=== PATIENT | male | born 1935 | race Caucasian/White ===

== ENCOUNTER 2016-10-27 09:34 | Inpatient (IN) | payer MEDICARE, BC ==
--- NOTE | 2016-10-27 09:43 | EDM.PDOC ---
ED HISTORY OF PRESENT ILLNESS - General Chief Complaint: Fever Stated Complaint: [facility] Time Seen by Provider: 10/27/16 09:36 Source of Information: Reports: Patient, EMS History Limitations: Reports: No limitations - History of Present Illness INITIAL COMMENTS - FREE TEXT/NARRATIVE: 80-year-old male from [facility] arrives in the ED per ambulance. Patient reports this morning he had fever and chills throughout the night. Teeth are almost chattering at times. He denies a cough but he sounds very congested in his lung marin. States very weak when he tried to walk around this morning. No appetite. He believes he took his morning meds. Patient has a history of neurogenic bladder and was using intermittent catheterization but states she's not had to do so for many months. Feels that he empties his bladder fairly well on his own. He did have an influenza shot. He is to keep it and tachycardic at rest.febrile on exam.his reports that he was nauseated this morning and did bring up some phlegm that seemed to have a little specks of blood in it. Symptom Onset Date: 10/27/16 (abdomen is more or less came on abruptly overnight.) Timing/Duration: Reports: Hour(s):, Sudden onset Severity: moderate Location, General: Reports: generalized Quality: Reports: Ache (generalized myalgia.) Improves with: Reports: None Worsens with: Reports: Movement Context, General: Denies: Activity, Exercise, Lifting, Sick contact, Trauma, Other Associated Symptoms (General): Reports: cough w sputum, diaphoresis, fever/ chills, loss of appetite, malaise, shortness of breath, weakness (severe and generalized. Hardly able to walk on his own volition.). Denies: no other symptoms, confusion, chest pain, headaches, nausea/vomiting, rash, seizure Treatments QUALITY ASSISTANT: Reports: Other (see below) (none) - Related Data Allergies/ADRs: Allergies Allergy/AdvReac Type Severity Reaction Status Date / Time [id number] Reductase Allergy Body Aches Verified 10/27/16 09:54 Inhibitor Home Meds: Home Meds Aspirin 81 mg PO BRK 10/27/16 [History] Cholecalciferol (Vitamin D3) [Vitamin D3] 1,000 unit PO DAILY 10/27/16 [History] Digoxin 125 mcg PO DAILY 10/27/16 [History] Ferrous Sulfate 325 mg PO DAILY 10/27/16 [History] Finasteride 5 mg PO DAILY 10/27/16 [History] Folic Acid 1 mg PO DAILY 10/27/16 [History] Levothyroxine 25 mcg PO ACBREAKFAST 10/27/16 [History] Metoprolol Tartrate 25 mg PO BID 10/27/16 [History] Mirtazapine 7.5 mg PO BEDTIME 10/27/16 [History] Multivitamin [Multivitamins] 1 cap PO DAILY 10/27/16 [History] Omeprazole 20 mg PO DAILY 10/27/16 [History] Potassium Chloride 10 meq PO DAILY 10/27/16 [History] Sennosides/Docusate Sodium [Senna Plus Tablet] 2 cap PO DAILY 10/27/16 [History] Tamsulosin [Flomax] 0.4 mg PO DAILY 10/27/16 [History] Torsemide 40 mg PO DAILY 10/27/16 [History] Vitamin B Complex [B Complex] 1 cap PO DAILY 10/27/16 [History] Warfarin [Coumadin] 5 mg PO DAILY 10/27/16 [History] Past Medical History Cardiovascular History: Reports: Afib (chronically and is on Coumadin.), CAD, Heart Failure, Heart valve replacement Respiratory History: Reports: COPD (is not use oxygen at home.) Genitourinary History: Reports: BPH, Chronic renal insuffiency, Other (see below ) (possible neurogenic bladder with repeat being to self catheterize in the past but he states that he's been able to void pretty well on his own the last several months.) Social & Family History - Living Situation & Occupation Living situation: Reports: , with spouse Occupation: retired (reports low is in low income housing in [place].) ED ROS GENERAL - Review of Systems Review Of Systems: See Below Constitutional: Reports: fever, chills, malaise, weakness, fatigue (started overnight), diaphoresis, decreased appetite HEENT: Reports: No symptoms Respiratory: Reports: shortness of breath, wheezing, cough. Denies: pleuritic chest pain, hemoptysis (not bringing up any phlegm.) Cardiovascular: Reports: Dyspnea on exertion (little bit this morning was trying to stand up.), Lightheadedness. Denies: Chest pain, Blood pressure problem, Claudication, Orthopnea, Palpitations Endocrine: Reports: fatigue GI/Abdominal: Reports: Constipation (occasional pause of constipation), Decreased appetite. Denies: Abdominal pain, Diarrhea, Distension, Flatus, Hematemesis, Hematochezia, Melena, Nausea, Stool incontinence, Vomiting : Reports: frequency, other (history of neurogenic bladder and BPH. Was self catheterizing himself up until the last few months. States has been working pretty good on its own.) Musculoskeletal: Reports: neck pain, shoulder pain, back pain, joint pain Skin: Reports: no symptoms (knees and hips.) Neurological: Reports: dizziness, difficulty walking (due to weakness this morning). Denies: paresthesia, pre-existing deficit Psychiatric: Reports: No symptoms Hematologic/Lymphatic: Reports: no symptoms Immunologic: Reports: no symptoms ED EXAM, GENERAL - Physical Exam Exam: See Below Exam Limited By: Respiratory distress (mild tachypnea at rest) General Appearance: alert, WD/WN, moderate distress, other (feels warm to palpation.) Eye Exam: bilateral eye: normal inspection Ears: normal TMs Throat/Mouth: Normal lips, Normal oropharynx. No: Normal teeth Head: atraumatic, normocephalic Neck: normal inspection, full range of motion, tender lateral (bilaterally with crepitus on exam.). No: lymphadenopathy (L), lymphadenopathy (R) Respiratory/Chest: respiratory distress (mild tachypnea), decreased breath sounds (2 both posterior lung marin to 30%.), crackles (both bases.), rhonchi ( throughout both lungs but much worse on the right anterior and posterior lung marin.). No: wheezing Cardiovascular: regular rate, rhythm, no edema, no gallop, no murmur, no rub, irregularly irregular (monitor confirms H. fibrillation with a rate of around 1: 30 to per minute.), other (well-healed midline sternotomy incision. Vaughn has a bioprosthetic aortic valve.). No: normal peripheral pulses Peripheral Pulses: 1+: posterior tibial (L), posterior tibial (R), dorsalis pedis (L), dorsalis pedis (R) GI/Abdominal: normal bowel sounds, soft, non tender, no organomegaly, distended (slightly distended in the epigastrium with tympany to percussion compatible with mild aerophagia.), abnormal bowel sounds: (a little hyperactive.), other ( questionable fullness in the lower abdomen suprapubically with dullness to percussion. Question of urinary retention. Bladder scan to be done). No: rigid , rebound, tender (Male) Exam: No hernia Back Exam: normal inspection. No: CVA tenderness (L), CVA tenderness (R) Extremities: normal inspection, normal range of motion, non-tender, no pedal edema, normal capillary refill Neurological: alert, oriented, CN II-XII intact, normal cognition Psychiatric: normal affect, normal mood Skin Exam: Warm, Dry, Intact, Normal color, No rash EKG INTERPRETATION EKG Date: 10/27/16 Time: 10:10 Rhythm: a-fib (with variable rate from 72-152 per minute.) Rate (beats/min): 143 [place]: normal P-wave: absent QRS: normal ST-T: depressed (ST depression mildly noted in V3 to V6 leads one and 2 cannot rule out ischemia. This could be rate related.) QT: normal Course - Vital Signs Last Recorded V/S: Last Vital Signs Temp 37.1 C 10/27/16 10:28 Pulse 133 H 10/27/16 09:39 Resp 19 10/27/16 09:39 BP 119/65 10/27/16 09:39 Pulse Ox 94 L 10/27/16 10:23 - Orders/Labs/Meds Orders: Active Orders 24 hr Category Date Time Status EKG Documentation Completion [RC] STAT Care 10/27/16 09:41 Active Oxygen Therapy [RC] ASDIRECTED Care 10/27/16 09:42 Active RT Aerosol Therapy [RC] ASDIRECTED Care 10/27/16 09:47 Active Chest 1V Frontal [CR] Stat Exams 10/27/16 09:41 Taken CULTURE BLOOD [BC] Stat Lab 10/27/16 09:57 Received CULTURE BLOOD [BC] Stat Lab 10/27/16 10:05 Received Levofloxacin/Dextrose 5%-Water [Levaquin in D5W 750 MG/ Med 10/27/16 10:36 Active 150 ML] 750 mg Premix Bag 1 bag IV ONETIME Sodium Chloride 0.9% [Normal Saline] 1,000 ml Med 10/27/16 09:45 Active IV ASDIRECTED Blood Culture x2 Reflex Set [OM.PC] Stat Oth 10/27/16 09:42 Ordered Medication Orders Sodium Chloride (Normal Saline) 1,000 mls @ 100 mls/hr IV ASDIRECTED RONA Last Admin: 10/27/16 10:27 Dose: 100 mls/hr Levofloxacin/Dextrose 750 mg/ (Premix) 150 mls @ 100 mls/hr IV ONETIME ONE Stop: 10/27/16 12:05 Last Admin: 10/27/16 10:48 Dose: 100 mls/hr Labs: Laboratory Tests 10/27/16 10/27/16 10/27/16 Range/Units 09:46 09:57 09:57 WBC 16.93 H (4.23-9.07) K/mm3 RBC 4.08 L (4.63-6.08) M/mm3 Hgb 12.8 L (13.7-17.5) gm/L Hct 39.0 L (40.1-51.0) % MCV 95.6 H (79.0-92.2) fl MCH 31.4 (25.7-32.2) pg MCHC 32.8 (32.2-35.5) g/dl RDW Std Deviation 47.3 H (35.1-43.9) fL Plt Count 166 (163-337) K/mm3 MPV 10.9 (9.4-12.3) fl Neutrophils % (Manual) 90 H (40-60) % Band Neutrophils % 0 (0-10) % Lymphocytes % (Manual) 6 L (20-40) % Atypical Lymphs % 0 % Monocytes % (Manual) 3 (2-10) % Eosinophils % (Manual) 1 (0.8-7.0) % Basophils % (Manual) 0 L (0.2-1.2) Platelet Estimate Adequate RBC Morph Comment Normal ESR (0-15) mm/hr PT 24.9 H (8.0-13.0) SECONDS INR 2.17 Puncture Site Lt radial ABG pH 7.45 (7.35-7.45) ABG pCO2 38.9 (35.0-45.0) mmHg ABG pO2 70.0 L (80.0-100.0) mmHg ABG HCO3 26.4 H (22.0-26.0) meq/L ABG O2 Saturation 95.5 L (96.0-97.0) % ABG Base Excess 2.7 H (-2-2.0) Alfonso Test Positive O2 Delivery Device Nasal cannula Oxygen Flow Rate 4.0 FiO2 0.00 L (21.00-100.00) % Sodium (136-145) mEq/L Potassium (3.5-5.1) mEq/L Chloride (98-107) mEq/L Carbon Dioxide (21-32) mEq/L Anion Gap (5-15) BUN (7-18) mg/dL Creatinine (0.7-1.3) mg/dL Est Cr Clr Drug Dosing mL/min Estimated GFR (MDRD) (>60) mL/min BUN/Creatinine Ratio (14-18) Glucose (83-115) mg/dL Lactic Acid (0.4-2.0) mmol/L Calcium (8.5-10.1) mg/dL Magnesium (1.8-2.4) mg/dl Total Bilirubin (0.2-1.0) mg/dL AST (15-37) U/L ALT (16-63) U/L Alkaline Phosphatase (46-116) U/L CK-MB (CK-2) (0-3.6) ng/ml Troponin I (0.00-0.056) ng/mL C-Reactive Protein (<1.0) mg/dL B-Natriuretic Peptide (0-100) pg/mL Total Protein (6.4-8.2) g/dl Albumin (3.4-5.0) g/dl Globulin gm/dL Albumin/Globulin Ratio (1-2) Urine Color (Yellow) Urine Appearance (Clear) Urine pH (5.0-8.0) Ur Specific [place]gie (1.005-1.030) Urine Protein (Negative) Urine Glucose (UA) (Negative) Urine Ketones (Negative) Urine Occult Blood (Negative) Urine Nitrite (Negative) Urine Bilirubin (Negative) Urine Urobilinogen (0.2-1.0) Ur Leukocyte Esterase (Negative) Urine RBC (0-5) /hpf Urine WBC (0-5) /hpf Ur Squamous Epith Cells (0-5) /hpf Urine Bacteria (FEW) /hpf Urine Mucus (FEW) /hpf Digoxin (0.9-2.0) ng/mL 10/27/16 10/27/16 10/27/16 Range/Units 09:57 09:57 09:57 WBC (4.23-9.07) K/mm3 RBC (4.63-6.08) M/mm3 Hgb (13.7-17.5) gm/L Hct (40.1-51.0) % MCV (79.0-92.2) fl MCH (25.7-32.2) pg MCHC (32.2-35.5) g/dl RDW Std Deviation (35.1-43.9) fL Plt Count (163-337) K/mm3 MPV (9.4-12.3) fl Neutrophils % (Manual) (40-60) % Band Neutrophils % (0-10) % Lymphocytes % (Manual) (20-40) % Atypical Lymphs % % Monocytes % (Manual) (2-10) % Eosinophils % (Manual) (0.8-7.0) % Basophils % (Manual) (0.2-1.2) Platelet Estimate RBC Morph Comment ESR 25 H (0-15) mm/hr PT (8.0-13.0) SECONDS INR Puncture Site ABG pH (7.35-7.45) ABG pCO2 (35.0-45.0) mmHg ABG pO2 (80.0-100.0) mmHg ABG HCO3 (22.0-26.0) meq/L ABG O2 Saturation (96.0-97.0) % ABG Base Excess (-2-2.0) Alfonso Test O2 Delivery Device Oxygen Flow Rate FiO2 (21.00-100.00) % Sodium 141 (136-145) mEq/L Potassium 4.2 (3.5-5.1) mEq/L Chloride 104 (98-107) mEq/L Carbon Dioxide 27 (21-32) mEq/L Anion Gap 14.2 (5-15) BUN 22 H (7-18) mg/dL Creatinine 1.5 H (0.7-1.3) mg/dL Est Cr Clr Drug Dosing 43.83 mL/min Estimated GFR (MDRD) 45 (>60) mL/min BUN/Creatinine Ratio 14.7 (14-18) Glucose 118 H (83-115) mg/dL Lactic Acid (0.4-2.0) mmol/L Calcium 8.9 (8.5-10.1) mg/dL Magnesium 1.7 L (1.8-2.4) mg/dl Total Bilirubin 0.7 (0.2-1.0) mg/dL AST 35 (15-37) U/L ALT 31 (16-63) U/L Alkaline Phosphatase 73 (46-116) U/L CK-MB (CK-2) 1.0 (0-3.6) ng/ml Troponin I 0.102 H* (0.00-0.056) ng/mL C-Reactive Protein 1.9 H* (<1.0) mg/dL B-Natriuretic Peptide 208 H (0-100) pg/mL Total Protein 6.6 (6.4-8.2) g/dl Albumin 3.3 L (3.4-5.0) g/dl Globulin 3.3 gm/dL Albumin/Globulin Ratio 1.0 (1-2) Urine Color (Yellow) Urine Appearance (Clear) Urine pH (5.0-8.0) Ur Specific [place] (1.005-1.030) Urine Protein (Negative) Urine Glucose (UA) (Negative) Urine Ketones (Negative) Urine Occult Blood (Negative) Urine Nitrite (Negative) Urine Bilirubin (Negative) Urine Urobilinogen (0.2-1.0) Ur Leukocyte Esterase (Negative) Urine RBC (0-5) /hpf Urine WBC (0-5) /hpf Ur Squamous Epith Cells (0-5) /hpf Urine Bacteria (FEW) /hpf Urine Mucus (FEW) /hpf Digoxin (0.9-2.0) ng/mL 10/27/16 10/27/16 10/27/16 Range/Units 09:57 09:57 10:11 WBC (4.23-9.07) K/mm3 RBC (4.63-6.08) M/mm3 Hgb (13.7-17.5) gm/L Hct (40.1-51.0) % MCV (79.0-92.2) fl MCH (25.7-32.2) pg MCHC (32.2-35.5) g/dl RDW Std Deviation (35.1-43.9) fL Plt Count (163-337) K/mm3 MPV (9.4-12.3) fl Neutrophils % (Manual) (40-60) % Band Neutrophils % (0-10) % Lymphocytes % (Manual) (20-40) % Atypical Lymphs % % Monocytes % (Manual) (2-10) % Eosinophils % (Manual) (0.8-7.0) % Basophils % (Manual) (0.2-1.2) Platelet Estimate RBC Morph Comment ESR (0-15) mm/hr PT (8.0-13.0) SECONDS INR Puncture Site ABG pH (7.35-7.45) ABG pCO2 (35.0-45.0) mmHg ABG pO2 (80.0-100.0) mmHg ABG HCO3 (22.0-26.0) meq/L ABG O2 Saturation (96.0-97.0) % ABG Base Excess (-2-2.0) Alfonso Test O2 Delivery Device Oxygen Flow Rate FiO2 (21.00-100.00) % Sodium (136-145) mEq/L Potassium (3.5-5.1) mEq/L Chloride (98-107) mEq/L Carbon Dioxide (21-32) mEq/L Anion Gap (5-15) BUN (7-18) mg/dL Creatinine (0.7-1.3) mg/dL Est Cr Clr Drug Dosing mL/min Estimated GFR (MDRD) (>60) mL/min BUN/Creatinine Ratio (14-18) Glucose (83-115) mg/dL Lactic Acid 2.7 H (0.4-2.0) mmol/L Calcium (8.5-10.1) mg/dL Magnesium (1.8-2.4) mg/dl Total Bilirubin (0.2-1.0) mg/dL AST (15-37) U/L ALT (16-63) U/L Alkaline Phosphatase (46-116) U/L CK-MB (CK-2) (0-3.6) ng/ml Troponin I (0.00-0.056) ng/mL C-Reactive Protein (<1.0) mg/dL B-Natriuretic Peptide (0-100) pg/mL Total Protein (6.4-8.2) g/dl Albumin (3.4-5.0) g/dl Globulin gm/dL Albumin/Globulin Ratio (1-2) Urine Color Yellow (Yellow) Urine Appearance Clear (Clear) Urine pH 5.5 (5.0-8.0) Ur Specific [place]gie 1.020 (1.005-1.030) Urine Protein Negative (Negative) Urine Glucose (UA) Negative (Negative) Urine Ketones Negative (Negative) Urine Occult Blood Negative (Negative) Urine Nitrite Negative (Negative) Urine Bilirubin Negative (Negative) Urine Urobilinogen 0.2 (0.2-1.0) Ur Leukocyte Esterase Negative (Negative) Urine RBC 0-5 (0-5) /hpf Urine WBC 0-5 (0-5) /hpf Ur Squamous Epith Cells 0-5 (0-5) /hpf Urine Bacteria Few (FEW) /hpf Urine Mucus Few (FEW) /hpf Digoxin < 0.2 L (0.9-2.0) ng/mL Meds: Medications Generic Name Dose Route Start Last Admin Trade Name Freq PRN Reason Stop Dose Admin Sodium Chloride 1,000 mls @ 100 mls/hr 10/27/16 09:45 10/27/16 10:27 Normal Saline IV 100 mls/hr ASDIRECTED RONA Administration Levofloxacin/Dextrose 750 mg/ 150 mls @ 100 mls/hr 10/27/16 10:36 10/27/16 10 :48 Premix IV 10/27/16 12:05 100 mls/hr ONETIME ONE Administration Discontinued Medications Generic Name Dose Route Start Last Admin Trade Name Freq PRN Reason Stop Dose Admin Acetaminophen 650 mg 10/27/16 09:47 10/27/16 10:28 Tylenol PO 10/27/16 09:48 650 mg NOW ONE Administration Albuterol/Ipratropium 3 ml 10/27/16 09:47 10/27/16 10:23 Duoneb 3.0-0.5 Mg/3 Ml NEB 10/27/16 09:48 3 ml ONETIME ONE Administration Diltiazem HCl 5 mg 10/27/16 09:58 10/27/16 10:31 Diltiazem IVPUSH 10/27/16 09:59 5 mg ONETIME ONE Administration Diltiazem HCl 10 mg 10/27/16 10:18 10/27/16 10:36 Diltiazem IVPUSH 10/27/16 10:19 10 mg ONETIME ONE Administration Furosemide 40 mg 10/27/16 09:58 10/27/16 10:30 Lasix IVPUSH 10/27/16 09:59 40 mg NOW ONE Administration - Radiology Interpretation Free Text/Narrative:: 80-year-old male presents the ED with acute febrile illness. Productive sounding cough with rhonchi throughout the lung marin particularly on the right side. Query pneumonia. Her influenza. Tongue is dry and beefy red compatible with mild volume depletion. Benign abdomen although question whether he is a low-grade urinary retention with dullness to percussion in the lower abdomen above suprapubic area. History of neurogenic bladder requiring intermittent catheterization for which is not been doing for several months as he feels he is draining urine adequately. Has had previous urinary tract infections. Plan a septic workup to be carried out including lactic acid as he is hypertensive tachypnea and hypoxic. Paramedics identified O2 sats of 8485% when they picked him up. He is currently on 4 L per minute by nasal cannula and is 95%. Chest x-ray ECG and blood gases to be obtained as well. IV will be started at 100 mils per hour normal saline,heart rate troubles as high as 150 per minute at times. Therefore going to give him 5 mg of Cardizem IV push and see what kind of response I get.he is on Lopressor chronically. - Re-Assessments/Exams Free Text/Narrative Re-Assessment/Exam: 10/27/16 10:19Cardizem 5 mg IV did nothing. Part is as high as 137-142. We'll give Cardizem 10 mg IV bolus now. 10/27/16 10:38chest x-ray reveals extensive pneumonia throughout the entire right lung field. Mild cardiomegaly appreciated. Blunted left costophrenic angle suggestive of fluid component to the infiltrates as well. Will start him on Levaquin 750 mg IV. The white count was 16.93. Differentials pending lactic acid elevated at 2.7.remainder of his labs are pending. Note the urinalysis is normal. 10/27/16 10:47 Heart rate is now 93. Remains in atrial fibrillation. Advised patient and family about the finding of pneumonia throughout the right lung and the need for the antibiotics and the need to stay in hospital. 10/27/16 10:57 differential on the white count which is elevated 16.93 is 90% neutrophils and no bands. Sedimentation rate is 25. PT is 24.9 INR is 2.17. ABGs revealed a pH of 7.45 PCO2 is 38.9. PO2 70 O2 sats 95.9%. This is on 4 L. Chemistry shows a sodium of 141 potassium of 4.2 chloride 104 bicarbonate of 27. Anion gap is normal at 14.2 creatinine is 1.5 he GFR is 45. Magnesium is mildly low at 1.7.troponin is mildly elevated at 0.102. CRP is 1.9 BNP is 208. His to posterior going to be followed to make sure that he has not suffered an infarct. He has no chest pain. He may have infarcted due to combination of transient hypoxia and rapid atrial fibrillation which is now controlled. 10/27/16 10:59will speak with engine emission technician hospitalist with a view to admission to the hospital. Ideally he probably should be admitted to the intensive care he but I'm not sure if there is a bed available. 10/27/16 11:16spoke with Dr. Lynn -engine emission technician hospitalist and the patient will be admitted to the intensive care unit for management. Departure - Departure Time of Disposition: 11:17 Disposition: Admitted As Inpatient 67 Condition: serious Clinical Impression: Atrial fibrillation with RVR, Elevated troponin I measurement, CHF (congestive heart failure), NYHA class III, Lactic acid acidosis, Hypomagnesemia, Chronic renal insufficiency, stage III (moderate) Pneumonia Qualifiers: Pneumonia type: due to unspecified organism Laterality: right Lung location: lower lobe of lung Qualified Code(s): J18.1 - Lobar pneumonia, unspecified organism Additional Instructions: patient will be admitted to the intensive care unit for management of extensive right-sided pneumonia causing hypoxemia and need for oxygen. He has mild lactic acidosis. Initial fibrillation with rapid ventricular rate brought under control with recurrent small doses of intravenous diltiazem. Mild congestive heart failure. Chronic renal insufficiency stage III. - My Orders Last 24 Hours: My Active Orders 10/27/16 09:41 EKG Documentation Completion [RC] STAT Chest 1V Frontal [CR] Stat 10/27/16 09:42 Oxygen Therapy [RC] ASDIRECTED Blood Culture x2 Reflex Set [OM.PC] Stat 10/27/16 09:45 Sodium Chloride 0.9% [Normal Saline] 1,000 ml IV ASDIRECTED 10/27/16 09:47 RT Aerosol Therapy [RC] ASDIRECTED 10/27/16 09:57 CULTURE BLOOD [BC] Stat 10/27/16 10:05 CULTURE BLOOD [BC] Stat 10/27/16 10:36 Levofloxacin/Dextrose 5%-Water [Levaquin in D5W 750 MG/150 ML] 750 mg Premix Bag 1 bag IV ONETIME - Assessment/Plan Last 24 Hours: My Active Orders 10/27/16 09:41 EKG Documentation Completion [RC] STAT Chest 1V Frontal [CR] Stat 10/27/16 09:42 Oxygen Therapy [RC] ASDIRECTED Blood Culture x2 Reflex Set [OM.PC] Stat 10/27/16 09:45 Sodium Chloride 0.9% [Normal Saline] 1,000 ml IV ASDIRECTED 10/27/16 09:47 RT Aerosol Therapy [RC] ASDIRECTED 10/27/16 09:57 CULTURE BLOOD [BC] Stat 10/27/16 10:05 CULTURE BLOOD [BC] Stat 10/27/16 10:36 Levofloxacin/Dextrose 5%-Water [Levaquin in D5W 750 MG/150 ML] 750 mg Premix Bag 1 bag IV ONETIME
[2016-10-27] MEDS ORDERED: Sodium Chloride 0.9% 1,000 ML IV SCH (09:45)
[2016-10-27] MEDS ORDERED: Albuterol/Ipratropium 3.0-0.5 MG/3 ML Neb Soln NEB ONE (09:47)
[2016-10-27] MEDS ORDERED: Acetaminophen 325 MG Tab PO ONE (09:47)
[2016-10-27] MEDS ORDERED: Furosemide 40 MG/4 ML VIAL IVPUSH ONE (09:58)
[2016-10-27] MEDS ORDERED: Diltiazem 25 MG/5 ML SDV IVPUSH ONE ×2 (09:58→10:18)
[2016-10-27] MEDS ORDERED: Levofloxacin/Dextrose 5%-Water 750 MG in Premix Bag 1 BAG IV ONE (10:36)
--- NOTE | 2016-10-27 11:44 | PCM.HP ---
H&P History of Present Illness - General Date of Service: 10/27/16 Admit Problem/Dx: Admission Diagnosis/Problem Admission Diagnosis/Problem Pneumonia Source of Information: Patient, Family, Old records, Provider, RN notes reviewed History Limitations: Reports: No limitations - History of Present Illness Initial Comments - Free Text/Narative: This is a 80 yo elderly white male with past medical hx/o Chronic Atrial Fibrillation on Warfarin, HTN, BPH/Urinary Retention w/ hx/o Self Cath, ?HFwith Unknown EF, JOE on CPAP, COPD, GERD, CKD Stage 3, Insomnia, Hypothyroidism, GABRIELA and GERD who comes in wioth complaints of fever and chills that started overnight. He reports associated cough with chest congestion, generalized weakness, nausea and reduced appetite. On presentation to ED, he was found tachypneic, tachycardic and febrile on initial examination. His initial work up in ED shows a CBC remarkable for WBC 16.93, Hgb 12.8, HCt 39 , and ESR 25. PT/INR 24.9 and 2.17 respectively. His chemistry is significant for BUN 22, CR 1.5, LA 2.7, BS 118, Mg 1.7, troponin 0.012, CRP 1.9, BNP 208 and Albumin 3.3. His ABG shows hypoxia with a pH 7.45 and pO2 70. His UA was negative for UTI. CXR shows right sided pulmonary consolidation. Patient was referred to me for medical treatment of PNA. He is modified full code. - Related Data Allergies/Adverse Reactions: Allergies Allergy/AdvReac Type Severity Reaction Status Date / Time [id number] Reductase Allergy Body Aches Verified 10/27/16 09:54 Inhibitor Home Medications: Home Meds Aspirin 81 mg PO BRK 10/27/16 [History] Cholecalciferol (Vitamin D3) [Vitamin D3] 1,000 unit PO DAILY 10/27/16 [History] Digoxin 125 mcg PO DAILY 10/27/16 [History] Ferrous Sulfate 325 mg PO DAILY 10/27/16 [History] Finasteride 5 mg PO DAILY 10/27/16 [History] Folic Acid 1 mg PO DAILY 10/27/16 [History] Levothyroxine 25 mcg PO ACBREAKFAST 10/27/16 [History] Metoprolol Tartrate 25 mg PO BID 10/27/16 [History] Mirtazapine 7.5 mg PO BEDTIME 10/27/16 [History] Multivitamin [Multivitamins] 1 cap PO DAILY 10/27/16 [History] Omeprazole 20 mg PO DAILY 10/27/16 [History] Potassium Chloride 10 meq PO DAILY 10/27/16 [History] Sennosides/Docusate Sodium [Senna Plus Tablet] 2 cap PO DAILY 10/27/16 [History] Tamsulosin [Flomax] 0.4 mg PO DAILY 10/27/16 [History] Torsemide 40 mg PO DAILY 10/27/16 [History] Vitamin B Complex [B Complex] 1 cap PO DAILY 10/27/16 [History] Warfarin [Coumadin] 5 mg PO DAILY 10/27/16 [History] Past Medical History HEENT History: Reports: Cataract Cardiovascular History: Reports: Afib (chronically and is on Coumadin.), CAD, Heart Failure, Heart valve replacement Respiratory History: Reports: COPD (is not use oxygen at home.) Genitourinary History: Reports: BPH, Chronic renal insuffiency, Other (see below ) (possible neurogenic bladder with repeat being to self catheterize in the past but he states that he's been able to void pretty well on his own the last several months.) - Past Surgical History HEENT Surgical History: Reports: Tonsillectomy GI Surgical History: Reports: Appendectomy, Hernia, inguinal Social & Family History - Tobacco Use Smoking Status *Q: Former Smoker - Caffeine Use Caffeine Use: Reports: Coffee - Recreational Drug Use Recreational Drug Use: No - Living Situation & Occupation Living situation: Reports: , with spouse Occupation: retired (reports low is in low income housing in [place] H&P Review of Systems - Review of Systems: Review Of Systems: See Below General: Reports: fever, chills, malaise, weakness, fatigue, diaphoresis, decreased appetite HEENT: Reports: no symptoms Pulmonary: Reports: shortness of breath, wheezing, cough Cardiovascular: Denies: chest pain, palpitations, lightheadedness, blood pressure problem Gastrointestinal: Reports: Constipation, Decreased appetite Genitourinary: Reports: frequency, retention Musculoskeletal: Reports: neck pain, shoulder pain, back pain, joint pain Skin: Denies: cyanosis, rash, change in hair/nails Psychiatric: Denies: depression, anxiety Neurological: Reports: dizziness, difficulty walking, weakness Hematologic/Lymphatic: Reports: no symptoms Immunologic: Reports: no symptoms Exam - Exam Exam: See Below - Vital Signs Vital Signs: Last Vital Signs Temp 37.1 C 10/27/16 10:28 Pulse 133 H 10/27/16 09:39 Resp 19 10/27/16 09:39 BP 119/65 10/27/16 09:39 Pulse Ox 94 L 10/27/16 10:23 Weight: 88.451 kg - Exam Quality Assessment: supplemental oxygen General: alert, cooperative. No: mild distress HEENT: Conjunctiva clear, EACs clear, Hearing intact, Mucosa moist & pink, Nares patent, Normal nasal septum, Posterior pharynx clear, PERRLA Neck: supple, trachea midline, 2+ carotid pulse wo bruit, full range of motion Lungs: Normal respiratory effort, Decreased breath sounds, Crackles, Rhonchi Cardiovascular: regular rate, regular rhythm Abdomen: normal bowel sounds. No: organomegaly (Male) Exam: Deferred Rectal (Males) Exam: Deferred Back Exam: normal inspection, decreased range of motion Extremities: normal inspection, normal pulses, edema. No: clubbing, cyanosis, calf tenderness Peripheral Pulses: 2+: dorsalis pedis (L), dorsalis pedis (R) Skin: warm, dry, intact Neuro Extensive - Mental Status: oriented x3, normal cognition, memory intact Neuro Extensive - Motor, Sensory, Reflexes: CN II-XII intact Psychiatric: alert, normal affect, normal mood - Patient Data Lab Results last 24 hrs: Laboratory Results - last 24 hr 10/27/16 10/27/16 10/27/16 Range/Units 09:46 09:57 09:57 WBC 16.93 H (4.23-9.07) K/mm3 RBC 4.08 L (4.63-6.08) M/mm3 Hgb 12.8 L (13.7-17.5) gm/L Hct 39.0 L (40.1-51.0) % MCV 95.6 H (79.0-92.2) fl MCH 31.4 (25.7-32.2) pg MCHC 32.8 (32.2-35.5) g/dl RDW Std Deviation 47.3 H (35.1-43.9) fL Plt Count 166 (163-337) K/mm3 MPV 10.9 (9.4-12.3) fl Neutrophils % (Manual) 90 H (40-60) % Band Neutrophils % 0 (0-10) % Lymphocytes % (Manual) 6 L (20-40) % Atypical Lymphs % 0 % Monocytes % (Manual) 3 (2-10) % Eosinophils % (Manual) 1 (0.8-7.0) % Basophils % (Manual) 0 L (0.2-1.2) Platelet Estimate Adequate RBC Morph Comment Normal ESR (0-15) mm/hr PT 24.9 H (8.0-13.0) SECONDS INR 2.17 Puncture Site Lt radial ABG pH 7.45 (7.35-7.45) ABG pCO2 38.9 (35.0-45.0) mmHg ABG pO2 70.0 L (80.0-100.0) mmHg ABG HCO3 26.4 H (22.0-26.0) meq/L ABG O2 Saturation 95.5 L (96.0-97.0) % ABG Base Excess 2.7 H (-2-2.0) Alfonso Test Positive O2 Delivery Device Nasal cannula Oxygen Flow Rate 4.0 FiO2 0.00 L (21.00-100.00) % Sodium (136-145) mEq/L Potassium (3.5-5.1) mEq/L Chloride (98-107) mEq/L Carbon Dioxide (21-32) mEq/L Anion Gap (5-15) BUN (7-18) mg/dL Creatinine (0.7-1.3) mg/dL Est Cr Clr Drug Dosing mL/min Estimated GFR (MDRD) (>60) mL/min BUN/Creatinine Ratio (14-18) Glucose (83-115) mg/dL Lactic Acid (0.4-2.0) mmol/L Calcium (8.5-10.1) mg/dL Magnesium (1.8-2.4) mg/dl Total Bilirubin (0.2-1.0) mg/dL AST (15-37) U/L ALT (16-63) U/L Alkaline Phosphatase (46-116) U/L CK-MB (CK-2) (0-3.6) ng/ml Troponin I (0.00-0.056) ng/mL C-Reactive Protein (<1.0) mg/dL B-Natriuretic Peptide (0-100) pg/mL Total Protein (6.4-8.2) g/dl Albumin (3.4-5.0) g/dl Globulin gm/dL Albumin/Globulin Ratio (1-2) Urine Color (Yellow) Urine Appearance (Clear) Urine pH (5.0-8.0) Ur Specific [place] (1.005-1.030) Urine Protein (Negative) Urine Glucose (UA) (Negative) Urine Ketones (Negative) Urine Occult Blood (Negative) Urine Nitrite (Negative) Urine Bilirubin (Negative) Urine Urobilinogen (0.2-1.0) Ur Leukocyte Esterase (Negative) Urine RBC (0-5) /hpf Urine WBC (0-5) /hpf Ur Squamous Epith Cells (0-5) /hpf Urine Bacteria (FEW) /hpf Urine Mucus (FEW) /hpf Digoxin (0.9-2.0) ng/mL 10/27/16 10/27/16 10/27/16 Range/Units 09:57 09:57 09:57 WBC (4.23-9.07) K/mm3 RBC (4.63-6.08) M/mm3 Hgb (13.7-17.5) gm/L Hct (40.1-51.0) % MCV (79.0-92.2) fl MCH (25.7-32.2) pg MCHC (32.2-35.5) g/dl RDW Std Deviation (35.1-43.9) fL Plt Count (163-337) K/mm3 MPV (9.4-12.3) fl Neutrophils % (Manual) (40-60) % Band Neutrophils % (0-10) % Lymphocytes % (Manual) (20-40) % Atypical Lymphs % % Monocytes % (Manual) (2-10) % Eosinophils % (Manual) (0.8-7.0) % Basophils % (Manual) (0.2-1.2) Platelet Estimate RBC Morph Comment ESR 25 H (0-15) mm/hr PT (8.0-13.0) SECONDS INR Puncture Site ABG pH (7.35-7.45) ABG pCO2 (35.0-45.0) mmHg ABG pO2 (80.0-100.0) mmHg ABG HCO3 (22.0-26.0) meq/L ABG O2 Saturation (96.0-97.0) % ABG Base Excess (-2-2.0) Alfonso Test O2 Delivery Device Oxygen Flow Rate FiO2 (21.00-100.00) % Sodium 141 (136-145) mEq/L Potassium 4.2 (3.5-5.1) mEq/L Chloride 104 (98-107) mEq/L Carbon Dioxide 27 (21-32) mEq/L Anion Gap 14.2 (5-15) BUN 22 H (7-18) mg/dL Creatinine 1.5 H (0.7-1.3) mg/dL Est Cr Clr Drug Dosing 43.83 mL/min Estimated GFR (MDRD) 45 (>60) mL/min BUN/Creatinine Ratio 14.7 (14-18) Glucose 118 H (83-115) mg/dL Lactic Acid (0.4-2.0) mmol/L Calcium 8.9 (8.5-10.1) mg/dL Magnesium 1.7 L (1.8-2.4) mg/dl Total Bilirubin 0.7 (0.2-1.0) mg/dL AST 35 (15-37) U/L ALT 31 (16-63) U/L Alkaline Phosphatase 73 (46-116) U/L CK-MB (CK-2) 1.0 (0-3.6) ng/ml Troponin I 0.102 H* (0.00-0.056) ng/mL C-Reactive Protein 1.9 H* (<1.0) mg/dL B-Natriuretic Peptide 208 H (0-100) pg/mL Total Protein 6.6 (6.4-8.2) g/dl Albumin 3.3 L (3.4-5.0) g/dl Globulin 3.3 gm/dL Albumin/Globulin Ratio 1.0 (1-2) Urine Color (Yellow) Urine Appearance (Clear) Urine pH (5.0-8.0) Ur Specific [place] (1.005-1.030) Urine Protein (Negative) Urine Glucose (UA) (Negative) Urine Ketones (Negative) Urine Occult Blood (Negative) Urine Nitrite (Negative) Urine Bilirubin (Negative) Urine Urobilinogen (0.2-1.0) Ur Leukocyte Esterase (Negative) Urine RBC (0-5) /hpf Urine WBC (0-5) /hpf Ur Squamous Epith Cells (0-5) /hpf Urine Bacteria (FEW) /hpf Urine Mucus (FEW) /hpf Digoxin (0.9-2.0) ng/mL 10/27/16 10/27/16 10/27/16 Range/Units 09:57 09:57 10:11 WBC (4.23-9.07) K/mm3 RBC (4.63-6.08) M/mm3 Hgb (13.7-17.5) gm/L Hct (40.1-51.0) % MCV (79.0-92.2) fl MCH (25.7-32.2) pg MCHC (32.2-35.5) g/dl RDW Std Deviation (35.1-43.9) fL Plt Count (163-337) K/mm3 MPV (9.4-12.3) fl Neutrophils % (Manual) (40-60) % Band Neutrophils % (0-10) % Lymphocytes % (Manual) (20-40) % Atypical Lymphs % % Monocytes % (Manual) (2-10) % Eosinophils % (Manual) (0.8-7.0) % Basophils % (Manual) (0.2-1.2) Platelet Estimate RBC Morph Comment ESR (0-15) mm/hr PT (8.0-13.0) SECONDS INR Puncture Site ABG pH (7.35-7.45) ABG pCO2 (35.0-45.0) mmHg ABG pO2 (80.0-100.0) mmHg ABG HCO3 (22.0-26.0) meq/L ABG O2 Saturation (96.0-97.0) % ABG Base Excess (-2-2.0) Alfonso Test O2 Delivery Device Oxygen Flow Rate FiO2 (21.00-100.00) % Sodium (136-145) mEq/L Potassium (3.5-5.1) mEq/L Chloride (98-107) mEq/L Carbon Dioxide (21-32) mEq/L Anion Gap (5-15) BUN (7-18) mg/dL Creatinine (0.7-1.3) mg/dL Est Cr Clr Drug Dosing mL/min Estimated GFR (MDRD) (>60) mL/min BUN/Creatinine Ratio (14-18) Glucose (83-115) mg/dL Lactic Acid 2.7 H (0.4-2.0) mmol/L Calcium (8.5-10.1) mg/dL Magnesium (1.8-2.4) mg/dl Total Bilirubin (0.2-1.0) mg/dL AST (15-37) U/L ALT (16-63) U/L Alkaline Phosphatase (46-116) U/L CK-MB (CK-2) (0-3.6) ng/ml Troponin I (0.00-0.056) ng/mL C-Reactive Protein (<1.0) mg/dL B-Natriuretic Peptide (0-100) pg/mL Total Protein (6.4-8.2) g/dl Albumin (3.4-5.0) g/dl Globulin gm/dL Albumin/Globulin Ratio (1-2) Urine Color Yellow (Yellow) Urine Appearance Clear (Clear) Urine pH 5.5 (5.0-8.0) Ur Specific [place] 1.020 (1.005-1.030) Urine Protein Negative (Negative) Urine Glucose (UA) Negative (Negative) Urine Ketones Negative (Negative) Urine Occult Blood Negative (Negative) Urine Nitrite Negative (Negative) Urine Bilirubin Negative (Negative) Urine Urobilinogen 0.2 (0.2-1.0) Ur Leukocyte Esterase Negative (Negative) Urine RBC 0-5 (0-5) /hpf Urine WBC 0-5 (0-5) /hpf Ur Squamous Epith Cells 0-5 (0-5) /hpf Urine Bacteria Few (FEW) /hpf Urine Mucus Few (FEW) /hpf Digoxin < 0.2 L (0.9-2.0) ng/mL Result Diagrams: 10/27/16 09:57 10/27/16 09:57 Obey Results last 24 hrs: Microbiology 10/27/16 10:05 Influenza Type A Antigen Screen - Final Nasopharyngeal Swab - Nare, Unspecified NEGATIVE INFLUENZA A VIRUS AG Influenza Type B Antigen Screen - Final NEGATIVE INFLUENZA B VIRUS AG EKG INTERPRETATION EKG Date: 10/27/16 Time: 09:10 Rhythm: a-fib (with RVR) Rate (beats/min): 143 ST-T: depressed (mild) *Q Meaningful Use (ADM) - VTE *Q VTE Criteria *Q: - Stroke *Q Stroke Criteria *Q: - AMI *Q AMI Criteria *Q: Problem List Initiated/Reviewed/Updated: Yes Orders Last 24hrs: Active Orders 24 hr Category Date Time Status Admission Status [Patient Status] [ADT] Routine ADT 10/27/16 11:15 Active EKG Documentation Completion [RC] STAT Care 10/27/16 09:41 Active Oxygen Therapy [RC] ASDIRECTED Care 10/27/16 09:42 Active RT Aerosol Therapy [RC] ASDIRECTED Care 10/27/16 09:47 Active Chest 1V Frontal [CR] Stat Exams 10/27/16 09:41 Taken CULTURE BLOOD [BC] Stat Lab 10/27/16 09:57 Received CULTURE BLOOD [BC] Stat Lab 10/27/16 10:05 Received Levofloxacin/Dextrose 5%-Water [Levaquin in D5W 750 MG/ Med 10/27/16 10:36 Active 150 ML] 750 mg Premix Bag 1 bag IV ONETIME Sodium Chloride 0.9% [Normal Saline] 1,000 ml Med 10/27/16 09:45 Active IV ASDIRECTED Blood Culture x2 Reflex Set [OM.PC] Stat Oth 10/27/16 09:42 Ordered Medication Orders Sodium Chloride (Normal Saline) 1,000 mls @ 100 mls/hr IV ASDIRECTED RONA Last Admin: 10/27/16 10:27 Dose: 100 mls/hr Levofloxacin/Dextrose 750 mg/ (Premix) 150 mls @ 100 mls/hr IV ONETIME ONE Stop: 10/27/16 12:05 Last Admin: 10/27/16 10:48 Dose: 100 mls/hr Assessment/Plan Comment:: Assessment/Plan: Acute: Sepsis 2/2 CAP - Elevated LA - Pending Blood Cx - Supportive Care and IVF CAP-Right Lung - Risk factor: GERD - IV ATB: Levaquin and Zosyn - Supplemental O2, Bronchodilators, Decongestant/Expectorant, Routine RT Care - Aspiration Precautions - Sputum Cx, Mycoplasma and Strep test - Serial CXR Leukocytosis - 2/2 Above - Treat underlying cause Lactic Acidosis - Currently 2.7 - 2/2 Sepsis - Will repeat later today Elevated Troponin Level w/ Normal CKMB - Likely from Demand Ischemia - He was A-Fib RVR on presentation to ED +/- Sepsis - He is already on ASA, CCB and Warfarin - He is intolerant to statin - CE x 1 in AM S/p Atrial Fibrillation w/ RVR - After getting 15 mg of Cardizem IVP in ED, HR is now controlled - Continue rate control home med and Warfarin for stroke ppx Chronic: HTN BPH/Urinary Retention w/ hx/o Self Cath HF with Unknown EF JOE on CPAP COPD GERD CKD Stage 3 Chronic Renal Insufficiency Insomnia Hypothyroidism GABRIELA GERD Plan: Admit to ICU High Sepsis Risk w/ considerably elevated LA Routine AM Labs Resume Home Meds CPAP QHS PT/OT consult SW/CM for d/c planning Code status: ACLS only Additional orders as above
[2016-10-27] MEDS ORDERED: Acetaminophen 325 MG Tab PO PRN (12:12)
[2016-10-27] MEDS ORDERED: HYDROmorphone 1 MG/ML Syringe IVPUSH PRN (12:12)
[2016-10-27] MEDS ORDERED: Polyethylene Glycol 3350 Powder 17 GM Packet PO PRN (12:12)
[2016-10-27] MEDS ORDERED: Ondansetron 4 MG/2 ML SDV IV PRN (12:12)
[2016-10-27] MEDS ORDERED: LORazepam 2 MG/ML MDV IV PRN (12:12)
[2016-10-27] MEDS ORDERED: Acetaminophen/HYDROcodone 325-5 MG Tab PO PRN (12:12)
[2016-10-27] MEDS ORDERED: Promethazine 12.5 MG in Sodium Chloride 0.9% 50 ML IV PRN (12:12)
[2016-10-27] MEDS ORDERED: Bisacodyl 5 MG Tab PO PRN (12:12)
[2016-10-27] MEDS ORDERED: Albuterol/Ipratropium 3.0-0.5 MG/3 ML Neb Soln NEB PRN (12:12)
[2016-10-27] MEDS ORDERED: Piperacillin/Tazobactam 4.5 GM in Sodium Chloride 0.9% 100 ML IV ONE (13:00)
[2016-10-27] MEDS ORDERED: Bismuth Subsalicylate 262 MG/15 ML Susp 236 ML Bottle PO PRN (13:47)
[2016-10-27] MEDS ORDERED: Calcium Carbonate 500 MG Tab.Chew PO PRN (15:10)
[2016-10-27] MEDS: guaiFENesin/Dextromethorphan 100-10 MG/5 ML Soln 5 ML Cup PO SCH ×4 (15:15→21:02)
[2016-10-27] MEDS: Saccharomyces Boulardii (Probiotic) 250 MG Cap PO SCH ×2 (15:15→20:58)
[2016-10-27] MEDS: Aspirin 81 MG Tab.Chew PO SCH (15:17)
[2016-10-27] MEDS ORDERED: Magnesium Sulfate/Water 2 GM in Premix Bag 1 BAG IV ONE (17:15)
[2016-10-27] MEDS: Warfarin 5 MG Tab PO SCH (18:17)
[2016-10-27] MEDS ORDERED: Sodium Chloride 0.9% 250 ML IV SCH (20:45)
[2016-10-27] MEDS: Metoprolol Tartrate 50 MG Tab PO SCH (20:59)
[2016-10-27] MEDS: Mirtazapine 15 MG Tab PO SCH (20:59)
[2016-10-27] MEDS: Piperacillin/Tazobactam 4.5 GM in Sodium Chloride 0.9% 100 ML IV SCH (20:59)
[2016-10-27] MEDS: Sodium Chloride 0.9% 1,000 ML IV SCH (23:56)
[2016-10-28] MEDS: guaiFENesin/Dextromethorphan 100-10 MG/5 ML Soln 5 ML Cup PO SCH ×5 (06:23→21:44)
[2016-10-28] MEDS: Aspirin 81 MG Tab.Chew PO SCH (06:23)
[2016-10-28] MEDS: Piperacillin/Tazobactam 4.5 GM in Sodium Chloride 0.9% 100 ML IV SCH ×2 (06:23→13:35)
[2016-10-28] MEDS: Levothyroxine 25 MCG Tab PO SCH (06:23)
--- NOTE | 2016-10-28 07:15 | CR ---
Chest: Portable view of the chest was obtained. Comparison: No previous chest x-ray. Area of consolidation seen within the right lung. Left lung felt to be clear with some increased density felt compatible with pleural thickening due to old healed rib fractures. Heart size appears within normal limits for portable technique. 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 Mild tortuosity of the thoracic aorta is seen. Impression: 1. Consolidation within a large portion of the right lung. Findings presumably due to pneumonia. Please correlate. 2. Other incidental findings as described above. Diagnostic code #3
--- NOTE | 2016-10-28 08:41 | PCM.PN ---
- General Info Date of Service: 10/28/16 Admission Dx/Problem (Free Text): Admission Diagnosis/Problem Admission Diagnosis/Problem Pneumonia Functional Status: Reports: pain controlled, tolerating diet, urinating. Denies : new symptoms - Review of Systems General: Denies: fever, weakness, fatigue, malaise HEENT: Reports: no symptoms Pulmonary: Denies: shortness of breath Cardiovascular: Denies: chest pain Gastrointestinal: Denies: Abdominal pain, Nausea, Vomiting Genitourinary: Reports: no symptoms Musculoskeletal: Reports: no symptoms Skin: Denies: cyanosis, pallor, pruritis Neurological: Denies: dizziness, difficulty walking, weakness, gait disturbance Psychiatric: Denies: depression, anxiety - Patient Data Vitals - most recent: Last Vital Signs Temp 36.6 C 10/28/16 04:00 Pulse 106 H 10/27/16 20:59 Resp 20 10/28/16 04:00 BP 112/72 10/28/16 04:00 Pulse Ox 100 10/28/16 04:00 Weight - most recent: 91.308 kg I&O - last 24 hours: Intake & Output 10/27/16 10/28/16 10/28/16 22:59 06:59 14:59 Intake Total 775 1485 Output Total 450 450 Balance 325 1035 Lab Results last 24 hrs: Laboratory Results - last 24 hr 10/27/16 10/27/16 10/27/16 Range/Units 14:00 14:00 20:05 WBC (4.23-9.07) K/mm3 RBC (4.63-6.08) M/mm3 Hgb (13.7-17.5) gm/L Hct (40.1-51.0) % MCV (79.0-92.2) fl MCH (25.7-32.2) pg MCHC (32.2-35.5) g/dl RDW Std Deviation (35.1-43.9) fL Plt Count (163-337) K/mm3 MPV (9.4-12.3) fl Neut % (Auto) (34.0-67.9) % Lymph % (Auto) (21.8-53.1) % [place] % (Auto) (5.3-12.2) % Eos % (Auto) (0.8-7.0) Baso % (Auto) (0.1-1.2) % Neut # (1.78-5.38) K/mm3 Lymph # (1.32-3.57) K/mm3 [place] # (0.30-0.82) K/mm3 Eos # (0.04-0.54) K/mm3 Baso # (0.01-0.08) K/mm3 PT (8.0-13.0) SECONDS INR Sodium (136-145) mEq/L Potassium (3.5-5.1) mEq/L Chloride (98-107) mEq/L Carbon Dioxide (21-32) mEq/L Anion Gap (5-15) BUN (7-18) mg/dL Creatinine (0.7-1.3) mg/dL Est Cr Clr Drug Dosing mL/min Estimated GFR (MDRD) (>60) mL/min BUN/Creatinine Ratio (14-18) Glucose (83-115) mg/dL Lactic Acid 3.2 H 1.3 (0.4-2.0) mmol/L Calcium (8.5-10.1) mg/dL Magnesium (1.8-2.4) mg/dl CK-MB (CK-2) (0-3.6) ng/ml Troponin I (0.00-0.056) ng/mL C-Reactive Protein (<1.0) mg/dL Mycoplasma pneumon IgM Negative (NEGATIVE) 10/27/16 10/28/16 10/28/16 Range/Units 23:17 04:25 04:25 WBC 7.89 (4.23-9.07) K/mm3 RBC 3.68 L (4.63-6.08) M/mm3 Hgb 11.6 L (13.7-17.5) gm/L Hct 35.8 L (40.1-51.0) % MCV 97.3 H (79.0-92.2) fl MCH 31.5 (25.7-32.2) pg MCHC 32.4 (32.2-35.5) g/dl RDW Std Deviation 49.0 H (35.1-43.9) fL Plt Count 125 L (163-337) K/mm3 MPV 10.8 (9.4-12.3) fl Neut % (Auto) 77.3 H (34.0-67.9) % Lymph % (Auto) 11.3 L (21.8-53.1) % [place] % (Auto) 10.1 (5.3-12.2) % Eos % (Auto) 0.8 (0.8-7.0) Baso % (Auto) 0.4 (0.1-1.2) % Neut # 6.10 H (1.78-5.38) K/mm3 Lymph # 0.89 L (1.32-3.57) K/mm3 [place] # 0.80 (0.30-0.82) K/mm3 Eos # 0.06 (0.04-0.54) K/mm3 Baso # 0.03 (0.01-0.08) K/mm3 PT 24.7 H (8.0-13.0) SECONDS INR 2.16 Sodium (136-145) mEq/L Potassium (3.5-5.1) mEq/L Chloride (98-107) mEq/L Carbon Dioxide (21-32) mEq/L Anion Gap (5-15) BUN (7-18) mg/dL Creatinine (0.7-1.3) mg/dL Est Cr Clr Drug Dosing mL/min Estimated GFR (MDRD) (>60) mL/min BUN/Creatinine Ratio (14-18) Glucose (83-115) mg/dL Lactic Acid 0.8 (0.4-2.0) mmol/L Calcium (8.5-10.1) mg/dL Magnesium (1.8-2.4) mg/dl CK-MB (CK-2) (0-3.6) ng/ml Troponin I (0.00-0.056) ng/mL C-Reactive Protein (<1.0) mg/dL Mycoplasma pneumon IgM (NEGATIVE) 10/28/16 Range/Units 04:25 WBC (4.23-9.07) K/mm3 RBC (4.63-6.08) M/mm3 Hgb (13.7-17.5) gm/L Hct (40.1-51.0) % MCV (79.0-92.2) fl MCH (25.7-32.2) pg MCHC (32.2-35.5) g/dl RDW Std Deviation (35.1-43.9) fL Plt Count (163-337) K/mm3 MPV (9.4-12.3) fl Neut % (Auto) (34.0-67.9) % Lymph % (Auto) (21.8-53.1) % [place] % (Auto) (5.3-12.2) % Eos % (Auto) (0.8-7.0) Baso % (Auto) (0.1-1.2) % Neut # (1.78-5.38) K/mm3 Lymph # (1.32-3.57) K/mm3 [place] # (0.30-0.82) K/mm3 Eos # (0.04-0.54) K/mm3 Baso # (0.01-0.08) K/mm3 PT (8.0-13.0) SECONDS INR Sodium 142 (136-145) mEq/L Potassium 4.1 (3.5-5.1) mEq/L Chloride 108 H (98-107) mEq/L Carbon Dioxide 27 (21-32) mEq/L Anion Gap 11.1 (5-15) BUN 21 H (7-18) mg/dL Creatinine 1.3 (0.7-1.3) mg/dL Est Cr Clr Drug Dosing 50.57 mL/min Estimated GFR (MDRD) 53 (>60) mL/min BUN/Creatinine Ratio 16.2 (14-18) Glucose 114 (83-115) mg/dL Lactic Acid (0.4-2.0) mmol/L Calcium 8.5 (8.5-10.1) mg/dL Magnesium 2.4 (1.8-2.4) mg/dl CK-MB (CK-2) 2.5 (0-3.6) ng/ml Troponin I 0.826 H* (0.00-0.056) ng/mL C-Reactive Protein 13.6 H* (<1.0) mg/dL Mycoplasma pneumon IgM (NEGATIVE) Med Orders - Current: Current Medications Acetaminophen (Tylenol) 650 mg PO Q4H PRN PRN Reason: Pain (Mild 1-3)/fever Acetaminophen/Hydrocodone Bitart ([place] 325-5 Mg) 1 tab PO Q4H PRN PRN Reason: Pain (moderate 4-6) Albuterol/Ipratropium (Duoneb 3.0-0.5 Mg/3 Ml) 3 ml NEB Q4H PRN PRN Reason: Shortness Of Breath/wheezing Aspirin (Aspirin) 81 mg PO BRK [facility] Last Admin: 10/28/16 06:23 Dose: 81 mg Bisacodyl (Dulcolax) 5 mg PO DAILY PRN PRN Reason: Constipation Bismuth Subsalicylate (Pepto Bismol) 30 ml PO Q6HR PRN PRN Reason: Indigestion Calcium Carbonate/Glycine (Tums) 500 mg PO Q2HR PRN PRN Reason: Indigestion Cholecalciferol (Vitamin D3) 1,000 units PO DAILY [facility] Digoxin (Lanoxin) 125 mcg PO DAILY@1300 [facility] Ferrous Sulfate (Ferrous Sulfate) 325 mg PO DAILY [facility] Finasteride (Proscar) 5 mg PO DAILY [facility] Folic Acid (Folic Acid) 1 mg PO DAILY [facility] Guaifenesin/Phenylephrine HCl (Robitussin Dm) 10 ml PO Q4HWA [facility] Last Admin: 10/28/16 06:23 Dose: 10 ml Hydromorphone HCl (Dilaudid) 0.25 mg IVPUSH Q2H PRN PRN Reason: Pain (severe 7-10) Sodium Chloride (Normal Saline) 1,000 mls @ 999 mls/hr IV ASDIRECTED [facility] Last Infusion: 10/27/16 20:27 Dose: Infused Levofloxacin/Dextrose 750 mg/ (Premix) 150 mls @ 100 mls/hr IV Q48H [facility] Promethazine HCl 12.5 mg/ (Sodium Chloride) 50.5 mls @ 100 mls/hr IV Q6H PRN PRN Reason: Nausea/Vomiting Piperacillin Sod/Tazobactam (Sod 4.5 gm/ Sodium Chloride) 100 mls @ 25 mls/hr IV Q8H [facility] Last Admin: 10/28/16 06:23 Dose: 25 mls/hr Sodium Chloride (Normal Saline) 1,000 mls @ 125 mls/hr IV ASDIRECTED [facility] Last Admin: 10/27/16 23:56 Dose: 125 mls/hr Sodium Chloride (Normal Saline) 250 mls @ 999 mls/hr IV ASDIRECTED [facility] Last Admin: 10/27/16 21:06 Dose: 999 mls/hr Levothyroxine Sodium (Levothyroxine) 25 mcg PO ACBREAKFAST [facility] Last Admin: 10/28/16 06:23 Dose: 25 mcg Lorazepam (Ativan) 0.5 mg IV Q6H PRN PRN Reason: Anxiety Magnesium Sulfate (Pharmacy To Dose - Magnesium Replacement) 1 dose .XX ASDIRECTED [facility] Metoprolol Tartrate (Lopressor) 25 mg PO BID [facility] Last Admin: 10/27/16 20:59 Dose: 25 mg Mirtazapine (Remeron) 7.5 mg PO BEDTIME [facility] Last Admin: 10/27/16 20:59 Dose: 7.5 mg Multivitamins (Thera) 1 each PO DAILY [facility] Ondansetron HCl (Zofran) 4 mg IV Q6H PRN PRN Reason: Nausea/Vomiting Pantoprazole Sodium (Protonix) 40 mg PO DAILY [facility] Polyethylene Glycol (Miralax) 17 gm PO DAILY PRN PRN Reason: Constipation Potassium Chloride (Klor-Con 10) 10 meq PO DAILY [facility] Saccharomyces Boulardii (Florastor) 250 mg PO TID [facility] Last Admin: 10/27/16 20:58 Dose: 250 mg Senna/Docusate Sodium (Senna Plus) 1 tab PO BID PRN PRN Reason: Constipation Senna/Docusate Sodium (Senna Plus) 2 tab PO DAILY [facility] Tamsulosin HCl (Flomax) 0.4 mg PO DAILY [facility] Torsemide (Demadex) 40 mg PO DAILY [facility] Vitamin B Complex/Vitamin C (Super B With Vitamin C) 1 cap PO DAILY [facility] Warfarin Sodium (Coumadin) 5 mg PO DAILY@1700 [facility] Last Admin: 10/27/16 18:17 Dose: 5 mg Discontinued Medications Acetaminophen (Tylenol) 650 mg PO NOW ONE Stop: 10/27/16 09:48 Last Admin: 10/27/16 10:28 Dose: 650 mg Albuterol/Ipratropium (Duoneb 3.0-0.5 Mg/3 Ml) 3 ml NEB ONETIME ONE Stop: 10/27/16 09:48 Last Admin: 10/27/16 10:23 Dose: 3 ml Diltiazem HCl (Diltiazem) 5 mg IVPUSH ONETIME ONE Stop: 10/27/16 09:59 Last Admin: 10/27/16 10:31 Dose: 5 mg Diltiazem HCl (Diltiazem) 10 mg IVPUSH ONETIME ONE Stop: 10/27/16 10:19 Last Admin: 10/27/16 10:36 Dose: 10 mg Furosemide (Lasix) 40 mg IVPUSH NOW ONE Stop: 10/27/16 09:59 Last Admin: 10/27/16 10:30 Dose: 40 mg Levofloxacin/Dextrose 750 mg/ (Premix) 150 mls @ 100 mls/hr IV ONETIME ONE Stop: 10/27/16 12:05 Last Admin: 10/27/16 10:48 Dose: 100 mls/hr Piperacillin Sod/Tazobactam (Sod 4.5 gm/ Sodium Chloride) 100 mls @ 200 mls/hr IV ONETIME ONE Stop: 10/27/16 13:29 Last Admin: 10/27/16 15:15 Dose: 200 mls/hr Magnesium Sulfate 2 gm/ Premix 50 mls @ 25 mls/hr IV ONETIME ONE Stop: 10/27/16 19:14 Last Admin: 10/27/16 18:18 Dose: 25 mls/hr - Exam Quality Assessment: No: supplemental oxygen General: alert, cooperative, no acute distress HEENT: Pupils equal, Pupils reactive, EOMI, Mucous membr. moist/pink Neck: supple, trachea midline, no JVD Lungs: Normal respiratory effort, Decreased breath sounds, Rales, Rhonchi Cardiovascular: irregular rhythm, other (irregular rate ) Abdomen: bowel sounds present, soft, no tenderness, no distension (Male) Exam: Deferred Back Exam: normal inspection, decreased range of motion Extremities: no edema, normal pulses, no tenderness/swelling, no clubbing, no cyanosis, no calf tenderness Peripheral Pulses: 2+: dorsalis pedis (L), dorsalis pedis (R) Skin: warm, dry, intact Neurological: no new focal deficit Psy/Mental Status: alert, normal affect, normal mood - Problem List Review Problem List Initiated/Reviewed/Updated: Yes - My Orders Last 24 Hours: My Active Orders 10/27/16 10:10 STREP PNEUMONIAE ANTIGEN [MREF] Stat 10/27/16 12:12 Up With Assistance [RC] ASDIRECTED Acetaminophen [Tylenol] 650 mg PO Q4H PRN Acetaminophen/HYDROcodone [[place] 325-5 MG] 1 tab PO Q4H PRN Albuterol/Ipratropium [DuoNeb 3.0-0.5 MG/3 ML] 3 ml NEB Q4H PRN Bisacodyl [Dulcolax] 5 mg PO DAILY PRN Docusate Sodium/Sennosides [Senna Plus] 1 tab PO BID PRN HYDROmorphone [Dilaudid] 0.25 mg IVPUSH Q2H PRN LORazepam [Ativan] 0.5 mg IV Q6H PRN Ondansetron [Zofran] 4 mg IV Q6H PRN Polyethylene Glycol 3350 [MiraLAX] 17 gm PO DAILY PRN Promethazine [Phenergan] 12.5 mg Sodium Chloride 0.9% [Normal Saline] 50 ml IV Q6H Resuscitation Status Routine 10/27/16 12:13 Oxygen Therapy [RC] PRN VTE/DVT Education [RC] , Vital Signs [RC] 00,04,08,12,16,20 10/27/16 12:16 Cardiac Monitoring [RC] CONTINUOUS Intake and Output [RC] 04,16 10/27/16 12:17 RT Aerosol Therapy [RC] ASDIRECTED 10/27/16 12:19 Consult to Case Management [CONS] Routine Consult to Bar Machine Operator Multiple Spindle [CONS] Routine Consult to Spiritual Care [CONS] Routine OT Evaluation and Treatment [CONS] Routine PT Evaluation and Treatment [CONS] Routine Respiratory Care Assess and Treatment [CONS] Routine 10/27/16 12:21 Incentive Spirometry [RT Incentive Spirometry] [RC] ASDIRECTED 10/27/16 12:30 Aspirin 81 mg PO BRK Dextromethorphan/guaiFENesin [Robitussin DM] 10 ml PO Q4HWA 10/27/16 13:47 Bismuth Subsalicylate [Pepto Bismol] 30 ml PO Q6HR PRN 10/27/16 15:00 Saccharomyces Boulardii [Florastor] 250 mg PO TID 10/27/16 15:10 Calcium Carbonate [Tums] 500 mg PO Q2HR PRN 10/27/16 17:00 Warfarin [Coumadin] 5 mg PO DAILY@1700 10/27/16 17:15 Magnesium Rep Pharmacy to Dose [Pharmacy to Dose - Magnesium Replacement] 1 dose .XX ASDIRECTED 10/27/16 20:30 Sodium Chloride 0.9% [Normal Saline] 1,000 ml IV ASDIRECTED 10/27/16 20:45 Sodium Chloride 0.9% [Normal Saline] 250 ml IV ASDIRECTED 10/27/16 21:00 Metoprolol Tartrate [Lopressor] 25 mg PO BID Mirtazapine [Remeron] 7.5 mg PO BEDTIME Piperacillin/Tazobactam [Zosyn] 4.5 gm Sodium Chloride 0.9% [Normal Saline] 100 ml IV Q8H 10/27/16 Dinner Heart Healthy Diet [DIET] 10/27/16 Lunch 2 Gram Sodium Diet [DIET] 10/28/16 06:00 Levothyroxine 25 mcg PO ACBREAKFAST 10/28/16 07:00 Echo Comp wo Cont [US] 0700 10/28/16 09:00 Cholecalciferol (Vitamin D3) [Vitamin D3] 1,000 units PO DAILY Docusate Sodium/Sennosides [Senna Plus] 2 tab PO DAILY Ferrous Sulfate 325 mg PO DAILY Finasteride [Proscar] 5 mg PO DAILY Folic Acid 1 mg PO DAILY Multivitamins,Therapeutic [Thera] 1 each PO DAILY Pantoprazole [Protonix] 40 mg PO DAILY Potassium Chloride [Klor-Con 10] 10 meq PO DAILY Tamsulosin [Flomax] 0.4 mg PO DAILY Torsemide [Demadex] 40 mg PO DAILY Vitamin B Complex with C [Super B With Vitamin C] 1 cap PO DAILY 10/28/16 13:00 Digoxin [Lanoxin] 125 mcg PO DAILY@1300 10/29/16 05:11 Chest 2V [CR] AM BASIC METABOLIC PANEL,BMP [CHEM] AM C-REACTIVE PROTEIN [CHEM] AM CBC WITH AUTO DIFF [HEME] AM INR,PT,PROTHROMBIN TIME [COAG] AM MAGNESIUM [CHEM] AM 10/29/16 11:00 Levofloxacin/Dextrose 5%-Water [Levaquin in D5W 750 MG/150 ML] 750 mg Premix Bag 1 bag IV Q48H 10/30/16 05:11 BASIC METABOLIC PANEL,BMP [CHEM] AM C-REACTIVE PROTEIN [CHEM] AM CBC WITH AUTO DIFF [HEME] AM INR,PT,PROTHROMBIN TIME [COAG] AM MAGNESIUM [CHEM] AM 10/31/16 05:11 BASIC METABOLIC PANEL,BMP [CHEM] AM C-REACTIVE PROTEIN [CHEM] AM CBC WITH AUTO DIFF [HEME] AM INR,PT,PROTHROMBIN TIME [COAG] AM MAGNESIUM [CHEM] AM 11/01/16 05:11 BASIC METABOLIC PANEL,BMP [CHEM] AM C-REACTIVE PROTEIN [CHEM] AM CBC WITH AUTO DIFF [HEME] AM INR,PT,PROTHROMBIN TIME [COAG] AM - Plan Plan:: Assessment/Plan: Acute: CAP-Right Lung - Risk factor: GERD - Continue IV ATB: Levaquin and Zosyn - Supplemental O2, Bronchodilators, Decongestant/Expectorant, Routine RT Care - Aspiration Precautions - Sputum Cx and Strep test - Mycoplasma test is negative - CRP 1.9 ---> 13.6 - Follow up CXR in am Elevated Troponin Level w/ Normal CKMB - Likely from Demand Ischemia - He was A-Fib RVR on presentation to ED +/- Sepsis - He is already on ASA, CCB and Warfarin - He is intolerant to statin - CE x1: Toponin 0.826 and 2.5 CKMB Therapeutic INR - INR 2.14 - Continue warfarin dose Resolved: S/p Atrial Fibrillation w/ RVR - After getting 15 mg of Cardizem IVP in ED, HR is now controlled - Continue rate control home med and Warfarin for stroke ppx S/p Sepsis 2/2 CAP, Significant improve - Elevated LA, resolved - Blood Cx: negative for 24 hrs - Continue Supportive Care and IVF S/p Leukocytosis - WBC 16K ---> 7K - 2/2 Above - Treat underlying cause S/p Lactic Acidosis - Currently 2.7--> 0.8 - 2/2 Sepsis Chronic: Chronic Atrial Fibrillation, HR controlled HTN BPH/Urinary Retention w/ hx/o Self Cath HF with Unknown EF JOE on CPAP COPD GERD, on PPI CKD Stage 3 Chronic Renal Insufficiency Insomnia Hypothyroidism GABRIELA GERD Plan: He has significantly improved Transfer to Med-Surg Routine AM Labs Continue CPAP QHS and PT/OT SW/CM for d/c planning Code status: ACLS only Additional orders as above
[2016-10-28] MEDS: Sodium Chloride 0.9% 1,000 ML IV SCH (09:32)
[2016-10-28] MEDS: Multivitamins,Therapeutic Tab PO SCH (09:34)
[2016-10-28] MEDS: Torsemide 20 MG Tab PO SCH (09:34)
[2016-10-28] MEDS: Potassium Chloride 10 MEQ Tab.ER PO SCH (09:34)
[2016-10-28] MEDS: Vitamin B Complex With Vitamin C Cap PO SCH (09:34)
[2016-10-28] MEDS: Tamsulosin 0.4 MG Cap.ER PO SCH (09:34)
[2016-10-28] MEDS: Pantoprazole 40 MG Tab.CR PO SCH (09:34)
[2016-10-28] MEDS: Finasteride 5 MG Tab PO SCH (09:35)
[2016-10-28] MEDS: Metoprolol Tartrate 50 MG Tab PO SCH ×2 (09:35→21:39)
[2016-10-28] MEDS: Folic Acid 1 MG Tab PO SCH (09:35)
[2016-10-28] MEDS: Ferrous Sulfate 325 MG Tab PO SCH (09:35)
[2016-10-28] MEDS: Cholecalciferol (Vitamin D3) 1,000 Unit Tab PO SCH (09:36)
[2016-10-28] MEDS: Saccharomyces Boulardii (Probiotic) 250 MG Cap PO SCH ×2 (10:09→21:42)
[2016-10-28] MEDS ORDERED: Digoxin 125 MCG Tab PO SCH (13:00)
[2016-10-28] MEDS: Warfarin 5 MG Tab PO SCH (17:31)
[2016-10-28] MEDS: Mirtazapine 15 MG Tab PO SCH (21:41)
[2016-10-28] MEDS ORDERED: Metoprolol Tartrate 5 MG/5 ML SDV IVPUSH PRN ×2 (21:49→22:22)
[2016-10-28] MEDS ORDERED: hydrALAZINE 20 MG/ML SDV IVPUSH PRN (22:22)
[2016-10-29] MEDS: Levothyroxine 25 MCG Tab PO SCH (06:55)
[2016-10-29] MEDS: guaiFENesin/Dextromethorphan 100-10 MG/5 ML Soln 5 ML Cup PO SCH ×6 (06:55→22:12)
[2016-10-29] MEDS: Aspirin 81 MG Tab.Chew PO SCH (06:55)
--- NOTE | 2016-10-29 09:00 | CR ---
Chest: Frontal view of the chest was obtained. Comparison: Previous chest x-ray of 10/27/16. Continuing density within a large portion of the right lung is seen. Findings may be slightly less dense than on prior study but overall size is stable. Minimal atelectasis seen within the left base. Sternotomy noted. 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 Bony structures are unremarkable for the patient's age. Several old healed left-sided rib fractures are noted. Blunting of the costophrenic angle seen posteriorly on the lateral view, uncertain if this is due to pleural effusions or is chronic. Impression: 1. Questionable decreased density of right lung process. Overall size is stable. 2. Pleural effusion versus chronic pleural thickening within the posterior costophrenic angles. 3. Other incidental findings. Diagnostic code #3
[2016-10-29] MEDS: Torsemide 20 MG Tab PO SCH (10:21)
[2016-10-29] MEDS: Tamsulosin 0.4 MG Cap.ER PO SCH (10:22)
[2016-10-29] MEDS: Ferrous Sulfate 325 MG Tab PO SCH (10:22)
[2016-10-29] MEDS: Potassium Chloride 10 MEQ Tab.ER PO SCH (10:23)
[2016-10-29] MEDS: Folic Acid 1 MG Tab PO SCH (10:23)
[2016-10-29] MEDS: Metoprolol Tartrate 50 MG Tab PO SCH ×2 (10:24→20:39)
[2016-10-29] MEDS: Pantoprazole 40 MG Tab.CR PO SCH (10:27)
[2016-10-29] MEDS: Cholecalciferol (Vitamin D3) 1,000 Unit Tab PO SCH (10:28)
[2016-10-29] MEDS: Multivitamins,Therapeutic Tab PO SCH (10:28)
[2016-10-29] MEDS: Vitamin B Complex With Vitamin C Cap PO SCH (10:30)
[2016-10-29] MEDS: Finasteride 5 MG Tab PO SCH (10:39)
[2016-10-29] MEDS: Saccharomyces Boulardii (Probiotic) 250 MG Cap PO SCH ×2 (10:50→20:41)
[2016-10-29] MEDS ORDERED: Levofloxacin/Dextrose 5%-Water 750 MG in Premix Bag 1 BAG IV SCH (11:00)
--- NOTE | 2016-10-29 11:37 | CT ---
CT chest Technique: Multiple axial sections were obtained from above the lung apices inferiorly through the lung bases. Intravenous contrast not utilized. Comparison: Previous chest x-ray performed earlier on the same day. Findings: Patchy areas of consolidation noted within the right upper lung, right middle lobe and right lower lobe. Slight atelectasis seen within both lung bases. Small right sided pleural effusion is seen. Mild amount of increased subpleural fat noted on the left side within the left base which is incidental. 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 Previous sternotomy noted. Small scattered mediastinal lymph nodes are seen with largest measuring 1.6 cm. These are likely incidental. Visualized upper abdominal structures appear within normal limits with the exception of a moderately large hiatal hernia. Bone window settings were reviewed show minimal degenerative change scattered within the spine. Impression: 1. Patchy areas of consolidation throughout the right lung as noted above. Findings presumably representing pneumonia. 2. Small right sided pleural effusion. 3. Moderately large hiatal hernia and other incidental findings. Diagnostic code #3
--- NOTE | 2016-10-29 15:20 | PCM.PN ---
- General Info Date of Service: 10/29/16 Admission Dx/Problem (Free Text): Admission Diagnosis/Problem Admission Diagnosis/Problem Pneumonia Functional Status: Reports: pain controlled, tolerating diet, ambulating, urinating. Denies: new symptoms - Review of Systems General: Reports: Weakness, Fatigue HEENT: Reports: no symptoms Pulmonary: Reports: shortness of breath (improved), cough (improved) Cardiovascular: Reports: No Symptoms, Dyspnea on Exertion (improved) Gastrointestinal: Reports: No symptoms Genitourinary: Reports: no symptoms Musculoskeletal: Reports: no symptoms Skin: Reports: no symptoms Neurological: Reports: No Symptoms Psychiatric: Reports: no symptoms - Patient Data Vitals - most recent: Last Vital Signs Temp 98.6 F 10/29/16 11:54 Pulse 94 10/29/16 11:54 Resp 17 10/29/16 11:54 BP 117/72 10/29/16 11:54 Pulse Ox 92 L 10/29/16 11:54 Weight - most recent: 200 lb 3.2 oz I&O - last 24 hours: Intake & Output 10/29/16 10/29/16 10/29/16 06:59 14:59 22:59 Intake Total 600 Output Total 700 Balance -100 Lab Results last 24 hrs: Laboratory Results - last 24 hr 10/29/16 10/29/16 10/29/16 Range/Units 05:52 05:52 05:52 WBC 5.81 (4.23-9.07) K/mm3 RBC 3.54 L (4.63-6.08) M/mm3 Hgb 11.2 L (13.7-17.5) gm/L Hct 34.5 L (40.1-51.0) % MCV 97.5 H (79.0-92.2) fl MCH 31.6 (25.7-32.2) pg MCHC 32.5 (32.2-35.5) g/dl RDW Std Deviation 49.3 H (35.1-43.9) fL Plt Count 127 L (163-337) K/mm3 MPV 10.9 (9.4-12.3) fl Neut % (Auto) 72.3 H (34.0-67.9) % Lymph % (Auto) 13.3 L (21.8-53.1) % [place] % (Auto) 10.3 (5.3-12.2) % Eos % (Auto) 3.4 (0.8-7.0) Baso % (Auto) 0.7 (0.1-1.2) % Neut # 4.20 (1.78-5.38) K/mm3 Lymph # 0.77 L (1.32-3.57) K/mm3 [place] # 0.60 (0.30-0.82) K/mm3 Eos # 0.20 (0.04-0.54) K/mm3 Baso # 0.04 (0.01-0.08) K/mm3 PT 23.4 H (8.0-13.0) SECONDS INR 2.05 Sodium 141 (136-145) mEq/L Potassium 3.7 (3.5-5.1) mEq/L Chloride 107 (98-107) mEq/L Carbon Dioxide 26 (21-32) mEq/L Anion Gap 11.7 (5-15) BUN 19 H (7-18) mg/dL Creatinine 1.3 (0.7-1.3) mg/dL Est Cr Clr Drug Dosing 50.57 mL/min Estimated GFR (MDRD) 53 (>60) mL/min BUN/Creatinine Ratio 14.6 (14-18) Glucose 98 (83-115) mg/dL Calcium 8.4 L (8.5-10.1) mg/dL Magnesium 2.2 (1.8-2.4) mg/dl C-Reactive Protein 11.7 H* (<1.0) mg/dL Med Orders - Current: Current Medications Acetaminophen (Tylenol) 650 mg PO Q4H PRN PRN Reason: Pain (Mild 1-3)/fever Acetaminophen/Hydrocodone Bitart ([place] 325-5 Mg) 1 tab PO Q4H PRN PRN Reason: Pain (moderate 4-6) Albuterol/Ipratropium (Duoneb 3.0-0.5 Mg/3 Ml) 3 ml NEB Q4H PRN PRN Reason: Shortness Of Breath/wheezing Aspirin (Aspirin) 81 mg PO BRK [facility] Last Admin: 10/29/16 06:55 Dose: 81 mg Bisacodyl (Dulcolax) 5 mg PO DAILY PRN PRN Reason: Constipation Bismuth Subsalicylate (Pepto Bismol) 30 ml PO Q6HR PRN PRN Reason: Indigestion Calcium Carbonate/Glycine (Tums) 500 mg PO Q2HR PRN PRN Reason: Indigestion Last Admin: 10/29/16 12:05 Dose: 500 mg Cholecalciferol (Vitamin D3) 1,000 units PO DAILY [facility] Last Admin: 10/29/16 10:28 Dose: 1,000 units Ferrous Sulfate (Ferrous Sulfate) 325 mg PO DAILY [facility] Last Admin: 10/29/16 10:22 Dose: 325 mg Finasteride (Proscar) 5 mg PO DAILY [facility] Last Admin: 10/29/16 10:39 Dose: 5 mg Folic Acid (Folic Acid) 1 mg PO DAILY [facility] Last Admin: 10/29/16 10:23 Dose: 1 mg Guaifenesin/Phenylephrine HCl (Robitussin Dm) 10 ml PO Q4HWA [facility] Last Admin: 10/29/16 14:30 Dose: 10 ml Hydralazine HCl (Apresoline) 20 mg IVPUSH Q4H PRN PRN Reason: Hypertension Hydromorphone HCl (Dilaudid) 0.25 mg IVPUSH Q2H PRN PRN Reason: Pain (severe 7-10) Levofloxacin/Dextrose 750 mg/ (Premix) 150 mls @ 100 mls/hr IV Q48H [facility] Last Admin: 10/29/16 10:50 Dose: 100 mls/hr Promethazine HCl 12.5 mg/ (Sodium Chloride) 50.5 mls @ 100 mls/hr IV Q6H PRN PRN Reason: Nausea/Vomiting Levothyroxine Sodium (Levothyroxine) 25 mcg PO ACBREAKFAST [facility] Last Admin: 10/29/16 06:55 Dose: 25 mcg Lorazepam (Ativan) 0.5 mg IV Q6H PRN PRN Reason: Anxiety Magnesium Sulfate (Pharmacy To Dose - Magnesium Replacement) 1 dose .XX ASDIRECTED [facility] Metoprolol Tartrate (Lopressor) 25 mg PO BID [facility] Last Admin: 10/29/16 10:24 Dose: 25 mg Metoprolol Tartrate (Lopressor) 5 mg IVPUSH Q4H PRN PRN Reason: Tachycardia Mirtazapine (Remeron) 7.5 mg PO BEDTIME [facility] Last Admin: 10/28/16 21:41 Dose: 7.5 mg Multivitamins (Thera) 1 each PO DAILY [facility] Last Admin: 10/29/16 10:28 Dose: 1 each Ondansetron HCl (Zofran) 4 mg IV Q6H PRN PRN Reason: Nausea/Vomiting Pantoprazole Sodium (Protonix) 40 mg PO DAILY [facility] Last Admin: 10/29/16 10:27 Dose: 40 mg Polyethylene Glycol (Miralax) 17 gm PO DAILY PRN PRN Reason: Constipation Potassium Chloride (Klor-Con 10) 10 meq PO DAILY [facility] Last Admin: 10/29/16 10:23 Dose: 10 meq Saccharomyces Boulardii (Florastor) 250 mg PO BID [facility] Last Admin: 10/29/16 10:50 Dose: 250 mg Senna/Docusate Sodium (Senna Plus) 1 tab PO BID PRN PRN Reason: Constipation Senna/Docusate Sodium (Senna Plus) 2 tab PO DAILY [facility] Last Admin: 10/29/16 10:27 Dose: 2 tab Tamsulosin HCl (Flomax) 0.4 mg PO DAILY [facility] Last Admin: 10/29/16 10:22 Dose: 0.4 mg Torsemide (Demadex) 40 mg PO DAILY [facility] Last Admin: 10/29/16 10:21 Dose: 40 mg Vitamin B Complex/Vitamin C (Super B With Vitamin C) 1 cap PO DAILY [facility] Last Admin: 10/29/16 10:30 Dose: 1 cap Warfarin Sodium (Coumadin) 5 mg PO DAILY@1700 [facility] Last Admin: 10/28/16 17:31 Dose: 5 mg Discontinued Medications Acetaminophen (Tylenol) 650 mg PO NOW ONE Stop: 10/27/16 09:48 Last Admin: 10/27/16 10:28 Dose: 650 mg Albuterol/Ipratropium (Duoneb 3.0-0.5 Mg/3 Ml) 3 ml NEB ONETIME ONE Stop: 10/27/16 09:48 Last Admin: 10/27/16 10:23 Dose: 3 ml Digoxin (Lanoxin) 125 mcg PO DAILY@1300 [facility] Last Admin: 10/28/16 13:35 Dose: 125 mcg Diltiazem HCl (Diltiazem) 5 mg IVPUSH ONETIME ONE Stop: 10/27/16 09:59 Last Admin: 10/27/16 10:31 Dose: 5 mg Diltiazem HCl (Diltiazem) 10 mg IVPUSH ONETIME ONE Stop: 10/27/16 10:19 Last Admin: 10/27/16 10:36 Dose: 10 mg Furosemide (Lasix) 40 mg IVPUSH NOW ONE Stop: 10/27/16 09:59 Last Admin: 10/27/16 10:30 Dose: 40 mg Sodium Chloride (Normal Saline) 1,000 mls @ 999 mls/hr IV ASDIRECTED [facility] Last Infusion: 10/27/16 20:27 Dose: Infused Levofloxacin/Dextrose 750 mg/ (Premix) 150 mls @ 100 mls/hr IV ONETIME ONE Stop: 10/27/16 12:05 Last Admin: 10/27/16 10:48 Dose: 100 mls/hr Piperacillin Sod/Tazobactam (Sod 4.5 gm/ Sodium Chloride) 100 mls @ 200 mls/hr IV ONETIME ONE Stop: 10/27/16 13:29 Last Admin: 10/27/16 15:15 Dose: 200 mls/hr Piperacillin Sod/Tazobactam (Sod 4.5 gm/ Sodium Chloride) 100 mls @ 25 mls/hr IV Q8H [facility] Stop: 10/28/16 20:00 Last Admin: 10/28/16 13:35 Dose: 25 mls/hr Magnesium Sulfate 2 gm/ Premix 50 mls @ 25 mls/hr IV ONETIME ONE Stop: 10/27/16 19:14 Last Admin: 10/27/16 18:18 Dose: 25 mls/hr Sodium Chloride (Normal Saline) 1,000 mls @ 125 mls/hr IV ASDIRECTED [facility] Last Admin: 10/28/16 09:32 Dose: 125 mls/hr Sodium Chloride (Normal Saline) 250 mls @ 999 mls/hr IV ASDIRECTED [facility] Last Admin: 10/27/16 21:06 Dose: 999 mls/hr Saccharomyces Boulardii (Florastor) 250 mg PO TID [facility] Last Admin: 10/27/16 20:58 Dose: 250 mg - Exam Quality Assessment: supplemental oxygen, DVT prophylaxis General: alert, oriented, cooperative, no acute distress HEENT: Pupils equal, Pupils reactive, EOMI, Mucous membr. moist/pink Neck: supple Lungs: Clear to auscultation, Normal respiratory effort, Decreased breath sounds (to bases) Cardiovascular: Regular Rate, Regular Rhythm, Murmurs Abdomen: bowel sounds present, soft, no tenderness, no distension (Male) Exam: Deferred Extremities: no edema, no calf tenderness Peripheral Pulses: 1+: dorsalis pedis (L), dorsalis pedis (R) Skin: warm, dry, intact Neurological: no new focal deficit Psy/Mental Status: alert, normal affect, normal mood - Problem List & Annotations (1) Pneumonia SNOMED Code(s): 116261673 Code(s): J18.9 - PNEUMONIA, UNSPECIFIED ORGANISM Status: Acute Current Visit: Yes Qualifiers: Pneumonia type: due to unspecified organism Laterality: right Lung location: lower lobe of lung Qualified Code(s): J18.1 - Lobar pneumonia, unspecified organism (2) Atrial fibrillation with RVR SNOMED Code(s): 445608039414587 Code(s): I48.91 - UNSPECIFIED ATRIAL FIBRILLATION Status: Acute Priority : High Current Visit: Yes (3) CHF (congestive heart failure), NYHA class III SNOMED Code(s): 273113391, 489152579 Code(s): I50.9 - HEART FAILURE, UNSPECIFIED Status: Acute Priority: High Current Visit: Yes Qualifiers: Congestive heart failure type: diastolic Congestive heart failure chronicity: acute on chronic Qualified Code(s): I50.33 - Acute on chronic diastolic (congestive) heart failure (4) Chronic renal insufficiency, stage III (moderate) SNOMED Code(s): 331675163 Code(s): N18.3 - CHRONIC KIDNEY DISEASE, STAGE 3 (MODERATE) Status: Chronic Priority: High Current Visit: Yes (5) Elevated troponin I measurement SNOMED Code(s): 036166560 Code(s): R74.8 - ABNORMAL LEVELS OF OTHER SERUM ENZYMES Status: Acute Current Visit: Yes (6) Hypomagnesemia SNOMED Code(s): 404382461 Code(s): E83.42 - HYPOMAGNESEMIA Status: Acute Current Visit: Yes - Problem List Review Problem List Initiated/Reviewed/Updated: Yes - Plan Plan:: Assessment/Plan: Acute: CAP-Right Lung - Risk factor: GERD - Continue IV ATB: Levaquin and Zosyn - Supplemental O2, Bronchodilators, Decongestant/Expectorant, Routine RT Care - Aspiration Precautions - Sputum Cx and Strep test - Mycoplasma test is negative - CRP 1.9 ---> 13.6 - Follow up CXR in am- improving rt sided infiltrates with residual lt sided effusion; CT of chest consistent with xray fidings. Elevated Troponin Level w/ Normal CKMB - Likely from Demand Ischemia - He was A-Fib RVR on presentation to ED +/- Sepsis - He is already on ASA, CCB and Warfarin - He is intolerant to statin - CE x1: Toponin 0.826 and 2.5 CKMB Therapeutic INR - INR 2.05 today - Continue warfarin dose Resolved: S/p Atrial Fibrillation w/ RVR - After getting 15 mg of Cardizem IVP in ED, HR is now controlled - Continue rate control home med and Warfarin for stroke ppx S/p Sepsis 2/2 CAP, Significant improve - Elevated LA, resolved - Blood Cx: negative for 24 hrs - Continue Supportive Care and IVF S/p Leukocytosis - WBC 16K ---> 7K - 2/2 Above - Treat underlying cause S/p Lactic Acidosis - Currently 2.7--> 0.8 - 2/2 Sepsis Chronic: Chronic Atrial Fibrillation, HR controlled HTN BPH/Urinary Retention w/ hx/o Self Cath HF with Unknown EF JOE on CPAP COPD GERD, on PPI CKD Stage 3 Chronic Renal Insufficiency Insomnia Hypothyroidism GABRIELA GERD Plan: He has significantly improved Transfer to Med-Surg Routine AM Labs Continue CPAP QHS and PT/OT SW/CM for d/c planning Code status: ACLS only Likely DC in 24-48 hours back to [facility] [place] Additional orders as above
[2016-10-29] MEDS: Warfarin 5 MG Tab PO SCH (17:41)
[2016-10-29] MEDS: Mirtazapine 15 MG Tab PO SCH (20:40)
[2016-10-30] MEDS ORDERED: Benzocaine/Cetylpyridinium/Menthol Lozenge MUCMEM PRN (01:16)
[2016-10-30] MEDS: guaiFENesin/Dextromethorphan 100-10 MG/5 ML Soln 5 ML Cup PO SCH ×3 (06:04→13:33)
[2016-10-30] MEDS: Aspirin 81 MG Tab.Chew PO SCH (06:04)
[2016-10-30] MEDS: Levothyroxine 25 MCG Tab PO SCH (06:04)
[2016-10-30] MEDS: Metoprolol Tartrate 50 MG Tab PO SCH (08:42)
[2016-10-30] MEDS: Multivitamins,Therapeutic Tab PO SCH (08:42)
[2016-10-30] MEDS: Ferrous Sulfate 325 MG Tab PO SCH (08:42)
[2016-10-30] MEDS: Finasteride 5 MG Tab PO SCH (08:43)
[2016-10-30] MEDS: Folic Acid 1 MG Tab PO SCH (08:43)
[2016-10-30] MEDS: Vitamin B Complex With Vitamin C Cap PO SCH (08:44)
[2016-10-30] MEDS: Torsemide 20 MG Tab PO SCH (08:44)
[2016-10-30] MEDS: Pantoprazole 40 MG Tab.CR PO SCH (08:44)
[2016-10-30] MEDS: Tamsulosin 0.4 MG Cap.ER PO SCH (08:44)
[2016-10-30] MEDS: Potassium Chloride 10 MEQ Tab.ER PO SCH (08:44)
[2016-10-30] MEDS: Cholecalciferol (Vitamin D3) 1,000 Unit Tab PO SCH (08:44)
[2016-10-30] MEDS ORDERED: Oxymetazoline 0.05% Nasal Spray 15 ML Bottle NAS SCH (09:00)
[2016-10-30] MEDS ORDERED: Diltiazem 240 MG Cap.ER PO SCH (09:00)
[2016-10-30] MEDS ORDERED: Saccharomyces Boulardii (Probiotic) 250 MG Cap PO SCH (09:00)
--- NOTE | 2016-10-30 10:32 | PCM.DCSUM1 ---
Discharge Summary - Hospital Course Free Text/Narrative:: This is a 80 yo elderly white male with past medical hx/o Chronic Atrial Fibrillation on Warfarin, HTN, BPH/Urinary Retention w/ hx/o Self Cath, HFwith Unknown EF, JOE on CPAP, COPD, GERD, CKD Stage 3, Insomnia, Hypothyroidism, GABRIELA and GERD who comes in with complaints of fever and chills that started overnight. He reports associated cough with chest congestion, generalized weakness, nausea and reduced appetite. On presentation to ED, he was found tachypneic, tachycardic and febrile on initial examination. His initial work up in ED shows a CBC remarkable for WBC 16.93, Hgb 12.8, HCt 39 , and ESR 25. PT/INR 24.9 and 2.17 respectively. His chemistry is significant for BUN 22, CR 1.5, LA 2.7, BS 118, Mg 1.7, troponin 0.012, CRP 1.9, BNP 208 and Albumin 3.3. His ABG shows hypoxia with a pH 7.45 and pO2 70. His UA was negative for UTI. CXR shows right sided pulmonary consolidation. Patient was referred to me for medical treatment of PNA. He is modified full code. Patient was admitted, treated with IV zosyn (x 2 doses initially) and levaquin, neb treatments, aggressive pulmonary toilet/RT. Lactic acid level was initially elevated, recheck after hydration and initial antibiotic treatment was resolved. Hypoxia resolved, he was on supplemental oxygen x 2 days and was able to wean off, he continued with CPAP at night for JOE. He continued on coumadin for anticoagulant with chronic afib, INR maintained 2.0-2.2 during his stay; was started on cardiazem drip then transitioned to 240mg PO for RVR with afib, rate controlled now and doing well. Repeat CXR was with improving Rt sided infiltrates with pleural effusion remained, CT scan of chest was obtained to further evaluate this- quantified as small right sided pleural effusion. Echocardiogram was obtained with EF of 55-60%, moderate calcification of the aortic valve with mild stenosis, mitral valve with biprosthetic valve, annuloplasty ring in tricuspid position with trace regurg and no stenosis. VSS at time of discharge. He is ambulating on his own, doing well. He will be discharged home today with follow up with PCP, Tennille Rosa in [place] early next week. - Discharge Data Discharge Date: 10/30/16 (admit date 10/27/16) Discharge Disposition: Home, Self-Care 01 Condition: Good - Discharge Diagnosis/Problem(s) (1) Pneumonia SNOMED Code(s): 421911822 ICD Code: J18.9 - PNEUMONIA, UNSPECIFIED ORGANISM Status: Acute Current Visit: Yes Qualifiers: Pneumonia type: due to unspecified organism Laterality: right Lung location: lower lobe of lung Qualified Code(s): J18.1 - Lobar pneumonia, unspecified organism (2) Atrial fibrillation with RVR SNOMED Code(s): 816922201568686 ICD Code: I48.91 - UNSPECIFIED ATRIAL FIBRILLATION Status: Acute Priority : High Current Visit: Yes (3) CHF (congestive heart failure), NYHA class III SNOMED Code(s): 555043943, 596058073 ICD Code: I50.9 - HEART FAILURE, UNSPECIFIED Status: Chronic Priority: Medium Current Visit: Yes Qualifiers: Congestive heart failure type: diastolic Congestive heart failure chronicity: acute on chronic Qualified Code(s): I50.33 - Acute on chronic diastolic (congestive) heart failure (4) Chronic renal insufficiency, stage III (moderate) SNOMED Code(s): 242251389 ICD Code: N18.3 - CHRONIC KIDNEY DISEASE, STAGE 3 (MODERATE) Status: Chronic Priority: High Current Visit: Yes (5) Elevated troponin I measurement SNOMED Code(s): 636993473 ICD Code: R74.8 - ABNORMAL LEVELS OF OTHER SERUM ENZYMES Status: Resolved Current Visit: Yes (6) Hypomagnesemia SNOMED Code(s): 205052876 ICD Code: E83.42 - HYPOMAGNESEMIA Status: Resolved Priority: High Current Visit: Yes - Patient Summary/Data Operative Procedure(s) Performed: None Complications: None Consults: Consultations 10/27/16 12:19 Consult to Case Management [CONS] Routine Consult to Machine Stapler [CONS] Routine Consult to Spiritual Care [CONS] Routine OT Evaluation and Treatment [CONS] Routine PT Evaluation and Treatment [CONS] Routine Respiratory Care Assess and Treatment [CONS] Routine Labs Pending at D/C: None Recommended Follow-up Testing/Procedures: Fup with PCP, Tennille Rosa PA-C in [place] early next week. Planned Operative Procedure(s) after DC: None Hospital Course: As above - Patient Instructions Diet: Heart Healthy Diet, Low Sodium Activity: As Tolerated Showering/Bathing: May Shower Notify Provider of: Fever, Increased Pain, Nausea and/or Vomiting (worsening of cough, shortness of breath, chest pain) - Discharge Plan Prescriptions/Med Rec: Diltiazem [Dilacor XR] 240 mg PO DAILY #30 cap.er Levofloxacin [Levaquin] 750 mg PO DAILY #7 tablet Home Medications: Home Meds Aspirin 81 mg PO BRK 10/27/16 [History] Cholecalciferol (Vitamin D3) [Vitamin D3] 1,000 unit PO DAILY 10/27/16 [History] Digoxin 125 mcg PO DAILY 10/27/16 [History] Ferrous Sulfate 325 mg PO DAILY 10/27/16 [History] Finasteride 5 mg PO DAILY 10/27/16 [History] Folic Acid 1 mg PO DAILY 10/27/16 [History] Levothyroxine 25 mcg PO ACBREAKFAST 10/27/16 [History] Metoprolol Tartrate 25 mg PO BID 10/27/16 [History] Mirtazapine 7.5 mg PO BEDTIME 10/27/16 [History] Multivitamin [Multivitamins] 1 cap PO DAILY 10/27/16 [History] Omeprazole 20 mg PO DAILY 10/27/16 [History] Potassium Chloride 10 meq PO DAILY 10/27/16 [History] Sennosides/Docusate Sodium [Senna Plus Tablet] 2 cap PO DAILY 10/27/16 [History] Tamsulosin [Flomax] 0.4 mg PO DAILY 10/27/16 [History] Torsemide 20 mg PO DAILY 10/27/16 [History] Vitamin B Complex [B Complex] 1 cap PO DAILY 10/27/16 [History] Warfarin [Coumadin] 5 mg PO DAILY 10/27/16 [History] Diltiazem [Dilacor XR] 240 mg PO DAILY #30 cap.er 10/30/16 [Rx] Levofloxacin [Levaquin] 750 mg PO DAILY #7 tablet 10/30/16 [Rx] Patient Handouts: Chronic Obstructive Pulmonary Disease Exacerbation, Easy-to- Read, Heart Failure, [id number], Atrial Fibrillation, [id number], Community- Acquired Pneumonia, Adult, [id number] Forms: ED Department Discharge Referrals: Natacha Rosa PA-C [Primary Care Provider] - - Discharge Summary/Plan Comment DC Time >30 min.: Yes (40 min) - General Info Date of Service: 10/30/16 Admission Dx/Problem (Free Text: Admission Diagnosis/Problem Admission Diagnosis/Problem Pneumonia Dale is seen early this morning. Slept well, doing well, strength is improved. Coughing minimally. SOB is improved to resolved. VSS, he is afebrile. Labs are improved today. Functional Status: Reports: pain controlled, tolerating diet, ambulating, urinating. Denies: new symptoms - Review of Systems General: Reports: No Symptoms, Weakness (much improved) HEENT: Reports: no symptoms Pulmonary: Reports: no symptoms, cough (improving) Cardiovascular: Reports: No Symptoms Gastrointestinal: Reports: No symptoms Genitourinary: Reports: no symptoms Musculoskeletal: Reports: no symptoms Skin: Reports: no symptoms Neurological: Reports: No Symptoms Psychiatric: Reports: no symptoms - Patient Data Vitals - Most Recent: Last Vital Signs Temp 97.5 F 10/30/16 07:30 Pulse 103 H 10/30/16 08:42 Resp 18 10/30/16 07:30 BP 108/87 10/30/16 08:42 Pulse Ox 91 L 10/30/16 07:30 Weight - Most Recent: 199 lb 14.4 oz I&O - Last 24 hours: Intake & Output 10/29/16 10/30/16 10/30/16 22:59 06:59 14:59 Intake Total 1010 450 120 Output Total 1875 Balance -865 450 120 Lab Results - Last 24 hrs: Laboratory Results - last 24 hr 10/30/16 10/30/16 10/30/16 Range/Units 06:40 06:40 06:40 WBC 4.79 (4.23-9.07) K/mm3 RBC 3.67 L (4.63-6.08) M/mm3 Hgb 11.6 L (13.7-17.5) gm/L Hct 35.4 L (40.1-51.0) % MCV 96.5 H (79.0-92.2) fl MCH 31.6 (25.7-32.2) pg MCHC 32.8 (32.2-35.5) g/dl RDW Std Deviation 47.7 H (35.1-43.9) fL Plt Count 142 L (163-337) K/mm3 MPV 11.2 (9.4-12.3) fl Neut % (Auto) 63.1 (34.0-67.9) % Lymph % (Auto) 20.9 L (21.8-53.1) % [place] % (Auto) 10.4 (5.3-12.2) % Eos % (Auto) 4.6 (0.8-7.0) Baso % (Auto) 0.8 (0.1-1.2) % Neut # 3.02 (1.78-5.38) K/mm3 Lymph # 1.00 L (1.32-3.57) K/mm3 [place] # 0.50 (0.30-0.82) K/mm3 Eos # 0.22 (0.04-0.54) K/mm3 Baso # 0.04 (0.01-0.08) K/mm3 PT 25.3 H (8.0-13.0) SECONDS INR 2.21 Sodium 142 (136-145) mEq/L Potassium 3.5 (3.5-5.1) mEq/L Chloride 105 (98-107) mEq/L Carbon Dioxide 27 (21-32) mEq/L Anion Gap 13.5 (5-15) BUN 19 H (7-18) mg/dL Creatinine 1.3 (0.7-1.3) mg/dL Est Cr Clr Drug Dosing 50.57 mL/min Estimated GFR (MDRD) 53 (>60) mL/min BUN/Creatinine Ratio 14.6 (14-18) Glucose 102 (83-115) mg/dL Calcium 8.7 (8.5-10.1) mg/dL Magnesium 2.0 (1.8-2.4) mg/dl C-Reactive Protein 8.0 H* (<1.0) mg/dL Free T4 1.38 (0.76-1.46) ng/dL TSH 3rd Generation 3.493 (0.358-3.74) uIU/mL Med Orders - Current: Current Medications Acetaminophen (Tylenol) 650 mg PO Q4H PRN PRN Reason: Pain (Mild 1-3)/fever Acetaminophen/Hydrocodone Bitart ([place] 325-5 Mg) 1 tab PO Q4H PRN PRN Reason: Pain (moderate 4-6) Albuterol/Ipratropium (Duoneb 3.0-0.5 Mg/3 Ml) 3 ml NEB Q4H PRN PRN Reason: Shortness Of Breath/wheezing Aspirin (Aspirin) 81 mg PO BRK [facility] Last Admin: 10/30/16 06:04 Dose: 81 mg Benzocaine/Menthol (Cepacol Sore Throat) 1 lozenge MUCMEM Q4HR PRN PRN Reason: Sore Throat Bisacodyl (Dulcolax) 5 mg PO DAILY PRN PRN Reason: Constipation Bismuth Subsalicylate (Pepto Bismol) 30 ml PO Q6HR PRN PRN Reason: Indigestion Calcium Carbonate/Glycine (Tums) 500 mg PO Q2HR PRN PRN Reason: Indigestion Last Admin: 10/29/16 12:05 Dose: 500 mg Cholecalciferol (Vitamin D3) 1,000 units PO DAILY [facility] Last Admin: 10/30/16 08:44 Dose: 1,000 units Diltiazem HCl (Dilacor Xr) 240 mg PO DAILY [facility] Last Admin: 10/30/16 08:43 Dose: 240 mg Ferrous Sulfate (Ferrous Sulfate) 325 mg PO DAILY [facility] Last Admin: 10/30/16 08:42 Dose: 325 mg Finasteride (Proscar) 5 mg PO DAILY [facility] Last Admin: 10/30/16 08:43 Dose: 5 mg Folic Acid (Folic Acid) 1 mg PO DAILY [facility] Last Admin: 10/30/16 08:43 Dose: 1 mg Guaifenesin/Phenylephrine HCl (Robitussin Dm) 10 ml PO Q4HWA [facility] Last Admin: 10/30/16 09:54 Dose: 10 ml Hydralazine HCl (Apresoline) 20 mg IVPUSH Q4H PRN PRN Reason: Hypertension Hydromorphone HCl (Dilaudid) 0.25 mg IVPUSH Q2H PRN PRN Reason: Pain (severe 7-10) Promethazine HCl 12.5 mg/ (Sodium Chloride) 50.5 mls @ 100 mls/hr IV Q6H PRN PRN Reason: Nausea/Vomiting Levofloxacin/Dextrose 750 mg/ (Premix) 150 mls @ 100 mls/hr IV Q24H [facility] Last Admin: 10/30/16 10:08 Dose: 100 mls/hr Levothyroxine Sodium (Levothyroxine) 25 mcg PO ACBREAKFAST [facility] Last Admin: 10/30/16 06:04 Dose: 25 mcg Lorazepam (Ativan) 0.5 mg IV Q6H PRN PRN Reason: Anxiety Magnesium Sulfate (Pharmacy To Dose - Magnesium Replacement) 1 dose .XX ASDIRECTED [facility] Metoprolol Tartrate (Lopressor) 25 mg PO BID [facility] Last Admin: 10/30/16 08:42 Dose: 25 mg Metoprolol Tartrate (Lopressor) 5 mg IVPUSH Q4H PRN PRN Reason: Tachycardia Mirtazapine (Remeron) 7.5 mg PO BEDTIME [facility] Last Admin: 10/29/16 20:40 Dose: 7.5 mg Multivitamins (Thera) 1 each PO DAILY [facility] Last Admin: 10/30/16 08:42 Dose: 1 each Ondansetron HCl (Zofran) 4 mg IV Q6H PRN PRN Reason: Nausea/Vomiting Oxymetazoline HCl (Afrin Original 0.05% Nasal [place]) 15 ml MARLEN Q12HR [facility] Last Admin: 10/30/16 08:42 Dose: 1 spray Pantoprazole Sodium (Protonix) 40 mg PO DAILY [facility] Last Admin: 10/30/16 08:44 Dose: 40 mg Polyethylene Glycol (Miralax) 17 gm PO DAILY PRN PRN Reason: Constipation Potassium Chloride (Klor-Con 10) 10 meq PO DAILY [facility] Last Admin: 10/30/16 08:44 Dose: 10 meq Saccharomyces Boulardii (Florastor) 250 mg PO TID [facility] Last Admin: 10/30/16 08:42 Dose: 250 mg Senna/Docusate Sodium (Senna Plus) 1 tab PO BID PRN PRN Reason: Constipation Senna/Docusate Sodium (Senna Plus) 2 tab PO DAILY [facility] Last Admin: 10/30/16 08:42 Dose: 2 tab Tamsulosin HCl (Flomax) 0.4 mg PO DAILY [facility] Last Admin: 10/30/16 08:44 Dose: 0.4 mg Torsemide (Demadex) 40 mg PO DAILY [facility] Last Admin: 10/30/16 08:44 Dose: 40 mg Vitamin B Complex/Vitamin C (Super B With Vitamin C) 1 cap PO DAILY [facility] Last Admin: 10/30/16 08:44 Dose: 1 cap Warfarin Sodium (Coumadin) 5 mg PO DAILY@1700 [facility] Last Admin: 10/29/16 17:41 Dose: 5 mg Discontinued Medications Acetaminophen (Tylenol) 650 mg PO NOW ONE Stop: 10/27/16 09:48 Last Admin: 10/27/16 10:28 Dose: 650 mg Albuterol/Ipratropium (Duoneb 3.0-0.5 Mg/3 Ml) 3 ml NEB ONETIME ONE Stop: 10/27/16 09:48 Last Admin: 10/27/16 10:23 Dose: 3 ml Digoxin (Lanoxin) 125 mcg PO DAILY@1300 [facility] Last Admin: 10/28/16 13:35 Dose: 125 mcg Diltiazem HCl (Diltiazem) 5 mg IVPUSH ONETIME ONE Stop: 10/27/16 09:59 Last Admin: 10/27/16 10:31 Dose: 5 mg Diltiazem HCl (Diltiazem) 10 mg IVPUSH ONETIME ONE Stop: 10/27/16 10:19 Last Admin: 10/27/16 10:36 Dose: 10 mg Furosemide (Lasix) 40 mg IVPUSH NOW ONE Stop: 10/27/16 09:59 Last Admin: 10/27/16 10:30 Dose: 40 mg Sodium Chloride (Normal Saline) 1,000 mls @ 999 mls/hr IV ASDIRECTED [facility] Last Infusion: 10/27/16 20:27 Dose: Infused Levofloxacin/Dextrose 750 mg/ (Premix) 150 mls @ 100 mls/hr IV ONETIME ONE Stop: 10/27/16 12:05 Last Admin: 10/27/16 10:48 Dose: 100 mls/hr Levofloxacin/Dextrose 750 mg/ (Premix) 150 mls @ 100 mls/hr IV Q48H [facility] Last Admin: 10/29/16 10:50 Dose: 100 mls/hr Piperacillin Sod/Tazobactam (Sod 4.5 gm/ Sodium Chloride) 100 mls @ 200 mls/hr IV ONETIME ONE Stop: 10/27/16 13:29 Last Admin: 10/27/16 15:15 Dose: 200 mls/hr Piperacillin Sod/Tazobactam (Sod 4.5 gm/ Sodium Chloride) 100 mls @ 25 mls/hr IV Q8H [facility] Stop: 10/28/16 20:00 Last Admin: 10/28/16 13:35 Dose: 25 mls/hr Magnesium Sulfate 2 gm/ Premix 50 mls @ 25 mls/hr IV ONETIME ONE Stop: 10/27/16 19:14 Last Admin: 10/27/16 18:18 Dose: 25 mls/hr Sodium Chloride (Normal Saline) 1,000 mls @ 125 mls/hr IV ASDIRECTED [facility] Last Admin: 10/28/16 09:32 Dose: 125 mls/hr Sodium Chloride (Normal Saline) 250 mls @ 999 mls/hr IV ASDIRECTED [facility] Last Admin: 10/27/16 21:06 Dose: 999 mls/hr Saccharomyces Boulardii (Florastor) 250 mg PO TID [facility] Last Admin: 10/27/16 20:58 Dose: 250 mg Saccharomyces Boulardii (Florastor) 250 mg PO BID [facility] Last Admin: 10/29/16 20:41 Dose: 250 mg - Exam Quality Assessment: Reports: DVT prophylaxis General: Reports: alert, oriented, cooperative, no acute distress HEENT: Reports: Pupils equal, Pupils reactive, EOMI, Mucous membr. moist/pink Neck: Reports: supple Lungs: Reports: Clear to auscultation, Normal respiratory effort Cardiovascular: Reports: Irregular Rhythm, Murmurs (grade 2 holosystolic) Abdomen: Reports: bowel sounds present, soft, no tenderness (Male) Exam: Deferred Rectal (Males) Exam: Deferred Back Exam: Reports: normal inspection Extremities: Reports: no edema, no calf tenderness Neurological: Reports: no new focal deficit Psy/Mental Status: Reports: alert, normal affect, normal mood *Q Meaningful Use (DIS) - VTE *Q VTE Criteria *Q: - Stroke *Q Stroke Criteria *Q: - AMI *Q AMI Criteria *Q:
[2016-10-30] MEDS ORDERED: Levofloxacin/Dextrose 5%-Water 750 MG in Premix Bag 1 BAG IV SCH (11:00)
[2016-10-30 11:18] VITALS: BP 108/57
[2016-10-30] MEDS ORDERED: HYDROmorphone 0.5 MG/0.5 ML Syringe IVPUSH PRN (11:24)
== END 2016-10-30 13:40 | disposition home or self-care (01) | DRG 871 ==
LOC: JD.ED 09:34 → JD.ICU 11:15 → JD.MS 10-28 14:54
PROVIDERS: ADMIT Internal Medicine; ATTEND Internal Medicine
DX: A41.9 Sepsis, unspecified organism (principal); I48.91 Unspecified atrial fibrillation; R79.89 Other specified abnormal findings of blood chemistry; J18.9 Pneumonia, unspecified organism; I50.33 Acute on chronic diastolic (congestive) heart failure; E87.2 Acidosis; I50.9 Heart failure, unspecified; I13.0 Hypertensive heart and chronic kidney disease with heart failure and stage 1 through stage 4 chronic kidney disease, or unspecified chronic kidney disease; K21.9 Gastro-esophageal reflux disease without esophagitis; E83.42 Hypomagnesemia; R74.8 Abnormal levels of other serum enzymes; I48.2 Chronic atrial fibrillation; Z79.01 Long term (current) use of anticoagulants; N40.0 Benign prostatic hyperplasia without lower urinary tract symptoms; N31.9 Neuromuscular dysfunction of bladder, unspecified; I25.10 Atherosclerotic heart disease of native coronary artery without angina pectoris; N18.3 Chronic kidney disease, stage 3 (moderate); J44.9 Chronic obstructive pulmonary disease, unspecified; G47.33 Obstructive sleep apnea (adult) (pediatric); G47.00 Insomnia, unspecified; E03.9 Hypothyroidism, unspecified; D50.9 Iron deficiency anemia, unspecified; Z95.2 Presence of prosthetic heart valve; Z79.82 Long term (current) use of aspirin; Z79.899 Other long term (current) drug therapy; Z88.8 Allergy status to other drugs, medicaments and biological substances
CPT/HCPCS: 36415; 36600; 71010; 80053; 80162; 81001; 82553; 82803; 83605; 83735; 83880; 84484; 85025; 85610; 85652; 86140; 87040 ×2; 87804 ×2; 87899; 93005; 94664; 96365; 96375; 99285; A9270; J1940; J1956; J7040; 71020; 71020-26; 71250; 71250-26; 80048; 84439; 84443; 86738; 93306; 94760; 97161-GP; 97165-GO; 99222; 99232; 99239; J2543; J3475; J3490; J7030; J7050

== ENCOUNTER 2016-11-22 11:05 | Inpatient (IN) | payer MEDICARE, BC ==
[2016-11-22] MEDS ORDERED: Sodium Chloride 0.9% 10 ML Syringe FLUSH PRN (11:27)
[2016-11-22] MEDS ORDERED: Furosemide 40 MG/4 ML VIAL IVPUSH ONE (11:29)
--- NOTE | 2016-11-22 13:42 | PCM.HP ---
H&P History of Present Illness - General Date of Service: 11/22/16 Admit Problem/Dx: Admission Diagnosis/Problem Admission Diagnosis/Problem CHF, Congestive heart failure - History of Present Illness Initial Comments - Free Text/Narative: This is a pleasant 80-year-old male with multiple medical comorbidities including COPD (not on any home O2), CAD, rheumatic heart disease with mitral and tricuspid valve repair and replacement, CHF (unclear systolic or diastolic; attempted to obtain echo report), hypothyroidism, GERD, BPH, chronic kidney disease, and multiple other comorbidities whom went to his PCPs office for routine post hospital discharge followup. He was noted to be 83% while ambulating in room air in the clinic, per ER report. He was placed on 2 L with improvement of his saturations. On review of systems, he reports some mild shortness of breath and mild pitting edema in the feet, but otherwise started putting in her chest complaints. He has a recent URI with nasal congestion and drainage. He denies any cough. Denies any fevers, chills, or night sweats. We are being asked to evaluate the patient for his acute hypoxic respiratory failure. He was given one dose of Lasix in the ER, his weight was elevated from discharge. Patient reports that he has not been drinking more fluids, and in fact has been taking less for the last couple days with decreased appetite. They state that he does not consume much in sodium, but they do eat at a senior facility 5 lunches per week. They feel that it is not high in sodium content. They do not otherwise use much sodium in the cooking. - Related Data Allergies/Adverse Reactions: Allergies Allergy/AdvReac Type Severity Reaction Status Date / Time loratadine [From Claritin] Allergy Rash Verified 11/22/16 11:34 rosuvastatin [From Crestor] AdvReac Body Aches Verified 11/22/16 14:20 Krbgpbt-Bek-Afx Reductase AdvReac Body Aches Verified 11/22/16 13:30 Inhibitor Home Medications: Home Meds Aspirin 81 mg PO BRK 10/27/16 [History] Cholecalciferol (Vitamin D3) [Vitamin D3] 1,000 unit PO DAILY 10/27/16 [History] Ferrous Sulfate 325 mg PO DAILY 10/27/16 [History] Finasteride 5 mg PO DAILY 10/27/16 [History] Folic Acid 1 mg PO DAILY 10/27/16 [History] Levothyroxine 25 mcg PO ACBREAKFAST 10/27/16 [History] Metoprolol Tartrate 50 mg PO DAILY 10/27/16 [History] Mirtazapine 15 mg PO BEDTIME 10/27/16 [History] Omeprazole 20 mg PO DAILY 10/27/16 [History] Potassium Chloride 10 meq PO BID 10/27/16 [History] Sennosides/Docusate Sodium [Senna Plus Tablet] 1 cap PO DAILY 10/27/16 [History] Tamsulosin [Flomax] 0.4 mg PO DAILY 10/27/16 [History] Torsemide 20 mg PO DAILY 10/27/16 [History] Vitamin B Complex [B Complex] 1 cap PO DAILY 10/27/16 [History] Warfarin [Coumadin] 5 mg PO DAILY 10/27/16 [History] Diltiazem [Dilacor XR] 240 mg PO DAILY #30 cap.er 10/30/16 [Rx] Levofloxacin [Levaquin] 750 mg PO DAILY #7 tablet 10/30/16 [Rx] B2/Vit A,C & E/Lut/Zeaxanth/Mn [Icaps] 1 tab PO DAILY 11/22/16 [History] Docusate Sodium [Colace] 100 mg PO DAILY 11/22/16 [History] Past Medical History HEENT History: Reports: Cataract, Macular degeneration Cardiovascular History: Reports: Afib, CAD, Heart Failure, Heart valve replacement (porcine aortic valve), Other (see below) Other Cardiovascular History: hypokalemia Respiratory History: Reports: COPD Gastrointestinal History: Reports: Other (see below) Other Gastrointestinal History: lap fifi Genitourinary History: Reports: BPH, Chronic renal insuffiency, Retention, urinary Dermatologic History: Reports: Benign melanoma - Infectious Disease History Infectious Disease History: Reports: Rheumatic Fever - Past Surgical History HEENT Surgical History: Reports: Tonsillectomy GI Surgical History: Reports: Appendectomy, Hernia, inguinal Other Surgical History Comment: mitral and tricuspid valve repair and replacement with porcine valve, cataract surgery, appendectomy, hydrocele testical removal, prostate radiation beads implanted. Social & Family History - Family History Cardiac: Reports: ME (father) Oncologic: Reports: Other (see below) (father of cancer (unknown type), multiple maternal family members with various cancers) - Tobacco Use Smoking Status *Q: Former Smoker Month Tobacco Last Used: 40 yrs Second Hand Smoke Exposure: No - Caffeine Use Caffeine Use: Reports: Coffee, Soda - Alcohol Use Alcohol Use Comment: minimal use, 1-2 cans of beer per month - Recreational Drug Use Recreational Drug Use: No - Living Situation & Occupation Living situation: Reports: , with spouse Occupation: retired (reports low is in low income housing in [place]. 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 Denies: Cough, Sputum Cardiovascular: Reports: PND, edema. Denies: chest pain, palpitations, orthopnea, lightheadedness Gastrointestinal: Reports: Diarrhea. Denies: Abdominal pain, Nausea, Vomiting Genitourinary: Denies: dysuria, frequency, burning, pain Musculoskeletal: Denies: neck pain, back pain Skin: Denies: rash, lesions, lumps Psychiatric: Denies: confusion, depression, anxiety Neurological: Denies: Confusion, Dizziness, Headache, Numbness Hematologic/Lymphatic: Denies: easy bleeding, easy bruising Exam - Exam Exam: See Below - Vital Signs Vital Signs: Last Vital Signs Temp 36.6 C 11/22/16 11:29 Pulse 84 11/22/16 11:29 Resp 18 11/22/16 11:29 BP 116/56 L 11/22/16 11:29 Pulse Ox 94 L 11/22/16 11:29 Weight: 93.44 kg - Exam Physical Exam Comments:: Vitals: as above General: alert and oriented. NAD Psych: calm and cooperative HEENT: normocephalic, atraumatic. EOMI Cardiac: Normal S1, S2. regular rate. No murmurs rubs, or gallops. No JVD noted.trace pedal edema bilaterally in the ankles. Lungs: no significant wheezing or rales auscultated. There is some decreased breath sounds in the right base compared to the left side. There is egophony in the mid left lung field posteriorly. Abd: Soft, NT/ND. No HSM noted. Skin: no new visible rashes or purpura noted Neuro: CN grossly intact. Strength intact and adequate bilaterally. - Patient Data Lab Results last 24 hrs: Laboratory Results - last 24 hr 11/22/16 11/22/16 11/22/16 Range/Units 12:05 12:05 12:05 WBC 4.28 (4.23-9.07) K/mm3 RBC 3.53 L (4.63-6.08) M/mm3 Hgb 11.1 L (13.7-17.5) gm/L Hct 34.3 L (40.1-51.0) % MCV 97.2 H (79.0-92.2) fl MCH 31.4 (25.7-32.2) pg MCHC 32.4 (32.2-35.5) g/dl RDW Std Deviation 50.6 H (35.1-43.9) fL Plt Count 137 L (163-337) K/mm3 MPV 10.4 (9.4-12.3) fl Neut % (Auto) 61.9 (34.0-67.9) % Lymph % (Auto) 16.4 L (21.8-53.1) % [place] % (Auto) 16.8 H (5.3-12.2) % Eos % (Auto) 4.2 (0.8-7.0) Baso % (Auto) 0.5 (0.1-1.2) % Neut # (Auto) 2.65 (1.78-5.38) K/mm3 Lymph # (Auto) 0.70 L (1.32-3.57) K/mm3 [place] # (Auto) 0.72 (0.30-0.82) K/mm3 Eos # (Auto) 0.18 (0.04-0.54) K/mm3 Baso # (Auto) 0.02 (0.01-0.08) K/mm3 Manual Slide Review Normal smear Sodium 141 (136-145) mEq/L Potassium 4.0 (3.5-5.1) mEq/L Chloride 106 (98-107) mEq/L Carbon Dioxide 26 (21-32) mEq/L Anion Gap 13.0 (5-15) BUN 13 (7-18) mg/dL Creatinine 1.2 (0.7-1.3) mg/dL Est Cr Clr Drug Dosing 51.54 mL/min Estimated GFR (MDRD) 58 (>60) mL/min BUN/Creatinine Ratio 10.8 L (14-18) Glucose 100 (83-115) mg/dL Calcium 8.8 (8.5-10.1) mg/dL Total Bilirubin 0.7 (0.2-1.0) mg/dL AST 22 (15-37) U/L ALT 17 (16-63) U/L Alkaline Phosphatase 75 (46-116) U/L Troponin I < 0.017 (0.00-0.056) ng/mL B-Natriuretic Peptide 199 H (0-100) pg/mL Total Protein 6.5 (6.4-8.2) g/dl Albumin 3.2 L (3.4-5.0) g/dl Globulin 3.3 gm/dL Albumin/Globulin Ratio 1.0 (1-2) Result Diagrams: 11/22/16 12:05 11/22/16 12:05 Imaging Impressions last 24 hrs: chest x-ray official radiology interpretation is pending, however it appears that he has hazy opacity in the right base suspicious for more likely edema versus less likely infiltrate EKG INTERPRETATION Rhythm: a-fib *Q Meaningful Use (ADM) - VTE *Q VTE Criteria *Q: - Stroke *Q Stroke Criteria *Q: - AMI *Q AMI Criteria *Q: - Problem List (1) Acute respiratory failure with hypoxia SNOMED Code(s): 87460218, 923488787 ICD Code: J96.01 - ACUTE RESPIRATORY FAILURE WITH HYPOXIA Status: Acute Current Visit: Yes (2) CHF exacerbation SNOMED Code(s): 63634495 ICD Code: I50.9 - HEART FAILURE, UNSPECIFIED Status: Acute Current Visit : Yes Qualifiers: Congestive heart failure type: systolic Qualified Code(s): I50.23 - Acute on chronic systolic (congestive) heart failure Problem List Initiated/Reviewed/Updated: Yes Orders Last 24hrs: Active Orders 24 hr Category Date Time Status Patient Status [ADT] Routine ADT 11/22/16 13:34 Active Cardiac Monitoring [RC] . DIRECTED Care 11/22/16 11:27 Active EKG Documentation Completion [RC] STAT Care 11/22/16 11:28 Active Oxygen Therapy [RC] PRN Care 11/22/16 11:27 Active Peripheral IV Care [RC] . DIRECTED Care 11/22/16 11:28 Active INR,PT,PROTHROMBIN TIME [COAG] Stat Lab 11/22/16 13:30 Ordered Sodium Chloride 0.9% [Saline Flush] Med 11/22/16 11:27 Active 10 ml FLUSH ASDIRECTED PRN Peripheral IV Insertion Adult [OM.PC] Stat Oth 11/22/16 11:27 Ordered Medication Orders Sodium Chloride (Saline Flush) 10 ml FLUSH ASDIRECTED PRN PRN Reason: Keep Vein Open Last Admin: 11/22/16 11:39 Dose: 10 ml Assessment/Plan Comment:: acute hypoxic respiratory failure. Likely secondary to mild CHF exacerbation versus brewing pneumonia. Patient does not report cough at this time, but does have upper respiratory tract infection. supplemental oxygen as needed. PE is very unlikely as patient is therapeutic with INR of 2.6 today. Acute congestive heart failure. Unclear subtype. Awaiting report from recent echocardiogram. Patient was given 40 mg of IV Lasix in ER. Strict input-output recording, and daily weights. We'll consult nutrition for education.sodium and fluid restriction ordered. URI. Check viral panel. consider obtaining sputum cultures if patient develops a cough, but denies at this time. supportive measures. Chronic medical conditions: CAD-continue aspirin Hypertension and atrial fibrillation-continue diltiazem, beta eduardo, Coumadin (pharmacy to dose) Iron deficiency-continue supplement BPH-continue finasteride and Flomax Hypothyroidism-continue levothyroxine Continue mirtazapine GERD-continue Prilosec DVT prophylaxis with continued Coumadin use Patient is DO NOT RESUSCITATE
--- NOTE | 2016-11-22 13:58 | EDM.PDOC ---
ED HISTORY OF PRESENT ILLNESS - General Chief Complaint: Cardiovascular Problem Stated Complaint: [facility] Time Seen by Provider: 11/22/16 11:21 Source of Information: Reports: Patient, EMS, Family, Provider History Limitations: Reports: No limitations - History of Present Illness INITIAL COMMENTS - FREE TEXT/NARRATIVE: The patient presents with shortness of breath. He was admitted here over 2 weeks ago for pneumonia. He went to see Cassie Anatayla at the clinic in [place] and his oxygen saturations were low in the high 80s and low 90s. When she walked him around the office, his oxygen saturations went down to 83%. His CXR showed some congestive changes. He has a history of mitral valve replacement with complications that were taken care of at [place]. He has edema in his legs and he had a 9 pound weight gain since last month. He denies chest pain, fever , chills, cough, abdominal pain, nausea or vomiting. Timing/Duration: Reports: Day(s): Severity: moderate Improves with: Reports: None Worsens with: Reports: None Associated Symptoms (General): Reports: shortness of breath. Denies: chest pain , cough, diaphoresis, fever/chills, loss of appetite - Related Data Allergies/ADRs: Allergies Allergy/AdvReac Type Severity Reaction Status Date / Time loratadine [From Claritin] Allergy Rash Verified 11/22/16 11:34 rosuvastatin [From Crestor] Allergy Body Aches Verified 11/22/16 11:34 Duqhhmr-Uuc-Tps Reductase AdvReac Body Aches Verified 11/22/16 13:30 Inhibitor Home Meds: Home Meds Aspirin 81 mg PO BRK 10/27/16 [History] Cholecalciferol (Vitamin D3) [Vitamin D3] 1,000 unit PO DAILY 10/27/16 [History] Ferrous Sulfate 325 mg PO DAILY 10/27/16 [History] Finasteride 5 mg PO DAILY 10/27/16 [History] Folic Acid 1 mg PO DAILY 10/27/16 [History] Levothyroxine 25 mcg PO ACBREAKFAST 10/27/16 [History] Metoprolol Tartrate 25 mg PO BID 10/27/16 [History] Mirtazapine 15 mg PO BEDTIME 10/27/16 [History] Omeprazole 20 mg PO DAILY 10/27/16 [History] Potassium Chloride 10 meq PO BID 10/27/16 [History] Sennosides/Docusate Sodium [Senna Plus Tablet] 1 cap PO DAILY 10/27/16 [History] Tamsulosin [Flomax] 0.4 mg PO DAILY 10/27/16 [History] Torsemide 20 mg PO DAILY 10/27/16 [History] Vitamin B Complex [B Complex] 1 cap PO DAILY 10/27/16 [History] Warfarin [Coumadin] 5 mg PO DAILY 10/27/16 [History] Diltiazem [Dilacor XR] 240 mg PO DAILY #30 cap.er 10/30/16 [Rx] Levofloxacin [Levaquin] 750 mg PO DAILY #7 tablet 10/30/16 [Rx] B2/Vit A,C & E/Lut/Zeaxanth/Mn [Icaps] 1 tab PO DAILY 11/22/16 [History] Docusate Sodium [Colace] 100 mg PO DAILY 11/22/16 [History] Past Medical History HEENT History: Reports: Cataract, Macular degeneration Cardiovascular History: Reports: Afib, CAD, Heart Failure, Heart valve replacement (porcine aortic valve), Other (see below) Other Cardiovascular History: hypokalemia Respiratory History: Reports: COPD Gastrointestinal History: Reports: Other (see below) Other Gastrointestinal History: lap fifi Genitourinary History: Reports: BPH, Chronic renal insuffiency, Retention, urinary Dermatologic History: Reports: Benign melanoma - Infectious Disease History Infectious Disease History: Reports: Rheumatic Fever - Past Surgical History HEENT Surgical History: Reports: Tonsillectomy GI Surgical History: Reports: Appendectomy, Hernia, inguinal Other Surgical History Comment: mitral and tricuspid valve repair and replacement with porcine valve, cataract surgery, appendectomy, hydrocele testical removal, prostate radiation beads implanted. Social & Family History - Family History Cardiac: Reports: ME (father) Oncologic: Reports: Other (see below) (father of cancer (unknown type), multiple maternal family members with various cancers) - Tobacco Use Smoking Status *Q: Former Smoker Month Tobacco Last Used: 40 yrs Second Hand Smoke Exposure: No - Caffeine Use Caffeine Use: Reports: Coffee, Soda - Recreational Drug Use Recreational Drug Use: No - Living Situation & Occupation Living situation: Reports: , with spouse Occupation: retired (reports low is in low income housing in [place]. 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 Denies: Cough Cardiovascular: Reports: Edema (Legs). Denies: Chest pain Endocrine: Reports: no symptoms GI/Abdominal: Reports: No symptoms : Reports: no symptoms Musculoskeletal: Reports: no symptoms ED EXAM, GENERAL - Physical Exam Exam: See Below Exam Limited By: No limitations General Appearance: alert, no apparent distress Ears: normal external exam Nose: normal inspection Head: atraumatic, normocephalic Neck: normal inspection Respiratory/Chest: no respiratory distress, rales (bases) Cardiovascular: regular rate, rhythm, no edema, no murmur GI/Abdominal: soft, non tender, no organomegaly, no mass Back Exam: normal inspection Extremities: pedal edema EKG INTERPRETATION EKG Date: 11/22/16 Time: 11:43 Rhythm: a-fib Rate (beats/min): 82 [place]: normal QRS: normal ST-T: normal QT: normal Course - Vital Signs Last Recorded V/S: Last Vital Signs Temp 98 F 11/22/16 11:29 Pulse 84 11/22/16 11:29 Resp 18 11/22/16 11:29 BP 116/56 L 11/22/16 11:29 Pulse Ox 94 L 11/22/16 11:29 - Orders/Labs/Meds Orders: Active Orders 24 hr Category Date Time Status Patient Status [ADT] Routine ADT 11/22/16 13:34 Active Cardiac Monitoring [RC] . DIRECTED Care 11/22/16 11:27 Active EKG Documentation Completion [RC] STAT Care 11/22/16 11:28 Active Oxygen Therapy [RC] PRN Care 11/22/16 11:27 Active Peripheral IV Care [RC] . DIRECTED Care 11/22/16 11:28 Active Sodium Chloride 0.9% [Saline Flush] Med 11/22/16 11:27 Active 10 ml FLUSH ASDIRECTED PRN Peripheral IV Insertion Adult [OM.PC] Stat Oth 11/22/16 11:27 Ordered Medication Orders Sodium Chloride (Saline Flush) 10 ml FLUSH ASDIRECTED PRN PRN Reason: Keep Vein Open Last Admin: 11/22/16 11:39 Dose: 10 ml Labs: Laboratory Tests 11/22/16 11/22/16 11/22/16 Range/Units 12:05 12:05 12:05 WBC 4.28 (4.23-9.07) K/mm3 RBC 3.53 L (4.63-6.08) M/mm3 Hgb 11.1 L (13.7-17.5) gm/L Hct 34.3 L (40.1-51.0) % MCV 97.2 H (79.0-92.2) fl MCH 31.4 (25.7-32.2) pg MCHC 32.4 (32.2-35.5) g/dl RDW Std Deviation 50.6 H (35.1-43.9) fL Plt Count 137 L (163-337) K/mm3 MPV 10.4 (9.4-12.3) fl Neut % (Auto) 61.9 (34.0-67.9) % Lymph % (Auto) 16.4 L (21.8-53.1) % [place] % (Auto) 16.8 H (5.3-12.2) % Eos % (Auto) 4.2 (0.8-7.0) Baso % (Auto) 0.5 (0.1-1.2) % Neut # (Auto) 2.65 (1.78-5.38) K/mm3 Lymph # (Auto) 0.70 L (1.32-3.57) K/mm3 [place] # (Auto) 0.72 (0.30-0.82) K/mm3 Eos # (Auto) 0.18 (0.04-0.54) K/mm3 Baso # (Auto) 0.02 (0.01-0.08) K/mm3 Manual Slide Review Normal smear Sodium 141 (136-145) mEq/L Potassium 4.0 (3.5-5.1) mEq/L Chloride 106 (98-107) mEq/L Carbon Dioxide 26 (21-32) mEq/L Anion Gap 13.0 (5-15) BUN 13 (7-18) mg/dL Creatinine 1.2 (0.7-1.3) mg/dL Est Cr Clr Drug Dosing 51.54 mL/min Estimated GFR (MDRD) 58 (>60) mL/min BUN/Creatinine Ratio 10.8 L (14-18) Glucose 100 (83-115) mg/dL Calcium 8.8 (8.5-10.1) mg/dL Total Bilirubin 0.7 (0.2-1.0) mg/dL AST 22 (15-37) U/L ALT 17 (16-63) U/L Alkaline Phosphatase 75 (46-116) U/L Troponin I < 0.017 (0.00-0.056) ng/mL B-Natriuretic Peptide 199 H (0-100) pg/mL Total Protein 6.5 (6.4-8.2) g/dl Albumin 3.2 L (3.4-5.0) g/dl Globulin 3.3 gm/dL Albumin/Globulin Ratio 1.0 (1-2) Meds: Medications Generic Name Dose Route Start Last Admin Trade Name Freq PRN Reason Stop Dose Admin Sodium Chloride 10 ml 11/22/16 11:27 11/22/16 11:39 Saline Flush FLUSH 10 ml ASDIRECTED PRN Administration Keep Vein Open Discontinued Medications Generic Name Dose Route Start Last Admin Trade Name Freq PRN Reason Stop Dose Admin Furosemide 40 mg 11/22/16 11:29 11/22/16 11:39 Lasix IVPUSH 11/22/16 11:30 40 mg NOW ONE Administration - Re-Assessments/Exams Free Text/Narrative Re-Assessment/Exam: 11/22/16 14:00 I ordered oxygen, IV saline lock, EKG, labs. A CXR was done. His EKG shows A- fib with no acute changes. He has a normal WBC and his Hgb was a little low at 11.1. His CMP was negative. His troponin was negative. His BNP was slightly elevated at 199. I did give him some lasix IV. I feel he needs to be admitted for CHF exacerbation. I called Dr Beckwith and he agreed to the admission. Departure - Departure Time of Disposition: 14:05 Disposition: Admitted As Inpatient 67 Condition: fair Clinical Impression: Hypoxia CHF exacerbation Qualifiers: Congestive heart failure type: systolic Qualified Code(s): I50.23 - Acute on chronic systolic (congestive) heart failure Forms: ED Department Discharge - My Orders Last 24 Hours: My Active Orders 11/22/16 11:27 Cardiac Monitoring [RC] . DIRECTED Oxygen Therapy [RC] PRN Sodium Chloride 0.9% [Saline Flush] 10 ml FLUSH ASDIRECTED PRN Peripheral IV Insertion Adult [OM.PC] Stat 11/22/16 11:28 EKG Documentation Completion [RC] STAT Peripheral IV Care [RC] . DIRECTED 11/22/16 13:34 Patient Status [ADT] Routine - Assessment/Plan Last 24 Hours: My Active Orders 11/22/16 11:27 Cardiac Monitoring [RC] . DIRECTED Oxygen Therapy [RC] PRN Sodium Chloride 0.9% [Saline Flush] 10 ml FLUSH ASDIRECTED PRN Peripheral IV Insertion Adult [OM.PC] Stat 11/22/16 11:28 EKG Documentation Completion [RC] STAT Peripheral IV Care [RC] . DIRECTED 11/22/16 13:34 Patient Status [ADT] Routine
[2016-11-22] MEDS ORDERED: hydrALAZINE 10 MG Tab PO PRN (14:16)
[2016-11-22] MEDS ORDERED: Docusate Sodium 100 MG Cap PO PRN (14:16)
[2016-11-22] MEDS ORDERED: Acetaminophen 325 MG Tab PO PRN (14:16)
[2016-11-22] MEDS ORDERED: Bisacodyl 10 MG Supp RECTAL PRN (14:16)
[2016-11-22] MEDS ORDERED: Bisacodyl 5 MG Tab PO PRN (14:16)
[2016-11-22] MEDS ORDERED: Warfarin 5 MG Tab PO SCH (18:00)
[2016-11-22] MEDS: Aspirin 81 MG Tab.Chew PO SCH (18:22)
[2016-11-22] MEDS: Ferrous Sulfate 325 MG Tab PO SCH (18:23)
[2016-11-22] MEDS: Mirtazapine 15 MG Tab PO SCH (18:23)
[2016-11-22] MEDS: Hypromellose 0.5% Ophth Soln 15 ML Bottle EYEBOTH PRN (20:25)
[2016-11-22] MEDS: Metoprolol Tartrate 25 MG Tab PO SCH (20:26)
[2016-11-23] MEDS: Levothyroxine 25 MCG Tab PO SCH (06:45)
[2016-11-23] MEDS: Diltiazem 240 MG Cap.ER PO SCH (06:45)
[2016-11-23] MEDS: Pantoprazole 40 MG Tab.CR PO SCH (06:45)
[2016-11-23] MEDS: Hypromellose 0.5% Ophth Soln 15 ML Bottle EYEBOTH PRN ×2 (09:45→20:20)
[2016-11-23] MEDS: Cholecalciferol (Vitamin D3) 1,000 Unit Tab PO SCH (09:47)
[2016-11-23] MEDS: Finasteride 5 MG Tab PO SCH (09:47)
[2016-11-23] MEDS: Tamsulosin 0.4 MG Cap.ER PO SCH (09:48)
[2016-11-23] MEDS: Metoprolol Tartrate 25 MG Tab PO SCH ×2 (09:48→20:20)
[2016-11-23] MEDS: Folic Acid 1 MG Tab PO SCH (09:48)
--- NOTE | 2016-11-23 12:02 | PCM.PN ---
- General Info Date of Service: 11/23/16 Subjective Update: Denies SOB today. Functional Status: Reports: tolerating diet - Review of Systems General: Reports: No Symptoms HEENT: Reports: no symptoms Pulmonary: Reports: no symptoms. Denies: hemoptysis Cardiovascular: Reports: No Symptoms Gastrointestinal: Reports: No symptoms Genitourinary: Reports: no symptoms Musculoskeletal: Reports: no symptoms Skin: Reports: no symptoms Neurological: Reports: No Symptoms Psychiatric: Reports: no symptoms - Patient Data Vitals - most recent: Last Vital Signs Temp 36.7 C 11/23/16 11:29 Pulse 66 11/23/16 11:29 Resp 18 11/23/16 11:29 BP 92/60 11/23/16 11:49 Pulse Ox 95 11/23/16 11:49 Weight - most recent: 87.634 kg I&O - last 24 hours: Intake & Output 11/22/16 11/23/16 11/23/16 22:59 06:59 14:59 Intake Total 450 100 Output Total 200 300 400 Balance 250 -200 -400 Lab Results last 24 hrs: Laboratory Results - last 24 hr 11/23/16 11/23/16 Range/Units 05:59 05:59 PT 27.6 H (8.0-13.0) SECONDS INR 2.39 Sodium 141 (136-145) mEq/L Potassium 4.1 (3.5-5.1) mEq/L Chloride 105 (98-107) mEq/L Carbon Dioxide 30 (21-32) mEq/L Anion Gap 10.1 (5-15) BUN 14 (7-18) mg/dL Creatinine 1.2 (0.7-1.3) mg/dL Est Cr Clr Drug Dosing 54.79 mL/min Estimated GFR (MDRD) 58 (>60) mL/min BUN/Creatinine Ratio 11.7 L (14-18) Glucose 93 (83-115) mg/dL Calcium 8.5 (8.5-10.1) mg/dL Med Orders - Current: Current Medications Acetaminophen (Tylenol) 650 mg PO Q4H PRN PRN Reason: Pain (Mild 1-3)/fever Artificial Tears (Isopto Tears 0.5% Ophth Soln) 0 ml EYEBOTH BID PRN PRN Reason: Dry Eyes Last Admin: 11/23/16 09:45 Dose: 1 drop Aspirin (Aspirin) 81 mg PO QPM [facility] Last Admin: 11/22/16 18:22 Dose: 81 mg Bisacodyl (Dulcolax) 10 mg RECTAL DAILY PRN PRN Reason: Constipation Bisacodyl (Dulcolax) 5 mg PO DAILY PRN PRN Reason: Constipation Cholecalciferol (Vitamin D3) 1,000 units PO DAILY [facility] Last Admin: 11/23/16 09:47 Dose: 1,000 units Diltiazem HCl (Dilacor Xr) 240 mg PO ACBREAKFAST [facility] Last Admin: 11/23/16 06:45 Dose: 240 mg Docusate Sodium (Colace) 100 mg PO BID PRN PRN Reason: Constipation Ferrous Sulfate (Ferrous Sulfate) 325 mg PO QPM [facility] Last Admin: 11/22/16 18:23 Dose: 325 mg Finasteride (Proscar) 5 mg PO DAILY [facility] Last Admin: 11/23/16 09:47 Dose: 5 mg Folic Acid (Folic Acid) 1 mg PO DAILY [facility] Last Admin: 11/23/16 09:48 Dose: 1 mg Hydralazine HCl (Apresoline) 10 mg PO Q6H PRN PRN Reason: systolic BP>180 or diast>105 Levothyroxine Sodium (Levothyroxine) 25 mcg PO ACBREAKFAST [facility] Last Admin: 11/23/16 06:45 Dose: 25 mcg Metoprolol Tartrate (Lopressor) 25 mg PO BID [facility] Last Admin: 11/23/16 09:48 Dose: 25 mg Mirtazapine (Remeron) 15 mg PO QPM [facility] Last Admin: 11/22/16 18:23 Dose: 15 mg Pantoprazole Sodium (Protonix) 40 mg PO DAILY@0700 [facility] Last Admin: 11/23/16 06:45 Dose: 40 mg Sodium Chloride (Saline Flush) 10 ml FLUSH ASDIRECTED PRN PRN Reason: Keep Vein Open Last Admin: 11/22/16 11:39 Dose: 10 ml Tamsulosin HCl (Flomax) 0.4 mg PO DAILY [facility] Last Admin: 11/23/16 09:48 Dose: 0.4 mg Warfarin Sodium (Pharmacy To Dose - Warfarin) 0 dose PO ASDIRECTED PRN PRN Reason: RX TO DOSE COUMADIN Warfarin Sodium (Coumadin) 5 mg PO SuTuWeFr@1800 [facility] Warfarin Sodium (Coumadin) 2.5 mg PO MoThSa@1800 [facility] Discontinued Medications Furosemide (Lasix) 40 mg IVPUSH NOW ONE Stop: 11/22/16 11:30 Last Admin: 11/22/16 11:39 Dose: 40 mg Warfarin Sodium (Coumadin) 5 mg PO DAILY@1800 [facility] Last Admin: 11/22/16 18:05 Dose: 5 mg - Exam Quality Assessment: supplemental oxygen, DVT prophylaxis General: alert, oriented, cooperative, no acute distress HEENT: Pupils equal, Pupils reactive Neck: supple, trachea midline Lungs: Normal respiratory effort, Decreased breath sounds Cardiovascular: Regular Rate, Irregular Rhythm Abdomen: bowel sounds present, soft, no tenderness, no distension (Male) Exam: Deferred Back Exam: normal inspection Extremities: normal pulses Skin: warm Neurological: no new focal deficit Psy/Mental Status: alert, normal affect, normal mood - Problem List Review Problem List Initiated/Reviewed/Updated: Yes - Plan Plan:: Acute hypoxic respiratory failure. Likely secondary to mild CHF exacerbation versus brewing pneumonia. Patient does not report cough at this time, but does have upper respiratory tract infection. supplemental oxygen as needed. PE is very unlikely as patient is therapeutic with INR of 2.6 today. --Expand lab assessment for Mycoplasma and Strep pneumo --Repeat CXR, 11/24/16. --Continue empiric RX Acute congestive heart failure. Unclear subtype. Awaiting report from recent echocardiogram. Patient was given 40 mg of IV Lasix in ER. Strict input-output recording, and daily weights. We'll consult nutrition for education.sodium and fluid restriction ordered. URI. Check viral panel. consider obtaining sputum cultures if patient develops a cough, but denies at this time. supportive measures. --See above Chronic medical conditions: CAD-continue aspirin Hypertension and atrial fibrillation-continue diltiazem, beta eduardo, Coumadin (pharmacy to dose) Iron deficiency-continue supplement BPH-continue finasteride and Flomax Hypothyroidism-continue levothyroxine Continue mirtazapine GERD-continue Prilosec DVT prophylaxis with continued Coumadin use Patient is DO NOT RESUSCITATE
[2016-11-23] MEDS ORDERED: Piperacillin/Tazobactam 4.5 GM in Sodium Chloride 0.9% 100 ML IV ONE (16:30)
[2016-11-23] MEDS: Ferrous Sulfate 325 MG Tab PO SCH (17:28)
[2016-11-23] MEDS: Mirtazapine 15 MG Tab PO SCH (17:28)
[2016-11-23] MEDS: Aspirin 81 MG Tab.Chew PO SCH (17:28)
[2016-11-23] MEDS: Levofloxacin/Dextrose 5%-Water 750 MG in Premix Bag 1 BAG IV SCH (17:35)
[2016-11-23] MEDS ORDERED: Warfarin 2.5 MG Tab PO SCH (18:00)
[2016-11-23] MEDS: Piperacillin/Tazobactam 4.5 GM in Sodium Chloride 0.9% 100 ML IV SCH (23:37)
[2016-11-24] MEDS: Pantoprazole 40 MG Tab.CR PO SCH (06:45)
[2016-11-24] MEDS: Levothyroxine 25 MCG Tab PO SCH (06:45)
[2016-11-24] MEDS: Finasteride 5 MG Tab PO SCH (08:11)
[2016-11-24] MEDS: Piperacillin/Tazobactam 4.5 GM in Sodium Chloride 0.9% 100 ML IV SCH ×2 (08:11→17:18)
[2016-11-24] MEDS: Diltiazem IR 30 MG Tab PO SCH ×3 (08:11→18:38)
[2016-11-24] MEDS: Folic Acid 1 MG Tab PO SCH (08:11)
[2016-11-24] MEDS: Cholecalciferol (Vitamin D3) 1,000 Unit Tab PO SCH (08:11)
[2016-11-24] MEDS: Tamsulosin 0.4 MG Cap.ER PO SCH (08:12)
[2016-11-24] MEDS: Metoprolol Tartrate 25 MG Tab PO SCH ×2 (08:12→20:23)
--- NOTE | 2016-11-24 09:20 | PCM.PN ---
- General Info Date of Service: 11/24/16 Functional Status: Reports: tolerating diet, ambulating, urinating - Review of Systems General: Reports: No Symptoms HEENT: Reports: no symptoms Pulmonary: Reports: shortness of breath Cardiovascular: Reports: No Symptoms Gastrointestinal: Reports: No symptoms Genitourinary: Reports: no symptoms Musculoskeletal: Reports: no symptoms Skin: Reports: no symptoms Neurological: Reports: No Symptoms Psychiatric: Reports: no symptoms - Patient Data Vitals - most recent: Last Vital Signs Temp 37.3 C 11/24/16 08:10 Pulse 87 11/24/16 08:12 Resp 19 11/24/16 08:10 BP 105/60 11/24/16 08:12 Pulse Ox 94 L 11/24/16 08:10 Weight - most recent: 88.133 kg I&O - last 24 hours: Intake & Output 11/23/16 11/24/16 11/24/16 22:59 06:59 14:59 Intake Total 950 200 Output Total 0 500 400 Balance 950 -300 -400 Lab Results last 24 hrs: Laboratory Results - last 24 hr 11/23/16 11/23/16 11/24/16 Range/Units 05:59 18:04 06:20 WBC (4.23-9.07) K/mm3 RBC (4.63-6.08) M/mm3 Hgb (13.7-17.5) gm/L Hct (40.1-51.0) % MCV (79.0-92.2) fl MCH (25.7-32.2) pg MCHC (32.2-35.5) g/dl RDW Std Deviation (35.1-43.9) fL Plt Count (163-337) K/mm3 MPV (9.4-12.3) fl Neut % (Auto) (34.0-67.9) % Lymph % (Auto) (21.8-53.1) % [place] % (Auto) (5.3-12.2) % Eos % (Auto) (0.8-7.0) Baso % (Auto) (0.1-1.2) % Neut # (Auto) (1.78-5.38) K/mm3 Lymph # (Auto) (1.32-3.57) K/mm3 [place] # (Auto) (0.30-0.82) K/mm3 Eos # (Auto) (0.04-0.54) K/mm3 Baso # (Auto) (0.01-0.08) K/mm3 PT (8.0-13.0) SECONDS INR Sodium 140 (136-145) mEq/L Potassium 4.8 (3.5-5.1) mEq/L Chloride 105 (98-107) mEq/L Carbon Dioxide 27 (21-32) mEq/L Anion Gap 12.8 (5-15) BUN 14 (7-18) mg/dL Creatinine 1.4 H (0.7-1.3) mg/dL Est Cr Clr Drug Dosing 46.96 mL/min Estimated GFR (MDRD) 49 (>60) mL/min BUN/Creatinine Ratio 10.0 L (14-18) Glucose 99 (83-115) mg/dL Calcium 8.4 L (8.5-10.1) mg/dL Magnesium (1.8-2.4) mg/dl CK-MB (CK-2) 0.5 (0-3.6) ng/ml Troponin I 0.020 (0.00-0.056) ng/mL Mycoplasma pneumon IgM Negative (NEGATIVE) 11/24/16 11/24/16 11/24/16 Range/Units 06:20 06:20 06:20 WBC 4.79 (4.23-9.07) K/mm3 RBC 3.63 L (4.63-6.08) M/mm3 Hgb 11.3 L (13.7-17.5) gm/L Hct 35.2 L (40.1-51.0) % MCV 97.0 H (79.0-92.2) fl MCH 31.1 (25.7-32.2) pg MCHC 32.1 L (32.2-35.5) g/dl RDW Std Deviation 51.4 H (35.1-43.9) fL Plt Count 132 L (163-337) K/mm3 MPV 10.2 (9.4-12.3) fl Neut % (Auto) 69.3 H (34.0-67.9) % Lymph % (Auto) 12.1 L (21.8-53.1) % [place] % (Auto) 14.0 H (5.3-12.2) % Eos % (Auto) 4.2 (0.8-7.0) Baso % (Auto) 0.4 (0.1-1.2) % Neut # (Auto) 3.32 (1.78-5.38) K/mm3 Lymph # (Auto) 0.58 L (1.32-3.57) K/mm3 [place] # (Auto) 0.67 (0.30-0.82) K/mm3 Eos # (Auto) 0.20 (0.04-0.54) K/mm3 Baso # (Auto) 0.02 (0.01-0.08) K/mm3 PT 26.8 H (8.0-13.0) SECONDS INR 2.33 Sodium (136-145) mEq/L Potassium (3.5-5.1) mEq/L Chloride (98-107) mEq/L Carbon Dioxide (21-32) mEq/L Anion Gap (5-15) BUN (7-18) mg/dL Creatinine (0.7-1.3) mg/dL Est Cr Clr Drug Dosing mL/min Estimated GFR (MDRD) (>60) mL/min BUN/Creatinine Ratio (14-18) Glucose (83-115) mg/dL Calcium (8.5-10.1) mg/dL Magnesium 2.1 (1.8-2.4) mg/dl CK-MB (CK-2) (0-3.6) ng/ml Troponin I (0.00-0.056) ng/mL Mycoplasma pneumon IgM (NEGATIVE) [place] Results last 24 hrs: Microbiology 11/23/16 17:40 Influenza Type A Antigen Screen - Final Nasopharyngeal Swab - Nare, Right NEGATIVE INFLUENZA A VIRUS AG Influenza Type B Antigen Screen - Final NEGATIVE INFLUENZA B VIRUS AG Med Orders - Current: Current Medications Acetaminophen (Tylenol) 650 mg PO Q4H PRN PRN Reason: Pain (Mild 1-3)/fever Artificial Tears (Isopto Tears 0.5% Ophth Soln) 0 ml EYEBOTH BID PRN PRN Reason: Dry Eyes Last Admin: 11/23/16 20:20 Dose: 1 drop Aspirin (Aspirin) 81 mg PO QPM [facility] Last Admin: 11/23/16 17:28 Dose: 81 mg Bisacodyl (Dulcolax) 10 mg RECTAL DAILY PRN PRN Reason: Constipation Bisacodyl (Dulcolax) 5 mg PO DAILY PRN PRN Reason: Constipation Cholecalciferol (Vitamin D3) 1,000 units PO DAILY [facility] Last Admin: 11/24/16 08:11 Dose: 1,000 units Diltiazem HCl (Dilacor Xr) 240 mg PO ACBREAKFAST [facility] Last Admin: 11/23/16 06:45 Dose: 240 mg Diltiazem HCl (Cardizem) 60 mg PO Q6HR [facility] Last Admin: 11/24/16 08:11 Dose: 60 mg Docusate Sodium (Colace) 100 mg PO BID PRN PRN Reason: Constipation Ferrous Sulfate (Ferrous Sulfate) 325 mg PO QPM [facility] Last Admin: 11/23/16 17:28 Dose: 325 mg Finasteride (Proscar) 5 mg PO DAILY [facility] Last Admin: 11/24/16 08:11 Dose: 5 mg Folic Acid (Folic Acid) 1 mg PO DAILY [facility] Last Admin: 11/24/16 08:11 Dose: 1 mg Hydralazine HCl (Apresoline) 10 mg PO Q6H PRN PRN Reason: systolic BP>180 or diast>105 Levofloxacin/Dextrose 750 mg/ (Premix) 150 mls @ 100 mls/hr IV Q24H [facility] Last Admin: 11/23/16 17:35 Dose: 100 mls/hr Piperacillin Sod/Tazobactam (Sod 4.5 gm/ Sodium Chloride) 100 mls @ 25 mls/hr IV Q8H [facility] Last Admin: 11/24/16 08:11 Dose: 25 mls/hr Levothyroxine Sodium (Levothyroxine) 25 mcg PO ACBREAKFAST [facility] Last Admin: 11/24/16 06:45 Dose: 25 mcg Metoprolol Tartrate (Lopressor) 25 mg PO BID [facility] Last Admin: 11/24/16 08:12 Dose: 25 mg Mirtazapine (Remeron) 15 mg PO QPM [facility] Last Admin: 11/23/16 17:28 Dose: 15 mg Pantoprazole Sodium (Protonix) 40 mg PO DAILY@0700 [facility] Last Admin: 11/24/16 06:45 Dose: 40 mg Sodium Chloride (Saline Flush) 10 ml FLUSH ASDIRECTED PRN PRN Reason: Keep Vein Open Last Admin: 11/22/16 11:39 Dose: 10 ml Tamsulosin HCl (Flomax) 0.4 mg PO DAILY [facility] Last Admin: 11/24/16 08:12 Dose: 0.4 mg Discontinued Medications Furosemide (Lasix) 40 mg IVPUSH NOW ONE Stop: 11/22/16 11:30 Last Admin: 11/22/16 11:39 Dose: 40 mg Piperacillin Sod/Tazobactam (Sod 4.5 gm/ Sodium Chloride) 100 mls @ 200 mls/hr IV ONETIME ONE Stop: 11/23/16 16:59 Last Admin: 11/23/16 17:27 Dose: 200 mls/hr Warfarin Sodium (Coumadin) 5 mg PO DAILY@1800 [facility] Last Admin: 11/22/16 18:05 Dose: 5 mg Warfarin Sodium (Pharmacy To Dose - Warfarin) 0 dose PO ASDIRECTED PRN PRN Reason: RX TO DOSE COUMADIN Warfarin Sodium (Coumadin) 5 mg PO SuTuWeFr@1800 [facility] Warfarin Sodium (Coumadin) 2.5 mg PO MoThSa@1800 [facility] - Exam Quality Assessment: supplemental oxygen, DVT prophylaxis General: alert, oriented, cooperative, no acute distress HEENT: Pupils equal, Pupils reactive, EOMI Neck: supple, trachea midline Lungs: Normal respiratory effort, Decreased breath sounds Cardiovascular: Regular Rate, Regular Rhythm Abdomen: bowel sounds present, soft, no tenderness, no distension (Male) Exam: Deferred Back Exam: normal inspection Extremities: normal pulses Skin: warm Neurological: no new focal deficit, normal gait, normal speech Psy/Mental Status: alert, normal affect, normal mood - Problem List Review Problem List Initiated/Reviewed/Updated: Yes - My Orders Last 24 Hours: My Active Orders 11/23/16 13:59 STREP PNEUMONIAE ANTIGEN [MREF] Routine 11/23/16 16:15 Levofloxacin/Dextrose 5%-Water [Levaquin in D5W 750 MG/150 ML] 750 mg Premix Bag 1 bag IV Q24H 11/24/16 00:30 Piperacillin/Tazobactam [Zosyn] 4.5 gm Sodium Chloride 0.9% [Normal Saline] 100 ml IV Q8H 11/24/16 09:00 CXR [Chest 2V] [CR] Routine Diltiazem [Cardizem] 60 mg PO Q6HR 11/25/16 05:00 CBC WITH AUTO DIFF [HEME] DAILY MAGNESIUM [CHEM] DAILY 11/26/16 05:00 CBC WITH AUTO DIFF [HEME] DAILY MAGNESIUM [CHEM] DAILY - Plan Plan:: Acute hypoxic respiratory failure. Empiric RX for HCAP added Vancomycin today. --Expand lab assessment for Mycoplasma and Strep pneumo --Repeat CXR, 11/24/16. --Continue empiric RX; CXR suggest probable bilateral infiltrate vs effusion --Resp panel negative Acute congestive heart failure. Unclear subtype. Awaiting report from recent echocardiogram. Patient was given 40 mg of IV Lasix in ER. BNP ordered, suspect DHF. Cardiac enzymes are WNL. Chronic medical conditions: CAD-continue aspirin Hypertension and atrial fibrillation-continue diltiazem, beta eduardo, Coumadin (pharmacy to dose) Iron deficiency-continue supplement BPH-continue finasteride and Flomax Hypothyroidism-continue levothyroxine Continue mirtazapine GERD-continue Prilosec DVT prophylaxis with continued Coumadin use Patient is DO NOT RESUSCITATE DC 24-48 hours, will need O2 if O2 sat<90%
[2016-11-24] MEDS: Vancomycin 1 GM, Vancomycin 250 MG in Sodium Chloride 0.9% 250 ML IV SCH (13:33)
[2016-11-24] MEDS: Levofloxacin/Dextrose 5%-Water 750 MG in Premix Bag 1 BAG IV SCH (15:18)
[2016-11-24] MEDS: Hypromellose 0.5% Ophth Soln 15 ML Bottle EYEBOTH PRN (15:20)
[2016-11-24] MEDS ORDERED: Warfarin 5 MG Tab PO SCH (18:00)
[2016-11-24] MEDS: Aspirin 81 MG Tab.Chew PO SCH (18:38)
[2016-11-24] MEDS: Ferrous Sulfate 325 MG Tab PO SCH (18:38)
[2016-11-24] MEDS: Mirtazapine 15 MG Tab PO SCH (18:38)
--- NOTE | 2016-11-24 19:20 | CR ---
Chest: Two views of the chest are obtained. Comparison: Previous chest x-ray of 11/22/16. Slight increased density within the right lung base is noted. Blunting of the posterior costophrenic angles are seen compatible with small pleural effusions. Emphysematous change is seen. Pulmonary vessels are slightly congested. 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 Sternotomy wires noted. Old healed left-sided rib fractures are present. Impression: 1. Findings as described above. When allowing for differences in technique, no appreciable change seen from previous study. Diagnostic code #3 I agree with preliminary report issued by [facility] (preliminary report dictated on 11/24/16, 10:03 AM Central Time)
[2016-11-25] MEDS: Piperacillin/Tazobactam 4.5 GM in Sodium Chloride 0.9% 100 ML IV SCH ×3 (00:17→16:24)
[2016-11-25] MEDS: Diltiazem IR 30 MG Tab PO SCH ×4 (00:25→17:49)
[2016-11-25] MEDS: Pantoprazole 40 MG Tab.CR PO SCH (06:15)
[2016-11-25] MEDS: Levothyroxine 25 MCG Tab PO SCH (06:15)
[2016-11-25] MEDS: Vancomycin 1 GM, Vancomycin 250 MG in Sodium Chloride 0.9% 250 ML IV SCH (06:18)
[2016-11-25] MEDS: Cholecalciferol (Vitamin D3) 1,000 Unit Tab PO SCH (08:32)
[2016-11-25] MEDS: Metoprolol Tartrate 25 MG Tab PO SCH ×2 (08:32→20:00)
[2016-11-25] MEDS: Finasteride 5 MG Tab PO SCH (08:32)
[2016-11-25] MEDS: Folic Acid 1 MG Tab PO SCH (08:32)
[2016-11-25] MEDS: Tamsulosin 0.4 MG Cap.ER PO SCH (08:32)
[2016-11-25] MEDS: Hypromellose 0.5% Ophth Soln 15 ML Bottle EYEBOTH PRN ×2 (09:29→20:20)
--- NOTE | 2016-11-25 14:39 | PCM.PN ---
- General Info Date of Service: 11/25/16 Subjective Update: Ambulating without difficulty, will need O2 at DC. Spouse is not feeling well and may have the Flu. Functional Status: Reports: tolerating diet, ambulating, urinating - Review of Systems General: Reports: No Symptoms HEENT: Reports: no symptoms Pulmonary: Reports: no symptoms Cardiovascular: Reports: No Symptoms Gastrointestinal: Reports: No symptoms Genitourinary: Reports: no symptoms Musculoskeletal: Reports: no symptoms Skin: Reports: no symptoms Neurological: Reports: No Symptoms Psychiatric: Reports: no symptoms - Patient Data Vitals - most recent: Last Vital Signs Temp 37.5 C 11/25/16 11:54 Pulse 87 11/25/16 11:54 Resp 18 11/25/16 11:54 BP 106/69 11/25/16 11:54 Pulse Ox 90 L 11/25/16 11:54 Weight - most recent: 87.453 kg I&O - last 24 hours: Intake & Output 11/24/16 11/25/16 11/25/16 22:59 06:59 14:59 Intake Total 1100 250 220 Output Total 0 250 500 Balance 1100 0 -280 Lab Results last 24 hrs: Laboratory Results - last 24 hr 11/24/16 11/25/16 11/25/16 Range/Units 18:45 06:10 06:10 WBC (4.23-9.07) K/mm3 RBC (4.63-6.08) M/mm3 Hgb (13.7-17.5) gm/L Hct (40.1-51.0) % MCV (79.0-92.2) fl MCH (25.7-32.2) pg MCHC (32.2-35.5) g/dl RDW Std Deviation (35.1-43.9) fL Plt Count (163-337) K/mm3 MPV (9.4-12.3) fl Neut % (Auto) (34.0-67.9) % Lymph % (Auto) (21.8-53.1) % [place] % (Auto) (5.3-12.2) % Eos % (Auto) (0.8-7.0) Baso % (Auto) (0.1-1.2) % Neut # (Auto) (1.78-5.38) K/mm3 Lymph # (Auto) (1.32-3.57) K/mm3 [place] # (Auto) (0.30-0.82) K/mm3 Eos # (Auto) (0.04-0.54) K/mm3 Baso # (Auto) (0.01-0.08) K/mm3 Manual Slide Review PT 22.7 H (8.0-13.0) SECONDS INR 1.99 Sodium 139 140 (136-145) mEq/L Potassium 4.2 4.2 (3.5-5.1) mEq/L Chloride 105 107 (98-107) mEq/L Carbon Dioxide 27 25 (21-32) mEq/L Anion Gap 11.2 12.2 (5-15) BUN 13 13 (7-18) mg/dL Creatinine 1.5 H 1.3 (0.7-1.3) mg/dL Est Cr Clr Drug Dosing 43.83 50.57 mL/min Estimated GFR (MDRD) 45 53 (>60) mL/min BUN/Creatinine Ratio 8.7 L 10.0 L (14-18) Glucose 123 H 103 (83-115) mg/dL Calcium 8.2 L 8.4 L (8.5-10.1) mg/dL Magnesium (1.8-2.4) mg/dl B-Natriuretic Peptide (0-100) pg/mL Triglycerides (<150) mg/dL Cholesterol (<200) mg/dL LDL Cholesterol Direct (<100) mg/dL HDL Cholesterol (40-59) mg/dL TSH 3rd Generation (0.358-3.74) uIU/mL MRSA (PCR) 11/25/16 11/25/16 11/25/16 Range/Units 06:10 06:10 06:10 WBC 3.12 L (4.23-9.07) K/mm3 RBC 4.11 L (4.63-6.08) M/mm3 Hgb 12.7 L (13.7-17.5) gm/L Hct 39.6 L (40.1-51.0) % MCV 96.4 H (79.0-92.2) fl MCH 30.9 (25.7-32.2) pg MCHC 32.1 L (32.2-35.5) g/dl RDW Std Deviation 51.5 H (35.1-43.9) fL Plt Count 97 L (163-337) K/mm3 MPV 10.7 (9.4-12.3) fl Neut % (Auto) 59.0 (34.0-67.9) % Lymph % (Auto) 16.3 L (21.8-53.1) % [place] % (Auto) 15.1 H (5.3-12.2) % Eos % (Auto) 9.3 H (0.8-7.0) Baso % (Auto) 0.3 (0.1-1.2) % Neut # (Auto) 1.84 (1.78-5.38) K/mm3 Lymph # (Auto) 0.51 L (1.32-3.57) K/mm3 [place] # (Auto) 0.47 (0.30-0.82) K/mm3 Eos # (Auto) 0.29 (0.04-0.54) K/mm3 Baso # (Auto) 0.01 (0.01-0.08) K/mm3 Manual Slide Review Abnormal smear PT (8.0-13.0) SECONDS INR Sodium (136-145) mEq/L Potassium (3.5-5.1) mEq/L Chloride (98-107) mEq/L Carbon Dioxide (21-32) mEq/L Anion Gap (5-15) BUN (7-18) mg/dL Creatinine (0.7-1.3) mg/dL Est Cr Clr Drug Dosing mL/min Estimated GFR (MDRD) (>60) mL/min BUN/Creatinine Ratio (14-18) Glucose (83-115) mg/dL Calcium (8.5-10.1) mg/dL Magnesium 2.1 (1.8-2.4) mg/dl B-Natriuretic Peptide 157 H (0-100) pg/mL Triglycerides 65 (<150) mg/dL Cholesterol 177 (<200) mg/dL LDL Cholesterol Direct 119 H* (<100) mg/dL HDL Cholesterol 45.0 (40-59) mg/dL TSH 3rd Generation 2.745 (0.358-3.74) uIU/mL MRSA (PCR) 11/25/16 Range/Units 12:30 WBC (4.23-9.07) K/mm3 RBC (4.63-6.08) M/mm3 Hgb (13.7-17.5) gm/L Hct (40.1-51.0) % MCV (79.0-92.2) fl MCH (25.7-32.2) pg MCHC (32.2-35.5) g/dl RDW Std Deviation (35.1-43.9) fL Plt Count (163-337) K/mm3 MPV (9.4-12.3) fl Neut % (Auto) (34.0-67.9) % Lymph % (Auto) (21.8-53.1) % [place] % (Auto) (5.3-12.2) % Eos % (Auto) (0.8-7.0) Baso % (Auto) (0.1-1.2) % Neut # (Auto) (1.78-5.38) K/mm3 Lymph # (Auto) (1.32-3.57) K/mm3 [place] # (Auto) (0.30-0.82) K/mm3 Eos # (Auto) (0.04-0.54) K/mm3 Baso # (Auto) (0.01-0.08) K/mm3 Manual Slide Review PT (8.0-13.0) SECONDS INR Sodium (136-145) mEq/L Potassium (3.5-5.1) mEq/L Chloride (98-107) mEq/L Carbon Dioxide (21-32) mEq/L Anion Gap (5-15) BUN (7-18) mg/dL Creatinine (0.7-1.3) mg/dL Est Cr Clr Drug Dosing mL/min Estimated GFR (MDRD) (>60) mL/min BUN/Creatinine Ratio (14-18) Glucose (83-115) mg/dL Calcium (8.5-10.1) mg/dL Magnesium (1.8-2.4) mg/dl B-Natriuretic Peptide (0-100) pg/mL Triglycerides (<150) mg/dL Cholesterol (<200) mg/dL LDL Cholesterol Direct (<100) mg/dL HDL Cholesterol (40-59) mg/dL TSH 3rd Generation (0.358-3.74) uIU/mL MRSA (PCR) Negative Med Orders - Current: Current Medications Acetaminophen (Tylenol) 650 mg PO Q4H PRN PRN Reason: Pain (Mild 1-3)/fever Artificial Tears (Isopto Tears 0.5% Ophth Soln) 0 ml EYEBOTH BID PRN PRN Reason: Dry Eyes Last Admin: 11/25/16 09:29 Dose: 1 drop Aspirin (Aspirin) 81 mg PO QPM [facility] Last Admin: 11/24/16 18:38 Dose: 81 mg Bisacodyl (Dulcolax) 10 mg RECTAL DAILY PRN PRN Reason: Constipation Bisacodyl (Dulcolax) 5 mg PO DAILY PRN PRN Reason: Constipation Cholecalciferol (Vitamin D3) 1,000 units PO DAILY [facility] Last Admin: 11/25/16 08:32 Dose: 1,000 units Diltiazem HCl (Dilacor Xr) 240 mg PO ACBREAKFAST [facility] Last Admin: 11/23/16 06:45 Dose: 240 mg Diltiazem HCl (Cardizem) 60 mg PO Q6HR [facility] Last Admin: 11/25/16 12:13 Dose: Not Given Docusate Sodium (Colace) 100 mg PO BID PRN PRN Reason: Constipation Ferrous Sulfate (Ferrous Sulfate) 325 mg PO QPM [facility] Last Admin: 11/24/16 18:38 Dose: 325 mg Finasteride (Proscar) 5 mg PO DAILY [facility] Last Admin: 11/25/16 08:32 Dose: 5 mg Folic Acid (Folic Acid) 1 mg PO DAILY [facility] Last Admin: 11/25/16 08:32 Dose: 1 mg Hydralazine HCl (Apresoline) 10 mg PO Q6H PRN PRN Reason: systolic BP>180 or diast>105 Levofloxacin/Dextrose 750 mg/ (Premix) 150 mls @ 100 mls/hr IV Q24H [facility] Last Admin: 11/24/16 15:18 Dose: 100 mls/hr Piperacillin Sod/Tazobactam (Sod 4.5 gm/ Sodium Chloride) 100 mls @ 25 mls/hr IV Q8H [facility] Last Admin: 11/25/16 08:33 Dose: 25 mls/hr Vancomycin HCl 1 gm/Vancomycin HCl 250 mg/ Sodium Chloride 250 mls @ 167 mls/ hr IV Q18H [facility] Last Admin: 11/25/16 06:18 Dose: 167 mls/hr Levothyroxine Sodium (Levothyroxine) 25 mcg PO ACBREAKFAST [facility] Last Admin: 11/25/16 06:15 Dose: 25 mcg Metoprolol Tartrate (Lopressor) 25 mg PO BID [facility] Last Admin: 11/25/16 08:32 Dose: 25 mg Mirtazapine (Remeron) 15 mg PO QPM [facility] Last Admin: 11/24/16 18:38 Dose: 15 mg Pantoprazole Sodium (Protonix) 40 mg PO DAILY@0700 [facility] Last Admin: 11/25/16 06:15 Dose: 40 mg Sodium Chloride (Saline Flush) 10 ml FLUSH ASDIRECTED PRN PRN Reason: Keep Vein Open Last Admin: 11/22/16 11:39 Dose: 10 ml Tamsulosin HCl (Flomax) 0.4 mg PO DAILY [facility] Last Admin: 11/25/16 08:32 Dose: 0.4 mg Vancomycin HCl (Pharmacy To Dose - Vancomycin) 0 dose .XX ASDIRECTED PRN PRN Reason: RX DOSE Discontinued Medications Furosemide (Lasix) 40 mg IVPUSH NOW ONE Stop: 11/22/16 11:30 Last Admin: 11/22/16 11:39 Dose: 40 mg Piperacillin Sod/Tazobactam (Sod 4.5 gm/ Sodium Chloride) 100 mls @ 200 mls/hr IV ONETIME ONE Stop: 11/23/16 16:59 Last Admin: 11/23/16 17:27 Dose: 200 mls/hr Warfarin Sodium (Coumadin) 5 mg PO DAILY@1800 [facility] Last Admin: 11/22/16 18:05 Dose: 5 mg Warfarin Sodium (Pharmacy To Dose - Warfarin) 0 dose PO ASDIRECTED PRN PRN Reason: RX TO DOSE COUMADIN Warfarin Sodium (Coumadin) 5 mg PO SuTuWeFr@1800 [facility] Warfarin Sodium (Coumadin) 2.5 mg PO MoThSa@1800 [facility] - Exam Quality Assessment: supplemental oxygen (nocturnal), DVT prophylaxis General: alert, oriented, cooperative, no acute distress HEENT: Pupils equal, Pupils reactive, EOMI Neck: supple, trachea midline, no JVD Lungs: Normal respiratory effort Cardiovascular: Regular Rate Abdomen: bowel sounds present, soft, no tenderness, no distension (Male) Exam: Deferred Back Exam: normal inspection Extremities: normal pulses Skin: warm Neurological: no new focal deficit, normal gait, normal speech Psy/Mental Status: alert, normal affect, normal mood - Problem List Review Problem List Initiated/Reviewed/Updated: Yes - My Orders Last 24 Hours: My Active Orders 11/26/16 05:00 CBC WITH AUTO DIFF [HEME] DAILY MAGNESIUM [CHEM] DAILY 11/26/16 18:30 VANCOMYCIN TROUGH [CHEM] Timed 11/26/16 21:00 Overnight Pulse Oximetry [Overnight Pulse Oximetry] [RC] Click To Edit - Plan Plan:: Acute hypoxic respiratory failure. Empiric RX for HCAP added Vancomycin 11/24/16. --Expand lab assessment for Mycoplasma and Strep pneumo --Repeat CXR, 11/24/16. --Continue empiric RX; CXR suggest probable bilateral infiltrate vs effusion --Resp panel negative Acute congestive heart failure. Unclear subtype. Awaiting report from recent echocardiogram. Patient was given 40 mg of IV Lasix in ER. BNP ordered, suspect DHF. Cardiac enzymes are WNL. Chronic medical conditions: CAD-continue aspirin Hypertension and atrial fibrillation-continue diltiazem, beta eduardo, Coumadin (pharmacy to dose) Iron deficiency-continue supplement BPH-continue finasteride and Flomax Hypothyroidism-continue levothyroxine Continue mirtazapine GERD-continue Prilosec DVT prophylaxis with continued Coumadin use Patient is DO NOT RESUSCITATE Will need O2 if O2 sat<90% LOS>96 hours with slow improvement
[2016-11-25] MEDS: Levofloxacin/Dextrose 5%-Water 750 MG in Premix Bag 1 BAG IV SCH (16:24)
[2016-11-25] MEDS: Aspirin 81 MG Tab.Chew PO SCH (17:48)
[2016-11-25] MEDS: Mirtazapine 15 MG Tab PO SCH (17:49)
[2016-11-25] MEDS: Ferrous Sulfate 325 MG Tab PO SCH (17:49)
[2016-11-25] MEDS: Diltiazem IR 60 MG Tab PO SCH ×2 (18:01→23:41)
[2016-11-25] MEDS ORDERED: Metoprolol Tartrate 25 MG Tab PO ONE (21:00)
[2016-11-26] MEDS: Vancomycin 1 GM, Vancomycin 250 MG in Sodium Chloride 0.9% 250 ML IV SCH (00:04)
[2016-11-26] MEDS: Piperacillin/Tazobactam 4.5 GM in Sodium Chloride 0.9% 100 ML IV SCH ×3 (01:41→16:32)
[2016-11-26] MEDS: Diltiazem IR 60 MG Tab PO SCH ×3 (06:01→18:02)
[2016-11-26] MEDS: Pantoprazole 40 MG Tab.CR PO SCH (06:01)
[2016-11-26] MEDS: Levothyroxine 25 MCG Tab PO SCH (06:01)
[2016-11-26] MEDS: Metoprolol Tartrate 25 MG Tab PO SCH ×2 (08:14→20:32)
[2016-11-26] MEDS: Tamsulosin 0.4 MG Cap.ER PO SCH (08:14)
[2016-11-26] MEDS: Folic Acid 1 MG Tab PO SCH (08:14)
[2016-11-26] MEDS: Finasteride 5 MG Tab PO SCH (08:14)
[2016-11-26] MEDS: Cholecalciferol (Vitamin D3) 1,000 Unit Tab PO SCH (08:14)
[2016-11-26] MEDS: Hypromellose 0.5% Ophth Soln 15 ML Bottle EYEBOTH PRN (08:27)
--- NOTE | 2016-11-26 12:33 | PCM.PN ---
- General Info Date of Service: 11/26/16 Functional Status: Reports: tolerating diet, ambulating, urinating - Review of Systems General: Reports: No Symptoms HEENT: Reports: no symptoms Pulmonary: Reports: no symptoms Cardiovascular: Reports: No Symptoms Gastrointestinal: Reports: No symptoms Genitourinary: Reports: no symptoms Musculoskeletal: Reports: no symptoms Skin: Reports: no symptoms Neurological: Reports: No Symptoms Psychiatric: Reports: no symptoms - Patient Data Vitals - most recent: Last Vital Signs Temp 36.7 C 11/26/16 11:55 Pulse 78 11/26/16 11:55 Resp 16 11/26/16 11:55 BP 113/54 L 11/26/16 12:10 Pulse Ox 92 L 11/26/16 11:55 Weight - most recent: 88.178 kg I&O - last 24 hours: Intake & Output 11/25/16 11/26/16 11/26/16 22:59 06:59 14:59 Intake Total 930 500 400 Output Total 300 300 Balance 630 200 400 Lab Results last 24 hrs: Laboratory Results - last 24 hr 11/25/16 11/26/16 11/26/16 Range/Units 12:30 05:55 05:55 WBC 3.32 L (4.23-9.07) K/mm3 RBC 3.61 L (4.63-6.08) M/mm3 Hgb 11.3 L (13.7-17.5) gm/L Hct 35.2 L (40.1-51.0) % MCV 97.5 H (79.0-92.2) fl MCH 31.3 (25.7-32.2) pg MCHC 32.1 L (32.2-35.5) g/dl RDW Std Deviation 51.8 H (35.1-43.9) fL Plt Count 108 L (163-337) K/mm3 MPV 11.1 (9.4-12.3) fl Neut % (Auto) 50.2 (34.0-67.9) % Lymph % (Auto) 19.0 L (21.8-53.1) % [place] % (Auto) 16.9 H (5.3-12.2) % Eos % (Auto) 13.0 H (0.8-7.0) Baso % (Auto) 0.6 (0.1-1.2) % Neut # (Auto) 1.67 L (1.78-5.38) K/mm3 Lymph # (Auto) 0.63 L (1.32-3.57) K/mm3 [place] # (Auto) 0.56 (0.30-0.82) K/mm3 Eos # (Auto) 0.43 (0.04-0.54) K/mm3 Baso # (Auto) 0.02 (0.01-0.08) K/mm3 Manual Slide Review Abnormal smear PT 17.9 H (8.0-13.0) SECONDS INR 1.59 Magnesium (1.8-2.4) mg/dl MRSA (PCR) Negative 11/26/16 Range/Units 05:55 WBC (4.23-9.07) K/mm3 RBC (4.63-6.08) M/mm3 Hgb (13.7-17.5) gm/L Hct (40.1-51.0) % MCV (79.0-92.2) fl MCH (25.7-32.2) pg MCHC (32.2-35.5) g/dl RDW Std Deviation (35.1-43.9) fL Plt Count (163-337) K/mm3 MPV (9.4-12.3) fl Neut % (Auto) (34.0-67.9) % Lymph % (Auto) (21.8-53.1) % [place] % (Auto) (5.3-12.2) % Eos % (Auto) (0.8-7.0) Baso % (Auto) (0.1-1.2) % Neut # (Auto) (1.78-5.38) K/mm3 Lymph # (Auto) (1.32-3.57) K/mm3 [place] # (Auto) (0.30-0.82) K/mm3 Eos # (Auto) (0.04-0.54) K/mm3 Baso # (Auto) (0.01-0.08) K/mm3 Manual Slide Review PT (8.0-13.0) SECONDS INR Magnesium 2.0 (1.8-2.4) mg/dl MRSA (PCR) Obey Results last 24 hrs: Microbiology 11/23/16 13:59 Streptococcus pneumoniae Antigen (M - Final Urine 11/22/16 15:05 Respiratory Virus Panel (PCR) (OBEY) - Final Nasopharyngeal Swab - Nare, Left Med Orders - Current: Current Medications Acetaminophen (Tylenol) 650 mg PO Q4H PRN PRN Reason: Pain (Mild 1-3)/fever Artificial Tears (Isopto Tears 0.5% Ophth Soln) 0 ml EYEBOTH BID PRN PRN Reason: Dry Eyes Last Admin: 11/26/16 08:27 Dose: 1 drop Aspirin (Aspirin) 81 mg PO QPM [facility] Last Admin: 11/25/16 17:48 Dose: 81 mg Bisacodyl (Dulcolax) 10 mg RECTAL DAILY PRN PRN Reason: Constipation Bisacodyl (Dulcolax) 5 mg PO DAILY PRN PRN Reason: Constipation Cholecalciferol (Vitamin D3) 1,000 units PO DAILY [facility] Last Admin: 11/26/16 08:14 Dose: 1,000 units Diltiazem HCl (Dilacor Xr) 240 mg PO ACBREAKFAST [facility] Last Admin: 11/23/16 06:45 Dose: 240 mg Diltiazem HCl (Cardizem) 60 mg PO Q6HR [facility] Last Admin: 11/26/16 12:14 Dose: 60 mg Docusate Sodium (Colace) 100 mg PO BID PRN PRN Reason: Constipation Ferrous Sulfate (Ferrous Sulfate) 325 mg PO QPM [facility] Last Admin: 11/25/16 17:49 Dose: 325 mg Finasteride (Proscar) 5 mg PO DAILY [facility] Last Admin: 11/26/16 08:14 Dose: 5 mg Folic Acid (Folic Acid) 1 mg PO DAILY [facility] Last Admin: 11/26/16 08:14 Dose: 1 mg Hydralazine HCl (Apresoline) 10 mg PO Q6H PRN PRN Reason: systolic BP>180 or diast>105 Levofloxacin/Dextrose 750 mg/ (Premix) 150 mls @ 100 mls/hr IV Q24H [facility] Last Admin: 11/25/16 16:24 Dose: 100 mls/hr Piperacillin Sod/Tazobactam (Sod 4.5 gm/ Sodium Chloride) 100 mls @ 25 mls/hr IV Q8H [facility] Last Admin: 11/26/16 08:13 Dose: 25 mls/hr Levothyroxine Sodium (Levothyroxine) 25 mcg PO ACBREAKFAST [facility] Last Admin: 11/26/16 06:01 Dose: 25 mcg Metoprolol Tartrate (Lopressor) 25 mg PO BID [facility] Last Admin: 11/26/16 08:14 Dose: 25 mg Mirtazapine (Remeron) 15 mg PO QPM [facility] Last Admin: 11/25/16 17:49 Dose: 15 mg Pantoprazole Sodium (Protonix) 40 mg PO DAILY@0700 [facility] Last Admin: 11/26/16 06:01 Dose: 40 mg Sodium Chloride (Saline Flush) 10 ml FLUSH ASDIRECTED PRN PRN Reason: Keep Vein Open Last Admin: 11/22/16 11:39 Dose: 10 ml Tamsulosin HCl (Flomax) 0.4 mg PO DAILY [facility] Last Admin: 11/26/16 08:14 Dose: 0.4 mg Discontinued Medications Diltiazem HCl (Cardizem) 60 mg PO Q6HR [facility] Last Admin: 11/25/16 17:49 Dose: 60 mg Furosemide (Lasix) 40 mg IVPUSH NOW ONE Stop: 11/22/16 11:30 Last Admin: 11/22/16 11:39 Dose: 40 mg Piperacillin Sod/Tazobactam (Sod 4.5 gm/ Sodium Chloride) 100 mls @ 200 mls/hr IV ONETIME ONE Stop: 11/23/16 16:59 Last Admin: 11/23/16 17:27 Dose: 200 mls/hr Vancomycin HCl 1 gm/Vancomycin HCl 250 mg/ Sodium Chloride 250 mls @ 167 mls/ hr IV Q18H [facility] Last Admin: 11/26/16 00:04 Dose: 167 mls/hr Metoprolol Tartrate (Lopressor) 12.5 mg PO ONETIME ONE Stop: 11/25/16 21:01 Last Admin: 11/25/16 20:20 Dose: 12.5 mg Vancomycin HCl (Pharmacy To Dose - Vancomycin) 0 dose .XX ASDIRECTED PRN PRN Reason: RX DOSE Warfarin Sodium (Coumadin) 5 mg PO DAILY@1800 [facility] Last Admin: 11/22/16 18:05 Dose: 5 mg Warfarin Sodium (Pharmacy To Dose - Warfarin) 0 dose PO ASDIRECTED PRN PRN Reason: RX TO DOSE COUMADIN Warfarin Sodium (Coumadin) 5 mg PO SuTuWeFr@1800 [facility] Warfarin Sodium (Coumadin) 2.5 mg PO MoThSa@1800 [facility] - Exam Quality Assessment: DVT prophylaxis General: alert, oriented, cooperative, no acute distress HEENT: Pupils equal, Pupils reactive, EOMI Neck: supple, trachea midline Lungs: Normal respiratory effort Cardiovascular: Regular Rate, Irregular Rhythm Abdomen: bowel sounds present, soft, no tenderness, no distension (Male) Exam: Deferred Back Exam: normal inspection Extremities: normal pulses Skin: warm Neurological: no new focal deficit, normal gait, normal speech Psy/Mental Status: alert, normal affect, normal mood - Problem List Review Problem List Initiated/Reviewed/Updated: Yes - My Orders Last 24 Hours: My Active Orders 11/25/16 18:00 Diltiazem [Cardizem] 60 mg PO Q6HR 11/26/16 21:00 Overnight Pulse Oximetry [Overnight Pulse Oximetry] [RC] Click To Edit - Plan Plan:: Acute hypoxic respiratory failure. Empiric RX for HCAP added Vancomycin 11/24/16. --Expand lab assessment for Mycoplasma and Strep pneumo --Repeat CXR, 11/24/16. --Continue empiric RX; CXR suggest probable bilateral infiltrate vs effusion --Resp panel negative Acute congestive heart failure. Unclear subtype. Awaiting report from recent echocardiogram. Patient was given 40 mg of IV Lasix in ER. BNP ordered, suspect DHF. Cardiac enzymes are WNL. Chronic medical conditions: CAD-continue aspirin Hypertension and atrial fibrillation-continue diltiazem, beta eduardo, Coumadin (pharmacy to dose) Iron deficiency-continue supplement BPH-continue finasteride and Flomax Hypothyroidism-continue levothyroxine Continue mirtazapine GERD-continue Prilosec DVT prophylaxis with continued Coumadin use Patient is DO NOT RESUSCITATE Will need O2 if O2 sat<90% LOS>96 hours with slow improvement
[2016-11-26] MEDS: Levofloxacin/Dextrose 5%-Water 750 MG in Premix Bag 1 BAG IV SCH (16:31)
[2016-11-26] MEDS: Ferrous Sulfate 325 MG Tab PO SCH (18:02)
[2016-11-26] MEDS: Aspirin 81 MG Tab.Chew PO SCH (18:02)
[2016-11-26] MEDS: Mirtazapine 15 MG Tab PO SCH (18:02)
[2016-11-27] MEDS: Piperacillin/Tazobactam 4.5 GM in Sodium Chloride 0.9% 100 ML IV SCH ×2 (01:05→08:28)
[2016-11-27] MEDS: Diltiazem IR 60 MG Tab PO SCH ×2 (01:06→06:17)
[2016-11-27] MEDS: Levothyroxine 25 MCG Tab PO SCH (06:16)
[2016-11-27] MEDS: Diltiazem 240 MG Cap.ER PO SCH (06:16)
[2016-11-27] MEDS: Pantoprazole 40 MG Tab.CR PO SCH (06:17)
[2016-11-27] MEDS: Tamsulosin 0.4 MG Cap.ER PO SCH (08:28)
[2016-11-27] MEDS: Folic Acid 1 MG Tab PO SCH (08:28)
[2016-11-27] MEDS: Metoprolol Tartrate 25 MG Tab PO SCH (08:28)
[2016-11-27] MEDS: Finasteride 5 MG Tab PO SCH (08:29)
[2016-11-27] MEDS: Cholecalciferol (Vitamin D3) 1,000 Unit Tab PO SCH (08:29)
--- NOTE | 2016-11-27 11:47 | PCM.PN ---
- General Info Date of Service: 11/27/16 Subjective Update: Patient denies feeling lightheaded, received 2 doses of Cardizem: home dose, CD 240 mg as well as short acting, 60 mg. He subsequently developed bradycardia. He will be transferred to the ICU for close monitoring. He additionally confirmed that his has the flu, he will be started on Tamiflu prophylactic dose. Functional Status: Reports: tolerating diet, ambulating, urinating - Review of Systems General: Reports: No Symptoms HEENT: Reports: no symptoms Pulmonary: Reports: no symptoms Cardiovascular: Reports: No Symptoms Gastrointestinal: Reports: No symptoms Genitourinary: Reports: no symptoms Musculoskeletal: Reports: no symptoms Skin: Reports: no symptoms Neurological: Reports: No Symptoms Psychiatric: Reports: no symptoms - Patient Data Vitals - most recent: Last Vital Signs Temp 36.9 C 11/27/16 08:00 Pulse 93 11/27/16 08:28 Resp 16 11/27/16 08:00 BP 107/43 L 11/27/16 08:28 Pulse Ox 93 L 11/27/16 10:58 Weight - most recent: 87.407 kg I&O - last 24 hours: Intake & Output 11/26/16 11/27/16 11/27/16 22:59 06:59 14:59 Intake Total 570 100 240 Output Total 500 400 600 Balance 70 -300 -360 Lab Results last 24 hrs: Laboratory Results - last 24 hr 11/27/16 Range/Units 04:40 PT 16.4 H (8.0-13.0) SECONDS INR 1.47 Obey Results last 24 hrs: Microbiology 11/23/16 13:59 Streptococcus pneumoniae Antigen (M - Final Urine Med Orders - Current: Current Medications Acetaminophen (Tylenol) 650 mg PO Q4H PRN PRN Reason: Pain (Mild 1-3)/fever Artificial Tears (Isopto Tears 0.5% Ophth Soln) 0 ml EYEBOTH BID PRN PRN Reason: Dry Eyes Last Admin: 11/26/16 08:27 Dose: 1 drop Aspirin (Aspirin) 81 mg PO QPM [facility] Last Admin: 11/26/16 18:02 Dose: 81 mg Bisacodyl (Dulcolax) 10 mg RECTAL DAILY PRN PRN Reason: Constipation Bisacodyl (Dulcolax) 5 mg PO DAILY PRN PRN Reason: Constipation Cholecalciferol (Vitamin D3) 1,000 units PO DAILY [facility] Last Admin: 11/27/16 08:29 Dose: 1,000 units Docusate Sodium (Colace) 100 mg PO BID PRN PRN Reason: Constipation Ferrous Sulfate (Ferrous Sulfate) 325 mg PO QPM [facility] Last Admin: 11/26/16 18:02 Dose: 325 mg Finasteride (Proscar) 5 mg PO DAILY [facility] Last Admin: 11/27/16 08:29 Dose: 5 mg Folic Acid (Folic Acid) 1 mg PO DAILY [facility] Last Admin: 11/27/16 08:28 Dose: 1 mg Hydralazine HCl (Apresoline) 10 mg PO Q6H PRN PRN Reason: systolic BP>180 or diast>105 Levofloxacin/Dextrose 750 mg/ (Premix) 150 mls @ 100 mls/hr IV Q24H [facility] Last Admin: 11/26/16 16:31 Dose: 100 mls/hr Piperacillin Sod/Tazobactam (Sod 4.5 gm/ Sodium Chloride) 100 mls @ 25 mls/hr IV Q8H [facility] Last Admin: 11/27/16 08:28 Dose: 25 mls/hr Levothyroxine Sodium (Levothyroxine) 25 mcg PO ACBREAKFAST [facility] Last Admin: 11/27/16 06:16 Dose: 25 mcg Mirtazapine (Remeron) 15 mg PO QPM [facility] Last Admin: 11/26/16 18:02 Dose: 15 mg Pantoprazole Sodium (Protonix) 40 mg PO DAILY@0700 [facility] Last Admin: 11/27/16 06:17 Dose: 40 mg Sodium Chloride (Saline Flush) 10 ml FLUSH ASDIRECTED PRN PRN Reason: Keep Vein Open Last Admin: 11/22/16 11:39 Dose: 10 ml Tamsulosin HCl (Flomax) 0.4 mg PO DAILY [facility] Last Admin: 11/27/16 08:28 Dose: 0.4 mg Discontinued Medications Diltiazem HCl (Dilacor Xr) 240 mg PO ACBREAKFAST [facility] Last Admin: 11/27/16 06:16 Dose: 240 mg Diltiazem HCl (Cardizem) 60 mg PO Q6HR [facility] Last Admin: 11/25/16 17:49 Dose: 60 mg Diltiazem HCl (Cardizem) 60 mg PO Q6HR [facility] Last Admin: 11/27/16 06:17 Dose: 60 mg Furosemide (Lasix) 40 mg IVPUSH NOW ONE Stop: 11/22/16 11:30 Last Admin: 11/22/16 11:39 Dose: 40 mg Piperacillin Sod/Tazobactam (Sod 4.5 gm/ Sodium Chloride) 100 mls @ 200 mls/hr IV ONETIME ONE Stop: 11/23/16 16:59 Last Admin: 11/23/16 17:27 Dose: 200 mls/hr Vancomycin HCl 1 gm/Vancomycin HCl 250 mg/ Sodium Chloride 250 mls @ 167 mls/ hr IV Q18H [facility] Last Admin: 11/26/16 00:04 Dose: 167 mls/hr Metoprolol Tartrate (Lopressor) 25 mg PO BID [facility] Last Admin: 11/27/16 08:28 Dose: 25 mg Metoprolol Tartrate (Lopressor) 12.5 mg PO ONETIME ONE Stop: 11/25/16 21:01 Last Admin: 11/25/16 20:20 Dose: 12.5 mg Vancomycin HCl (Pharmacy To Dose - Vancomycin) 0 dose .XX ASDIRECTED PRN PRN Reason: RX DOSE Warfarin Sodium (Coumadin) 5 mg PO DAILY@1800 [facility] Last Admin: 11/22/16 18:05 Dose: 5 mg Warfarin Sodium (Pharmacy To Dose - Warfarin) 0 dose PO ASDIRECTED PRN PRN Reason: RX TO DOSE COUMADIN Warfarin Sodium (Coumadin) 5 mg PO SuTuWeFr@1800 ROAN Warfarin Sodium (Coumadin) 2.5 mg PO MoThSa@1800 [facility] - Exam Quality Assessment: supplemental oxygen (required at night, will confirm day time need.), DVT prophylaxis General: alert, oriented, cooperative, no acute distress HEENT: Pupils equal, Pupils reactive, EOMI Neck: supple, trachea midline, no JVD Lungs: Normal respiratory effort Cardiovascular: Regular Rate, Irregular Rhythm, Bradycardia Abdomen: bowel sounds present, soft, no tenderness, no distension (Male) Exam: Deferred Back Exam: normal inspection Extremities: normal pulses Skin: warm Neurological: no new focal deficit, normal gait, normal speech Psy/Mental Status: alert, normal affect, normal mood - Problem List Review Problem List Initiated/Reviewed/Updated: Yes - My Orders Last 24 Hours: My Active Orders 11/26/16 21:00 Overnight Pulse Oximetry [Overnight Pulse Oximetry] [RC] Click To Edit 11/27/16 09:40 Admission Status [Patient Status] [ADT] Routine 11/27/16 10:00 Transfer Patient (Change bed) [ADT] Routine - Plan Plan:: Iatrogenic bradycardia, received two fornms of Cardizem, will transfer to the ICU and hold remaining AV nell blockers. Souse with Influenza, will start on prophylactic Tamiflu 75 mg daily. Acute hypoxic respiratory failure. Empiric RX for HCAP, start oral Levoquin --Repeat CXR, 11/24/16. --Continue empiric RX; CXR suggest probable bilateral infiltrate vs effusion Acute congestive heart failure. Unclear subtype. Awaiting report from recent echocardiogram. Patient was given 40 mg of IV Lasix in ER. BNP ordered, suspect DHF. Change to heart healthy diet, stop fluid restriction Chronic medical conditions: CAD-continue aspirin Hypertension and atrial fibrillation-continue diltiazem, beta eduardo, Coumadin (pharmacy to dose) Iron deficiency-continue supplement BPH-continue finasteride and Flomax Hypothyroidism-continue levothyroxine Continue mirtazapine GERD-continue Prilosec DVT prophylaxis with continued Coumadin use Patient is DO NOT RESUSCITATE Will need O2 if O2 sat<90% LOS>96 hours with slow improvement
[2016-11-27] MEDS ORDERED: Sodium Chloride 0.9% 10 ML Syringe FLUSH PRN (12:30)
[2016-11-27] MEDS ORDERED: Levofloxacin 750 MG Tab PO SCH (14:00)
[2016-11-27] MEDS: Oseltamivir 30 MG Cap PO SCH (14:16)
[2016-11-27] MEDS ORDERED: methylPREDNISolone Sodium Succinate 40 MG/1 ML SDV IVPUSH ONE (14:25)
[2016-11-27] MEDS: Aspirin 81 MG Tab.Chew PO SCH ×2 (16:09→17:17)
[2016-11-27] MEDS: Warfarin 2.5 MG Tab PO SCH ×2 (16:10→17:17)
[2016-11-27] MEDS: Ferrous Sulfate 325 MG Tab PO SCH ×2 (16:10→17:17)
[2016-11-27] MEDS: Mirtazapine 15 MG Tab PO SCH ×2 (16:10→17:17)
[2016-11-28] MEDS: Pantoprazole 40 MG Tab.CR PO SCH (06:17)
[2016-11-28] MEDS: Levothyroxine 25 MCG Tab PO SCH (06:17)
[2016-11-28] MEDS: Oseltamivir 30 MG Cap PO SCH (08:07)
[2016-11-28] MEDS: Tamsulosin 0.4 MG Cap.ER PO SCH (08:07)
[2016-11-28] MEDS: Cholecalciferol (Vitamin D3) 1,000 Unit Tab PO SCH (08:07)
[2016-11-28] MEDS: Folic Acid 1 MG Tab PO SCH (08:08)
[2016-11-28] MEDS: Finasteride 5 MG Tab PO SCH (08:08)
[2016-11-28 08:18] VITALS: BP 118/64
[2016-11-28] MEDS ORDERED: Albuterol 0.083% 2.5 MG/3 ML Neb Soln NEB ONE (08:55)
[2016-11-28] MEDS ORDERED: Diltiazem 240 MG Cap.ER PO SCH (09:00)
[2016-11-28] MEDS ORDERED: Cholestyramine/Aspartame Powder 4 GM Packet PO SCH (09:00)
--- NOTE | 2016-11-28 12:02 | PCM.DCSUM1 ---
<Denise Jones - Last Filed: 11/29/16 12:06> Discharge Summary - Hospital Course Free Text/Narrative:: This is a pleasant 80-year-old male with multiple medical comorbidities including COPD (not on any home O2), CAD, rheumatic heart disease with mitral and tricuspid valve repair and replacement, CHF (unclear systolic or diastolic; attempted to obtain echo report), hypothyroidism, GERD, BPH, chronic kidney disease, and multiple other comorbidities whom went to his PCPs office for routine post hospital discharge followup. He was noted to be 83% while ambulating in room air in the clinic, per ER report. He was placed on 2 L with improvement of his saturations. On review of systems, he reports some mild shortness of breath and mild pitting edema in the feet, but otherwise started putting in her chest complaints. He has a recent URI with nasal congestion and drainage. He denies any cough. Denies any fevers, chills, or night sweats. We are being asked to evaluate the patient for his acute hypoxic respiratory failure. He was given one dose of Lasix in the ER, his weight was elevated from discharge. Patient reports that he has not been drinking more fluids, and in fact has been taking less for the last couple days with decreased appetite. They state that he does not consume much in sodium, but they do eat at a senior facility 5 lunches per week. They feel that it is not high in sodium content. They do not otherwise use much sodium in the cooking. He was diuresed with IV diuretic. Aggressive pulmonary toilet. He will be treated/covered prophylactically as his has been dx with influenza at home. He will be discharged on home oxygen at 1-2L/NC. Recommend he have further follow up/consult with Pulmonology for severe restrictive lung disease. He will be discharged on prednisone taper. He should follow up with his PCP within 5-7 days of discharge for recheck with labs prior. - Discharge Data Discharge Date: 11/28/16 (admit date 11/22/16) Discharge Disposition: Home, Self-Care 01 Condition: Good - Patient Summary/Data Operative Procedure(s) Performed: None Complications: None Consults: Consultations 11/22/16 14:16 OT Evaluation and Treatment [CONS] Routine PT Evaluation and Treatment [CONS] Routine 11/27/16 11:56 Consult to Respiratory Therapy [Respiratory Care Assess and Treatment] [CONS] Routine Labs Pending at D/C: None Recommended Follow-up Testing/Procedures: Follow up with PCP, Cassie Rosa within 5-7 days of discharge; recheck of labs in 5 days, CBC, BMP and INR Recommend Follow up/Consult with Pulmonology 24 hour holter monitor upon discharge with results to Cassie Rosa, PAC Planned Operative Procedure(s) after DC: None Hospital Course: As above - Patient Instructions Diet: Heart Healthy Diet Activity: As Tolerated Driving: Do Not Drive Showering/Bathing: May Shower Notify Provider of: Fever, Increased Pain, Swelling and Redness, Nausea and/or Vomiting (worsening shortness of breath, cough, wheezing, chest pains/heaviness) - Discharge Plan Prescriptions/Med Rec: Cholestyramine/Aspartame [Prevalite] 4 gm PO DAILY #30 packet Metoprolol Tartrate 25 mg PO BID #60 tablet Oseltamivir [Tamiflu] 30 mg PO DAILY #9 cap Potassium Chloride 10 meq PO DAILY #30 capsule.er Torsemide [Demadex] 10 mg PO DAILY #30 tablet Home Medications: Home Meds Aspirin 81 mg PO BRK 10/27/16 [History] Cholecalciferol (Vitamin D3) [Vitamin D3] 1,000 unit PO DAILY 10/27/16 [History] Ferrous Sulfate 325 mg PO DAILY 10/27/16 [History] Finasteride 5 mg PO DAILY 10/27/16 [History] Folic Acid 1 mg PO DAILY 10/27/16 [History] Levothyroxine 25 mcg PO ACBREAKFAST 10/27/16 [History] Mirtazapine 15 mg PO BEDTIME 10/27/16 [History] Omeprazole 20 mg PO DAILY 10/27/16 [History] Potassium Chloride 10 meq PO BID 10/27/16 [History] Tamsulosin [Flomax] 0.4 mg PO DAILY 10/27/16 [History] Vitamin B Complex [B Complex] 1 cap PO DAILY 10/27/16 [History] Warfarin [Coumadin] 2.5 mg PO MOTHSA 10/27/16 [History] Diltiazem [Dilacor XR] 240 mg PO DAILY #30 cap.er 10/30/16 [Rx] B2/Vit A,C & E/Lut/Zeaxanth/Mn [Icaps] 1 tab PO DAILY 11/22/16 [History] Docusate Sodium [Colace] 100 mg PO DAILY 11/22/16 [History] Warfarin [Coumadin] 5 mg PO SUTUWEFR 11/22/16 [History] Sennosides [Senna] 8.6 mg PO DAILY 11/25/16 [History] Cholestyramine/Aspartame [Prevalite] 4 gm PO DAILY #30 packet 11/28/16 [Rx] Metoprolol Tartrate 25 mg PO BID #60 tablet 11/28/16 [Rx] Oseltamivir [Tamiflu] 30 mg PO DAILY #9 cap 11/28/16 [Rx] Potassium Chloride 10 meq PO DAILY #30 capsule.er 11/28/16 [Rx] Torsemide [Demadex] 10 mg PO DAILY #30 tablet 11/28/16 [Rx] Patient Handouts: Hypoxemia, Heart Failure, [id number] Forms: ED Department Discharge Referrals: Natacha Rosa PA-C [Primary Care Provider] - 12/04/16 9:30 am (out patient sleep study, and recommendation for diversity manager.) - Discharge Summary/Plan Comment DC Time >30 min.: Yes (40 min) - General Info Date of Service: 11/28/16 Admission Dx/Problem (Free Text: Admission Diagnosis/Problem Admission Diagnosis/Problem CHF, Congestive heart failure Patient seen this morning. Doing well, slept well. Denies c/o dizziness, CP, SOB , palpitations, abd pain, n/v/d. Has been up and ambulatory with nursing and PT , feels strength is returning. Is anxious and ready for dc home today. Functional Status: Reports: pain controlled, tolerating diet, ambulating, urinating. Denies: new symptoms - Review of Systems General: Reports: No Symptoms HEENT: Reports: no symptoms Pulmonary: Reports: shortness of breath (improved) Cardiovascular: Reports: Dyspnea on Exertion (improved) Gastrointestinal: Reports: No symptoms Genitourinary: Reports: no symptoms Musculoskeletal: Reports: no symptoms Skin: Reports: no symptoms Neurological: Reports: No Symptoms Psychiatric: Reports: no symptoms - Patient Data Vitals - Most Recent: Last Vital Signs Temp 98.0 F 11/28/16 08:00 Pulse 106 H 11/28/16 08:00 Resp 28 H 11/28/16 08:00 BP 118/64 11/28/16 08:00 Pulse Ox 95 11/28/16 08:00 Weight - Most Recent: 88.949 kg I&O - Last 24 hours: Intake & Output 11/27/16 11/28/16 11/28/16 22:59 06:59 14:59 Intake Total 100 0 240 Output Total 650 Balance -550 0 240 Lab Results - Last 24 hrs: Laboratory Results - last 24 hr 11/28/16 11/28/16 11/28/16 Range/Units 10:38 10:38 10:38 WBC 2.64 L (4.23-9.07) K/mm3 RBC 3.62 L (4.63-6.08) M/mm3 Hgb 11.1 L (13.7-17.5) gm/L Hct 34.4 L (40.1-51.0) % MCV 95.0 H (79.0-92.2) fl MCH 30.7 (25.7-32.2) pg MCHC 32.3 (32.2-35.5) g/dl RDW Std Deviation 49.0 H (35.1-43.9) fL Plt Count 108 L (163-337) K/mm3 MPV 10.5 (9.4-12.3) fl Neut % (Auto) 78.8 H (34.0-67.9) % Lymph % (Auto) 12.5 L (21.8-53.1) % [place] % (Auto) 8.3 (5.3-12.2) % Eos % (Auto) 0 L (0.8-7.0) Baso % (Auto) 0.4 (0.1-1.2) % Neut # (Auto) 2.08 (1.78-5.38) K/mm3 Lymph # (Auto) 0.33 L (1.32-3.57) K/mm3 [place] # (Auto) 0.22 L (0.30-0.82) K/mm3 Eos # (Auto) 0.00 L (0.04-0.54) K/mm3 Baso # (Auto) 0.01 (0.01-0.08) K/mm3 Manual Slide Review Abnormal smear PT 17.0 H (8.0-13.0) SECONDS INR 1.52 Sodium 141 (136-145) mEq/L Potassium 3.5 (3.5-5.1) mEq/L Chloride 106 (98-107) mEq/L Carbon Dioxide 23 (21-32) mEq/L Anion Gap 15.5 H (5-15) BUN 14 (7-18) mg/dL Creatinine 1.2 (0.7-1.3) mg/dL Est Cr Clr Drug Dosing 54.79 mL/min Estimated GFR (MDRD) 58 (>60) mL/min BUN/Creatinine Ratio 11.7 L (14-18) Glucose 222 H (83-115) mg/dL Calcium 8.8 (8.5-10.1) mg/dL Med Orders - Current: Current Medications Acetaminophen (Tylenol) 650 mg PO Q4H PRN PRN Reason: Pain (Mild 1-3)/fever Artificial Tears (Isopto Tears 0.5% Ophth Soln) 0 ml EYEBOTH BID PRN PRN Reason: Dry Eyes Last Admin: 11/26/16 08:27 Dose: 1 drop Aspirin (Aspirin) 81 mg PO QPM [facility] Last Admin: 11/27/16 17:17 Dose: Not Given Bisacodyl (Dulcolax) 10 mg RECTAL DAILY PRN PRN Reason: Constipation Bisacodyl (Dulcolax) 5 mg PO DAILY PRN PRN Reason: Constipation Cholecalciferol (Vitamin D3) 1,000 units PO DAILY [facility] Last Admin: 11/28/16 08:07 Dose: 1,000 units Cholestyramine Resin (Prevalite Packet) 4 gm PO DAILY [facility] Last Admin: 11/28/16 08:08 Dose: 4 gm Diltiazem HCl (Dilacor Xr) 240 mg PO DAILY [facility] Last Admin: 11/28/16 10:23 Dose: 240 mg Docusate Sodium (Colace) 100 mg PO BID PRN PRN Reason: Constipation Ferrous Sulfate (Ferrous Sulfate) 325 mg PO QPM [facility] Last Admin: 11/27/16 17:17 Dose: Not Given Finasteride (Proscar) 5 mg PO DAILY [facility] Last Admin: 11/28/16 08:08 Dose: 5 mg Folic Acid (Folic Acid) 1 mg PO DAILY [facility] Last Admin: 11/28/16 08:08 Dose: 1 mg Hydralazine HCl (Apresoline) 10 mg PO Q6H PRN PRN Reason: systolic BP>180 or diast>105 Levofloxacin (Levaquin) 750 mg PO Q24H [facility] Last Admin: 11/27/16 14:16 Dose: 750 mg Levothyroxine Sodium (Levothyroxine) 25 mcg PO ACBREAKFAST [facility] Last Admin: 11/28/16 06:17 Dose: 25 mcg Mirtazapine (Remeron) 15 mg PO QPM [facility] Last Admin: 11/27/16 17:17 Dose: Not Given Oseltamivir Phosphate (Tamiflu) 30 mg PO DAILY [facility] Last Admin: 11/28/16 08:07 Dose: 30 mg Pantoprazole Sodium (Protonix) 40 mg PO DAILY@0700 [facility] Last Admin: 11/28/16 06:17 Dose: 40 mg Sodium Chloride (Saline Flush) 10 ml FLUSH ASDIRECTED PRN PRN Reason: Keep Vein Open Tamsulosin HCl (Flomax) 0.4 mg PO DAILY [facility] Last Admin: 11/28/16 08:07 Dose: 0.4 mg Warfarin Sodium (Coumadin) 2.5 mg PO SuTuWeFr@1800 [facility] Last Admin: 11/27/16 17:17 Dose: Not Given Warfarin Sodium (Coumadin) 1.25 mg PO MoThSa@1800 [facility] Discontinued Medications Albuterol (Proventil Neb Soln) 2.5 mg NEB ONETIME ONE Stop: 11/28/16 08:56 Last Admin: 11/28/16 08:56 Dose: 2.5 mg Diltiazem HCl (Dilacor Xr) 240 mg PO ACBREAKFAST [facility] Last Admin: 11/27/16 06:16 Dose: 240 mg Diltiazem HCl (Cardizem) 60 mg PO Q6HR [facility] Last Admin: 11/25/16 17:49 Dose: 60 mg Diltiazem HCl (Cardizem) 60 mg PO Q6HR [facility] Last Admin: 11/27/16 06:17 Dose: 60 mg Furosemide (Lasix) 40 mg IVPUSH NOW ONE Stop: 11/22/16 11:30 Last Admin: 11/22/16 11:39 Dose: 40 mg Levofloxacin/Dextrose 750 mg/ (Premix) 150 mls @ 100 mls/hr IV Q24H [facility] Last Admin: 11/26/16 16:31 Dose: 100 mls/hr Piperacillin Sod/Tazobactam (Sod 4.5 gm/ Sodium Chloride) 100 mls @ 25 mls/hr IV Q8H [facility] Last Admin: 11/27/16 08:28 Dose: 25 mls/hr Piperacillin Sod/Tazobactam (Sod 4.5 gm/ Sodium Chloride) 100 mls @ 200 mls/hr IV ONETIME ONE Stop: 11/23/16 16:59 Last Admin: 11/23/16 17:27 Dose: 200 mls/hr Vancomycin HCl 1 gm/Vancomycin HCl 250 mg/ Sodium Chloride 250 mls @ 167 mls/ hr IV Q18H [facility] Last Admin: 11/26/16 00:04 Dose: 167 mls/hr Methylprednisolone Sodium Succinate (Solu-Medrol) 40 mg IVPUSH ONETIME ONE Stop: 11/27/16 14:26 Last Admin: 11/27/16 16:09 Dose: 40 mg Metoprolol Tartrate (Lopressor) 25 mg PO BID [facility] Last Admin: 11/27/16 08:28 Dose: 25 mg Metoprolol Tartrate (Lopressor) 12.5 mg PO ONETIME ONE Stop: 11/25/16 21:01 Last Admin: 11/25/16 20:20 Dose: 12.5 mg Sodium Chloride (Saline Flush) 10 ml FLUSH ASDIRECTED PRN PRN Reason: Keep Vein Open Last Admin: 11/22/16 11:39 Dose: 10 ml Vancomycin HCl (Pharmacy To Dose - Vancomycin) 0 dose .XX ASDIRECTED PRN PRN Reason: RX DOSE Warfarin Sodium (Coumadin) 5 mg PO DAILY@1800 [facility] Last Admin: 11/22/16 18:05 Dose: 5 mg Warfarin Sodium (Pharmacy To Dose - Warfarin) 0 dose PO ASDIRECTED PRN PRN Reason: RX TO DOSE COUMADIN Warfarin Sodium (Coumadin) 5 mg PO SuTuWeFr@1800 [facility] Warfarin Sodium (Coumadin) 2.5 mg PO MoThSa@1800 [facility] - Exam Quality Assessment: Reports: supplemental oxygen, DVT prophylaxis General: Reports: alert, oriented, cooperative, no acute distress HEENT: Reports: Pupils equal, Pupils reactive, EOMI, Mucous membr. moist/pink Neck: Reports: supple Lungs: Reports: Clear to auscultation, Normal respiratory effort, Decreased breath sounds (mid to lower lobes) Cardiovascular: Reports: Irregular Rhythm Abdomen: Reports: bowel sounds present, soft, no tenderness, no distension (Male) Exam: Deferred Rectal (Males) Exam: Deferred Back Exam: Reports: normal inspection Extremities: Reports: no edema, no calf tenderness, other (teds bilat) Skin: Reports: warm, dry, intact Neurological: Reports: no new focal deficit Psy/Mental Status: Reports: alert, normal affect, normal mood *Q Meaningful Use (DIS) - VTE *Q VTE Criteria *Q: - Stroke *Q Stroke Criteria *Q: - AMI *Q AMI Criteria *Q: <Kat Delacruz M - Last Filed: 12/01/16 17:54> Discharge Summary - Hospital Course Free Text/Narrative:: See above for summary and DC treatment plan. - Patient Summary/Data Consults: Consultations 11/22/16 14:16 OT Evaluation and Treatment [CONS] Routine PT Evaluation and Treatment [CONS] Routine 11/27/16 11:56 Consult to Respiratory Therapy [Respiratory Care Assess and Treatment] [CONS] Routine - Patient Data Vitals - Most Recent: Last Vital Signs Temp 36.7 C 11/28/16 08:00 Pulse 106 H 11/28/16 08:00 Resp 28 H 11/28/16 08:00 BP 118/64 11/28/16 08:00 Pulse Ox 95 11/28/16 08:00 I&O - Last 24 hours: Intake & Output 11/28/16 11/28/16 11/28/16 06:59 14:59 22:59 Intake Total 0 240 Balance 0 240 Lab Results - Last 24 hrs: Laboratory Results - last 24 hr 11/28/16 11/28/16 11/28/16 Range/Units 10:38 10:38 10:38 WBC 2.64 L (4.23-9.07) K/mm3 RBC 3.62 L (4.63-6.08) M/mm3 Hgb 11.1 L (13.7-17.5) gm/L Hct 34.4 L (40.1-51.0) % MCV 95.0 H (79.0-92.2) fl MCH 30.7 (25.7-32.2) pg MCHC 32.3 (32.2-35.5) g/dl RDW Std Deviation 49.0 H (35.1-43.9) fL Plt Count 108 L (163-337) K/mm3 MPV 10.5 (9.4-12.3) fl Neut % (Auto) 78.8 H (34.0-67.9) % Lymph % (Auto) 12.5 L (21.8-53.1) % [place] % (Auto) 8.3 (5.3-12.2) % Eos % (Auto) 0 L (0.8-7.0) Baso % (Auto) 0.4 (0.1-1.2) % Neut # (Auto) 2.08 (1.78-5.38) K/mm3 Lymph # (Auto) 0.33 L (1.32-3.57) K/mm3 [place] # (Auto) 0.22 L (0.30-0.82) K/mm3 Eos # (Auto) 0.00 L (0.04-0.54) K/mm3 Baso # (Auto) 0.01 (0.01-0.08) K/mm3 Manual Slide Review Abnormal smear PT 17.0 H (8.0-13.0) SECONDS INR 1.52 Sodium 141 (136-145) mEq/L Potassium 3.5 (3.5-5.1) mEq/L Chloride 106 (98-107) mEq/L Carbon Dioxide 23 (21-32) mEq/L Anion Gap 15.5 H (5-15) BUN 14 (7-18) mg/dL Creatinine 1.2 (0.7-1.3) mg/dL Est Cr Clr Drug Dosing 54.79 mL/min Estimated GFR (MDRD) 58 (>60) mL/min BUN/Creatinine Ratio 11.7 L (14-18) Glucose 222 H (83-115) mg/dL Calcium 8.8 (8.5-10.1) mg/dL Med Orders - Current: Current Medications Discontinued Medications Acetaminophen (Tylenol) 650 mg PO Q4H PRN PRN Reason: Pain (Mild 1-3)/fever Albuterol (Proventil Neb Soln) 2.5 mg NEB ONETIME ONE Stop: 11/28/16 08:56 Last Admin: 11/28/16 08:56 Dose: 2.5 mg Artificial Tears (Isopto Tears 0.5% Ophth Soln) 0 ml EYEBOTH BID PRN PRN Reason: Dry Eyes Last Admin: 11/26/16 08:27 Dose: 1 drop Aspirin (Aspirin) 81 mg PO QPM [facility] Last Admin: 11/27/16 17:17 Dose: Not Given Bisacodyl (Dulcolax) 10 mg RECTAL DAILY PRN PRN Reason: Constipation Bisacodyl (Dulcolax) 5 mg PO DAILY PRN PRN Reason: Constipation Cholecalciferol (Vitamin D3) 1,000 units PO DAILY [facility] Last Admin: 11/28/16 08:07 Dose: 1,000 units Cholestyramine Resin (Prevalite Packet) 4 gm PO DAILY [facility] Last Admin: 11/28/16 08:08 Dose: 4 gm Diltiazem HCl (Dilacor Xr) 240 mg PO ACBREAKFAST [facility] Last Admin: 11/27/16 06:16 Dose: 240 mg Diltiazem HCl (Cardizem) 60 mg PO Q6HR [facility] Last Admin: 11/25/16 17:49 Dose: 60 mg Diltiazem HCl (Cardizem) 60 mg PO Q6HR [facility] Last Admin: 11/27/16 06:17 Dose: 60 mg Diltiazem HCl (Dilacor Xr) 240 mg PO DAILY [facility] Last Admin: 11/28/16 10:23 Dose: 240 mg Docusate Sodium (Colace) 100 mg PO BID PRN PRN Reason: Constipation Ferrous Sulfate (Ferrous Sulfate) 325 mg PO QPM [facility] Last Admin: 11/27/16 17:17 Dose: Not Given Finasteride (Proscar) 5 mg PO DAILY [facility] Last Admin: 11/28/16 08:08 Dose: 5 mg Folic Acid (Folic Acid) 1 mg PO DAILY [facility] Last Admin: 11/28/16 08:08 Dose: 1 mg Furosemide (Lasix) 40 mg IVPUSH NOW ONE Stop: 11/22/16 11:30 Last Admin: 11/22/16 11:39 Dose: 40 mg Hydralazine HCl (Apresoline) 10 mg PO Q6H PRN PRN Reason: systolic BP>180 or diast>105 Levofloxacin/Dextrose 750 mg/ (Premix) 150 mls @ 100 mls/hr IV Q24H [facility] Last Admin: 11/26/16 16:31 Dose: 100 mls/hr Piperacillin Sod/Tazobactam (Sod 4.5 gm/ Sodium Chloride) 100 mls @ 25 mls/hr IV Q8H [facility] Last Admin: 11/27/16 08:28 Dose: 25 mls/hr Piperacillin Sod/Tazobactam (Sod 4.5 gm/ Sodium Chloride) 100 mls @ 200 mls/hr IV ONETIME ONE Stop: 11/23/16 16:59 Last Admin: 11/23/16 17:27 Dose: 200 mls/hr Vancomycin HCl 1 gm/Vancomycin HCl 250 mg/ Sodium Chloride 250 mls @ 167 mls/ hr IV Q18H [facility] Last Admin: 11/26/16 00:04 Dose: 167 mls/hr Levofloxacin (Levaquin) 750 mg PO Q24H [facility] Last Admin: 11/27/16 14:16 Dose: 750 mg Levothyroxine Sodium (Levothyroxine) 25 mcg PO ACBREAKFAST [facility] Last Admin: 11/28/16 06:17 Dose: 25 mcg Methylprednisolone Sodium Succinate (Solu-Medrol) 40 mg IVPUSH ONETIME ONE Stop: 11/27/16 14:26 Last Admin: 11/27/16 16:09 Dose: 40 mg Metoprolol Tartrate (Lopressor) 25 mg PO BID [facility] Last Admin: 11/27/16 08:28 Dose: 25 mg Metoprolol Tartrate (Lopressor) 12.5 mg PO ONETIME ONE Stop: 11/25/16 21:01 Last Admin: 11/25/16 20:20 Dose: 12.5 mg Mirtazapine (Remeron) 15 mg PO QPM [facility] Last Admin: 11/27/16 17:17 Dose: Not Given Oseltamivir Phosphate (Tamiflu) 30 mg PO DAILY [facility] Last Admin: 11/28/16 08:07 Dose: 30 mg Pantoprazole Sodium (Protonix) 40 mg PO DAILY@0700 [facility] Last Admin: 11/28/16 06:17 Dose: 40 mg Sodium Chloride (Saline Flush) 10 ml FLUSH ASDIRECTED PRN PRN Reason: Keep Vein Open Last Admin: 11/22/16 11:39 Dose: 10 ml Sodium Chloride (Saline Flush) 10 ml FLUSH ASDIRECTED PRN PRN Reason: Keep Vein Open Tamsulosin HCl (Flomax) 0.4 mg PO DAILY [facility] Last Admin: 11/28/16 08:07 Dose: 0.4 mg Vancomycin HCl (Pharmacy To Dose - Vancomycin) 0 dose .XX ASDIRECTED PRN PRN Reason: RX DOSE Warfarin Sodium (Coumadin) 5 mg PO DAILY@1800 [facility] Last Admin: 11/22/16 18:05 Dose: 5 mg Warfarin Sodium (Pharmacy To Dose - Warfarin) 0 dose PO ASDIRECTED PRN PRN Reason: RX TO DOSE COUMADIN Warfarin Sodium (Coumadin) 5 mg PO SuTuWeFr@1800 [facility] Warfarin Sodium (Coumadin) 2.5 mg PO MoThSa@1800 [facility] Warfarin Sodium (Coumadin) 2.5 mg PO SuTuWeFr@1800 [facility] Last Admin: 11/27/16 17:17 Dose: Not Given Warfarin Sodium (Coumadin) 1.25 mg PO MoThSa@1800 [facility] *Q Meaningful Use (DIS) - VTE *Q VTE Criteria *Q: - Stroke *Q Stroke Criteria *Q: - AMI *Q AMI Criteria *Q:
[2016-11-28] MEDS ORDERED: Warfarin 2.5 MG Tab PO SCH (18:00)
== END 2016-11-28 14:05 | disposition home or self-care (01) | DRG 189 ==
LOC: JD.ED 11:05 → JD.MS 13:34 → JD.ICU 11-27 09:40
PROVIDERS: ADMIT Internal Medicine; ATTEND Internal Medicine Cardiovascular Disease
DX: J96.01 Acute respiratory failure with hypoxia (principal); I13.0 Hypertensive heart and chronic kidney disease with heart failure and stage 1 through stage 4 chronic kidney disease, or unspecified chronic kidney disease; R09.02 Hypoxemia; I25.10 Atherosclerotic heart disease of native coronary artery without angina pectoris; N18.9 Chronic kidney disease, unspecified; I50.9 Heart failure, unspecified; D50.9 Iron deficiency anemia, unspecified; I48.91 Unspecified atrial fibrillation; J44.9 Chronic obstructive pulmonary disease, unspecified; N40.0 Benign prostatic hyperplasia without lower urinary tract symptoms; R33.9 Retention of urine, unspecified; E03.9 Hypothyroidism, unspecified; K21.9 Gastro-esophageal reflux disease without esophagitis; H35.30 Unspecified macular degeneration; Z95.3 Presence of xenogenic heart valve; Z87.891 Personal history of nicotine dependence; Z79.82 Long term (current) use of aspirin; Z79.01 Long term (current) use of anticoagulants; Z79.899 Other long term (current) drug therapy; Z88.8 Allergy status to other drugs, medicaments and biological substances; Z66 Do not resuscitate; R00.1 Bradycardia, unspecified; E87.6 Hypokalemia
CPT/HCPCS: 71020; 99285; 93005; 96374; 85025; 85027; 85610; 36415; 80053; 80048; 80061; 84484; 83880; 86140; J1940; J7050; 82553; 83735; 84443; 86738; 87486; 87581; 87633; 87641; 87798; 87804; 87899; 94060; 94664; 94729; 94760; 94761; 94762; 97161-GP; 97165-GO; 97530-GO; 99284; A9270-GY; J1956; J2543; J2920; J3370; J7030

== ENCOUNTER 2017-06-06 11:15 | Inpatient (IN) | payer MEDICARE, BC ==
[2017-06-06] MEDS ORDERED: Sodium Chloride 0.9% 10 ML Syringe FLUSH PRN (11:27)
[2017-06-06] MEDS: Sodium Chloride 0.9% 1,000 ML IV SCH (11:51)
--- NOTE | 2017-06-06 12:01 | EDM.PDOC ---
ED HPI GENERAL MEDICAL PROBLEM - General Chief Complaint: Gastrointestinal Problem Stated Complaint: [facility] Time Seen by Provider: 06/06/17 11:26 Source of Information: Reports: Patient, EMS, EMS Notes Reviewed, Provider, RN Notes Reviewed - History of Present Illness INITIAL COMMENTS - FREE TEXT/NARRATIVE: 81-year-old male has been transferred here from [facility] for evaluation of rectal bleeding. He had one episode of rectal bleeding last evening around 9 PM , about 15 hours ago. He states it was a large amount of blood at that time. He then went to bed did not have any further rectal bleeding until around 7:00 this morning, around 4 hours ago. Once again he felt there is a fairly large amount of blood and clots in the toilet. He's had no abdominal pain nausea vomiting with this. He is on Coumadin for chronic atrial fib flutter. He has history of hypertension and coronary artery disease. He has never had anything of this nature before. He is not feeling more weak lightheaded or dizzy than usual. No chest pain or difficulty breathing. - Related Data Allergies Allergy/AdvReac Type Severity Reaction Status Date / Time loratadine [From Claritin] Allergy Rash Verified 06/06/17 11:21 rosuvastatin [From Crestor] AdvReac Body Aches Verified 06/06/17 11:21 [id number]-[id number] Reductase AdvReac Body Aches Verified 06/06/17 11:21 Inhibitor Home Meds: Home Meds Aspirin [Ecotrin] 81 mg PO DAILY 06/06/17 [History] B2/Vit A,C & E/Lut/Zeaxanth/Mn [Icaps] 1 each PO DAILY 06/06/17 [History] Cholecalciferol (Vitamin D3) [D-2000] 2,000 unit PO DAILY 06/06/17 [History] Diltiazem HCl [Cardizem Cd] 240 mg PO DAILY 06/06/17 [History] Docusate Sodium [Stool Softener] 100 mg PO DAILY 06/06/17 [History] Ferrous Sulfate 325 mg PO DAILY 06/06/17 [History] Finasteride 5 mg PO DAILY 06/06/17 [History] Folic Acid 1 mg PO DAILY 06/06/17 [History] Levothyroxine Sodium [Tirosint] 25 mcg PO DAILY 06/06/17 [History] Metoprolol Tartrate 25 mg PO BID 06/06/17 [History] Mirtazapine 15 mg PO BEDTIME 06/06/17 [History] Omeprazole 20 mg PO DAILY 06/06/17 [History] Potassium Chloride 10 meq PO BID 06/06/17 [History] Sennosides [Senna] 8.6 mg PO DAILY 06/06/17 [History] Tamsulosin HCl 0.4 mg PO DAILY 06/06/17 [History] Torsemide 20 mg PO DAILY 06/06/17 [History] Vitamin B Complex 1 each PO DAILY 06/06/17 [History] Warfarin Sodium 2.5 mg PO TUFR 06/06/17 [History] Warfarin Sodium 5 mg PO ASDIRECTED 06/06/17 [History] Past Medical History HEENT History: Reports: Cataract, Hard of Hearing, Macular Degeneration Cardiovascular History: Reports: Afib, CAD, Heart Failure, Heart Valve Replacement, Other (See Below) Other Cardiovascular History: hypokalemia Respiratory History: Reports: COPD, Pneumonia, Recurrent Gastrointestinal History: Reports: GERD, Other (See Below) Other Gastrointestinal History: lap fifi Genitourinary History: Reports: BPH, Chronic Renal Insuffiency, Retention, Urinary Other Genitourinary History: Beads in place approximately 15 years ago. Hydrocele removal . Musculoskeletal History: Reports: Arthritis Other Musculoskeletal History: Arthritis in hands. Endocrine/Metabolic History: Reports: Hypothyroidism Hematologic History: Reports: Anticoagulation Therapy Other Hematologic History: Patient takes Vitamin B and D. Unsure if diagnosed. Oncologic (Cancer) History: Reports: Prostate Dermatologic History: Reports: Benign Melanoma - Infectious Disease History Infectious Disease History: Reports: C-Difficile, Chicken Pox, Measles, MRSA, Mumps, Rheumatic Fever, Rubella - Past Surgical History HEENT Surgical History: Reports: Cataract Surgery, Tonsillectomy Cardiovascular Surgical History: Reports: Valve Replacement, Other (See Below) GI Surgical History: Reports: Appendectomy, Cholecystectomy, Colonoscopy, Hernia , Inguinal, Hernia Repair/Other Musculoskeletal Surgical History: Reports: None Oncologic Surgical History: Reports: None Social & Family History - Family History HEENT: Reports: Cataract Cardiac: Reports: [place] OBGYN: Reports: Musculoskeletal: Reports: Arthritis Neurological: Reports: Dementia Endocrine/Metabolic: Reports: Diabetes, type II Other Endocrine/Metabolic Family History: Brother Oncologic: Reports: Breast, Colon, Skin, Other (See Below) Other Oncologic Family History: Malignant melanoma - Brother. Dad- cancer of thyroid and colon. Sister - Breast - Tobacco Use Smoking Status *Q: Former Smoker Years of Tobacco use: 2 Used Tobacco, but Quit: Yes Month Tobacco Last Used: 40 years ago Second Hand Smoke Exposure: No - Caffeine Use Caffeine Use: Reports: Coffee Other Caffeine Use: 2 cups a day at most. - Alcohol Use Days Per Week of Alcohol Use: 1 Number of Drinks Per Day: 0 Total Drinks Per Week: 0 - Recreational Drug Use Recreational Drug Use: No - Living Situation & Occupation Living situation: Reports: , with Spouse Occupation: Retired ED ROS GENERAL - Review of Systems Review Of Systems: See Below Constitutional: Denies: Fever, Chills, Diaphoresis HEENT: Reports: No Symptoms Respiratory: Reports: Shortness of Breath (Chronically with exertion). Denies: Cough Cardiovascular: Reports: Lightheadedness (Mild when standing but no worse than usual). Denies: Chest Pain GI/Abdominal: Reports: Hematochezia (Last evening and again this morning). Denies: Abdominal Pain, Nausea, Vomiting Musculoskeletal: Reports: No Symptoms Skin: Reports: No Symptoms Neurological: Reports: Dizziness (Mild when standing), Weakness (Mild generalized). Denies: Trouble Speaking, Difficulty Walking ED EXAM, GI/ABD - Physical Exam Exam: See Below General Appearance: Alert, No Apparent Distress Eyes: Bilateral: Normal Appearance Throat/Mouth: Other Neck: Supple (Oral mucosa is somewhat dry), Full Range of Motion Respiratory/Chest: No Respiratory Distress, Lungs Clear, Normal Breath Sounds Cardiovascular: Systolic Murmur, Irregularly Irregular GI/Abdominal Exam: Soft, Non-Tender. No: Guarding Rectal (Males) Exam: Heme + Stool (Rectum fairly empty but there was dark maroonish red blood strongly on the glove, no unusual mass or tenderness palpable) Extremities: Normal Inspection. No: Pedal Edema, Leg Pain Neurological: Alert, Oriented Skin Exam: Warm, Dry, Normal Color EKG INTERPRETATION EKG Date: 06/06/17 Rhythm: NSR [place]: Normal QRS: Other (He does have Q waves leads 3. He does have T-wave inversions inferiorly. No major ST elevation or depression.) Course - Vital Signs Last Recorded V/S: Last Vital Signs Temp 97.6 F 06/06/17 11:19 Pulse 68 06/06/17 11:19 Resp 16 06/06/17 11:19 BP 123/74 06/06/17 11:19 Pulse Ox 100 06/06/17 11:19 Orthostatic Blood Pressure [ 104/34 Standing] Orthostatic Blood Pressure [ 112/57 Sitting] Orthostatic Blood Pressure [ 109/42 Supine] - Orders/Labs/Meds Orders: Active Orders 24 hr Category Date Time Status EKG 12 Lead [EKG Documentation Completion] [RC] STAT Care 06/06/17 11:26 Active Peripheral IV Care [RC] . DIRECTED Care 06/06/17 11:27 Active PATIENT RETYPE [BBK] Stat Lab 06/06/17 11:40 Results TYPE AND SCREEN [BBK] Stat Lab 06/06/17 11:40 Results Sodium Chloride 0.9% [Normal Saline] 1,000 ml Med 06/06/17 11:30 Active IV ASDIRECTED Sodium Chloride 0.9% [Saline Flush] Med 06/06/17 11:27 Active 10 ml FLUSH ASDIRECTED PRN Peripheral IV Insertion Adult [OM.PC] Stat Oth 06/06/17 11:27 Ordered Medication Orders Sodium Chloride (Normal Saline) 1,000 mls @ 75 mls/hr IV ASDIRECTED RONA Last Admin: 06/06/17 11:51 Dose: 75 mls/hr Sodium Chloride (Saline Flush) 10 ml FLUSH ASDIRECTED PRN PRN Reason: Keep Vein Open Last Admin: 06/06/17 11:51 Dose: 10 ml Labs: Laboratory Tests 06/06/17 06/06/17 06/06/17 Range/Units 11:40 11:40 11:40 WBC 5.48 (4.23-9.07) K/mm3 RBC 3.45 L (4.63-6.08) M/mm3 Hgb 10.4 L (13.7-17.5) gm/L Hct 32.2 L (40.1-51.0) % MCV 93.3 H (79.0-92.2) fl MCH 30.1 (25.7-32.2) pg MCHC 32.3 (32.2-35.5) g/dl RDW Std Deviation 50.0 H (35.1-43.9) fL Plt Count 162 L (163-337) K/mm3 MPV 10.0 (9.4-12.3) fl Neut % (Auto) 64.6 (34.0-67.9) % Lymph % (Auto) 19.2 L (21.8-53.1) % [place] % (Auto) 11.7 (5.3-12.2) % Eos % (Auto) 3.8 (0.8-7.0) Baso % (Auto) 0.7 (0.1-1.2) % Neut # (Auto) 3.54 (1.78-5.38) K/mm3 Lymph # (Auto) 1.05 L (1.32-3.57) K/mm3 [place] # (Auto) 0.64 (0.30-0.82) K/mm3 Eos # (Auto) 0.21 (0.04-0.54) K/mm3 Baso # (Auto) 0.04 (0.01-0.08) K/mm3 PT 28.1 H (8.0-13.0) SECONDS INR 2.44 Sodium 144 (136-145) mEq/L Potassium 4.2 (3.5-5.1) mEq/L Chloride 107 (98-107) mEq/L Carbon Dioxide 28 (21-32) mEq/L Anion Gap 13.2 (5-15) BUN 23 H (7-18) mg/dL Creatinine 1.3 (0.7-1.3) mg/dL Est Cr Clr Drug Dosing 49.74 mL/min Estimated GFR (MDRD) 53 (>60) mL/min BUN/Creatinine Ratio 17.7 (14-18) Glucose 100 (83-115) mg/dL Calcium 8.6 (8.5-10.1) mg/dL Total Bilirubin 0.4 (0.2-1.0) mg/dL AST 22 (15-37) U/L ALT 19 (16-63) U/L Alkaline Phosphatase 72 (46-116) U/L Total Protein 6.7 (6.4-8.2) g/dl Albumin 3.2 L (3.4-5.0) g/dl Globulin 3.5 gm/dL Albumin/Globulin Ratio 0.9 L (1-2) Blood Type Gel Antibody Screen 06/06/17 Range/Units 11:40 WBC (4.23-9.07) K/mm3 RBC (4.63-6.08) M/mm3 Hgb (13.7-17.5) gm/L Hct (40.1-51.0) % MCV (79.0-92.2) fl MCH (25.7-32.2) pg MCHC (32.2-35.5) g/dl RDW Std Deviation (35.1-43.9) fL Plt Count (163-337) K/mm3 MPV (9.4-12.3) fl Neut % (Auto) (34.0-67.9) % Lymph % (Auto) (21.8-53.1) % [place] % (Auto) (5.3-12.2) % Eos % (Auto) (0.8-7.0) Baso % (Auto) (0.1-1.2) % Neut # (Auto) (1.78-5.38) K/mm3 Lymph # (Auto) (1.32-3.57) K/mm3 [place] # (Auto) (0.30-0.82) K/mm3 Eos # (Auto) (0.04-0.54) K/mm3 Baso # (Auto) (0.01-0.08) K/mm3 PT (8.0-13.0) SECONDS INR Sodium (136-145) mEq/L Potassium (3.5-5.1) mEq/L Chloride (98-107) mEq/L Carbon Dioxide (21-32) mEq/L Anion Gap (5-15) BUN (7-18) mg/dL Creatinine (0.7-1.3) mg/dL Est Cr Clr Drug Dosing mL/min Estimated GFR (MDRD) (>60) mL/min BUN/Creatinine Ratio (14-18) Glucose (83-115) mg/dL Calcium (8.5-10.1) mg/dL Total Bilirubin (0.2-1.0) mg/dL AST (15-37) U/L ALT (16-63) U/L Alkaline Phosphatase (46-116) U/L Total Protein (6.4-8.2) g/dl Albumin (3.4-5.0) g/dl Globulin gm/dL Albumin/Globulin Ratio (1-2) Blood Type A POSITIVE Gel Antibody Screen Negative Meds: Medications Generic Name Dose Route Start Last Admin Trade Name Corie PRN Reason Stop Dose Admin Sodium Chloride 1,000 mls @ 75 mls/hr 06/06/17 11:30 06/06/17 11:51 Normal Saline IV 75 mls/hr ASDIRECTED RONA Administration Sodium Chloride 10 ml 06/06/17 11:27 06/06/17 11:51 Saline Flush FLUSH 10 ml ASDIRECTED PRN Administration Keep Vein Open - Re-Assessments/Exams Free Text/Narrative Re-Assessment/Exam: 06/06/17 13:59. No further bleeding since arrival to the ED somewhat over 2 hours ago. Blood pressure initially was in the 120s with more recent readings running 105 to 1:15 systolic. Her he did not have much change from lying to standing. He continues to have no pain. His pro time INR is 2.44. He will be admitted for further treatment. Departure - Departure Time of Disposition: 13:18 Disposition: Admitted As Inpatient 67 Condition: Serious Clinical Impression: GI bleed Qualifiers: GI bleed type/associated pathology: unspecified gastrointestinal hemorrhage type Qualified Code(s): K92.2 - Gastrointestinal hemorrhage, unspecified Atrial fibrillation Qualifiers: Atrial fibrillation type: chronic Qualified Code(s): I48.2 - Chronic atrial fibrillation Anemia Qualifiers: Anemia type: unspecified type Qualified Code(s): D64.9 - Anemia, unspecified - Discharge Information Referrals: Natacha Rosa PA-C [Primary Care Provider] - Forms: ED Department Discharge ED Communication - Discussed Case With (1) Discussed Case With (1): Admitting Provider (Dr Delacruz, decision to admit at about 13:55.) - My Orders Last 24 Hours: My Active Orders 06/06/17 11:26 EKG 12 Lead [EKG Documentation Completion] [RC] STAT 06/06/17 11:27 Peripheral IV Care [RC] . DIRECTED Sodium Chloride 0.9% [Saline Flush] 10 ml FLUSH ASDIRECTED PRN Peripheral IV Insertion Adult [OM.PC] Stat 06/06/17 11:30 Sodium Chloride 0.9% [Normal Saline] 1,000 ml IV ASDIRECTED 06/06/17 11:40 PATIENT RETYPE [BBK] Stat TYPE AND SCREEN [BBK] Stat - Assessment/Plan Last 24 Hours: My Active Orders 06/06/17 11:26 EKG 12 Lead [EKG Documentation Completion] [RC] STAT 06/06/17 11:27 Peripheral IV Care [RC] . DIRECTED Sodium Chloride 0.9% [Saline Flush] 10 ml FLUSH ASDIRECTED PRN Peripheral IV Insertion Adult [OM.PC] Stat 06/06/17 11:30 Sodium Chloride 0.9% [Normal Saline] 1,000 ml IV ASDIRECTED 06/06/17 11:40 PATIENT RETYPE [BBK] Stat TYPE AND SCREEN [BBK] Stat
--- NOTE | 2017-06-06 15:13 | PCM.HP ---
H&P History of Present Illness - General Date of Service: 06/06/17 Admit Problem/Dx: Admission Diagnosis/Problem Admission Diagnosis/Problem Gastrointestinal hemorrhage Source of Information: Patient, Family, Provider History Limitations: Reports: No Limitations - History of Present Illness Initial Comments - Free Text/Narative: 81 year old male seen in the clinic at [place] presents to ED department with blood loss per rectum. 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 This appears to be painless blood loss. He denied presyncopal/syncopal episode, CP, SOB, orthopnea, PND, LE swelling. A general surgery consult was requested, the patient has been evaluated in the ED. Symptom Onset Date: 06/05/17 Duration of Symptoms: Reports: Day(s):, Getting Worse Location: Reports: Abdomen Severity: Moderate Improves with: Reports: Medication Worsens with: Reports: None Context: Reports: Rest - Related Data Allergies/Adverse Reactions: Allergies Allergy/AdvReac Type Severity Reaction Status Date / Time loratadine [From Claritin] Allergy Rash Verified 06/06/17 11:21 rosuvastatin [From Crestor] AdvReac Body Aches Verified 06/06/17 11:21 Suusqup-Ewy-Rfb Reductase AdvReac Body Aches Verified 06/06/17 11:21 Inhibitor Home Medications: Home Meds Aspirin [Ecotrin] 81 mg PO DAILY 06/06/17 [History] B2/Vit A,C & E/Lut/Zeaxanth/Mn [Icaps] 1 each PO DAILY 06/06/17 [History] Cholecalciferol (Vitamin D3) [D-2000] 2,000 unit PO DAILY 06/06/17 [History] Diltiazem HCl [Cardizem Cd] 240 mg PO DAILY 06/06/17 [History] Docusate Sodium [Stool Softener] 100 mg PO DAILY 06/06/17 [History] Ferrous Sulfate 325 mg PO DAILY 06/06/17 [History] Finasteride 5 mg PO DAILY 06/06/17 [History] Folic Acid 1 mg PO DAILY 06/06/17 [History] Levothyroxine Sodium [Tirosint] 25 mcg PO DAILY 06/06/17 [History] Metoprolol Tartrate 25 mg PO BID 06/06/17 [History] Mirtazapine 15 mg PO BEDTIME 06/06/17 [History] Omeprazole 20 mg PO DAILY 06/06/17 [History] Potassium Chloride 10 meq PO BID 06/06/17 [History] Sennosides [Senna] 8.6 mg PO DAILY 06/06/17 [History] Tamsulosin HCl 0.4 mg PO DAILY 06/06/17 [History] Torsemide 20 mg PO DAILY 06/06/17 [History] Vitamin B Complex 1 each PO DAILY 06/06/17 [History] Warfarin Sodium 2.5 mg PO TUFR 06/06/17 [History] Warfarin Sodium 5 mg PO ASDIRECTED 06/06/17 [History] Past Medical History HEENT History: Reports: Cataract, Hard of Hearing, Macular Degeneration Cardiovascular History: Reports: Afib, CAD, Heart Failure, Heart Valve Replacement, Other (See Below) Other Cardiovascular History: hypokalemia Respiratory History: Reports: COPD, Pneumonia, Recurrent Gastrointestinal History: Reports: GERD, Other (See Below) Other Gastrointestinal History: lap fifi Genitourinary History: Reports: BPH, Chronic Renal Insuffiency, Retention, Urinary Other Genitourinary History: Beads in place approximately 15 years ago. Hydrocele removal . Musculoskeletal History: Reports: Arthritis Other Musculoskeletal History: Arthritis in hands. Endocrine/Metabolic History: Reports: Hypothyroidism Hematologic History: Reports: Anticoagulation Therapy Other Hematologic History: Patient takes Vitamin B and D. Unsure if diagnosed. Oncologic (Cancer) History: Reports: Prostate Dermatologic History: Reports: Benign Melanoma - Infectious Disease History Infectious Disease History: Reports: C-Difficile, Chicken Pox, Measles, MRSA, Mumps, Rheumatic Fever, Rubella - Past Surgical History HEENT Surgical History: Reports: Cataract Surgery, Tonsillectomy Cardiovascular Surgical History: Reports: Valve Replacement, Other (See Below) GI Surgical History: Reports: Appendectomy, Cholecystectomy, Colonoscopy, Hernia , Inguinal, Hernia Repair/Other Musculoskeletal Surgical History: Reports: None Oncologic Surgical History: Reports: None Social & Family History - Family History HEENT: Reports: Cataract Cardiac: Reports: [place] OBGYN: Reports: Musculoskeletal: Reports: Arthritis Neurological: Reports: Dementia Endocrine/Metabolic: Reports: Diabetes, type II Other Endocrine/Metabolic Family History: Brother Oncologic: Reports: Breast, Colon, Skin, Other (See Below) Other Oncologic Family History: Malignant melanoma - Brother. Dad- cancer of thyroid and colon. Sister - Breast - Tobacco Use Smoking Status *Q: Former Smoker Years of Tobacco use: 2 Used Tobacco, but Quit: Yes Month Tobacco Last Used: 40 years ago Second Hand Smoke Exposure: No - Caffeine Use Caffeine Use: Reports: Coffee Other Caffeine Use: 2 cups a day at most. - Alcohol Use Days Per Week of Alcohol Use: 1 Number of Drinks Per Day: 0 Total Drinks Per Week: 0 - Recreational Drug Use Recreational Drug Use: No - Living Situation & Occupation Living situation: Reports: , with Spouse Occupation: Retired H&P Review of Systems - Review of Systems: Review Of Systems: See Below General: Reports: Weakness HEENT: Reports: No Symptoms Pulmonary: Reports: Shortness of Breath Cardiovascular: Reports: Lightheadedness Gastrointestinal: Reports: Abdominal Pain, Hematochezia Genitourinary: Reports: No Symptoms Musculoskeletal: Reports: No Symptoms Skin: Reports: No Symptoms Psychiatric: Reports: No Symptoms Neurological: Reports: No Symptoms Hematologic/Lymphatic: Reports: Anemia Immunologic: Reports: No Symptoms Exam - Exam Exam: See Below - Vital Signs Vital Signs: Last Vital Signs Temp 36.4 C 06/06/17 11:19 Pulse 68 06/06/17 11:19 Resp 16 06/06/17 11:19 BP 123/74 06/06/17 11:19 Pulse Ox 100 06/06/17 11:19 Weight: 90.22 kg - Exam Quality Assessment: Supplemental Oxygen, DVT Prophylaxis General: Alert, Oriented, Cooperative HEENT: Conjunctiva Clear, Nares Patent, Normal Nasal Septum, Pupils Equal, Pupils Reactive Neck: Supple, Trachea Midline Lungs: Normal Respiratory Effort Cardiovascular: Regular Rate GI/Abdominal Exam: Normal Bowel Sounds, Soft, Non-Tender, No Organomegaly, Distended (Male) Exam: Deferred Rectal (Males) Exam: Deferred Back Exam: Normal Inspection Extremities: Normal Inspection Skin: Warm Neurological: Cranial Nerves Intact Neuro Extensive - Mental Status: Alert, Oriented x3, Normal Mood/Affect, Normal Cognition, Memory Intact Neuro Extensive - Motor, Sensory, Reflexes: CN II-XII Intact Psychiatric: Alert, Normal Affect, Normal Mood - Patient Data Result Diagrams: 06/06/17 11:40 06/06/17 11:40 *Q Meaningful Use (ADM) - VTE *Q VTE Criteria *Q: - Stroke *Q Stroke Criteria *Q: - AMI *Q AMI Criteria *Q: - Problem List (1) Anemia SNOMED Code(s): 065828290 ICD Code: D64.9 - ANEMIA, UNSPECIFIED Status: Acute Current Visit: Yes Qualifiers: Anemia type: unspecified type Qualified Code(s): D64.9 - Anemia, unspecified (2) Atrial fibrillation SNOMED Code(s): 83759804 ICD Code: I48.91 - UNSPECIFIED ATRIAL FIBRILLATION Status: Acute Current Visit: Yes Qualifiers: Atrial fibrillation type: chronic Qualified Code(s): I48.2 - Chronic atrial fibrillation (3) GI bleed SNOMED Code(s): 79491117 ICD Code: K92.2 - GASTROINTESTINAL HEMORRHAGE, UNSPECIFIED Status: Acute Current Visit: Yes Qualifiers: GI bleed type/associated pathology: unspecified gastrointestinal hemorrhage type Qualified Code(s): K92.2 - Gastrointestinal hemorrhage, unspecified Problem List Initiated/Reviewed/Updated: Yes Orders Last 24hrs: Active Orders 24 hr Category Date Time Status Diltiazem HCl Med 06/07/17 09:00 Ordered 240 mg PO DAILY Docusate Sodium [Colace] Med 06/07/17 09:00 Ordered 200 mg PO DAILY Ferrous Sulfate Med 06/06/17 17:00 Ordered 325 mg PO BIDMEALS Finasteride [Proscar] Med 06/07/17 09:00 Ordered 5 mg PO DAILY Folic Acid Med 06/07/17 09:00 Ordered 1 mg PO DAILY Levothyroxine Sodium [Tirosint] Med 06/07/17 09:00 Ordered 25 mcg PO DAILY Metoprolol Tartrate [Lopressor] Med 06/06/17 21:00 Ordered 25 mg PO BID Mirtazapine [Remeron] Med 06/06/17 21:00 Ordered 15 mg PO BEDTIME Omeprazole Med 06/07/17 09:00 Ordered 20 mg PO DAILY Sennosides [Senna] Med 06/07/17 09:00 Ordered 8.6 mg PO DAILY Tamsulosin [Flomax] Med 06/07/17 09:00 Ordered 0.4 mg PO DAILY Medication Orders Docusate Sodium (Colace) 200 mg PO DAILY RONA Ferrous Sulfate (Ferrous Sulfate) 325 mg PO BIDMEALS RONA Finasteride (Proscar) 5 mg PO DAILY RONA Folic Acid (Folic Acid) 1 mg PO DAILY RONA Sodium Chloride (Normal Saline) 1,000 mls @ 75 mls/hr IV ASDIRECTED RONA Last Admin: 06/06/17 11:51 Dose: 75 mls/hr Metoprolol Tartrate (Lopressor) 25 mg PO BID RONA Mirtazapine (Remeron) 15 mg PO BEDTIME RONA Non-Formulary Medication (Diltiazem Hcl) 240 mg PO DAILY RONA Non-Formulary Medication (Levothyroxine Sodium [Tirosint]) 25 mcg PO DAILY RONA Non-Formulary Medication (Omeprazole) 20 mg PO DAILY RONA Senna (Senna) 8.6 mg PO DAILY [facility] Sodium Chloride (Saline Flush) 10 ml FLUSH ASDIRECTED PRN PRN Reason: Keep Vein Open Last Admin: 06/06/17 11:51 Dose: 10 ml Tamsulosin HCl (Flomax) 0.4 mg PO DAILY [facility] Assessment/Plan Comment:: Impression: GI bleed, hemodynamically stable A Fib rate controlled on coumadin, therapeutic INR Chronic CAD Valvular Heart Disease CHF CKD Hypothyroid COPD BPH Plan: Type and Cross for 2 units PRBCs. Ice chips, advance diet slowly as tolerated. Follow H/H IV protonix Gen Surg consult MS telemetry Daily labs, check for ischemia Home meds DVT/GI prophylaxis
[2017-06-06] MEDS: Ferrous Sulfate 325 MG Tab PO SCH (17:51)
[2017-06-06] MEDS: Pantoprazole 40 MG Vial IVPUSH SCH (17:52)
[2017-06-06] MEDS: Mirtazapine 15 MG Tab PO SCH (21:39)
[2017-06-06] MEDS: Metoprolol Tartrate 25 MG Tab PO SCH (21:42)
[2017-06-07] MEDS: Sodium Chloride 0.9% 1,000 ML IV SCH ×2 (02:37→18:28)
[2017-06-07] MEDS: Pantoprazole 40 MG Vial IVPUSH SCH ×2 (07:38→18:13)
[2017-06-07] MEDS: Levothyroxine 25 MCG Tab PO SCH (07:41)
[2017-06-07] MEDS: Ferrous Sulfate 325 MG Tab PO SCH ×2 (07:41→18:17)
[2017-06-07] MEDS: Diltiazem 240 MG Cap.ER PO SCH (08:53)
[2017-06-07] MEDS: Finasteride 5 MG Tab PO SCH (08:53)
[2017-06-07] MEDS: Sennosides 8.6 MG Tab PO SCH (08:54)
[2017-06-07] MEDS: Tamsulosin 0.4 MG Cap.ER PO SCH (08:55)
[2017-06-07] MEDS: Docusate Sodium 100 MG Cap PO SCH (08:55)
[2017-06-07] MEDS: Metoprolol Tartrate 25 MG Tab PO SCH ×2 (08:56→20:51)
[2017-06-07] MEDS: Folic Acid 1 MG Tab PO SCH (08:57)
[2017-06-07] MEDS ORDERED: Non-Formulary Medication 1 Each (Omeprazole 20 MG) PO SCH (09:00)
--- NOTE | 2017-06-07 09:30 | PCM.PN ---
- General Info Date of Service: 06/07/17 Admission Dx/Problem (Free Text): Admission Diagnosis/Problem Admission Diagnosis/Problem Gastrointestinal hemorrhage Subjective Update: Follow Up Functional Status: Reports: Pain Controlled, Tolerating Diet, Ambulating, Urinating - Review of Systems General: Denies: Fever, Weakness, Fatigue, Malaise, Chills HEENT: Reports: No Symptoms Pulmonary: Denies: Shortness of Breath Cardiovascular: Denies: Chest Pain Gastrointestinal: Denies: Abdominal Pain, Nausea, Vomiting Genitourinary: Reports: No Symptoms Musculoskeletal: Reports: No Symptoms Skin: Denies: Cyanosis Neurological: Denies: Confusion, Difficulty Walking, Weakness, Gait Disturbance Psychiatric: Denies: Depression, Anxiety, Agitation, Hallucinations Systems Review Comment:: No significant overnight or acute issues. He is doing relatively well. No episode of rectal bleed. His Hgb is at 9.8 this am. His repeat INR is at 2.3. He has no new complaints. - Patient Data Vitals - Most Recent: Last Vital Signs Temp 36.2 C 06/07/17 08:27 Pulse 65 06/07/17 08:56 Resp 18 06/07/17 08:27 BP 105/62 06/07/17 08:56 Pulse Ox 97 06/07/17 08:27 Weight - Most Recent: 85.548 kg I&O - Last 24 Hours: Intake & Output 06/06/17 06/07/17 06/07/17 22:59 06:59 14:59 Intake Total 178 762 Output Total 1100 Balance 178 -338 Lab Results Last 24 Hours: Laboratory Results - last 24 hr 06/06/17 06/07/17 06/07/17 Range/Units 18:00 05:58 05:58 WBC 4.48 3.57 L (4.23-9.07) K/mm3 RBC 3.35 L 3.28 L (4.63-6.08) M/mm3 Hgb 10.0 L 9.8 L (13.7-17.5) gm/L Hct 31.0 L 31.0 L (40.1-51.0) % MCV 92.5 H 94.5 H (79.0-92.2) fl MCH 29.9 29.9 (25.7-32.2) pg MCHC 32.3 31.6 L (32.2-35.5) g/dl RDW Std Deviation 49.9 H 50.1 H (35.1-43.9) fL Plt Count 132 L 148 L (163-337) K/mm3 MPV 10.8 10.3 (9.4-12.3) fl Neut % (Auto) 60.0 59.8 (34.0-67.9) % Lymph % (Auto) 21.9 20.4 L (21.8-53.1) % [place] % (Auto) 12.5 H 12.3 H (5.3-12.2) % Eos % (Auto) 4.5 6.7 (0.8-7.0) Baso % (Auto) 1.1 0.8 (0.1-1.2) % Neut # (Auto) 2.69 2.13 (1.78-5.38) K/mm3 Lymph # (Auto) 0.98 L 0.73 L (1.32-3.57) K/mm3 [place] # (Auto) 0.56 0.44 (0.30-0.82) K/mm3 Eos # (Auto) 0.20 0.24 (0.04-0.54) K/mm3 Baso # (Auto) 0.05 0.03 (0.01-0.08) K/mm3 Manual Slide Review Not Reportable Sodium 146 H (136-145) mEq/L Potassium 4.4 (3.5-5.1) mEq/L Chloride 111 H (98-107) mEq/L Carbon Dioxide 27 (21-32) mEq/L Anion Gap 12.4 (5-15) BUN 19 H (7-18) mg/dL Creatinine 1.1 (0.7-1.3) mg/dL Est Cr Clr Drug Dosing 58.79 mL/min Estimated GFR (MDRD) > 60 (>60) mL/min BUN/Creatinine Ratio 17.3 (14-18) Glucose 89 (83-115) mg/dL Calcium 8.4 L (8.5-10.1) mg/dL Magnesium 2.2 (1.8-2.4) mg/dl Med Orders - Current: Current Medications Diltiazem HCl (Dilacor Xr) 240 mg PO DAILY [facility] Last Admin: 06/07/17 08:53 Dose: 240 mg Docusate Sodium (Colace) 200 mg PO DAILY [facility] Last Admin: 06/07/17 08:55 Dose: 200 mg Ferrous Sulfate (Ferrous Sulfate) 325 mg PO BIDMEALS [facility] Last Admin: 06/07/17 07:41 Dose: 325 mg Finasteride (Proscar) 5 mg PO DAILY [facility] Last Admin: 06/07/17 08:53 Dose: 5 mg Folic Acid (Folic Acid) 1 mg PO DAILY [facility] Last Admin: 06/07/17 08:57 Dose: 1 mg Sodium Chloride (Normal Saline) 1,000 mls @ 75 mls/hr IV ASDIRECTED [facility] Last Admin: 06/07/17 02:37 Dose: 75 mls/hr Levothyroxine Sodium (Levothyroxine) 25 mcg PO ACBREAKFAST [facility] Last Admin: 06/07/17 07:41 Dose: 25 mcg Metoprolol Tartrate (Lopressor) 25 mg PO BID [facility] Last Admin: 06/07/17 08:56 Dose: 25 mg Mirtazapine (Remeron) 15 mg PO BEDTIME [facility] Last Admin: 06/06/17 21:39 Dose: 15 mg Pantoprazole Sodium (Protonix Iv) 40 mg IVPUSH Q12H [facility] Last Admin: 06/07/17 07:38 Dose: 40 mg Senna (Senna) 8.6 mg PO DAILY [facility] Last Admin: 06/07/17 08:54 Dose: 8.6 mg Sodium Chloride (Saline Flush) 10 ml FLUSH ASDIRECTED PRN PRN Reason: Keep Vein Open Last Admin: 06/06/17 11:51 Dose: 10 ml Tamsulosin HCl (Flomax) 0.4 mg PO DAILY [facility] Last Admin: 06/07/17 08:55 Dose: 0.4 mg Discontinued Medications Non-Formulary Medication (Omeprazole) 20 mg PO DAILY [facility] - Exam Quality Assessment: Supplemental Oxygen General: Alert, Oriented, Cooperative, No Acute Distress HEENT: Pupils Equal, Pupils Reactive, EOMI, Mucous Membr. Moist/[place] Neck: Supple, Trachea Midline, No JVD Lungs: Clear to Auscultation, Normal Respiratory Effort Cardiovascular: Irregular Rhythm, Murmurs GI/Abdominal Exam: Normal Bowel Sounds, Soft, Non-Tender, No Organomegaly, No Distention, No Abnormal Bruit, No Mass, Pelvis Stable (Male) Exam: Deferred Back Exam: Normal Inspection, Decreased Range of Motion Extremities: Normal Inspection, Normal Range of Motion, Non-Tender, No Pedal Edema Peripheral Pulses: 2+: Dorsalis Pedis (L), Dorsalis Pedis (R) Skin: Warm, Dry, Intact Neurological: No New Focal Deficit Psy/Mental Status: Alert, Normal Affect, Normal Mood - Problem List Review Problem List Initiated/Reviewed/Updated: Yes - Plan Plan:: Assessment/Plan: Acute: GI Bleed - Hemodynamically stable - Hgb slowly trending down: 10.4 --> 10 --> now 9.8 - Risk Factor: Warfarin use and hx/o GABRIELA - Admits to hx/o hemorrhoids - He denies any hx/o diverticulosis or PUD - Last EGD/Colonoscopy in 2005 with both benign findings per patient - Continue to hold warfarin - GS following Chronic Atrial Fib rate controlled on coumadin, therapeutic INR at 2.38 this am HTN CAD Valvular Heart Disease CHF with Unknown EF CKD Stage 3 GERD Hypothyroidism JOE on CPAP COPD Hx/o GABRIELA Hypoxia on 2L NC BPH/Urinary Retention Insomnia Plan: He looks clinically stable Routine AM Labs Consider low dose Vit K if INR continues to drop Type and Cross for 2 units PRBCs if needed Start po meals if okay with GS Follow H/H Gen Surg following DVT/GI prophylaxis: MANUELITO Hose and PPIs Additional orders as a rik Code status: CPR only
[2017-06-07] MEDS: Mirtazapine 15 MG Tab PO SCH (20:50)
[2017-06-08] MEDS: Pantoprazole 40 MG Vial IVPUSH SCH ×2 (07:08→17:19)
[2017-06-08] MEDS: Ferrous Sulfate 325 MG Tab PO SCH ×2 (07:08→17:19)
[2017-06-08] MEDS: Sodium Chloride 0.9% 1,000 ML IV SCH ×2 (07:08→21:01)
[2017-06-08] MEDS: Levothyroxine 25 MCG Tab PO SCH (07:08)
--- NOTE | 2017-06-08 07:52 | PCM.PN ---
- General Info Date of Service: 06/08/17 Admission Dx/Problem (Free Text): Admission Diagnosis/Problem Admission Diagnosis/Problem Gastrointestinal hemorrhage Subjective Update: Follow Up Functional Status: Reports: Pain Controlled, Ambulating, Urinating. Denies: New Symptoms - Review of Systems General: Denies: Fever, Weakness, Fatigue, Malaise, Chills HEENT: Reports: No Symptoms Pulmonary: Denies: Shortness of Breath Cardiovascular: Denies: Chest Pain Gastrointestinal: Denies: Abdominal Pain, Nausea, Vomiting Genitourinary: Reports: No Symptoms Musculoskeletal: Reports: No Symptoms Skin: Denies: Cyanosis, Pallor Neurological: Denies: Confusion, Difficulty Walking, Weakness, Gait Disturbance Psychiatric: Denies: Depression, Anxiety, Hallucinations Systems Review Comment:: He had a one time rectal bleed yesterday afternoon. He had no overnight or acute issues. No rectal bleed reported overnight or this morning. His Hgb is at 9.3 this am. He has no new complaints. His vitals remains fairly stable. - Patient Data Vitals - Most Recent: Last Vital Signs Temp 36.4 C 06/08/17 04:22 Pulse 77 06/08/17 04:22 Resp 14 06/08/17 04:22 BP 125/79 06/08/17 04:22 Pulse Ox 98 06/08/17 04:22 Weight - Most Recent: 85.548 kg I&O - Last 24 Hours: Intake & Output 06/07/17 06/08/17 06/08/17 22:59 06:59 14:59 Intake Total 1556 759 Output Total 1550 300 Balance 6 459 Lab Results Last 24 Hours: Laboratory Results - last 24 hr 06/07/17 06/07/17 06/07/17 Range/Units 05:56 15:08 16:10 WBC 3.93 L (4.23-9.07) K/mm3 RBC 3.25 L (4.63-6.08) M/mm3 Hgb 9.8 L (13.7-17.5) gm/L Hct 30.8 L (40.1-51.0) % MCV 94.8 H (79.0-92.2) fl MCH 30.2 (25.7-32.2) pg MCHC 31.8 L (32.2-35.5) g/dl RDW Std Deviation 49.7 H (35.1-43.9) fL Plt Count 150 L (163-337) K/mm3 MPV 10.3 (9.4-12.3) fl Neut % (Auto) 63.8 (34.0-67.9) % Lymph % (Auto) 18.1 L (21.8-53.1) % [place] % (Auto) 11.7 (5.3-12.2) % Eos % (Auto) 5.6 (0.8-7.0) Baso % (Auto) 0.8 (0.1-1.2) % Neut # (Auto) 2.51 (1.78-5.38) K/mm3 Lymph # (Auto) 0.71 L (1.32-3.57) K/mm3 [place] # (Auto) 0.46 (0.30-0.82) K/mm3 Eos # (Auto) 0.22 (0.04-0.54) K/mm3 Baso # (Auto) 0.03 (0.01-0.08) K/mm3 PT 27.4 H 26.8 H (8.0-13.0) SECONDS INR 2.38 2.33 06/08/17 Range/Units 05:30 WBC 3.34 L (4.23-9.07) K/mm3 RBC 3.11 L (4.63-6.08) M/mm3 Hgb 9.3 L (13.7-17.5) gm/L Hct 29.5 L (40.1-51.0) % MCV 94.9 H (79.0-92.2) fl MCH 29.9 (25.7-32.2) pg MCHC 31.5 L (32.2-35.5) g/dl RDW Std Deviation 50.0 H (35.1-43.9) fL Plt Count 144 L (163-337) K/mm3 MPV 11.0 (9.4-12.3) fl Neut % (Auto) 58.3 (34.0-67.9) % Lymph % (Auto) 19.5 L (21.8-53.1) % [place] % (Auto) 12.6 H (5.3-12.2) % Eos % (Auto) 8.4 H (0.8-7.0) Baso % (Auto) 0.9 (0.1-1.2) % Neut # (Auto) 1.95 (1.78-5.38) K/mm3 Lymph # (Auto) 0.65 L (1.32-3.57) K/mm3 [place] # (Auto) 0.42 (0.30-0.82) K/mm3 Eos # (Auto) 0.28 (0.04-0.54) K/mm3 Baso # (Auto) 0.03 (0.01-0.08) K/mm3 PT (8.0-13.0) SECONDS INR Med Orders - Current: Current Medications Diltiazem HCl (Dilacor Xr) 240 mg PO DAILY [facility] Last Admin: 06/07/17 08:53 Dose: 240 mg Docusate Sodium (Colace) 200 mg PO DAILY [facility] Last Admin: 06/07/17 08:55 Dose: 200 mg Ferrous Sulfate (Ferrous Sulfate) 325 mg PO BIDMEALS [facility] Last Admin: 06/08/17 07:08 Dose: 325 mg Finasteride (Proscar) 5 mg PO DAILY [facility] Last Admin: 06/07/17 08:53 Dose: 5 mg Folic Acid (Folic Acid) 1 mg PO DAILY [facility] Last Admin: 06/07/17 08:57 Dose: 1 mg Sodium Chloride (Normal Saline) 1,000 mls @ 75 mls/hr IV ASDIRECTED [facility] Last Admin: 06/08/17 07:08 Dose: 75 mls/hr Levothyroxine Sodium (Levothyroxine) 25 mcg PO ACBREAKFAST [facility] Last Admin: 06/08/17 07:08 Dose: 25 mcg Metoprolol Tartrate (Lopressor) 25 mg PO BID [facility] Last Admin: 06/07/17 20:51 Dose: 25 mg Mirtazapine (Remeron) 15 mg PO BEDTIME [facility] Last Admin: 06/07/17 20:50 Dose: 15 mg Pantoprazole Sodium (Protonix Iv) 40 mg IVPUSH Q12H [facility] Last Admin: 06/08/17 07:08 Dose: 40 mg Senna (Senna) 8.6 mg PO DAILY [facility] Last Admin: 06/07/17 08:54 Dose: 8.6 mg Sodium Chloride (Saline Flush) 10 ml FLUSH ASDIRECTED PRN PRN Reason: Keep Vein Open Last Admin: 06/06/17 11:51 Dose: 10 ml Tamsulosin HCl (Flomax) 0.4 mg PO DAILY [facility] Last Admin: 06/07/17 08:55 Dose: 0.4 mg Discontinued Medications Non-Formulary Medication (Omeprazole) 20 mg PO DAILY [facility] - Exam General: Alert, Oriented, Cooperative, No Acute Distress HEENT: Pupils Equal, Pupils Reactive, EOMI, Mucous Membr. Moist/[place] Neck: Supple, Trachea Midline, No JVD, No Thyromegaly Lungs: Clear to Auscultation, Normal Respiratory Effort Cardiovascular: Irregular Rhythm, Murmurs GI/Abdominal Exam: Normal Bowel Sounds, Soft, Non-Tender, No Organomegaly, No Distention, No Abnormal Bruit (Male) Exam: Deferred Back Exam: Normal Inspection, Decreased Range of Motion Extremities: Normal Inspection, Normal Range of Motion, Non-Tender, No Pedal Edema, Normal Capillary Refill, Other (Varicose veins on both lower extremity) Peripheral Pulses: 2+: Dorsalis Pedis (L), Dorsalis Pedis (R) Skin: Warm, Dry, Intact, Ecchymosis (hands ) Neurological: No New Focal Deficit Psy/Mental Status: Alert, Normal Affect, Normal Mood - Problem List Review Problem List Initiated/Reviewed/Updated: Yes - Plan Plan:: Assessment/Plan: Acute: Slow GI Bleed - Hemodynamically stable - Hgb slowly trending down: 10.4 --> 10 --> 9.8 ---> 9.3 - Risk Factor: Warfarin use and hx/o GABRIELA - Admits to hx/o hemorrhoids - He denies any hx/o diverticulosis or PUD - Last EGD/Colonoscopy in 2005 with both benign findings per patient - Continue to hold warfarin - GS following Chronic Atrial Fib rate controlled on coumadin, INR still therapeutic at 2.17 this am HTN, Fairly Stable CAD, Stable Valvular Heart Disease CHF with Unknown EF, Stable CKD Stage 3, Improved GERD, Stable Hypothyroidism, Stable JOE on CPAP COPD, Stable Hx/o GABRIELA Hypoxia on 2L NC, Unchanged BPH/Urinary Retention, Stable Insomnia, Stable Plan: He remains clinically stable Routine AM Labs Low dose Vit K 2.5 mg po x 1 at 0900 this am Repeat INR at 1800 today Clear liquid today per Dr. Anders Gen Surgery following DVT/GI prophylaxis: MANUELITO Down[place] and PPIs Additional orders as above Code status: CPR only
[2017-06-08] MEDS ORDERED: Phytonadione ORAL 2.5mg/2.5ml Soln Simple Syrup U/D PO ONE ×2 (09:00→21:00)
[2017-06-08] MEDS: Finasteride 5 MG Tab PO SCH (10:42)
[2017-06-08] MEDS: Diltiazem 240 MG Cap.ER PO SCH (10:42)
[2017-06-08] MEDS: Docusate Sodium 100 MG Cap PO SCH (10:44)
[2017-06-08] MEDS: Folic Acid 1 MG Tab PO SCH (10:44)
[2017-06-08] MEDS: Sennosides 8.6 MG Tab PO SCH (10:44)
[2017-06-08] MEDS: Tamsulosin 0.4 MG Cap.ER PO SCH (10:44)
[2017-06-08] MEDS: Metoprolol Tartrate 25 MG Tab PO SCH ×2 (10:47→21:54)
[2017-06-08] MEDS: Mirtazapine 15 MG Tab PO SCH (21:55)
[2017-06-09] MEDS: Levothyroxine 25 MCG Tab PO SCH (06:27)
[2017-06-09] MEDS: Pantoprazole 40 MG Vial IVPUSH SCH (06:27)
[2017-06-09] MEDS: Ferrous Sulfate 325 MG Tab PO SCH ×2 (06:27→17:33)
[2017-06-09] MEDS: Tamsulosin 0.4 MG Cap.ER PO SCH (08:13)
[2017-06-09] MEDS: Finasteride 5 MG Tab PO SCH (08:14)
[2017-06-09] MEDS: Sennosides 8.6 MG Tab PO SCH (08:14)
[2017-06-09] MEDS: Folic Acid 1 MG Tab PO SCH (08:15)
[2017-06-09] MEDS: Diltiazem 240 MG Cap.ER PO SCH (08:15)
[2017-06-09] MEDS: Metoprolol Tartrate 25 MG Tab PO SCH ×2 (08:15→20:18)
[2017-06-09] MEDS: Docusate Sodium 100 MG Cap PO SCH (08:15)
--- NOTE | 2017-06-09 08:43 | CONS ---
CONSULTING PHYSICIAN: Sang Anders DATE OF CONSULTATION: 06/06/2017 PHYSICIAN REQUESTING CONSULTATION: Todd Ochoa MD. Thank you for asking me to see this nice gentleman in consultation. 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 He presents today with a history of last evening of having 2 episodes of bloody stools, and he has not had any today at this time. His INR is 2.44. He also has had some urinary bladder problems and required to do self-catheterizations for approximately 2 years after that, but then has been able to void on his own at this time. On physical examination, his abdomen is soft. There is a fullness in the lower abdomen on both sides. There is some mild tenderness in the right lower quadrant area. Bowel sounds are present. The area of fullness would be consistent with possibly a suprapubic bladder from incomplete emptying. I have discussed this with Dr. Ochoa, and he will be scheduled for an ultrasound this afternoon. Otherwise, I feel it is safe to watch him. He is now 18 hours from the onset of his bleeding, and he does have a history of normal colonoscopy in 2005 in which nothing was found. I feel that he probably might have a polyp at this point, but this is not the time for him to have a scoping, but observation. If he continues to bleed, he might well need to go to a place for publicity agent for a colonoscopy along with possible fulguration, etc., and polyp removal if that is what it is. However, most likely it is diverticular bleeding statistically and probably on the basis of his Coumadin, so time will tell us and we will admit him for observation at this time. DESI /[id number]
--- NOTE | 2017-06-09 08:43 | PN ---
DATE OF SERVICE: 06/07/2017 Mr. Shaikh is doing well. He was admitted yesterday for lower GI bleed, which occurred evening before. He has remained stable. His hemoglobin today is 9.8 as supposed to 10.0 yesterday. His platelet count is good and his most recent ProTime was 27.4 seconds with an INR of 2.38. He had a bowel movement today, which was guaiac negative. No sign of any gross blood. He feels well. We will start him on some food, actually regular diet and try to make arrangements for an endoscopy form early next week. MMODAL /[id number]
--- NOTE | 2017-06-09 10:45 | PN ---
DATE OF SERVICE: 06/08/2017 Dale's clotting parameters are approaching normal. He has had no further rectal bleeding today and the last episode was yesterday in the afternoon where it was a watery dark foul smelling bowel movement. He is on clear liquids, tolerating that well, and his parameters are such that his INR was originally 2.33 and now is down into the 1.90 range. This is being controlled by Dr. Lynn. Generally, he is comfortable. He has no real pain, and hopefully, will be able to be scoped in the next day or two, once we get his clotting parameters in good shape. MMODAL /[id number]
--- NOTE | 2017-06-09 11:54 | PCM.PN ---
<Moriah Fernandez - Last Filed: 06/09/17 12:06> - General Info Date of Service: 06/09/17 Admission Dx/Problem (Free Text): Admission Diagnosis/Problem Admission Diagnosis/Problem Gastrointestinal hemorrhage Subjective Update: Follow Up Functional Status: Reports: Pain Controlled, Tolerating Diet (Clear liquids), Urinating. Denies: New Symptoms - Review of Systems General: Denies: Fever, Fatigue, Chills HEENT: Reports: No Symptoms Pulmonary: Denies: Shortness of Breath, Cough, Wheezing Cardiovascular: Denies: Chest Pain, Palpitations Gastrointestinal: Denies: Abdominal Pain, Constipation, Diarrhea, Nausea, Vomiting Genitourinary: Denies: Dysuria, Frequency, Hematuria Musculoskeletal: Reports: No Symptoms Skin: Reports: No Symptoms Neurological: Reports: No Symptoms Psychiatric: Reports: No Symptoms Systems Review Comment:: Pleasant 81YoM, with no major complaints/ concerns at this time. He is in no pain, tolerating his diet, and is comfortable. - Patient Data Vitals - Most Recent: Last Vital Signs Temp 97.9 F 06/09/17 03:23 Pulse 68 06/09/17 08:15 Resp 15 06/09/17 03:23 BP 120/69 06/09/17 08:15 Pulse Ox 98 06/09/17 03:23 Weight - Most Recent: 86.545 kg I&O - Last 24 Hours: Intake & Output 06/08/17 06/09/17 06/09/17 22:59 06:59 14:59 Intake Total 2930 2054 480 Output Total 650 800 Balance 2280 1254 480 Lab Results Last 24 Hours: Laboratory Results - last 24 hr 06/08/17 06/09/17 06/09/17 Range/Units 18:00 05:40 05:40 WBC 3.16 L (4.23-9.07) K/mm3 RBC 3.06 L (4.63-6.08) M/mm3 Hgb 8.9 L (13.7-17.5) gm/L Hct 29.1 L (40.1-51.0) % MCV 95.1 H (79.0-92.2) fl MCH 29.1 (25.7-32.2) pg MCHC 30.6 L (32.2-35.5) g/dl RDW Std Deviation 49.3 H (35.1-43.9) fL Plt Count 136 L (163-337) K/mm3 MPV 10.8 (9.4-12.3) fl Neut % (Auto) 55.3 (34.0-67.9) % Lymph % (Auto) 20.6 L (21.8-53.1) % [place] % (Auto) 13.6 H (5.3-12.2) % Eos % (Auto) 8.9 H (0.8-7.0) Baso % (Auto) 1.3 H (0.1-1.2) % Neut # (Auto) 1.75 L (1.78-5.38) K/mm3 Lymph # (Auto) 0.65 L (1.32-3.57) K/mm3 [place] # (Auto) 0.43 (0.30-0.82) K/mm3 Eos # (Auto) 0.28 (0.04-0.54) K/mm3 Baso # (Auto) 0.04 (0.01-0.08) K/mm3 PT 21.6 H (8.0-13.0) SECONDS INR 1.90 Sodium 146 H (136-145) mEq/L Potassium 3.9 (3.5-5.1) mEq/L Chloride 112 H (98-107) mEq/L Carbon Dioxide 26 (21-32) mEq/L Anion Gap 11.9 (5-15) BUN 11 (7-18) mg/dL Creatinine 1.0 (0.7-1.3) mg/dL Est Cr Clr Drug Dosing 64.67 mL/min Estimated GFR (MDRD) > 60 (>60) mL/min BUN/Creatinine Ratio 11.0 L (14-18) Glucose 88 (83-115) mg/dL Calcium 8.4 L (8.5-10.1) mg/dL Magnesium 2.0 (1.8-2.4) mg/dl 06/09/17 Range/Units 05:40 WBC (4.23-9.07) K/mm3 RBC (4.63-6.08) M/mm3 Hgb (13.7-17.5) gm/L Hct (40.1-51.0) % MCV (79.0-92.2) fl MCH (25.7-32.2) pg MCHC (32.2-35.5) g/dl RDW Std Deviation (35.1-43.9) fL Plt Count (163-337) K/mm3 MPV (9.4-12.3) fl Neut % (Auto) (34.0-67.9) % Lymph % (Auto) (21.8-53.1) % [place] % (Auto) (5.3-12.2) % Eos % (Auto) (0.8-7.0) Baso % (Auto) (0.1-1.2) % Neut # (Auto) (1.78-5.38) K/mm3 Lymph # (Auto) (1.32-3.57) K/mm3 [place] # (Auto) (0.30-0.82) K/mm3 Eos # (Auto) (0.04-0.54) K/mm3 Baso # (Auto) (0.01-0.08) K/mm3 PT 17.0 H (8.0-13.0) SECONDS INR 1.52 Sodium (136-145) mEq/L Potassium (3.5-5.1) mEq/L Chloride (98-107) mEq/L Carbon Dioxide (21-32) mEq/L Anion Gap (5-15) BUN (7-18) mg/dL Creatinine (0.7-1.3) mg/dL Est Cr Clr Drug Dosing mL/min Estimated GFR (MDRD) (>60) mL/min BUN/Creatinine Ratio (14-18) Glucose (83-115) mg/dL Calcium (8.5-10.1) mg/dL Magnesium (1.8-2.4) mg/dl Med Orders - Current: Current Medications Diltiazem HCl (Dilacor Xr) 240 mg PO DAILY [facility] Last Admin: 06/09/17 08:15 Dose: 240 mg Docusate Sodium (Colace) 200 mg PO DAILY [facility] Last Admin: 06/09/17 08:15 Dose: 200 mg Famotidine (Pepcid) 20 mg PO BID [facility] Ferrous Sulfate (Ferrous Sulfate) 325 mg PO BIDMEALS [facility] Last Admin: 06/09/17 06:27 Dose: 325 mg Finasteride (Proscar) 5 mg PO DAILY [facility] Last Admin: 06/09/17 08:14 Dose: 5 mg Folic Acid (Folic Acid) 1 mg PO DAILY [facility] Last Admin: 06/09/17 08:15 Dose: 1 mg Sodium Chloride (Normal Saline) 1,000 mls @ 75 mls/hr IV ASDIRECTED [facility] Last Admin: 06/08/17 21:01 Dose: 75 mls/hr Levothyroxine Sodium (Levothyroxine) 25 mcg PO ACBREAKFAST [facility] Last Admin: 06/09/17 06:27 Dose: 25 mcg Metoprolol Tartrate (Lopressor) 25 mg PO BID [facility] Last Admin: 06/09/17 08:15 Dose: 25 mg Mirtazapine (Remeron) 15 mg PO BEDTIME [facility] Last Admin: 06/08/17 21:55 Dose: 15 mg Senna (Senna) 8.6 mg PO DAILY [facility] Last Admin: 06/09/17 08:14 Dose: 8.6 mg Sodium Chloride (Saline Flush) 10 ml FLUSH ASDIRECTED PRN PRN Reason: Keep Vein Open Last Admin: 06/06/17 11:51 Dose: 10 ml Tamsulosin HCl (Flomax) 0.4 mg PO DAILY [facility] Last Admin: 06/09/17 08:13 Dose: 0.4 mg Discontinued Medications Non-Formulary Medication (Omeprazole) 20 mg PO DAILY [facility] Pantoprazole Sodium (Protonix Iv) 40 mg IVPUSH Q12H [facility] Last Admin: 06/09/17 06:27 Dose: 40 mg Phytonadione (Aquamephyton) 2.5 mg PO ONETIME ONE Stop: 06/08/17 09:01 Last Admin: 06/08/17 10:41 Dose: 2.5 mg Phytonadione (Aquamephyton) 2.5 mg PO ONETIME ONE Stop: 06/08/17 21:01 Last Admin: 06/08/17 21:54 Dose: 2.5 mg - Exam Quality Assessment: Supplemental Oxygen (wears home O2) General: Alert, Oriented, Cooperative, No Acute Distress HEENT: Pupils Equal, Pupils Reactive, EOMI, Mucous Membr. Moist/[place] Neck Neck: Supple, Trachea Midline Lungs: Clear to Auscultation, Normal Respiratory Effort. No: Rhonchi, Wheezing Cardiovascular: Regular Rate, Regular Rhythm, Murmurs (hx of Rheumatic fever as child, has mitral regurg) GI/Abdominal Exam: Normal Bowel Sounds, Soft, Non-Tender, No Organomegaly, No Distention, No Mass (Male) Exam: Deferred Back Exam: Normal Inspection Extremities: Normal Inspection, Non-Tender, No Pedal Edema, Normal Capillary Refill Peripheral Pulses: 2+: Radial (L), Radial (R), Dorsalis Pedis (L), Dorsalis Pedis (R) Skin: Warm, Dry, Intact Neurological: No New Focal Deficit Psy/Mental Status: Alert, Normal Affect, Normal Mood - Problem List Review Problem List Initiated/Reviewed/Updated: Yes - Plan Plan:: Assessment/Plan: Acute: Slow GI Bleed - stable - Hemodynamically stable - Hgb slowly trending down: 10.4 --> 10 --> 9.8 ---> 9.3 --> 8.9 today - If Hgb continues to fall, consider type and screen for blood transfusion if needed- will try volume resuscitation first. - Continue IV NS @75mL/hr - Risk Factor: Warfarin use and hx/o GABRIELA - Admits to hx/o hemorrhoids - Denies hx/o diverticulosis or PUD - Last EGD/Colonoscopy in 2005 with both benign findings per patient - Continue to hold warfarin - GS following Chronic Atrial Fib rate controlled on coumadin, INR still therapeutic at 1.52 this am HTN, Fairly Stable CAD, Stable Valvular Heart Disease CHF with Unknown EF, Stable CKD Stage 3, Improved GERD, Stable Hypothyroidism, Stable JOE on CPAP COPD, Stable Hx/o GABRIELA Hypoxia on 2L NC, Unchanged BPH/Urinary Retention, Stable Insomnia, Stable Plan: He remains clinically stable Routine AM Labs Low dose Vit K 2.5 mg po x 1 at 0900 this am Clear liquid diet per Dr. Anders Gen Surgery following- consult with Dr. Landis-he has agreed to do colonscopy either later this afternoon or early AM 06/10 DVT/GI prophylaxis: MANUELITO Hose and PPIs, encourage ambulation ad mary Additional orders as above Code status: CPR only Possible D/C in 1-2 days pending colonoscopy findings <Yulia Lynn T - Last Filed: 06/09/17 20:13> - General Info Functional Status: Reports: Pain Controlled, Tolerating Diet, Ambulating, Urinating. Denies: New Symptoms - Review of Systems General: Denies: Fever, Weakness, Fatigue, Malaise, Chills HEENT: Reports: No Symptoms Pulmonary: Denies: Shortness of Breath, Wheezing Cardiovascular: Denies: Palpitations, Edema, Lightheadedness Gastrointestinal: Denies: Abdominal Pain, Constipation, Diarrhea, Nausea, Vomiting Genitourinary: Reports: No Symptoms Musculoskeletal: Reports: No Symptoms Skin: Reports: No Symptoms Neurological: Reports: No Symptoms Psychiatric: Reports: No Symptoms Systems Review Comment:: No significant overnight or acute issues. He is essentially the same. His INR is at 1.52. He has no new complaints. - Patient Data Vitals - Most Recent: Last Vital Signs Temp 36.4 C 06/09/17 16:31 Pulse 63 06/09/17 16:31 Resp 19 06/09/17 16:31 BP 105/69 06/09/17 16:31 Pulse Ox 100 06/09/17 16:31 I&O - Last 24 Hours: Intake & Output 06/09/17 06/09/17 06/09/17 06:59 14:59 22:59 Intake Total 2054 480 2088 Output Total 800 1050 Balance 2841 803 7360 Lab Results Last 24 Hours: Laboratory Results - last 24 hr 06/09/17 06/09/17 06/09/17 Range/Units 05:40 05:40 05:40 WBC 3.16 L (4.23-9.07) K/mm3 RBC 3.06 L (4.63-6.08) M/mm3 Hgb 8.9 L (13.7-17.5) gm/L Hct 29.1 L (40.1-51.0) % MCV 95.1 H (79.0-92.2) fl MCH 29.1 (25.7-32.2) pg MCHC 30.6 L (32.2-35.5) g/dl RDW Std Deviation 49.3 H (35.1-43.9) fL Plt Count 136 L (163-337) K/mm3 MPV 10.8 (9.4-12.3) fl Neut % (Auto) 55.3 (34.0-67.9) % Lymph % (Auto) 20.6 L (21.8-53.1) % [place] % (Auto) 13.6 H (5.3-12.2) % Eos % (Auto) 8.9 H (0.8-7.0) Baso % (Auto) 1.3 H (0.1-1.2) % Neut # (Auto) 1.75 L (1.78-5.38) K/mm3 Lymph # (Auto) 0.65 L (1.32-3.57) K/mm3 [place] # (Auto) 0.43 (0.30-0.82) K/mm3 Eos # (Auto) 0.28 (0.04-0.54) K/mm3 Baso # (Auto) 0.04 (0.01-0.08) K/mm3 PT 17.0 H (8.0-13.0) SECONDS INR 1.52 Sodium 146 H (136-145) mEq/L Potassium 3.9 (3.5-5.1) mEq/L Chloride 112 H (98-107) mEq/L Carbon Dioxide 26 (21-32) mEq/L Anion Gap 11.9 (5-15) BUN 11 (7-18) mg/dL Creatinine 1.0 (0.7-1.3) mg/dL Est Cr Clr Drug Dosing 64.67 mL/min Estimated GFR (MDRD) > 60 (>60) mL/min BUN/Creatinine Ratio 11.0 L (14-18) Glucose 88 (83-115) mg/dL Calcium 8.4 L (8.5-10.1) mg/dL Magnesium 2.0 (1.8-2.4) mg/dl Med Orders - Current: Current Medications Diltiazem HCl (Dilacor Xr) 240 mg PO DAILY [facility] Last Admin: 06/09/17 08:15 Dose: 240 mg Docusate Sodium (Colace) 200 mg PO DAILY [facility] Last Admin: 06/09/17 08:15 Dose: 200 mg Famotidine (Pepcid) 20 mg PO BID [facility] Ferrous Sulfate (Ferrous Sulfate) 325 mg PO BIDMEALS [facility] Last Admin: 06/09/17 17:33 Dose: 325 mg Finasteride (Proscar) 5 mg PO DAILY [facility] Last Admin: 06/09/17 08:14 Dose: 5 mg Folic Acid (Folic Acid) 1 mg PO DAILY [facility] Last Admin: 06/09/17 08:15 Dose: 1 mg Levothyroxine Sodium (Levothyroxine) 25 mcg PO ACBREAKFAST [facility] Last Admin: 06/09/17 06:27 Dose: 25 mcg Metoprolol Tartrate (Lopressor) 25 mg PO BID [facility] Last Admin: 06/09/17 08:15 Dose: 25 mg Mirtazapine (Remeron) 15 mg PO BEDTIME [facility] Last Admin: 06/08/17 21:55 Dose: 15 mg Senna (Senna) 8.6 mg PO DAILY [facility] Last Admin: 06/09/17 08:14 Dose: 8.6 mg Sodium Chloride (Saline Flush) 10 ml FLUSH ASDIRECTED PRN PRN Reason: Keep Vein Open Last Admin: 06/06/17 11:51 Dose: 10 ml Tamsulosin HCl (Flomax) 0.4 mg PO DAILY [facility] Last Admin: 06/09/17 08:13 Dose: 0.4 mg Discontinued Medications Sodium Chloride (Normal Saline) 1,000 mls @ 75 mls/hr IV ASDIRECTED [facility] Last Admin: 06/08/17 21:01 Dose: 75 mls/hr Non-Formulary Medication (Omeprazole) 20 mg PO DAILY [facility] Pantoprazole Sodium (Protonix Iv) 40 mg IVPUSH Q12H [facility] Last Admin: 06/09/17 06:27 Dose: 40 mg Phytonadione (Aquamephyton) 2.5 mg PO ONETIME ONE Stop: 06/08/17 09:01 Last Admin: 06/08/17 10:41 Dose: 2.5 mg Phytonadione (Aquamephyton) 2.5 mg PO ONETIME ONE Stop: 06/08/17 21:01 Last Admin: 06/08/17 21:54 Dose: 2.5 mg Polyethylene Glycol/Electrolytes (Golytely) 4,000 ml PO ONETIME ONE Stop: 06/09/17 19:01 Last Admin: 06/09/17 19:29 Dose: 4,000 ml - Exam General: Alert, Oriented, Cooperative, No Acute Distress HEENT: Pupils Equal, Pupils Reactive, EOMI, Mucous Membr. Moist/[place] Neck: Supple, Trachea Midline Lungs: Clear to Auscultation, Normal Respiratory Effort Cardiovascular: Irregular Rhythm, Murmurs GI/Abdominal Exam: Normal Bowel Sounds, Soft, Non-Tender, No Organomegaly, No Distention, No Mass (Male) Exam: Deferred Back Exam: Normal Inspection, Decreased Range of Motion Extremities: Normal Inspection, Normal Range of Motion, Non-Tender, No Pedal Edema, Normal Capillary Refill Peripheral Pulses: 2+: Dorsalis Pedis (L), Dorsalis Pedis (R) Skin: Warm, Dry, Intact Neurological: No New Focal Deficit Psy/Mental Status: Alert, Normal Affect, Normal Mood - Problem List Review Problem List Initiated/Reviewed/Updated: Yes - My Orders Last 24 Hours: My Active Orders 06/09/17 11:45 Antiembolic Devices [RC] PER UNIT ROUTINE Sequential Compression Device [OM.PC] Routine 06/09/17 21:00 Famotidine [Pepcid] 20 mg PO BID - Plan Plan:: Assessment/Plan: Acute: Slow GI Bleed - stable - Hemodynamically stable - Hgb slowly trending down: 10.4 --> 10 --> 9.8 ---> 9.3 --> 8.9 today - If Hgb continues to fall, consider type and screen for blood transfusion if needed- will try volume resuscitation first. - Continue IV NS @75mL/hr - Risk Factor: Warfarin use and hx/o GABRIELA - Admits to hx/o hemorrhoids - Denies hx/o diverticulosis or PUD - Last EGD/Colonoscopy in 2005 with both benign findings per patient - Continue to hold warfarin - GS following Chronic Atrial Fib rate controlled on coumadin, INR still therapeutic at 1.52 this am HTN, Fairly Stable CAD, Stable Valvular Heart Disease CHF with Unknown EF, Stable CKD Stage 3, Improved GERD, Stable Hypothyroidism, Stable JOE on CPAP COPD, Stable Hx/o GABRIELA Hypoxia on 2L NC, Unchanged BPH/Urinary Retention, Stable Insomnia, Stable Plan: He remains clinically stable Routine AM Labs Clear liquid diet per Dr. Anders Gen Surgery following- consult with Dr. Landis-he has agreed to do colonscopy either later this afternoon or early AM 06/10 DVT/GI prophylaxis: MANUELITO Hose and PPIs, encourage ambulation ad mary Additional orders as above Code status: CPR only Possible D/C in 1-2 days pending colonoscopy findings
--- NOTE | 2017-06-09 17:52 | PCM.CONSN ---
- General Info Date of Service: 06/09/17 - Patient Data Vitals - Most Recent: Last Vital Signs Temp 97.5 F 06/09/17 16:31 Pulse 63 06/09/17 16:31 Resp 19 06/09/17 16:31 BP 105/69 06/09/17 16:31 Pulse Ox 100 06/09/17 16:31 Weight - Most Recent: 86.545 kg I&O - Last 24 Hours: Intake & Output 06/09/17 06/09/17 06/09/17 07:59 15:59 23:59 Intake Total 2054 1080 Output Total 800 Balance 1254 1080 Lab Results Last 24 Hours: Laboratory Results - last 24 hr 06/08/17 06/09/17 06/09/17 Range/Units 18:00 05:40 05:40 WBC 3.16 L (4.23-9.07) K/mm3 RBC 3.06 L (4.63-6.08) M/mm3 Hgb 8.9 L (13.7-17.5) gm/L Hct 29.1 L (40.1-51.0) % MCV 95.1 H (79.0-92.2) fl MCH 29.1 (25.7-32.2) pg MCHC 30.6 L (32.2-35.5) g/dl RDW Std Deviation 49.3 H (35.1-43.9) fL Plt Count 136 L (163-337) K/mm3 MPV 10.8 (9.4-12.3) fl Neut % (Auto) 55.3 (34.0-67.9) % Lymph % (Auto) 20.6 L (21.8-53.1) % [place] % (Auto) 13.6 H (5.3-12.2) % Eos % (Auto) 8.9 H (0.8-7.0) Baso % (Auto) 1.3 H (0.1-1.2) % Neut # (Auto) 1.75 L (1.78-5.38) K/mm3 Lymph # (Auto) 0.65 L (1.32-3.57) K/mm3 [place] # (Auto) 0.43 (0.30-0.82) K/mm3 Eos # (Auto) 0.28 (0.04-0.54) K/mm3 Baso # (Auto) 0.04 (0.01-0.08) K/mm3 PT 21.6 H (8.0-13.0) SECONDS INR 1.90 Sodium 146 H (136-145) mEq/L Potassium 3.9 (3.5-5.1) mEq/L Chloride 112 H (98-107) mEq/L Carbon Dioxide 26 (21-32) mEq/L Anion Gap 11.9 (5-15) BUN 11 (7-18) mg/dL Creatinine 1.0 (0.7-1.3) mg/dL Est Cr Clr Drug Dosing 64.67 mL/min Estimated GFR (MDRD) > 60 (>60) mL/min BUN/Creatinine Ratio 11.0 L (14-18) Glucose 88 (83-115) mg/dL Calcium 8.4 L (8.5-10.1) mg/dL Magnesium 2.0 (1.8-2.4) mg/dl 06/09/17 Range/Units 05:40 WBC (4.23-9.07) K/mm3 RBC (4.63-6.08) M/mm3 Hgb (13.7-17.5) gm/L Hct (40.1-51.0) % MCV (79.0-92.2) fl MCH (25.7-32.2) pg MCHC (32.2-35.5) g/dl RDW Std Deviation (35.1-43.9) fL Plt Count (163-337) K/mm3 MPV (9.4-12.3) fl Neut % (Auto) (34.0-67.9) % Lymph % (Auto) (21.8-53.1) % [place] % (Auto) (5.3-12.2) % Eos % (Auto) (0.8-7.0) Baso % (Auto) (0.1-1.2) % Neut # (Auto) (1.78-5.38) K/mm3 Lymph # (Auto) (1.32-3.57) K/mm3 [place] # (Auto) (0.30-0.82) K/mm3 Eos # (Auto) (0.04-0.54) K/mm3 Baso # (Auto) (0.01-0.08) K/mm3 PT 17.0 H (8.0-13.0) SECONDS INR 1.52 Sodium (136-145) mEq/L Potassium (3.5-5.1) mEq/L Chloride (98-107) mEq/L Carbon Dioxide (21-32) mEq/L Anion Gap (5-15) BUN (7-18) mg/dL Creatinine (0.7-1.3) mg/dL Est Cr Clr Drug Dosing mL/min Estimated GFR (MDRD) (>60) mL/min BUN/Creatinine Ratio (14-18) Glucose (83-115) mg/dL Calcium (8.5-10.1) mg/dL Magnesium (1.8-2.4) mg/dl Med Orders - Current: Current Medications Diltiazem HCl (Dilacor Xr) 240 mg PO DAILY [facility] Last Admin: 06/09/17 08:15 Dose: 240 mg Docusate Sodium (Colace) 200 mg PO DAILY [facility] Last Admin: 06/09/17 08:15 Dose: 200 mg Famotidine (Pepcid) 20 mg PO BID [facility] Ferrous Sulfate (Ferrous Sulfate) 325 mg PO BIDMEALS [facility] Last Admin: 06/09/17 17:33 Dose: 325 mg Finasteride (Proscar) 5 mg PO DAILY [facility] Last Admin: 06/09/17 08:14 Dose: 5 mg Folic Acid (Folic Acid) 1 mg PO DAILY [facility] Last Admin: 06/09/17 08:15 Dose: 1 mg Levothyroxine Sodium (Levothyroxine) 25 mcg PO ACBREAKFAST [facility] Last Admin: 06/09/17 06:27 Dose: 25 mcg Metoprolol Tartrate (Lopressor) 25 mg PO BID [facility] Last Admin: 06/09/17 08:15 Dose: 25 mg Mirtazapine (Remeron) 15 mg PO BEDTIME [facility] Last Admin: 06/08/17 21:55 Dose: 15 mg Polyethylene Glycol/Electrolytes (Golytely) 4,000 ml PO ONETIME ONE Stop: 06/09/17 19:01 Senna (Senna) 8.6 mg PO DAILY [facility] Last Admin: 06/09/17 08:14 Dose: 8.6 mg Sodium Chloride (Saline Flush) 10 ml FLUSH ASDIRECTED PRN PRN Reason: Keep Vein Open Last Admin: 06/06/17 11:51 Dose: 10 ml Tamsulosin HCl (Flomax) 0.4 mg PO DAILY [facility] Last Admin: 06/09/17 08:13 Dose: 0.4 mg Discontinued Medications Sodium Chloride (Normal Saline) 1,000 mls @ 75 mls/hr IV ASDIRECTED [facility] Last Admin: 06/08/17 21:01 Dose: 75 mls/hr Non-Formulary Medication (Omeprazole) 20 mg PO DAILY [facility] Pantoprazole Sodium (Protonix Iv) 40 mg IVPUSH Q12H [facility] Last Admin: 06/09/17 06:27 Dose: 40 mg Phytonadione (Aquamephyton) 2.5 mg PO ONETIME ONE Stop: 06/08/17 09:01 Last Admin: 06/08/17 10:41 Dose: 2.5 mg Phytonadione (Aquamephyton) 2.5 mg PO ONETIME ONE Stop: 06/08/17 21:01 Last Admin: 06/08/17 21:54 Dose: 2.5 mg Consult PN Assessment/Plan Procedures: Procedures AGENT NOS ASSAY W/OPTIC (11/22/16) ASSAY OF BLOOD/URIC ACID (08/15/15) ASSAY OF DIGOXIN TOTAL (10/27/16) ASSAY OF FREE THYROXINE (02/06/17) ASSAY OF LACTIC ACID (10/27/16) ASSAY OF MAGNESIUM (11/22/16) ASSAY OF NATRIURETIC PEPTIDE (02/06/17) ASSAY OF PSA TOTAL (03/29/15) ASSAY OF TROPONIN QUANT (11/22/16) ASSAY THYROID STIM HORMONE (02/06/17) ASSAY TRIIODOTHYRONINE (T3) (01/05/14) BLOOD CULTURE FOR BACTERIA (10/27/16) BLOOD GASES ANY COMBINATION (10/27/16) C-REACTIVE PROTEIN (11/22/16) CHEST X-RAY 1 VIEW FRONTAL (10/27/16) CHEST X-RAY 2VW FRONTAL&LATL (11/22/16) CHYLMD PNEUM DNA AMP PROBE (11/22/16) CO/MEMBANE DIFFUSE CAPACITY (11/22/16) COMPLETE CBC AUTOMATED (05/13/17) COMPLETE CBC W/AUTO DIFF WBC (03/12/17) COMPREHEN METABOLIC PANEL (05/13/17) CREATINE MB FRACTION (11/22/16) CT THORAX W/O DYE (10/27/16) CULTURE AEROBIC IDENTIFY (04/19/14) CULTURE OTHR SPECIMN AEROBIC (04/27/15) DETECT AGENT NOS DNA AMP (11/22/16) ECG MONIT/REPRT UP TO 48 HRS (11/28/16) ECG MONIT/REPRT UP TO 48 HRS (11/28/16) ELECTROCARDIOGRAM TRACING (11/22/16) EMERGENCY DEPT VISIT (11/22/16) EVALUATE PT USE OF INHALER (11/22/16) EVALUATION OF WHEEZING (11/22/16) INFLUENZA ASSAY W/OPTIC (11/22/16) LIPID PANEL (05/13/17) M.PNEUMON DNA AMP PROBE (11/22/16) MEASURE BLOOD OXYGEN LEVEL (11/22/16) MEASURE BLOOD OXYGEN LEVEL (11/22/16) MEASURE BLOOD OXYGEN LEVEL (11/22/16) MEASURE BLOOD OXYGEN LEVEL (10/27/16) METABOLIC PANEL TOTAL CA (12/23/16) MICROBE SUSCEPTIBLE ALEXYS (06/22/14) MR-STAPH DNA AMP PROBE (11/22/16) MYCOPLASMA ANTIBODY (11/22/16) OT EVAL LOW COMPLEX 30 MIN (11/22/16) POLYSOM 6/>YRS CPAP 4/> PARM (12/17/16) PROTHROMBIN TIME (06/02/17) PT EVAL LOW COMPLEX 20 MIN (11/22/16) RBC SED RATE AUTOMATED (10/27/16) RESP VIRUS 12-25 TARGETS (11/22/16) ROUTINE VENIPUNCTURE (11/22/16) THER/PROPH/DIAG INJ IV PUSH (11/22/16) THER/PROPH/DIAG IV INF INIT (10/27/16) THERAPEUTIC ACTIVITIES (11/22/16) TTE W/DOPPLER COMPLETE (10/27/16) TX/PRO/DX INJ NEW DRUG ADDON (10/27/16) URINALYSIS AUTO W/O SCOPE (03/29/15) URINALYSIS AUTO W/SCOPE (10/27/16) URINE BACTERIA CULTURE (06/22/14) URINE CULTURE/COLONY COUNT (09/02/16) VITAMIN B-12 (02/06/17) VITAMIN D 25 HYDROXY (03/12/17) WITHDRAWAL OF ARTERIAL BLOOD (10/27/16) Problem List Initiated/Reviewed/Updated: Yes My Orders Last 24 Hours: My Active Orders 06/09/17 19:00 KCl/Na Sulf,Bicarb,Cl/PEG 3351 [GoLytely] 4,000 ml PO ONETIME ONE 06/09/17 Dinner NPO After Midnight [Nothing per Oral After Midnight Diet] [DIET] 06/10/17 14:30 Schedule Procedure [COMM] Routine Plan: surgical consult dictated [place]
[2017-06-09] MEDS ORDERED: Polyethylene Glycol/Electrolytes 4,000 ML Bottle PO ONE (19:00)
[2017-06-09] MEDS: Mirtazapine 15 MG Tab PO SCH (20:18)
[2017-06-09] MEDS: Famotidine 20 MG Tab PO SCH (20:19)
[2017-06-10] MEDS: Levothyroxine 25 MCG Tab PO SCH (05:58)
[2017-06-10] MEDS: Ferrous Sulfate 325 MG Tab PO SCH ×2 (05:59→16:50)
[2017-06-10] MEDS: Metoprolol Tartrate 25 MG Tab PO SCH ×2 (08:54→20:19)
[2017-06-10] MEDS: Diltiazem 240 MG Cap.ER PO SCH (08:55)
--- NOTE | 2017-06-10 08:56 | PCM.PREANE ---
Preanesthetic Assessment - Anesthesia/Transfusion/Family Hx Anesthesia History: Prior Anesthesia Without Reaction Family History of Anesthesia Reaction: No Transfusion History: Prior Transfusion Without Reaction Intubation History: Unknown - Review of Systems General: No Symptoms Pulmonary: Shortness of Breath (On home O2 at @2L/NC. Sleep apnea with CPAP mask. SOB at times with a lot of activity. ) Cardiovascular: No Symptoms (AVR 4 years ago. ), Other (Atrial Fibrillation) Gastrointestinal: Hematochezia Neurological: No Symptoms Other: Reports: Easy Bleeding, Easy Bruising - Physical Assessment NPO Status Date: 06/10/17 NPO Status Time: 03:00 Pulse: 62 O2 Sat by Pulse Oximetry: 98 Respiratory Rate: 16 Blood Pressure: 114/62 Temperature: 36.6 C Vital Signs: Last Vital Signs Temp 36.6 C 06/10/17 03:14 Pulse 62 06/10/17 03:14 Resp 16 06/10/17 03:14 BP 114/62 06/10/17 03:17 Pulse Ox 98 06/10/17 03:14 Height: 1.83 m Weight: 86.5 kg ASA Class: 3 Mental Status: Alert & Oriented x3 Airway Class: Mallampati = 2 Dentition: Reports: Dentures (Upper and Lower) Thyro-Mental Finger Breadths: 3 Mouth Opening Finger Breadths: 3 ROM/Head Extension: Full Lungs: Clear to Auscultation, Normal Respiratory Effort Cardiovascular: Irregular Rhythm - Lab Values: Laboratory Last Values WBC 3.68 K/mm3 (4.23-9.07) L 06/10/17 05:53 RBC 3.12 M/mm3 (4.63-6.08) L 06/10/17 05:53 Hgb 9.5 gm/L (13.7-17.5) L 06/10/17 05:53 Hct 29.5 % (40.1-51.0) L 06/10/17 05:53 MCV 94.6 fl (79.0-92.2) H 06/10/17 05:53 MCH 30.4 pg (25.7-32.2) 06/10/17 05:53 MCHC 32.2 g/dl (32.2-35.5) 06/10/17 05:53 RDW Std Deviation 48.7 fL (35.1-43.9) H 06/10/17 05:53 Plt Count 128 K/mm3 (163-337) L 06/10/17 05:53 MPV 9.9 fl (9.4-12.3) 06/10/17 05:53 Neut % (Auto) 61.5 % (34.0-67.9) 06/10/17 05:53 Lymph % (Auto) 17.9 % (21.8-53.1) L 06/10/17 05:53 Morrow % (Auto) 12.5 % (5.3-12.2) H 06/10/17 05:53 Eos % (Auto) 7.6 (0.8-7.0) H 06/10/17 05:53 Baso % (Auto) 0.5 % (0.1-1.2) 06/10/17 05:53 Neut # (Auto) 2.26 K/mm3 (1.78-5.38) 06/10/17 05:53 Lymph # (Auto) 0.66 K/mm3 (1.32-3.57) L 06/10/17 05:53 Morrow # (Auto) 0.46 K/mm3 (0.30-0.82) 06/10/17 05:53 Eos # (Auto) 0.28 K/mm3 (0.04-0.54) 06/10/17 05:53 Baso # (Auto) 0.02 K/mm3 (0.01-0.08) 06/10/17 05:53 Manual Slide Review Not Reportable 06/07/17 05:58 PT 17.0 SECONDS (8.0-13.0) H 06/09/17 05:40 INR 1.52 06/09/17 05:40 Sodium 148 mEq/L (136-145) H 06/10/17 05:53 Potassium 3.7 mEq/L (3.5-5.1) 06/10/17 05:53 Chloride 113 mEq/L (98-107) H 06/10/17 05:53 Carbon Dioxide 26 mEq/L (21-32) 06/10/17 05:53 Anion Gap 12.7 (5-15) 06/10/17 05:53 BUN 7 mg/dL (7-18) 06/10/17 05:53 Creatinine 0.9 mg/dL (0.7-1.3) 06/10/17 05:53 Est Cr Clr Drug Dosing 71.85 mL/min 06/10/17 05:53 Estimated GFR (MDRD) > 60 mL/min (>60) 06/10/17 05:53 BUN/Creatinine Ratio 7.8 (14-18) L 06/10/17 05:53 Glucose 96 mg/dL (83-115) 06/10/17 05:53 Calcium 8.6 mg/dL (8.5-10.1) 06/10/17 05:53 Magnesium 1.9 mg/dl (1.8-2.4) 06/10/17 05:53 Total Bilirubin 0.4 mg/dL (0.2-1.0) 06/06/17 11:40 AST 22 U/L (15-37) 06/06/17 11:40 ALT 19 U/L (16-63) 06/06/17 11:40 Alkaline Phosphatase 72 U/L (46-116) 06/06/17 11:40 NT-Pro-B Natriuret Pep 689 pg/mL (0-450) H 06/08/17 05:30 Total Protein 6.7 g/dl (6.4-8.2) 06/06/17 11:40 Albumin 3.2 g/dl (3.4-5.0) L 06/06/17 11:40 Globulin 3.5 gm/dL 06/06/17 11:40 Albumin/Globulin Ratio 0.9 (1-2) L 06/06/17 11:40 Blood Type A POSITIVE 06/06/17 11:40 Gel Antibody Screen Negative 06/06/17 11:40 Crossmatch See Detail 06/06/17 11:40 - Imaging/EKG Impressions: Reviewed: Atrial Fibrillation with controlled rate. - Allergies Allergies/Adverse Reactions: Allergies Allergy/AdvReac Type Severity Reaction Status Date / Time loratadine [From Claritin] Allergy Rash Verified 06/06/17 11:21 rosuvastatin [From Crestor] AdvReac Body Aches Verified 06/06/17 11:21 [id number]-Kth-Pjs Reductase AdvReac Body Aches Verified 06/06/17 11:21 Inhibitor - Blood Blood Available: Yes Product(s) Available: PRBC - Anesthesia Plan Pre-Op Medication Ordered: Beta Andria Beta Andria: Metoprolol Med Last Dose Date: 06/10/17 Med Last Dose Time: 08:40 - Acknowledgements Anesthesia Type Planned: MAC Pt an Appropriate Candidate for the Planned Anesthesia: Yes Alternatives and Risks of Anesthesia Discussed w Pt/Guardian: Yes Pt/Guardian Understands and Agrees with Anesthesia Plan: Yes PreAnesthesia Questionnaire HEENT History: Reports: Cataract, Hard of Hearing, Macular Degeneration Cardiovascular History: Reports: Afib, CAD, Heart Failure, Heart Valve Replacement, Other (See Below) Other Cardiovascular History: hypokalemia Respiratory History: Reports: COPD, Pneumonia, Recurrent Gastrointestinal History: Reports: GERD, Other (See Below) Other Gastrointestinal History: lap fifi Genitourinary History: Reports: BPH, Chronic Renal Insuffiency, Retention, Urinary Other Genitourinary History: Beads in place approximately 15 years ago. Hydrocele removal . Musculoskeletal History: Reports: Arthritis Other Musculoskeletal History: Arthritis in hands. Endocrine/Metabolic History: Reports: Hypothyroidism Hematologic History: Reports: Anticoagulation Therapy Other Hematologic History: Patient takes Vitamin B and D. Unsure if diagnosed. Oncologic (Cancer) History: Reports: Prostate Dermatologic History: Reports: Benign Melanoma - Infectious Disease History Infectious Disease History: Reports: C-Difficile, Chicken Pox, Measles, MRSA, Mumps, Rheumatic Fever, Rubella - Past Surgical History HEENT Surgical History: Reports: Cataract Surgery, Tonsillectomy Cardiovascular Surgical History: Reports: Valve Replacement, Other (See Below) GI Surgical History: Reports: Appendectomy, Cholecystectomy, Colonoscopy, Hernia , Inguinal, Hernia Repair/Other Musculoskeletal Surgical History: Reports: None Oncologic Surgical History: Reports: None - SUBSTANCE USE Smoking Status *Q: Former Smoker Tobacco Use Within Last Twelve Months: No Second Hand Smoke Exposure: No Days Per Week of Alcohol Use: 1 Number of Drinks Per Day: 0 Total Drinks Per Week: 0 Recreational Drug Use History: No - HOME MEDS Home Medications: Home Meds Aspirin [Ecotrin] 81 mg PO DAILY 06/06/17 [History] B2/Vit A,C & E/Lut/Zeaxanth/Mn [Icaps] 1 each PO DAILY 06/06/17 [History] Cholecalciferol (Vitamin D3) [D-2000] 2,000 unit PO DAILY 06/06/17 [History] Diltiazem HCl [Cardizem Cd] 240 mg PO DAILY 06/06/17 [History] Docusate Sodium [Stool Softener] 100 mg PO DAILY 06/06/17 [History] Ferrous Sulfate 325 mg PO DAILY 06/06/17 [History] Finasteride 5 mg PO DAILY 06/06/17 [History] Folic Acid 1 mg PO DAILY 06/06/17 [History] Levothyroxine Sodium [Tirosint] 25 mcg PO DAILY 06/06/17 [History] Metoprolol Tartrate 25 mg PO BID 06/06/17 [History] Mirtazapine 15 mg PO BEDTIME 06/06/17 [History] Omeprazole 20 mg PO DAILY 06/06/17 [History] Potassium Chloride 10 meq PO BID 06/06/17 [History] Sennosides [Senna] 8.6 mg PO DAILY 06/06/17 [History] Tamsulosin HCl 0.4 mg PO DAILY 06/06/17 [History] Torsemide 20 mg PO DAILY 06/06/17 [History] Vitamin B Complex 1 each PO DAILY 06/06/17 [History] Warfarin Sodium 2.5 mg PO TUFR 06/06/17 [History] Warfarin Sodium 5 mg PO ASDIRECTED 06/06/17 [History] - CURRENT (IN HOUSE) MEDS Current Meds: Current Medications Diltiazem HCl (Dilacor Xr) 240 mg PO DAILY [facility] Last Admin: 06/09/17 08:15 Dose: 240 mg Docusate Sodium (Colace) 200 mg PO DAILY [facility] Last Admin: 06/09/17 08:15 Dose: 200 mg Famotidine (Pepcid) 20 mg PO BID [facility] Last Admin: 06/09/17 20:19 Dose: 20 mg Ferrous Sulfate (Ferrous Sulfate) 325 mg PO BIDMEALS [facility] Last Admin: 06/10/17 05:59 Dose: Not Given Finasteride (Proscar) 5 mg PO DAILY [facility] Last Admin: 06/09/17 08:14 Dose: 5 mg Folic Acid (Folic Acid) 1 mg PO DAILY [facility] Last Admin: 06/09/17 08:15 Dose: 1 mg Levothyroxine Sodium (Levothyroxine) 25 mcg PO ACBREAKFAST [facility] Last Admin: 06/10/17 05:58 Dose: Not Given Metoprolol Tartrate (Lopressor) 25 mg PO BID [facility] Last Admin: 06/09/17 20:18 Dose: 25 mg Mirtazapine (Remeron) 15 mg PO BEDTIME [facility] Last Admin: 06/09/17 20:18 Dose: 15 mg Senna (Senna) 8.6 mg PO DAILY [facility] Last Admin: 06/09/17 08:14 Dose: 8.6 mg Sodium Chloride (Saline Flush) 10 ml FLUSH ASDIRECTED PRN PRN Reason: Keep Vein Open Last Admin: 06/06/17 11:51 Dose: 10 ml Tamsulosin HCl (Flomax) 0.4 mg PO DAILY [facility] Last Admin: 06/09/17 08:13 Dose: 0.4 mg Discontinued Medications Sodium Chloride (Normal Saline) 1,000 mls @ 75 mls/hr IV ASDIRECTED [facility] Last Admin: 06/08/17 21:01 Dose: 75 mls/hr Non-Formulary Medication (Omeprazole) 20 mg PO DAILY [facility] Pantoprazole Sodium (Protonix Iv) 40 mg IVPUSH Q12H [facility] Last Admin: 06/09/17 06:27 Dose: 40 mg Phytonadione (Aquamephyton) 2.5 mg PO ONETIME ONE Stop: 06/08/17 09:01 Last Admin: 06/08/17 10:41 Dose: 2.5 mg Phytonadione (Aquamephyton) 2.5 mg PO ONETIME ONE Stop: 06/08/17 21:01 Last Admin: 06/08/17 21:54 Dose: 2.5 mg Polyethylene Glycol/Electrolytes (Golytely) 4,000 ml PO ONETIME ONE Stop: 06/09/17 19:01 Last Admin: 06/09/17 19:29 Dose: 4,000 ml
[2017-06-10] MEDS: Docusate Sodium 100 MG Cap PO SCH (09:04)
[2017-06-10] MEDS: Folic Acid 1 MG Tab PO SCH ×2 (09:05→15:31)
[2017-06-10] MEDS: Tamsulosin 0.4 MG Cap.ER PO SCH ×2 (09:05→15:30)
[2017-06-10] MEDS: Finasteride 5 MG Tab PO SCH ×2 (09:05→15:28)
[2017-06-10] MEDS: Famotidine 20 MG Tab PO SCH ×2 (09:05→20:19)
[2017-06-10] MEDS: Sennosides 8.6 MG Tab PO SCH (09:06)
--- NOTE | 2017-06-10 09:51 | CONS ---
CONSULTING PHYSICIAN: Rishi Grace MD DATE OF CONSULTATION: 06/09/2017 HISTORY OF PRESENT ILLNESS: This is an 81-year-old, who was transferred from [facility] on Friday, for evaluation of rectal bleeding, had 1 episode of rectal bleeding the evening and about 15 hours ago prior to coming into the [facility], there was a large of amount of blood at that time, went to bed, and a further episode of rectal bleeding. He then came into the clinic and was then transferred to the ER here in [place] where he had a third bloody stool. The patient was on Coumadin because of atrial fibrillation and has had a pig valve placed for treatment of his rheumatic heart disease. The patient did not have any hypotension or any syncopal episodes. His hemoglobin dropped down to 8.9, and since being in the hospital and taken off Coumadin, he has not had any further bleeding. He has had a colonoscopy about 2011. Reports not available. His INR when he came in was 2.3 and now is below to 1.5. The patient denies any cough, hoarseness, fainting, weakness, numbness, convulsion, nausea, vomiting, indigestion, abdominal pain, gas pains. PAST MEDICAL HISTORY: That of atrial fib as stated above, coronary artery disease, history of heart failure, heart valve, pig valve replacement, some COPD, history of recurrent pneumonia, BPH, some mild renal insufficiency with urinary retentions in the past, history of hypothyroidism, anticoagulation therapy. FAMILY HISTORY: Report of arthritis, dementia, and type 2 diabetes. SOCIAL HISTORY: He was a former smoker but has stopped. ALLERGIES: None known. PHYSICAL EXAMINATION: GENERAL: Reveals alert, cooperative male. EYES: Unremarkable. Sclerae white. Oral cavity healthy. NECK: Supple. LUNGS: Clear. No rales, rhonchi, fremitus, or dullness. CARDIAC: Heart tones were irregular regular rate. Small high pitched murmur noted over the aortic area. ABDOMEN: Soft. No tenderness, guarding, or rebound. EXTREMITIES: Normal. No angulation deformities. NEUROLOGIC: Cranial nerves intact. Oriented x3 and moves all 4 extremities. PSYCHIATRIC: Alert and normal. ASSESSMENT: Medical problems stated above. Rectal bleeding on Coumadin, which was resolved. PLAN: For colonoscopy. Discussed the procedure, the risks, the complications. He understands and consents. MMODAL /[id number]
--- NOTE | 2017-06-10 10:52 | PCM.PN ---
<Moriah Fernandez - Last Filed: 06/10/17 11:10> - General Info Date of Service: 06/10/17 Admission Dx/Problem (Free Text): Admission Diagnosis/Problem Admission Diagnosis/Problem Gastrointestinal hemorrhage Subjective Update: Follow Up Functional Status: Reports: Pain Controlled, Urinating. Denies: New Symptoms - Review of Systems General: Denies: Fever, Fatigue, Chills HEENT: Reports: No Symptoms Pulmonary: Denies: Shortness of Breath, Cough, Wheezing Cardiovascular: Denies: Chest Pain, Palpitations, Edema Gastrointestinal: Reports: Flatus. Denies: Abdominal Pain, Constipation, Diarrhea, Hematochezia, Melena, Nausea, Vomiting Genitourinary: Denies: Dysuria Musculoskeletal: Reports: No Symptoms Skin: Reports: No Symptoms Neurological: Reports: No Symptoms Psychiatric: Reports: No Symptoms Systems Review Comment:: Pleasant 81yoM with no major complaints or concerns, states that he is feeling well and is not having pain. - Patient Data Vitals - Most Recent: Last Vital Signs Temp 97.9 F 06/10/17 08:56 Pulse 62 06/10/17 08:56 Resp 16 06/10/17 08:56 BP 114/62 06/10/17 08:56 Pulse Ox 98 06/10/17 08:56 Weight - Most Recent: 86.5 kg I&O - Last 24 Hours: Intake & Output 06/09/17 06/10/17 06/10/17 22:59 06:59 14:59 Intake Total 2088 1200 Output Total 1050 450 Balance 1038 750 Lab Results Last 24 Hours: Laboratory Results - last 24 hr 06/10/17 06/10/17 06/10/17 Range/Units 05:53 05:53 10:15 WBC 3.68 L (4.23-9.07) K/mm3 RBC 3.12 L (4.63-6.08) M/mm3 Hgb 9.5 L (13.7-17.5) gm/L Hct 29.5 L (40.1-51.0) % MCV 94.6 H (79.0-92.2) fl MCH 30.4 (25.7-32.2) pg MCHC 32.2 (32.2-35.5) g/dl RDW Std Deviation 48.7 H (35.1-43.9) fL Plt Count 128 L (163-337) K/mm3 MPV 9.9 (9.4-12.3) fl Neut % (Auto) 61.5 (34.0-67.9) % Lymph % (Auto) 17.9 L (21.8-53.1) % [place] % (Auto) 12.5 H (5.3-12.2) % Eos % (Auto) 7.6 H (0.8-7.0) Baso % (Auto) 0.5 (0.1-1.2) % Neut # (Auto) 2.26 (1.78-5.38) K/mm3 Lymph # (Auto) 0.66 L (1.32-3.57) K/mm3 [place] # (Auto) 0.46 (0.30-0.82) K/mm3 Eos # (Auto) 0.28 (0.04-0.54) K/mm3 Baso # (Auto) 0.02 (0.01-0.08) K/mm3 PT 13.0 (8.0-13.0) SECONDS INR 1.18 Sodium 148 H (136-145) mEq/L Potassium 3.7 (3.5-5.1) mEq/L Chloride 113 H (98-107) mEq/L Carbon Dioxide 26 (21-32) mEq/L Anion Gap 12.7 (5-15) BUN 7 (7-18) mg/dL Creatinine 0.9 (0.7-1.3) mg/dL Est Cr Clr Drug Dosing 71.85 mL/min Estimated GFR (MDRD) > 60 (>60) mL/min BUN/Creatinine Ratio 7.8 L (14-18) Glucose 96 (83-115) mg/dL Calcium 8.6 (8.5-10.1) mg/dL Magnesium 1.9 (1.8-2.4) mg/dl Med Orders - Current: Current Medications Diltiazem HCl (Dilacor Xr) 240 mg PO DAILY [facility] Last Admin: 06/10/17 08:55 Dose: 240 mg Docusate Sodium (Colace) 200 mg PO DAILY [facility] Last Admin: 06/10/17 09:04 Dose: Not Given Famotidine (Pepcid) 20 mg PO BID [facility] Last Admin: 06/10/17 09:05 Dose: Not Given Ferrous Sulfate (Ferrous Sulfate) 325 mg PO BIDMEALS [facility] Last Admin: 06/10/17 05:59 Dose: Not Given Finasteride (Proscar) 5 mg PO DAILY [facility] Last Admin: 06/10/17 09:05 Dose: Not Given Folic Acid (Folic Acid) 1 mg PO DAILY [facility] Last Admin: 06/10/17 09:05 Dose: Not Given Levothyroxine Sodium (Levothyroxine) 25 mcg PO ACBREAKFAST [facility] Last Admin: 06/10/17 05:58 Dose: Not Given Metoprolol Tartrate (Lopressor) 25 mg PO BID [facility] Last Admin: 06/10/17 08:54 Dose: 25 mg Mirtazapine (Remeron) 15 mg PO BEDTIME [facility] Last Admin: 06/09/17 20:18 Dose: 15 mg Senna (Senna) 8.6 mg PO DAILY [facility] Last Admin: 06/10/17 09:06 Dose: Not Given Sodium Chloride (Saline Flush) 10 ml FLUSH ASDIRECTED PRN PRN Reason: Keep Vein Open Last Admin: 06/06/17 11:51 Dose: 10 ml Tamsulosin HCl (Flomax) 0.4 mg PO DAILY [facility] Last Admin: 06/10/17 09:05 Dose: Not Given Discontinued Medications Sodium Chloride (Normal Saline) 1,000 mls @ 75 mls/hr IV ASDIRECTED [facility] Last Admin: 06/08/17 21:01 Dose: 75 mls/hr Non-Formulary Medication (Omeprazole) 20 mg PO DAILY [facility] Pantoprazole Sodium (Protonix Iv) 40 mg IVPUSH Q12H [facility] Last Admin: 06/09/17 06:27 Dose: 40 mg Phytonadione (Aquamephyton) 2.5 mg PO ONETIME ONE Stop: 06/08/17 09:01 Last Admin: 06/08/17 10:41 Dose: 2.5 mg Phytonadione (Aquamephyton) 2.5 mg PO ONETIME ONE Stop: 06/08/17 21:01 Last Admin: 06/08/17 21:54 Dose: 2.5 mg Polyethylene Glycol/Electrolytes (Golytely) 4,000 ml PO ONETIME ONE Stop: 06/09/17 19:01 Last Admin: 06/09/17 19:29 Dose: 4,000 ml - Exam Quality Assessment: Supplemental Oxygen, DVT Prophylaxis (SCDs) General: Alert, Oriented, Cooperative, No Acute Distress HEENT: Pupils Equal, Pupils Reactive, EOMI, Mucous Membr. Moist/[place] Neck: Supple, Trachea Midline Lungs: Clear to Auscultation, Normal Respiratory Effort, Other (pt is on 2L via NC chronically). No: Rhonchi, Wheezing Cardiovascular: Regular Rate, Irregular Rhythm (Irregularly regular), Murmurs ( pansystolic murmur over aorta) GI/Abdominal Exam: Normal Bowel Sounds, Soft, Non-Tender, No Organomegaly, No Distention, No Mass. No: Guarding, Rigid (Male) Exam: Deferred Back Exam: Normal Inspection Extremities: Normal Inspection, No Pedal Edema, Normal Capillary Refill Peripheral Pulses: 2+: Radial (L), Radial (R), Dorsalis Pedis (L), Dorsalis Pedis (R) Skin: Warm, Dry, Intact Neurological: No New Focal Deficit Psy/Mental Status: Alert, Normal Affect, Normal Mood - Problem List Review Problem List Initiated/Reviewed/Updated: Yes - Plan Plan:: Assessment/Plan: Acute: Slow GI Bleed - stable - Hemodynamically stable - Hgb -currently following trend: 10.4 --> 10 --> 9.8 --> 9.3 --> 8.9 --> 9.5 today - Type and screen for blood transfusion if needed done yesterday per GS consult for colonoscopy. - Continue IV NS @75mL/hr - Risk Factor: Warfarin use and hx/o GABRIELA - Has hx/o hemorrhoids, denies hx/o diverticular disease or PUD - Last EGD/Colonoscopy in 2011 with both benign findings per patient - Continue to hold warfarin - GS following-pt was started on colonoscopy prep last night, and did not drink enough of it overnight, but GS to do colonoscopy this afternoon. Chronic Atrial Fib rate controlled on coumadin, INR still therapeutic at 1.18 this am HTN, Fairly Stable CAD, Stable Valvular Heart Disease CHF with Unknown EF, Stable CKD Stage 3, Improved GERD, Stable Hypothyroidism, Stable JOE on CPAP COPD, Stable Hx/o GABRIELA Hypoxia on 2L [place], Unchanged BPH/Urinary Retention, Stable Insomnia, Stable Plan: He remains clinically stable Routine AM Labs Clear liquid diet per Dr. Anders Gen Surgery following- consult with Dr. Landis-awaiting colonoscopy today DVT/GI prophylaxis: MANUELITO Hose, SCDs and PPIs, encourage ambulation ad mary Additional orders as above Code status: CPR only Possible D/C in 1-2 days pending colonoscopy findings <Yulia Lynn T - Last Filed: 06/10/17 22:30> - General Info Functional Status: Reports: Pain Controlled, Ambulating, Urinating. Denies: New Symptoms - Review of Systems General: Denies: Fever, Weakness, Fatigue, Malaise, Chills HEENT: Reports: No Symptoms Pulmonary: Denies: Shortness of Breath, Wheezing Cardiovascular: Denies: Chest Pain, Palpitations, Edema Gastrointestinal: Reports: Flatus. Denies: Abdominal Pain, Nausea, Vomiting Genitourinary: Reports: No Symptoms Musculoskeletal: Reports: No Symptoms Skin: Denies: Cyanosis, Pallor, Diaphoresis Neurological: Denies: Confusion, Difficulty Walking, Weakness, Gait Disturbance Psychiatric: Denies: Depression, Anxiety, Agitation, Hallucinations Systems Review Comment:: No overnight or acute issues. He is relatively well. He has no new complaints. His Hgb is at 9.5 this am. - Patient Data Vitals - Most Recent: Last Vital Signs Temp 36.9 C 06/10/17 19:57 Pulse 72 06/10/17 20:19 Resp 14 06/10/17 19:57 BP 120/55 L 06/10/17 20:19 Pulse Ox 97 06/10/17 19:57 I&O - Last 24 Hours: Intake & Output 06/10/17 06/10/17 06/10/17 06:59 14:59 22:59 Intake Total 1200 420 Output Total 450 200 Balance 750 220 Lab Results Last 24 Hours: Laboratory Results - last 24 hr 06/10/17 06/10/17 06/10/17 Range/Units 05:53 05:53 10:15 WBC 3.68 L (4.23-9.07) K/mm3 RBC 3.12 L (4.63-6.08) M/mm3 Hgb 9.5 L (13.7-17.5) gm/L Hct 29.5 L (40.1-51.0) % MCV 94.6 H (79.0-92.2) fl MCH 30.4 (25.7-32.2) pg MCHC 32.2 (32.2-35.5) g/dl RDW Std Deviation 48.7 H (35.1-43.9) fL Plt Count 128 L (163-337) K/mm3 MPV 9.9 (9.4-12.3) fl Neut % (Auto) 61.5 (34.0-67.9) % Lymph % (Auto) 17.9 L (21.8-53.1) % [place] % (Auto) 12.5 H (5.3-12.2) % Eos % (Auto) 7.6 H (0.8-7.0) Baso % (Auto) 0.5 (0.1-1.2) % Neut # (Auto) 2.26 (1.78-5.38) K/mm3 Lymph # (Auto) 0.66 L (1.32-3.57) K/mm3 [place] # (Auto) 0.46 (0.30-0.82) K/mm3 Eos # (Auto) 0.28 (0.04-0.54) K/mm3 Baso # (Auto) 0.02 (0.01-0.08) K/mm3 PT 13.0 (8.0-13.0) SECONDS INR 1.18 Sodium 148 H (136-145) mEq/L Potassium 3.7 (3.5-5.1) mEq/L Chloride 113 H (98-107) mEq/L Carbon Dioxide 26 (21-32) mEq/L Anion Gap 12.7 (5-15) BUN 7 (7-18) mg/dL Creatinine 0.9 (0.7-1.3) mg/dL Est Cr Clr Drug Dosing 71.85 mL/min Estimated GFR (MDRD) > 60 (>60) mL/min BUN/Creatinine Ratio 7.8 L (14-18) Glucose 96 (83-115) mg/dL Calcium 8.6 (8.5-10.1) mg/dL Magnesium 1.9 (1.8-2.4) mg/dl 06/10/17 Range/Units 18:20 WBC (4.23-9.07) K/mm3 RBC (4.63-6.08) M/mm3 Hgb (13.7-17.5) gm/L Hct (40.1-51.0) % MCV (79.0-92.2) fl MCH (25.7-32.2) pg MCHC (32.2-35.5) g/dl RDW Std Deviation (35.1-43.9) fL Plt Count (163-337) K/mm3 MPV (9.4-12.3) fl Neut % (Auto) (34.0-67.9) % Lymph % (Auto) (21.8-53.1) % [place] % (Auto) (5.3-12.2) % Eos % (Auto) (0.8-7.0) Baso % (Auto) (0.1-1.2) % Neut # (Auto) (1.78-5.38) K/mm3 Lymph # (Auto) (1.32-3.57) K/mm3 [place] # (Auto) (0.30-0.82) K/mm3 Eos # (Auto) (0.04-0.54) K/mm3 Baso # (Auto) (0.01-0.08) K/mm3 PT 12.7 (8.0-13.0) SECONDS INR 1.15 Sodium (136-145) mEq/L Potassium (3.5-5.1) mEq/L Chloride (98-107) mEq/L Carbon Dioxide (21-32) mEq/L Anion Gap (5-15) BUN (7-18) mg/dL Creatinine (0.7-1.3) mg/dL Est Cr Clr Drug Dosing mL/min Estimated GFR (MDRD) (>60) mL/min BUN/Creatinine Ratio (14-18) Glucose (83-115) mg/dL Calcium (8.5-10.1) mg/dL Magnesium (1.8-2.4) mg/dl Med Orders - Current: Current Medications Diltiazem HCl (Dilacor Xr) 240 mg PO DAILY [facility] Last Admin: 06/10/17 08:55 Dose: 240 mg Docusate Sodium (Colace) 200 mg PO DAILY [facility] Last Admin: 06/10/17 09:04 Dose: Not Given Enoxaparin Sodium (Lovenox) 40 mg SUBCUT DAILY [facility] Last Admin: 06/10/17 18:57 Dose: 40 mg Famotidine (Pepcid) 20 mg PO BID [facility] Last Admin: 06/10/17 20:19 Dose: 20 mg Ferrous Sulfate (Ferrous Sulfate) 325 mg PO BIDMEALS [facility] Last Admin: 06/10/17 16:50 Dose: 325 mg Finasteride (Proscar) 5 mg PO DAILY [facility] Last Admin: 06/10/17 15:28 Dose: 5 mg Folic Acid (Folic Acid) 1 mg PO DAILY [facility] Last Admin: 06/10/17 15:31 Dose: 1 mg Levothyroxine Sodium (Levothyroxine) 25 mcg PO ACBREAKFAST [facility] Last Admin: 06/10/17 05:58 Dose: Not Given Metoprolol Tartrate (Lopressor) 25 mg PO BID [facility] Last Admin: 06/10/17 20:19 Dose: 25 mg Mirtazapine (Remeron) 15 mg PO BEDTIME [facility] Last Admin: 06/10/17 20:19 Dose: 15 mg Senna (Senna) 8.6 mg PO DAILY [facility] Last Admin: 06/10/17 09:06 Dose: Not Given Sodium Chloride (Saline Flush) 10 ml FLUSH ASDIRECTED PRN PRN Reason: Keep Vein Open Last Admin: 06/06/17 11:51 Dose: 10 ml Tamsulosin HCl (Flomax) 0.4 mg PO DAILY [facility] Last Admin: 06/10/17 15:30 Dose: 0.4 mg Discontinued Medications Sodium Chloride (Normal Saline) 1,000 mls @ 75 mls/hr IV ASDIRECTED [facility] Last Admin: 06/08/17 21:01 Dose: 75 mls/hr Non-Formulary Medication (Omeprazole) 20 mg PO DAILY [facility] Pantoprazole Sodium (Protonix Iv) 40 mg IVPUSH Q12H [facility] Last Admin: 06/09/17 06:27 Dose: 40 mg Phytonadione (Aquamephyton) 2.5 mg PO ONETIME ONE Stop: 06/08/17 09:01 Last Admin: 06/08/17 10:41 Dose: 2.5 mg Phytonadione (Aquamephyton) 2.5 mg PO ONETIME ONE Stop: 06/08/17 21:01 Last Admin: 06/08/17 21:54 Dose: 2.5 mg Polyethylene Glycol/Electrolytes (Golytely) 4,000 ml PO ONETIME ONE Stop: 06/09/17 19:01 Last Admin: 06/09/17 19:29 Dose: 4,000 ml Warfarin Sodium (Coumadin) 10 mg PO ONETIME ONE Stop: 06/10/17 18:46 Last Admin: 06/10/17 18:54 Dose: 10 mg - Exam Quality Assessment: Supplemental Oxygen, DVT Prophylaxis General: Alert, Oriented, Cooperative, No Acute Distress HEENT: Pupils Equal, Pupils Reactive, EOMI, Mucous Membr. Moist/[place] Neck: Supple, Trachea Midline Lungs: Clear to Auscultation, Normal Respiratory Effort Cardiovascular: Irregular Rhythm, Murmurs GI/Abdominal Exam: Normal Bowel Sounds, Soft, Non-Tender, No Organomegaly, No Distention, No Mass. No: Distended, Guarding, Rigid (Male) Exam: Deferred Back Exam: Normal Inspection, Decreased Range of Motion Extremities: Normal Inspection, No Pedal Edema, Normal Capillary Refill Peripheral Pulses: 2+: Dorsalis Pedis (L), Dorsalis Pedis (R) Skin: Warm, Dry, Intact Neurological: No New Focal Deficit Psy/Mental Status: Alert, Normal Affect, Normal Mood - Problem List Review Problem List Initiated/Reviewed/Updated: Yes - My Orders Last 24 Hours: My Active Orders 06/10/17 10:41 Consult to Physician [CONS] Routine 06/10/17 10:42 Notify Provider Consults [RC] ASDIRECTED 06/10/17 18:45 Enoxaparin [Lovenox] 40 mg SUBCUT DAILY - Plan Plan:: Assessment/Plan: Acute: Slow GI Bleed - Remains stable - Hemodynamically stable - Hgb -currently following trend: 10.4 --> 10 --> 9.8 --> 9.3 --> 8.9 --> 9.5 today - Type and screen for blood transfusion if needed done yesterday per GS consult for colonoscopy. - Continue IV NS @75mL/hr - Risk Factor: Warfarin use and hx/o GABRIELA - Has hx/o hemorrhoids, denies hx/o diverticular disease or PUD - Last EGD/Colonoscopy in 2011 with both benign findings per patient - Continue to hold warfarin - GS following-pt was started on colonoscopy prep last night, and did not drink enough of it overnight, but GS to do colonoscopy this afternoon Chronic Atrial Fib rate controlled on coumadin, INR subtherapeutic at 1.15 this am HTN, Fairly Stable CAD, Stable Valvular Heart Disease CHF with Unknown EF, Stable CKD Stage 3, Improved GERD, Stable Hypothyroidism, Stable JOE on CPAP COPD, Stable Hx/o GABRIELA Hypoxia on 2L [place], Unchanged BPH/Urinary Retention, Stable Insomnia, Stable Plan: He remains clinically stable Routine AM Labs Clear liquid diet per Dr. Anders Gen Surgery following- consult with Dr. Landis-awaiting colonoscopy today DVT/GI prophylaxis: MANUELITO Hose, SCDs and PPIs, encourage ambulation ad mary Additional orders as above Code status: CPR only If endoscopy is negative and his Hgb continues to improve, he may be go tomorrow
[2017-06-10] MEDS ORDERED: Warfarin 10 MG Tab PO ONE (18:45)
[2017-06-10] MEDS: Enoxaparin 40 MG/0.4 ML Syringe SUBCUT SCH (18:57)
[2017-06-10] MEDS: Mirtazapine 15 MG Tab PO SCH (20:19)
[2017-06-10] MEDS ORDERED: Propofol 200 MG/20 ML SDV ONE (22:22)
[2017-06-11] MEDS: Ferrous Sulfate 325 MG Tab PO SCH (06:06)
[2017-06-11] MEDS: Levothyroxine 25 MCG Tab PO SCH (06:06)
--- NOTE | 2017-06-11 09:13 | PCM.DCSUM1 ---
Discharge Summary - Hospital Course Brief History: This is an 81 year old white male with pst medical hx/o atrial firbillation on ASA and Warfarin who was initially seen in the clinic at [place] who presents to ED with rectal blood loss. He was admitted for Anemia/GI Bleed work up. - Discharge Data Discharge Date: 06/11/17 Discharge Disposition: Home, Self-Care 01 Condition: Good - Discharge Diagnosis/Problem(s) (1) Anemia SNOMED Code(s): 914537205 ICD Code: D64.9 - ANEMIA, UNSPECIFIED Status: Acute Qualifiers: Anemia type: unspecified type Qualified Code(s): D64.9 - Anemia, unspecified (2) Atrial fibrillation SNOMED Code(s): 12784882 ICD Code: I48.91 - UNSPECIFIED ATRIAL FIBRILLATION Status: Chronic Qualifiers: Atrial fibrillation type: chronic Qualified Code(s): I48.2 - Chronic atrial fibrillation (3) GI bleed SNOMED Code(s): 67090012 ICD Code: K92.2 - GASTROINTESTINAL HEMORRHAGE, UNSPECIFIED Status: Acute Qualifiers: GI bleed type/associated pathology: unspecified gastrointestinal hemorrhage type Qualified Code(s): K92.2 - Gastrointestinal hemorrhage, unspecified (4) Subtherapeutic anticoagulation SNOMED Code(s): 09997790 ICD Code: Z51.81 - ENCOUNTER FOR THERAPEUTIC DRUG LEVEL MONITORING; Z79.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 He carried no history of GI bleed. However he was on warfarin therapy for his chronic atrial fibrillation. His last endoscopic procedure was about 10 years ago with benign findings. According to him, he had no history of diverticulosis, peptic ulcers disease, abnormal blood vessel formations, but hemorrhoids. On this admission, his hemoglobin slowly dropped from his baseline of 11 at the clinic to 8.9. As such, general surgery was consulted for further evaluation. His INR was lowered to 1.5 and he underwent colonoscopy performed by Dr. Grace. The patient tolerated the procedure well without any complications. The results of the procedure showed no acute abnormal findings. After the procedure patient warfarin was re-started and was bridged with Lovenox. No additional bleeding reported after endocospy. His hospital course was fairly uncomplicated. The rest of his chronic medical illness remained stable during his admission. Patient was offered to switch to DOACs with better safety profile but he elected to stay with warfarin. Patient will now be discharged to [place] to resume all home medications. He will be provided with a 7 day course of Lovenox subcutaneous until therapeutic INR level is achieved. A follow-up INR and CBC labs are recommended for this coming Friday. He has been scheduled for a follow-up visit with Dr. Grace in one week. He was advised to come back or seek immediate care should his symptom persists or gets worse. The patient expressed understanding in agreement with the plans as discussed above. All questions were answered. Sara Rosa, PCP was called and updated regarding the discharge care plan on the day of discharge. - Patient Instructions Diet: Usual Diet as Tolerated Activity: As Tolerated Driving: Do Not Drive Showering/Bathing: May Shower Notify Provider of: Increased Pain, Nausea and/or Vomiting Other/Special Instructions: - Please resume all medications as directed. - INR and CBC with Auto Diff on Friday through your PCP's office. - Follow up with Dr. Grace in 1 week. - Call or follow up with your family doctor after discharge should you have any questions or concerns - Discharge Plan Prescriptions/Med Rec: Enoxaparin Sodium [Lovenox] 80 mg SQ DAILY #7 ml Home Medications: Home Meds Aspirin [Ecotrin] 81 mg PO DAILY 06/06/17 [History] B2/Vit A,C & E/Lut/Zeaxanth/Mn [Icaps] 1 each PO DAILY 06/06/17 [History] Cholecalciferol (Vitamin D3) [D3-2000] 2,000 unit PO DAILY 06/06/17 [History] Diltiazem HCl [Cardizem Cd] 240 mg PO DAILY 06/06/17 [History] Docusate Sodium [Stool Softener] 100 mg PO DAILY 06/06/17 [History] Ferrous Sulfate 325 mg PO DAILY 06/06/17 [History] Finasteride 5 mg PO DAILY 06/06/17 [History] Folic Acid 1 mg PO DAILY 06/06/17 [History] Levothyroxine Sodium [Tirosint] 25 mcg PO DAILY 06/06/17 [History] Metoprolol Tartrate 25 mg PO BID 06/06/17 [History] Mirtazapine 15 mg PO BEDTIME 06/06/17 [History] Omeprazole 20 mg PO DAILY 06/06/17 [History] Potassium Chloride 10 meq PO BID 06/06/17 [History] Sennosides [Senna] 8.6 mg PO DAILY 06/06/17 [History] Tamsulosin HCl 0.4 mg PO DAILY 06/06/17 [History] Torsemide 20 mg PO DAILY 06/06/17 [History] Vitamin B Complex 1 each PO DAILY 06/06/17 [History] Warfarin Sodium 2.5 mg PO TUFR 06/06/17 [History] Warfarin Sodium 5 mg PO ASDIRECTED 06/06/17 [History] Enoxaparin Sodium [Lovenox] 80 mg SQ DAILY #7 ml 06/11/17 [Rx] Patient Handouts: Enoxaparin injection, Gastrointestinal Bleeding, [id number] , How and Where to Give Subcutaneous Enoxaparin Injections Referrals: Rishi Grace MD [Physician] - (Please see Dr. Rishi Grace for follow-up appointment on June at 2:45 PM.) Natacha Rosa PA-C [Primary Care Provider] - ([facility] will call you with an appointment time to follow-up with Cassie Rosa in [place]..) - Discharge Summary/Plan Comment DC Time >30 min.: Yes (45 mins) Discharge Summary/Plan Comment: Discharge to Home - General Info Date of Service: 06/11/17 Admission Dx/Problem (Free Text: Admission Diagnosis/Problem Admission Diagnosis/Problem Gastrointestinal hemorrhage Subjective Update: Follow Up Functional Status: Reports: Pain Controlled, Tolerating Diet, Ambulating, Urinating. Denies: New Symptoms - Review of Systems General: Denies: Fever, Weakness, Fatigue, Malaise, Chills HEENT: Reports: No Symptoms Pulmonary: Reports: Shortness of Breath (baseline) Cardiovascular: Denies: Chest Pain, Palpitations, Dyspnea on Exertion Gastrointestinal: Reports: Flatus. Denies: Abdominal Pain, Decreased Appetite, Difficulty Swallowing, Hematochezia, Melena, Nausea, Vomiting Genitourinary: Reports: No Symptoms Musculoskeletal: Reports: No Symptoms Skin: Denies: Cyanosis, Pallor, Diaphoresis Neurological: Denies: Confusion, Difficulty Walking, Weakness, Gait Disturbance Psychiatric: Denies: Depression, Anxiety, Agitation, Hallucinations Systems Review Comment: No overnight or acute issues. Ho reports of GI bleed. He is tolerating diet well. His INR this am is at 1.16. He feels pretty good this am w/o new complaints. - Patient Data Vitals - Most Recent: Last Vital Signs Temp 36.4 C 06/11/17 02:47 Pulse 55 L 06/11/17 02:47 Resp 14 06/11/17 02:47 BP 116/85 06/11/17 02:51 Pulse Ox 94 L 06/11/17 02:47 Weight - Most Recent: 86.409 kg I&O - Last 24 hours: Intake & Output 06/10/17 06/11/17 06/11/17 22:59 06:59 14:59 Intake Total 420 300 Output Total 200 Balance 220 300 Lab Results - Last 24 hrs: Laboratory Results - last 24 hr 06/10/17 06/10/17 06/11/17 Range/Units 10:15 18:20 07:30 WBC 3.57 L (4.23-9.07) K/mm3 RBC 3.01 L (4.63-6.08) M/mm3 Hgb 9.2 L (13.7-17.5) gm/L Hct 28.6 L (40.1-51.0) % MCV 95.0 H (79.0-92.2) fl MCH 30.6 (25.7-32.2) pg MCHC 32.2 (32.2-35.5) g/dl RDW Std Deviation 48.7 H (35.1-43.9) fL Plt Count 135 L (163-337) K/mm3 MPV 10.7 (9.4-12.3) fl Neut % (Auto) 65.0 (34.0-67.9) % Lymph % (Auto) 16.0 L (21.8-53.1) % Person % (Auto) 12.0 (5.3-12.2) % Eos % (Auto) 6.2 (0.8-7.0) Baso % (Auto) 0.8 (0.1-1.2) % Neut # (Auto) 2.32 (1.78-5.38) K/mm3 Lymph # (Auto) 0.57 L (1.32-3.57) K/mm3 Person # (Auto) 0.43 (0.30-0.82) K/mm3 Eos # (Auto) 0.22 (0.04-0.54) K/mm3 Baso # (Auto) 0.03 (0.01-0.08) K/mm3 PT 13.0 12.7 (8.0-13.0) SECONDS INR 1.18 1.15 Sodium (136-145) mEq/L Potassium (3.5-5.1) mEq/L Chloride (98-107) mEq/L Carbon Dioxide (21-32) mEq/L Anion Gap (5-15) BUN (7-18) mg/dL Creatinine (0.7-1.3) mg/dL Est Cr Clr Drug Dosing mL/min Estimated GFR (MDRD) (>60) mL/min BUN/Creatinine Ratio (14-18) Glucose (83-115) mg/dL Calcium (8.5-10.1) mg/dL Magnesium (1.8-2.4) mg/dl 06/11/17 06/11/17 Range/Units 07:30 07:30 WBC (4.23-9.07) K/mm3 RBC (4.63-6.08) M/mm3 Hgb (13.7-17.5) gm/L Hct (40.1-51.0) % MCV (79.0-92.2) fl MCH (25.7-32.2) pg MCHC (32.2-35.5) g/dl RDW Std Deviation (35.1-43.9) fL Plt Count (163-337) K/mm3 MPV (9.4-12.3) fl Neut % (Auto) (34.0-67.9) % Lymph % (Auto) (21.8-53.1) % Person % (Auto) (5.3-12.2) % Eos % (Auto) (0.8-7.0) Baso % (Auto) (0.1-1.2) % Neut # (Auto) (1.78-5.38) K/mm3 Lymph # (Auto) (1.32-3.57) K/mm3 Person # (Auto) (0.30-0.82) K/mm3 Eos # (Auto) (0.04-0.54) K/mm3 Baso # (Auto) (0.01-0.08) K/mm3 PT 12.8 (8.0-13.0) SECONDS INR 1.16 Sodium 147 H (136-145) mEq/L Potassium 3.6 (3.5-5.1) mEq/L Chloride 111 H (98-107) mEq/L Carbon Dioxide 27 (21-32) mEq/L Anion Gap 12.6 (5-15) BUN 8 (7-18) mg/dL Creatinine 1.0 (0.7-1.3) mg/dL Est Cr Clr Drug Dosing 64.67 mL/min Estimated GFR (MDRD) > 60 (>60) mL/min BUN/Creatinine Ratio 8.0 L (14-18) Glucose 94 (83-115) mg/dL Calcium 8.6 (8.5-10.1) mg/dL Magnesium 1.9 (1.8-2.4) mg/dl Med Orders - Current: Current Medications Diltiazem HCl (Dilacor Xr) 240 mg PO DAILY [facility] Last Admin: 06/10/17 08:55 Dose: 240 mg Docusate Sodium (Colace) 200 mg PO DAILY [facility] Last Admin: 06/10/17 09:04 Dose: Not Given Enoxaparin Sodium (Lovenox) 40 mg SUBCUT DAILY [facility] Last Admin: 06/10/17 18:57 Dose: 40 mg Famotidine (Pepcid) 20 mg PO BID [facility] Last Admin: 06/10/17 20:19 Dose: 20 mg Ferrous Sulfate (Ferrous Sulfate) 325 mg PO BIDMEALS [facility] Last Admin: 06/11/17 06:06 Dose: 325 mg Finasteride (Proscar) 5 mg PO DAILY [facility] Last Admin: 06/10/17 15:28 Dose: 5 mg Folic Acid (Folic Acid) 1 mg PO DAILY [facility] Last Admin: 06/10/17 15:31 Dose: 1 mg Levothyroxine Sodium (Levothyroxine) 25 mcg PO ACBREAKFAST [facility] Last Admin: 06/11/17 06:06 Dose: 25 mcg Metoprolol Tartrate (Lopressor) 25 mg PO BID [facility] Last Admin: 06/10/17 20:19 Dose: 25 mg Mirtazapine (Remeron) 15 mg PO BEDTIME [facility] Last Admin: 06/10/17 20:19 Dose: 15 mg Senna (Senna) 8.6 mg PO DAILY [facility] Last Admin: 06/10/17 09:06 Dose: Not Given Sodium Chloride (Saline Flush) 10 ml FLUSH ASDIRECTED PRN PRN Reason: Keep Vein Open Last Admin: 06/06/17 11:51 Dose: 10 ml Tamsulosin HCl (Flomax) 0.4 mg PO DAILY [facility] Last Admin: 06/10/17 15:30 Dose: 0.4 mg Discontinued Medications Sodium Chloride (Normal Saline) 1,000 mls @ 75 mls/hr IV ASDIRECTED [facility] Last Admin: 06/08/17 21:01 Dose: 75 mls/hr Non-Formulary Medication (Omeprazole) 20 mg PO DAILY [facility] Pantoprazole Sodium (Protonix Iv) 40 mg IVPUSH Q12H [facility] Last Admin: 06/09/17 06:27 Dose: 40 mg Phytonadione (Aquamephyton) 2.5 mg PO ONETIME ONE Stop: 06/08/17 09:01 Last Admin: 06/08/17 10:41 Dose: 2.5 mg Phytonadione (Aquamephyton) 2.5 mg PO ONETIME ONE Stop: 06/08/17 21:01 Last Admin: 06/08/17 21:54 Dose: 2.5 mg Polyethylene Glycol/Electrolytes (Golytely) 4,000 ml PO ONETIME ONE Stop: 06/09/17 19:01 Last Admin: 06/09/17 19:29 Dose: 4,000 ml Warfarin Sodium (Coumadin) 10 mg PO ONETIME ONE Stop: 06/10/17 18:46 Last Admin: 06/10/17 18:54 Dose: 10 mg - Exam Quality Assessment: Reports: Supplemental Oxygen General: Reports: Alert, Oriented, Cooperative, No Acute Distress HEENT: Reports: Pupils Equal, Pupils Reactive, EOMI, Mucous Membr. Moist/[place] Neck: Reports: Supple, Trachea Midline, No Thyromegaly Lungs: Reports: Clear to Auscultation, Normal Respiratory Effort Cardiovascular: Reports: Irregular Rhythm, Murmurs GI/Abdominal Exam: Normal Bowel Sounds, Soft, Non-Tender, No Organomegaly, No Distention, No Abnormal Bruit (Male) Exam: Deferred Rectal (Males) Exam: Deferred Back Exam: Reports: Normal Inspection, Decreased Range of Motion Extremities: Normal Inspection, Normal Range of Motion, Non-Tender, No Pedal Edema, Normal Capillary Refill Skin: Reports: Warm, Dry, Intact Neurological: Reports: No New Focal Deficit Psy/Mental Status: Reports: Alert, Normal Affect, Normal Mood *Q Meaningful Use (DIS) - VTE *Q VTE Criteria *Q: - Stroke *Q Stroke Criteria *Q: - AMI *Q AMI Criteria *Q:
--- NOTE | 2017-06-11 09:35 | OR ---
DATE OF OPERATION: 06/10/2017 SURGEON: Rishi Grace MD PREOPERATIVE DIAGNOSIS: Lower gastrointestinal bleed. POSTOPERATIVE DIAGNOSIS: Lower gastrointestinal bleed. OPERATION PERFORMED: Colonoscopy to the cecum. FINDINGS: One diverticulum in the cecum. There were no internal hemorrhoids. No neoplasias, angiodysplasias, large tumor masses, or ulcerations. ANESTHESIA: Under IV sedation. DESCRIPTION OF PROCEDURE: The patient taken to the operating room, placed in a supine position, connected to monitoring equipment, and given IV sedation. He was placed in left lateral position. Perianal area was inspected. It was normal. Rectal exam showed good sphincter tone. A video Olympus colonoscope was then introduced into the rectum and threaded up without problem to the cecum where the above noted was found along with the ileocecal valve and the appendicular orifice. Tip of the scope was placed in the ileum, was unremarkable. Prep was excellent throughout the colon. [place] cleansing score grade A, and the scope was slowly withdrawn showing the cecum, ascending colon, transverse colon, descending colon, sigmoid colon, and rectum. Retroflexed view was done. The patient tolerated the procedure, was sent to recovery room in a stable condition and will be followed up by the hospitalist. ESTIMATED BLOOD LOSS: MMODAL /[id number]
[2017-06-11] MEDS: Docusate Sodium 100 MG Cap PO SCH (09:40)
[2017-06-11] MEDS: Diltiazem 240 MG Cap.ER PO SCH (09:40)
[2017-06-11] MEDS: Metoprolol Tartrate 25 MG Tab PO SCH (09:41)
[2017-06-11] MEDS: Folic Acid 1 MG Tab PO SCH (09:41)
[2017-06-11] MEDS: Tamsulosin 0.4 MG Cap.ER PO SCH (09:41)
[2017-06-11] MEDS: Finasteride 5 MG Tab PO SCH (09:41)
[2017-06-11] MEDS: Famotidine 20 MG Tab PO SCH (09:41)
[2017-06-11] MEDS: Sennosides 8.6 MG Tab PO SCH (09:42)
[2017-06-11 09:46] VITALS: BP 112/63
[2017-06-11] MEDS: Enoxaparin 40 MG/0.4 ML Syringe SUBCUT SCH (10:19)
== END 2017-06-11 12:53 | disposition home or self-care (01) | DRG 378 ==
LOC: JD.ED 11:15 → JD.MS 14:31 → JD.ED 14:32
PROVIDERS: ADMIT Internal Medicine Cardiovascular Disease; ATTEND Internal Medicine
PROC: 0DJD8ZZ Inspection of Lower Intestinal Tract, Via Natural or Artificial Opening Endoscopic (ICD-10-PCS; principal; 2017-06-10)
DX: K92.2 Gastrointestinal hemorrhage, unspecified (principal); K62.5 Hemorrhage of anus and rectum; I13.0 Hypertensive heart and chronic kidney disease with heart failure and stage 1 through stage 4 chronic kidney disease, or unspecified chronic kidney disease; D64.9 Anemia, unspecified; R09.02 Hypoxemia; I48.2 Chronic atrial fibrillation; J44.9 Chronic obstructive pulmonary disease, unspecified; N18.9 Chronic kidney disease, unspecified; I25.10 Atherosclerotic heart disease of native coronary artery without angina pectoris; I50.9 Heart failure, unspecified; N18.3 Chronic kidney disease, stage 3 (moderate); K21.9 Gastro-esophageal reflux disease without esophagitis; Z95.2 Presence of prosthetic heart valve; N40.1 Benign prostatic hyperplasia with lower urinary tract symptoms; R33.8 Other retention of urine; C61 Malignant neoplasm of prostate; E03.9 Hypothyroidism, unspecified; M19.90 Unspecified osteoarthritis, unspecified site; H35.30 Unspecified macular degeneration; H91.90 Unspecified hearing loss, unspecified ear; Z87.891 Personal history of nicotine dependence; Z88.8 Allergy status to other drugs, medicaments and biological substances; Z79.01 Long term (current) use of anticoagulants; Z79.82 Long term (current) use of aspirin; Z79.899 Other long term (current) drug therapy; G47.33 Obstructive sleep apnea (adult) (pediatric); G47.00 Insomnia, unspecified
CPT/HCPCS: 96360; 96361; 99285; 93005; 85025; 85610; 36415; 80053; 86900; 86901; 86850; 86922; J7040; J7050; 00810; 51798; 80048; 83735; 83880; 93010; 94660; 94760; A9270-GY; C9113; J1650; J2704; J7120

== ENCOUNTER 2017-09-16 12:39 | Inpatient (IN) | payer MEDICARE, BC ==
[2017-09-16] MEDS ORDERED: Sodium Chloride 0.9% 10 ML Syringe FLUSH PRN (13:14)
[2017-09-16] MEDS ORDERED: cefTRIAXone 2 GM in Sodium Chloride 0.9% 100 ML IV ONE ×2 (13:19→14:30)
--- NOTE | 2017-09-16 13:46 | EDM.PDOC ---
ED HPI GENERAL MEDICAL PROBLEM - General Chief Complaint: Respiratory Problem Stated Complaint: POSS. PNEUMONIA Time Seen by Provider: 09/16/17 13:00 Source of Information: Reports: Patient History Limitations: Reports: No Limitations - History of Present Illness INITIAL COMMENTS - FREE TEXT/NARRATIVE: 81-year-old male presents from [place] for evaluation and treatment of pneumonia. Patient reports the symptoms started last night with chills. He is unsure if he had any fevers. Patient reports associated symptoms of decreased energy and weakness. He denies any nausea, vomiting, abdominal pain, chest pain, diarrhea, earaches or sore throat. Patient presented to the [place] [facility] clinic this morning where he had a chest x-ray done. Chest x-ray impression per Dr. Paiz: "Patchy areas of increased density noted within the right mid and right lower lung as well as within the left perihilar region. Previous sternotomy for cardiac surgery noted with prosthetic heart valves. Bony structures are grossly intact." Patient is normally on 2 L of oxygen via nasal cannula at all times. He states he has not had to increase his oxygen. - Related Data Allergies Allergy/AdvReac Type Severity Reaction Status Date / Time loratadine [From Claritin] Allergy Rash Verified 09/16/17 12:57 rosuvastatin [From Crestor] AdvReac Body Aches Verified 09/16/17 12:57 [id number] Reductase AdvReac Body Aches Verified 09/16/17 12:57 Inhibitor Home Meds: Home Meds Aspirin [Ecotrin] 81 mg PO DAILY 06/06/17 [History] B2/Vit A,C & E/Lut/Zeaxanth/Mn [Icaps] 1 each PO DAILY 06/06/17 [History] Cholecalciferol (Vitamin D3) [D3-2000] 2,000 unit PO DAILY 06/06/17 [History] Diltiazem HCl [Cardizem Cd] 240 mg PO DAILY 06/06/17 [History] Docusate Sodium [Stool Softener] 100 mg PO DAILY 06/06/17 [History] Ferrous Sulfate 325 mg PO DAILY 06/06/17 [History] Finasteride 5 mg PO DAILY 06/06/17 [History] Folic Acid 1 mg PO DAILY 06/06/17 [History] Levothyroxine Sodium [Tirosint] 25 mcg PO DAILY 06/06/17 [History] Metoprolol Tartrate 25 mg PO BID 06/06/17 [History] Mirtazapine 15 mg PO BEDTIME 06/06/17 [History] Omeprazole 20 mg PO DAILY 06/06/17 [History] Potassium Chloride 10 meq PO BID 06/06/17 [History] Sennosides [Senna] 8.6 mg PO DAILY 06/06/17 [History] Tamsulosin HCl 0.4 mg PO DAILY 06/06/17 [History] Torsemide 20 mg PO DAILY 06/06/17 [History] Vitamin B Complex 1 each PO DAILY 06/06/17 [History] Warfarin Sodium 2.5 mg PO TUFR 06/06/17 [History] Warfarin Sodium 5 mg PO ASDIRECTED 06/06/17 [History] Enoxaparin Sodium [Lovenox] 80 mg SQ DAILY #7 ml 06/11/17 [Rx] Past Medical History HEENT History: Reports: Cataract, Hard of Hearing, Macular Degeneration Cardiovascular History: Reports: Afib, CAD, Heart Failure, Heart Valve Replacement, Other (See Below) Other Cardiovascular History: hypokalemia Respiratory History: Reports: COPD, Pneumonia, Recurrent Gastrointestinal History: Reports: GERD, Other (See Below) Other Gastrointestinal History: lap fifi Genitourinary History: Reports: BPH, Chronic Renal Insuffiency, Retention, Urinary Other Genitourinary History: Beads in place approximately 15 years ago. Hydrocele removal . Musculoskeletal History: Reports: Arthritis Other Musculoskeletal History: Arthritis in hands. Endocrine/Metabolic History: Reports: Hypothyroidism Hematologic History: Reports: Anticoagulation Therapy Other Hematologic History: Patient takes Vitamin B and D. Unsure if diagnosed. Oncologic (Cancer) History: Reports: Prostate Dermatologic History: Reports: Benign Melanoma - Infectious Disease History Infectious Disease History: Reports: C-Difficile, Chicken Pox, Measles, MRSA, Mumps, Rheumatic Fever, Rubella - Past Surgical History HEENT Surgical History: Reports: Cataract Surgery, Tonsillectomy Cardiovascular Surgical History: Reports: Valve Replacement, Other (See Below) GI Surgical History: Reports: Appendectomy, Cholecystectomy, Colonoscopy, Hernia , Inguinal, Hernia Repair/Other Musculoskeletal Surgical History: Reports: None Oncologic Surgical History: Reports: None Social & Family History - Family History HEENT: Reports: Cataract Cardiac: Reports: [place] OBGYN: Reports: Musculoskeletal: Reports: Arthritis Neurological: Reports: Dementia Endocrine/Metabolic: Reports: Diabetes, type II Other Endocrine/Metabolic Family History: Brother Oncologic: Reports: Breast, Colon, Skin, Other (See Below) Other Oncologic Family History: Malignant melanoma - Brother. Dad- cancer of thyroid and colon. Sister - Breast - Tobacco Use Smoking Status *Q: Former Smoker Years of Tobacco use: 2 Used Tobacco, but Quit: Yes Month Tobacco Last Used: years ago Second Hand Smoke Exposure: No - Caffeine Use Caffeine Use: Reports: Coffee Other Caffeine Use: 2 cups a day at most. Caffeine Use Comment: Patient states he drinks about 3 cups of coffee per day - Alcohol Use Days Per Week of Alcohol Use: 1 Number of Drinks Per Day: 0 Total Drinks Per Week: 0 - Recreational Drug Use Recreational Drug Use: No - Living Situation & Occupation Living situation: Reports: , with Spouse Occupation: Retired ED ROS GENERAL - Review of Systems Review Of Systems: See Below Constitutional: Reports: Chills, Weakness. Denies: Fever HEENT: Denies: Ear Pain, Throat Pain Respiratory: Denies: Cough Cardiovascular: Denies: Chest Pain GI/Abdominal: Denies: Abdominal Pain, Diarrhea, Nausea, Vomiting ED EXAM, GENERAL - Physical Exam Exam: See Below Exam Limited By: No Limitations General Appearance: Alert, WD/WN, No Apparent Distress Eye Exam: Bilateral Eye: Normal Inspection Ears: Normal External Exam, Hearing Loss Nose: Normal Inspection Throat/Mouth: Normal Inspection, Normal Lips, Normal Teeth, Normal Gums, Normal Oropharynx, Normal Voice, No Airway Compromise Neck: Normal Inspection. No: Lymphadenopathy (L), Lymphadenopathy (R) Respiratory/Chest: No Respiratory Distress, Rhonchi (right lung base) Cardiovascular: Normal Peripheral Pulses, Systolic Murmur (grade 3), Irregularly Irregular GI/Abdominal: Soft, Non-Tender Neurological: Alert, Oriented, Normal Cognition Psychiatric: Normal Affect, Normal Mood Skin Exam: Warm, Dry, Normal Color Course - Vital Signs Last Recorded V/S: Last Vital Signs Temp 37.0 C 09/16/17 17:20 Pulse 78 09/16/17 17:20 Resp 16 09/16/17 17:18 BP 93/72 09/16/17 17:20 Pulse Ox 95 09/16/17 17:20 - Orders/Labs/Meds Orders: Active Orders 24 hr Category Date Time Status CULTURE BLOOD [BC] Stat Lab 09/16/17 12:53 Received CULTURE BLOOD [BC] Stat Lab 09/16/17 13:45 Received UA W/MICROSCOPIC [URIN] Stat Lab 09/16/17 13:14 Uncollected Sodium Chloride 0.9% [Normal Saline] 1,000 ml Med 09/16/17 14:30 Active IV ASDIRECTED Sodium Chloride 0.9% [Saline Flush] Med 09/16/17 13:14 Active 10 ml FLUSH ASDIRECTED PRN Blood Culture x2 Reflex Set [OM.PC] Stat Oth 09/16/17 13:14 Ordered Peripheral IV Insertion Adult [OM.PC] Routine Oth 09/16/17 13:14 Ordered Medication Orders Sodium Chloride (Normal Saline) 1,000 mls @ 100 mls/hr IV ASDIRECTED RONA Last Admin: 09/16/17 15:01 Dose: 100 mls/hr Sodium Chloride (Saline Flush) 10 ml FLUSH ASDIRECTED PRN PRN Reason: Keep Vein Open Last Admin: 09/16/17 15:03 Dose: 10 ml Labs: Laboratory Tests 09/16/17 09/16/17 09/16/17 Range/Units 13:45 13:45 13:45 WBC 12.20 H (4.23-9.07) K/mm3 RBC 3.59 L (4.63-6.08) M/mm3 Hgb 10.4 L (13.7-17.5) gm/L Hct 32.9 L (40.1-51.0) % MCV 91.6 (79.0-92.2) fl MCH 29.0 (25.7-32.2) pg MCHC 31.6 L (32.2-35.5) g/dl RDW Std Deviation 52.4 H (35.1-43.9) fL Plt Count 138 L (163-337) K/mm3 MPV 10.7 (9.4-12.3) fl Neutrophils % (Manual) 89 H (40-60) % Band Neutrophils % 0 (0-10) % Lymphocytes % (Manual) 6 L (20-40) % Atypical Lymphs % 0 % Monocytes % (Manual) 5 (2-10) % Eosinophils % (Manual) 0 L (0.8-7.0) % Basophils % (Manual) 0 L (0.2-1.2) Toxic Granulation 1+ slight Platelet Estimate Decreased Plt Morphology Comment Normal Poikilocytosis 1+ slight Anisocytosis 1+ slight RBC Morph Comment Not Reportable PT (8.0-13.0) SECONDS INR Sodium 142 (136-145) mEq/L Potassium 4.0 (3.5-5.1) mEq/L Chloride 105 (98-107) mEq/L Carbon Dioxide 26 (21-32) mEq/L Anion Gap 15.0 (5-15) BUN 19 H (7-18) mg/dL Creatinine 1.5 H (0.7-1.3) mg/dL Est Cr Clr Drug Dosing 43.11 mL/min Estimated GFR (MDRD) 45 (>60) mL/min BUN/Creatinine Ratio 12.7 L (14-18) Glucose 117 H (83-115) mg/dL Lactic Acid 1.9 (0.4-2.0) mmol/L Calcium 8.6 (8.5-10.1) mg/dL Magnesium 2.1 (1.8-2.4) mg/dl Total Bilirubin 0.7 (0.2-1.0) mg/dL AST 24 (15-37) U/L ALT 21 (16-63) U/L Alkaline Phosphatase 75 (46-116) U/L C-Reactive Protein 4.8 H* (<1.0) mg/dL Total Protein 6.6 (6.4-8.2) g/dl Albumin 3.0 L (3.4-5.0) g/dl Globulin 3.6 gm/dL Albumin/Globulin Ratio 0.8 L (1-2) 09/16/17 Range/Units 13:45 WBC (4.23-9.07) K/mm3 RBC (4.63-6.08) M/mm3 Hgb (13.7-17.5) gm/L Hct (40.1-51.0) % MCV (79.0-92.2) fl MCH (25.7-32.2) pg MCHC (32.2-35.5) g/dl RDW Std Deviation (35.1-43.9) fL Plt Count (163-337) K/mm3 MPV (9.4-12.3) fl Neutrophils % (Manual) (40-60) % Band Neutrophils % (0-10) % Lymphocytes % (Manual) (20-40) % Atypical Lymphs % % Monocytes % (Manual) (2-10) % Eosinophils % (Manual) (0.8-7.0) % Basophils % (Manual) (0.2-1.2) Toxic Granulation Platelet Estimate Plt Morphology Comment Poikilocytosis Anisocytosis RBC Morph Comment PT 27.9 H (8.0-13.0) SECONDS INR 2.42 Sodium (136-145) mEq/L Potassium (3.5-5.1) mEq/L Chloride (98-107) mEq/L Carbon Dioxide (21-32) mEq/L Anion Gap (5-15) BUN (7-18) mg/dL Creatinine (0.7-1.3) mg/dL Est Cr Clr Drug Dosing mL/min Estimated GFR (MDRD) (>60) mL/min BUN/Creatinine Ratio (14-18) Glucose (83-115) mg/dL Lactic Acid (0.4-2.0) mmol/L Calcium (8.5-10.1) mg/dL Magnesium (1.8-2.4) mg/dl Total Bilirubin (0.2-1.0) mg/dL AST (15-37) U/L ALT (16-63) U/L Alkaline Phosphatase (46-116) U/L C-Reactive Protein (<1.0) mg/dL Total Protein (6.4-8.2) g/dl Albumin (3.4-5.0) g/dl Globulin gm/dL Albumin/Globulin Ratio (1-2) Meds: Medications Generic Name Dose Route Start Last Admin Trade Name Freq PRN Reason Stop Dose Admin Sodium Chloride 1,000 mls @ 100 mls/hr 09/16/17 14:30 09/16/17 15:01 Normal Saline IV 100 mls/hr ASDIRECTED RONA Administration Sodium Chloride 10 ml 09/16/17 13:14 09/16/17 15:03 Saline Flush FLUSH 10 ml ASDIRECTED PRN Administration Keep Vein Open Discontinued Medications Generic Name Dose Route Start Last Admin Trade Name Freq PRN Reason Stop Dose Admin Ceftriaxone Sodium 2 gm/ 100 mls @ 200 mls/hr 09/16/17 13:19 09/16/17 15:03 Sodium Chloride IV 09/16/17 13:48 Not Given ONETIME ONE Ceftriaxone Sodium 2 gm/ 100 mls @ 200 mls/hr 09/16/17 14:30 09/16/17 15:02 Sodium Chloride IV 09/16/17 14:59 200 mls/hr ONETIME ONE Administration - Radiology Interpretation Free Text/Narrative:: Chest [address] Paiz from earlier [place] clinic visit: Patchy areas of increased density noted within the right mid and lower lung as well as within the left perihilar region. Previous sternotomy for cardiac surgery noted with prosthetic heart valves. Bony structures are grossly intact. - Re-Assessments/Exams Free Text/Narrative Re-Assessment/Exam: 09/16/17 15:24 Influenza returned negative. Patient has received Rocephin for the pneumonia. Blood cultures pending. Given his chronic medical conditions and the fact that he lives in [place] I do not feel he is safe to go home and would be good candidate for admission. [facility] recommends observation. Discussed case with Dr. East, hospitalist media production operator. He agrees to the admission. Patient will be admitted for observation for pneumonia. Departure - Departure Time of Disposition: 15:25 Disposition: Refer to Observation Condition: Fair Clinical Impression: Pneumonia Qualifiers: Pneumonia type: due to unspecified organism Laterality: right Lung location: lower lobe of lung Qualified Code(s): J18.1 - Lobar pneumonia, unspecified organism - Discharge Information - My Orders Last 24 Hours: My Active Orders 09/16/17 12:53 CULTURE BLOOD [BC] Stat 09/16/17 13:14 UA W/MICROSCOPIC [URIN] Stat Sodium Chloride 0.9% [Saline Flush] 10 ml FLUSH ASDIRECTED PRN Blood Culture x2 Reflex Set [OM.PC] Stat Peripheral IV Insertion Adult [OM.PC] Routine 09/16/17 13:45 CULTURE BLOOD [BC] Stat 09/16/17 14:30 Sodium Chloride 0.9% [Normal Saline] 1,000 ml IV ASDIRECTED - Assessment/Plan Last 24 Hours: My Active Orders 09/16/17 12:53 CULTURE BLOOD [BC] Stat 09/16/17 13:14 UA W/MICROSCOPIC [URIN] Stat Sodium Chloride 0.9% [Saline Flush] 10 ml FLUSH ASDIRECTED PRN Blood Culture x2 Reflex Set [OM.PC] Stat Peripheral IV Insertion Adult [OM.PC] Routine 09/16/17 13:45 CULTURE BLOOD [BC] Stat 09/16/17 14:30 Sodium Chloride 0.9% [Normal Saline] 1,000 ml IV ASDIRECTED
[2017-09-16] MEDS ORDERED: Sodium Chloride 0.9% 1,000 ML IV SCH (14:30)
--- NOTE | 2017-09-16 19:14 | PCM.HP ---
H&P History of Present Illness - General Date of Service: 09/16/17 Admit Problem/Dx: Admission Diagnosis/Problem Admission Diagnosis/Problem Pneumonia Source of Information: Patient, Provider, RN, RN Notes Reviewed History Limitations: Reports: No Limitations - History of Present Illness Initial Comments - Free Text/Narative: Dale Shaikh is an 81 yo male who presents to our ED from [place] with possible pneumonia reports a concert last night with chills. Unsure if he had any fevers. Reports decreased energy and weakness. Denies any nausea, vomiting, abdominal pain, chest pain, diarrhea, urinary, sore throat. He reportedly presented to [place] [facility] this morning, chest x-ray done. This was interpreted by Dr. Paiz as "patchy areas of increased density noted within the right mid and right lower lung as well as within the left perihilar region. Previous sternotomy for cardiac surgery noted with prosthetic heart valve. Bony structures are grossly intact." Patient is reportedly normally on 2 L of oxygen at all times and he has not had to increase his oxygen. In the ED temp was 37C. Pulse 78. Respirations 16. BP 93/72. Pulse ox 95%. Blood cultures were obtained. Labs are obtained: WBC is elevated at 12.20. Hemoglobin low at 10.4. Hematocrit low at 32.9. He is normocytic. Platelets are low at 138,000. Neutrophils are elevated at 89%. There is no bandemia. PT is 27.9. INR is 2.42. Sodium was good at 142. Potassium 4.0. Chloride 105. Her monoxide 26. Anion gap was good at 15. BUN is slightly elevated 19. Creatinine is 1.5. EGFR is 45. Glucose is high at 117. Lactic acid is 1.9. Calcium 8.6. Magnesium was good at 2.1. Bilirubin good at 0.7. Liver enzymes looked good with AST at 24, ALT at 21, alkaline phosphatase at 75. CRP is elevated at 4.8. Total protein is 6.6. Albumin was low at 3.0 influenza was negative. He was given Rocephin in the ER. He does carry history of: A-fib, CAD, Heart failure, Heart valve replacement, hypokalemia, GERD, BPH, Chronic renal insufficiency, urinary retention, arthritis, hypothyroidism, chronic anticoagulation, prostate cancer. He is a former smoker. He is a DNR. His PCP is Natacha Rosa PA-C at the [facility]. - Related Data Allergies/Adverse Reactions: Allergies Allergy/AdvReac Type Severity Reaction Status Date / Time loratadine [From Claritin] Allergy Rash Verified 09/16/17 12:57 rosuvastatin [From Crestor] AdvReac Body Aches Verified 09/16/17 12:57 Apzxfpx-Ajf-Ctv Reductase AdvReac Body Aches Verified 09/16/17 12:57 Inhibitor Home Medications: Home Meds Aspirin [Ecotrin] 81 mg PO DAILY 06/06/17 [History] B2/Vit A,C & E/Lut/Zeaxanth/Mn [Icaps] 1 each PO DAILY 06/06/17 [History] Cholecalciferol (Vitamin D3) [D3-2000] 2,000 unit PO DAILY 06/06/17 [History] Diltiazem HCl [Cardizem Cd] 240 mg PO DAILY 06/06/17 [History] Docusate Sodium [Stool Softener] 100 mg PO DAILY 06/06/17 [History] Ferrous Sulfate 325 mg PO DAILY 06/06/17 [History] Finasteride 5 mg PO DAILY 06/06/17 [History] Folic Acid 1 mg PO DAILY 06/06/17 [History] Levothyroxine Sodium [Tirosint] 25 mcg PO DAILY 06/06/17 [History] Metoprolol Tartrate 25 mg PO BID 06/06/17 [History] Mirtazapine 15 mg PO BEDTIME 06/06/17 [History] Omeprazole 20 mg PO DAILY 06/06/17 [History] Potassium Chloride 10 meq PO BID 06/06/17 [History] Sennosides [Senna] 8.6 mg PO DAILY 06/06/17 [History] Tamsulosin HCl 0.4 mg PO DAILY 06/06/17 [History] Torsemide 20 mg PO DAILY 06/06/17 [History] Vitamin B Complex 1 each PO DAILY 06/06/17 [History] Warfarin Sodium 2.5 mg PO TUFR 06/06/17 [History] Warfarin Sodium 5 mg PO ASDIRECTED 06/06/17 [History] Enoxaparin Sodium [Lovenox] 80 mg SQ DAILY #7 ml 06/11/17 [Rx] Past Medical History HEENT History: Reports: Cataract, Hard of Hearing, Macular Degeneration Cardiovascular History: Reports: Afib, CAD, Heart Failure, Heart Valve Replacement, Other (See Below) Other Cardiovascular History: hypokalemia Respiratory History: Reports: COPD, Pneumonia, Recurrent Gastrointestinal History: Reports: GERD, Other (See Below) Other Gastrointestinal History: lap fifi Genitourinary History: Reports: BPH, Chronic Renal Insuffiency, Retention, Urinary Other Genitourinary History: Beads in place approximately 15 years ago. Hydrocele removal . Musculoskeletal History: Reports: Arthritis Other Musculoskeletal History: Arthritis in hands. Endocrine/Metabolic History: Reports: Hypothyroidism Hematologic History: Reports: Anticoagulation Therapy Other Hematologic History: Patient takes Vitamin B and D. Unsure if diagnosed. Oncologic (Cancer) History: Reports: Prostate Dermatologic History: Reports: Benign Melanoma - Infectious Disease History Infectious Disease History: Reports: C-Difficile, Chicken Pox, Measles, MRSA, Mumps, Rheumatic Fever, Rubella - Past Surgical History HEENT Surgical History: Reports: Cataract Surgery, Tonsillectomy Cardiovascular Surgical History: Reports: Valve Replacement, Other (See Below) GI Surgical History: Reports: Appendectomy, Cholecystectomy, Colonoscopy, Hernia , Inguinal, Hernia Repair/Other Musculoskeletal Surgical History: Reports: None Oncologic Surgical History: Reports: None Social & Family History - Family History HEENT: Reports: Cataract Cardiac: Reports: [place] O[place]: Reports: Musculoskeletal: Reports: Arthritis Neurological: Reports: Dementia Endocrine/Metabolic: Reports: Diabetes, type II Other Endocrine/Metabolic Family History: Brother Oncologic: Reports: Breast, Colon, Skin, Other (See Below) Other Oncologic Family History: Malignant melanoma - Brother. Dad- cancer of thyroid and colon. Sister - Breast - Tobacco Use Smoking Status *Q: Former Smoker Years of Tobacco use: 2 Used Tobacco, but Quit: Yes Month Tobacco Last Used: years ago Second Hand Smoke Exposure: No - Caffeine Use Caffeine Use: Reports: Coffee Other Caffeine Use: 2 cups a day at most. Caffeine Use Comment: Patient states he drinks about 3 cups of coffee per day - Alcohol Use Days Per Week of Alcohol Use: 1 Number of Drinks Per Day: 0 Total Drinks Per Week: 0 - Recreational Drug Use Recreational Drug Use: No - Living Situation & Occupation Living situation: Reports: , with Spouse Occupation: Retired H&P Review of Systems - Review of Systems: Review Of Systems: See Below General: Reports: Chills, Weakness. Denies: Fever, Malaise, Fatigue, Night Sweats, Diaphoresis, Decreased Appetite HEENT: Reports: No Symptoms. Denies: Ear Pain, Eye Pain, Rhinitis, Sinus Congestion, Sore Throat, Vertigo Pulmonary: Reports: No Symptoms. Denies: Shortness of Breath, Wheezing, Pleuritic Chest Pain, Cough, Sputum Cardiovascular: Reports: No Symptoms. Denies: Chest Pain, Palpitations, Dyspnea on Exertion, PND, Edema Gastrointestinal: Reports: No Symptoms. Denies: Abdominal Pain, Constipation, Diarrhea, Nausea, Vomiting Genitourinary: Reports: No Symptoms. Denies: Dysuria, Frequency, Burning, Pain , Urgency Musculoskeletal: Reports: No Symptoms Skin: Reports: No Symptoms Psychiatric: Reports: No Symptoms Neurological: Reports: No Symptoms Hematologic/Lymphatic: Reports: No Symptoms Immunologic: Reports: No Symptoms Exam - Exam Exam: See Below - Vital Signs Vital Signs: Last Vital Signs Temp 98.6 F 09/16/17 17:20 Pulse 78 09/16/17 17:20 Resp 16 09/16/17 17:18 BP 93/72 09/16/17 17:20 Pulse Ox 95 09/16/17 17:20 Weight: 190 lb - Exam Quality Assessment: Supplemental Oxygen (Chronically on 2 L at home), DVT Prophylaxis General: Alert, Oriented, Cooperative. No: Mild Distress HEENT: PERRLA, Hearing Intact, Mucosa Moist & [place], Nares Patent, Normal Nasal Septum, Posterior Pharynx Clear, Conjunctiva Clear, EOMI, EACs Clear, TMs Clear Neck: Supple, Trachea Midline, Full Range of Motion. No: JVD Lungs: Normal Respiratory Effort, Rhonchi (right base ) Cardiovascular: Regular Rate, Irregular Rhythm, Systolic Murmur GI/Abdominal Exam: Normal Bowel Sounds, Soft, Non-Tender, No Organomegaly, No Distention, No Abnormal Bruit, No Mass, Pelvis Stable (Male) Exam: Deferred Rectal (Males) Exam: Deferred Back Exam: Normal Inspection, Full Range of Motion Extremities: Normal Inspection, Normal Range of Motion, Non-Tender, No Pedal Edema, Normal Capillary Refill Peripheral Pulses: 2+: Radial (L), Radial (R), Posterior Tibial (L), Posterior Tibial (R), Dorsalis Pedis (L), Dorsalis Pedis (R) Skin: Warm, Dry, Intact Neurological: Cranial Nerves Intact (Grossly) Neuro Extensive - Mental Status: Alert, Oriented x3, Normal Mood/Affect, Normal Cognition, Memory Intact Psychiatric: Alert, Normal Affect, Normal Mood - Patient Data Result Diagrams: 09/16/17 13:45 09/16/17 13:45 *Q Meaningful Use (ADM) - VTE *Q VTE Criteria *Q: - Stroke *Q Stroke Criteria *Q: - AMI *Q AMI Criteria *Q: - Problem List (1) Pneumonia SNOMED Code(s): 177881562 ICD Code: J18.9 - PNEUMONIA, UNSPECIFIED ORGANISM Status: Acute Priority : High Current Visit: Yes Qualifiers: Pneumonia type: due to unspecified organism Laterality: right Lung location: lower lobe of lung Qualified Code(s): J18.1 - Lobar pneumonia, unspecified organism (2) GERD (gastroesophageal reflux disease) SNOMED Code(s): 501394608 ICD Code: K21.9 - GASTRO-ESOPHAGEAL REFLUX DISEASE WITHOUT ESOPHAGITIS Status: Chronic Priority: Low Current Visit: No Qualifiers: Esophagitis presence: esophagitis presence not specified Qualified Code(s) : K21.9 - Gastro-esophageal reflux disease without esophagitis (3) BPH (benign prostatic hyperplasia) SNOMED Code(s): 339484137 ICD Code: N40.0 - BENIGN PROSTATIC HYPERPLASIA WITHOUT LOWER URINRY TRACT SYMP Status: Chronic Priority: Low Current Visit: No Qualifiers: Lower urinary tract symptom presence: unspecified whether lower urinary tract symptoms present Qualified Code(s): N40.0 - Benign prostatic hyperplasia without lower urinary tract symptoms (4) Urinary retention SNOMED Code(s): 390930970 ICD Code: R33.9 - RETENTION OF URINE, UNSPECIFIED Status: Chronic Priority: Low Current Visit: No (5) Arthritis SNOMED Code(s): 2870856 ICD Code: M19.90 - UNSPECIFIED OSTEOARTHRITIS, UNSPECIFIED SITE Status: Chronic Priority: Low Current Visit: No (6) Hypothyroidism SNOMED Code(s): 50388098 ICD Code: E03.9 - HYPOTHYROIDISM, UNSPECIFIED Status: Chronic Priority: Low Current Visit: No Qualifiers: Hypothyroidism type: unspecified Qualified Code(s): E03.9 - Hypothyroidism , unspecified (7) H/O prostate cancer SNOMED Code(s): 775284857 ICD Code: Z85.46 - PERSONAL HISTORY OF MALIGNANT NEOPLASM OF PROSTATE Status: Chronic Priority: Low Current Visit: No (8) Anemia SNOMED Code(s): 399089540 ICD Code: D64.9 - ANEMIA, UNSPECIFIED Status: Chronic Priority: Low Current Visit: No Qualifiers: Anemia type: unspecified type Qualified Code(s): D64.9 - Anemia, unspecified (9) Atrial fibrillation SNOMED Code(s): 04567521 ICD Code: I48.91 - UNSPECIFIED ATRIAL FIBRILLATION Status: Chronic Current Visit: No Qualifiers: Atrial fibrillation type: chronic Qualified Code(s): I48.2 - Chronic atrial fibrillation (10) CHF (congestive heart failure), NYHA class III SNOMED Code(s): 794108148 ICD Code: I50.9 - HEART FAILURE, UNSPECIFIED Status: Chronic Priority: Low Current Visit: No Qualifiers: Congestive heart failure type: diastolic Congestive heart failure chronicity: chronic Qualified Code(s): I50.32 - Chronic diastolic (congestive ) heart failure (11) Chronic renal insufficiency, stage III (moderate) SNOMED Code(s): 177650673 ICD Code: N18.3 - CHRONIC KIDNEY DISEASE, STAGE 3 (MODERATE) Status: Chronic Priority: Low Current Visit: No Problem List Initiated/Reviewed/Updated: Yes Orders Last 24hrs: Active Orders 24 hr Category Date Time Status Patient Status [ADT] Routine ADT 09/16/17 16:55 Active Medication Orders Sodium Chloride (Normal Saline) 1,000 mls @ 100 mls/hr IV ASDIRECTED RONA Last Admin: 09/16/17 15:01 Dose: 100 mls/hr Sodium Chloride (Saline Flush) 10 ml FLUSH ASDIRECTED PRN PRN Reason: Keep Vein Open Last Admin: 09/16/17 15:03 Dose: 10 ml Assessment/Plan Comment:: I/P: Acute Pneumonia -Community acquired -Reports weakness and chills - improved since ED -Right mid and lower lung, as well as left perihilar region on CXR -Negative influenza -WBC 12.20 -CRP 4.8 -Lactic acid 1.9 -Blood cultures pending -Rocephin given in ED - continue -Duonebs -Sputum culture -RT/IS/Acapella -On 2L O2 chronically -1L fluids givein in ED -Fluids as ordered Renal Insufficiency -BUN 19, Creatinine 1.5, eGFR 45 -Old charts show baseline with creatinine around 1.1-1.3 and eGFR 53-60 -Fluids as ordered -Avoid nephrotoxic medications -Utilize fluids with caution with hx/o heart failure Chronic: A-fib - home warfarin, diltiazem CAD Heart failure - BNP ordered hx/o heart valve replacement COPD Recurrent pneumonia GERD - home omeprazole BPH - home finasteride Arthritis in hands Hypothyroid - home levothyroxine Prostate cancer Plan: CM for discharge planing PT/OT Other orders as indicated above Routine AM labs Home medications as ordered Code Status: DNR; PCP Natacha Rosa at [facility].
[2017-09-16] MEDS ORDERED: Bisacodyl 5 MG Tab PO PRN (19:47)
[2017-09-16] MEDS ORDERED: Acetaminophen/HYDROcodone 325-5 MG Tab PO PRN (19:47)
[2017-09-16] MEDS ORDERED: Acetaminophen 325 MG Tab PO PRN (19:47)
[2017-09-16] MEDS ORDERED: Morphine 2 MG/ML Syringe IVPUSH PRN (19:47)
[2017-09-16] MEDS ORDERED: Polyethylene Glycol 3350 Powder 17 GM Packet PO PRN (19:47)
[2017-09-16] MEDS ORDERED: Docusate Sodium 100 MG Cap PO PRN (19:47)
[2017-09-16] MEDS ORDERED: Albuterol/Ipratropium 3.0-0.5 MG/3 ML Neb Soln NEB PRN (19:47)
[2017-09-16] MEDS ORDERED: Ondansetron 4 MG Tab.DIS PO PRN (19:47)
[2017-09-16] MEDS ORDERED: Ondansetron 4 MG/2 ML SDV IV PRN (19:47)
[2017-09-16] MEDS ORDERED: Metoprolol Tartrate 5 MG/5 ML SDV IVPUSH PRN (19:52)
[2017-09-16] MEDS ORDERED: hydrALAZINE 20 MG/ML SDV IVPUSH PRN (19:52)
[2017-09-17] MEDS: Sodium Chloride 0.9% 1,000 ML IV SCH ×2 (00:46→14:10)
[2017-09-17] MEDS ORDERED: Albuterol 0.083% 2.5 MG/3 ML Neb Soln NEB PRN (06:59)
[2017-09-17] MEDS ORDERED: Codeine/guaiFENesin 100-10 MG/5 ML Syrup 5 ML Cup PO PRN (07:01)
--- NOTE | 2017-09-17 07:07 | PCM.PN ---
- General Info Date of Service: 09/17/17 Functional Status: Reports: Pain Controlled, Tolerating Diet, Ambulating, Urinating, Incentive Spirometry - Review of Systems General: Reports: Weakness, Fatigue, Malaise HEENT: Reports: No Symptoms Pulmonary: Reports: Shortness of Breath, Cough, Sputum Cardiovascular: Reports: No Symptoms. Denies: Chest Pain Gastrointestinal: Reports: No Symptoms. Denies: Diarrhea, Nausea, Vomiting Genitourinary: Reports: No Symptoms Neurological: Reports: No Symptoms - Patient Data Vitals - Most Recent: Last Vital Signs Temp 98.4 F 09/17/17 04:57 Pulse 88 09/17/17 04:57 Resp 18 09/17/17 04:57 BP 109/66 09/17/17 04:57 Pulse Ox 96 09/17/17 04:57 Weight - Most Recent: 194 lb 4.8 oz I&O - Last 24 Hours: Intake & Output 09/16/17 09/17/17 09/17/17 22:59 06:59 14:59 Intake Total 1006 Balance 1006 Lab Results Last 24 Hours: Laboratory Results - last 24 hr 09/16/17 Range/Units 18:36 Urine Color Yellow (Yellow) Urine Appearance Clear (Clear) Urine pH 6.0 (5.0-8.0) Ur Specific [place] 1.020 (1.005-1.030) Urine Protein Negative (Negative) Urine Glucose (UA) Negative (Negative) Urine Ketones Negative (Negative) Urine Occult Blood Trace-intact H (Negative) Urine Nitrite Negative (Negative) Urine Bilirubin Negative (Negative) Urine Urobilinogen 0.2 (0.2-1.0) Ur Leukocyte Esterase Negative (Negative) Urine RBC 0-5 (0-5) /hpf Urine WBC 0-5 (0-5) /hpf Ur Epithelial Cells 0-5 (0-5) /hpf Urine Bacteria Occasional (FEW) /hpf Urine Mucus Not seen (FEW) /hpf Med Orders - Current: Current Medications Acetaminophen (Tylenol) 650 mg PO Q4H PRN PRN Reason: Pain (Mild 1-3)/fever Hydrocodone Bitart/Acetaminophen ([place] 325-5 Mg) 1 tab PO Q4H PRN PRN Reason: Pain (moderate 4-6) Albuterol (Proventil Neb Soln) 2.5 mg NEB Q4HRRT PRN PRN Reason: SOB/wheezing/cough Albuterol/Ipratropium (Duoneb 3.0-0.5 Mg/3 Ml) 3 ml NEB QID [facility] Aspirin (Halfprin) 81 mg PO DAILY [facility] Bisacodyl (Dulcolax) 5 mg PO DAILY PRN PRN Reason: Constipation Docusate Sodium (Colace) 100 mg PO BID PRN PRN Reason: Constipation Docusate Sodium (Colace) 100 mg PO DAILY [facility] Ferrous Sulfate (Ferrous Sulfate) 325 mg PO DAILY [facility] Finasteride (Proscar) 5 mg PO DAILY [facility] Folic Acid (Folic Acid) 1 mg PO DAILY [facility] Guaifenesin (Mucinex) 1,200 mg PO BID [facility] Guaifenesin/Codeine Phosphate (Robitussin Ac) 5 ml PO Q4H PRN PRN Reason: Cough Hydralazine HCl (Apresoline) 10 mg IVPUSH Q6H PRN PRN Reason: Hypertension Sodium Chloride (Normal Saline) 1,000 mls @ 75 mls/hr IV ASDIRECTED [facility] Last Admin: 09/17/17 00:46 Dose: 75 mls/hr Ceftriaxone Sodium 2 gm/ (Sodium Chloride) 100 mls @ 200 mls/hr IV Q24H [facility] Magnesium Sulfate (Pharmacy To Dose - Magnesium Replacement) 1 dose .XX ASDIRECTED [facility] Metoprolol Tartrate (Lopressor) 5 mg IVPUSH Q4H PRN PRN Reason: Tachycardia Metoprolol Tartrate (Lopressor) 25 mg PO BID [facility] Morphine Sulfate (Morphine) 0.5 mg IVPUSH Q2H PRN PRN Reason: Pain (severe 7-10) Stop: 09/17/17 19:48 Non-Formulary Medication (B2/Vit A,C & E/Lut/Zeaxanth/Mn [Icaps]) 1 each PO DAILY [facility] Non-Formulary Medication (Cholecalciferol (Vitamin D3) [D3-2000]) 2,000 unit PO DAILY [facility] Non-Formulary Medication (Diltiazem) 240 mg PO DAILY [facility] Non-Formulary Medication (Levothyroxine Sodium [Tirosint]) 25 mcg PO DAILY [facility] Non-Formulary Medication (Omeprazole) 20 mg PO DAILY [facility] Non-Formulary Medication (Potassium Chloride [Potassium Chloride]) 10 meq PO BID [facility] Non-Formulary Medication (Vitamin B Complex) 1 each PO DAILY [facility] Ondansetron HCl (Zofran Odt) 4 mg PO Q6H PRN PRN Reason: nausea, able to take PO Ondansetron HCl (Zofran) 4 mg IV Q6H PRN PRN Reason: Nausea/Vomiting Polyethylene Glycol (Miralax) 17 gm PO DAILY PRN PRN Reason: Constipation Potassium Chloride (Pharmacy To Dose - Potassium Replacement) 1 dose .XX ASDIRECTED [facility] Senna (Senna) 8.6 mg PO DAILY [facility] Senna/Docusate Sodium (Senna Plus) 1 tab PO BID PRN PRN Reason: Constipation Sodium Chloride (Saline Flush) 10 ml FLUSH ASDIRECTED PRN PRN Reason: Keep Vein Open Last Admin: 09/16/17 15:03 Dose: 10 ml Tamsulosin HCl (Flomax) 0.4 mg PO DAILY [facility] Torsemide (Demadex) 20 mg PO DAILY [facility] Warfarin Sodium (Coumadin) 2.5 mg PO TUFR [facility] Warfarin Sodium (Coumadin) 5 mg PO ASDIRECTED [facility] Discontinued Medications Albuterol/Ipratropium (Duoneb 3.0-0.5 Mg/3 Ml) 3 ml NEB Q4H PRN PRN Reason: Shortness Of Breath/wheezing Ceftriaxone Sodium 2 gm/ (Sodium Chloride) 100 mls @ 200 mls/hr IV ONETIME ONE Stop: 09/16/17 13:48 Last Admin: 09/16/17 15:03 Dose: Not Given Ceftriaxone Sodium 2 gm/ (Sodium Chloride) 100 mls @ 200 mls/hr IV ONETIME ONE Stop: 09/16/17 14:59 Last Admin: 09/16/17 15:02 Dose: 200 mls/hr Sodium Chloride (Normal Saline) 1,000 mls @ 100 mls/hr IV ASDIRECTED [facility] Last Admin: 09/16/17 15:01 Dose: 100 mls/hr - Exam Quality Assessment: Supplemental Oxygen, DVT Prophylaxis General: Alert, Oriented, Cooperative, No Acute Distress HEENT: Pupils Equal, EOMI, Mucous Membr. Moist/[place] Neck: Supple Lungs: Normal Respiratory Effort, Decreased Breath Sounds, Rhonchi GI/Abdominal Exam: Normal Bowel Sounds, Soft, Non-Tender (Male) Exam: Deferred Extremities: Normal Inspection Peripheral Pulses: 1+: Dorsalis Pedis (L), Dorsalis Pedis (R) Neurological: No New Focal Deficit Psy/Mental Status: Alert, Normal Affect, Normal Mood - Problem List & Annotations (1) Pneumonia SNOMED Code(s): 907169654 Code(s): J18.9 - PNEUMONIA, UNSPECIFIED ORGANISM Status: Acute Priority: High Current Visit: Yes Qualifiers: Pneumonia type: due to unspecified organism Laterality: bilateral Lung location: unspecified part of lung Qualified Code(s): J18.9 - Pneumonia, unspecified organism (2) CHF (congestive heart failure), NYHA class III SNOMED Code(s): 634185506 Code(s): I50.9 - HEART FAILURE, UNSPECIFIED Status: Chronic Priority: Low Current Visit: Yes Qualifiers: Congestive heart failure type: diastolic Congestive heart failure chronicity: chronic Qualified Code(s): I50.32 - Chronic diastolic (congestive ) heart failure (3) Chronic renal insufficiency, stage III (moderate) SNOMED Code(s): 529914986 Code(s): N18.3 - CHRONIC KIDNEY DISEASE, STAGE 3 (MODERATE) Status: Chronic Priority: Low Current Visit: Yes (4) Atrial fibrillation SNOMED Code(s): 68555003 Code(s): I48.91 - UNSPECIFIED ATRIAL FIBRILLATION Status: Chronic Priority: Medium Current Visit: Yes Qualifiers: Atrial fibrillation type: chronic Qualified Code(s): I48.2 - Chronic atrial fibrillation (5) Anemia SNOMED Code(s): 021653930 Code(s): D64.9 - ANEMIA, UNSPECIFIED Status: Chronic Priority: Low Current Visit: Yes Qualifiers: Anemia type: unspecified type Qualified Code(s): D64.9 - Anemia, unspecified - Problem List Review Problem List Initiated/Reviewed/Updated: Yes - My Orders Last 24 Hours: My Active Orders 09/17/17 06:59 RT Aerosol Therapy [RC] ASDIRECTED Albuterol [Proventil Neb Soln] 2.5 mg NEB Q4HRRT PRN 09/17/17 07:00 RT Aerosol Therapy [RC] ASDIRECTED Warfarin [Coumadin] 5 mg PO ASDIRECTED 09/17/17 07:01 Codeine/guaiFENesin [Robitussin AC] 5 ml PO Q4H PRN 09/17/17 07:15 Azithromycin [Zithromax] 500 mg Sodium Chloride 0.9% [Normal Saline] 250 ml IV Q24H 09/17/17 09:00 Albuterol/Ipratropium [DuoNeb 3.0-0.5 MG/3 ML] 3 ml NEB QID Aspirin [Halfprin] 81 mg PO DAILY B2/Vit A,C & E/Lut/Zeaxanth/Mn [Icaps] 1 each PO DAILY Cholecalciferol (Vitamin D3) [D3-2000] 2,000 unit PO DAILY Diltiazem 240 mg PO DAILY Docusate Sodium [Colace] 100 mg PO DAILY Ferrous Sulfate 325 mg PO DAILY Finasteride [Proscar] 5 mg PO DAILY Folic Acid 1 mg PO DAILY Levothyroxine Sodium [Tirosint] 25 mcg PO DAILY Metoprolol Tartrate [Lopressor] 25 mg PO BID Omeprazole 20 mg PO DAILY Potassium Chloride [Potassium Chloride] 10 meq PO BID Sennosides [Senna] 8.6 mg PO DAILY Tamsulosin [Flomax] 0.4 mg PO DAILY Torsemide [Demadex] 20 mg PO DAILY Vitamin B Complex 1 each PO DAILY guaiFENesin [Mucinex] 1,200 mg PO BID 09/19/17 06:55 Warfarin [Coumadin] 2.5 mg PO TUFR - Plan Plan:: I/P: Acute Pneumonia -Community acquired -Reports weakness and chills - improved since ED -Right mid and lower lung, as well as left perihilar region on CXR--repeat CXR tomorrow am -Negative influenza; obtain resp viral panel -WBC 12.20 -CRP 4.8 -Lactic acid 1.9 -Blood cultures pending -Rocephin given in ED - continue, add zithromax -Sputum culture -RT/IS/Acapella/Nebs, On 2L O2 chronically -1L fluids givein in ED, Fluids as ordered--caution for fluid overload -Check mycoplasma and strep pneumo CKD- stage 3 -BUN 19, Creatinine 1.5, eGFR 45 -Old charts show baseline with creatinine around 1.1-1.3 and eGFR 53-60 -Fluids as ordered -Avoid nephrotoxic medications -Utilize fluids with caution with hx/o heart failure Chronic: A-fib - home warfarin, diltiazem- rate controlled CAD- cont home meds Heart failure - BNP ordered, cont home meds/diuretics hx/o heart valve replacement, warfarin for anticoag as above COPD Recurrent pneumonia GERD - home omeprazole BPH - home finasteride Arthritis in hands Hypothyroid - home levothyroxine - check TSH Hx Prostate cancer Plan: PT/OT DVT/GI prophylax Routine AM labs Home medications as ordered CM for discharge planing- patient lives at home with his Code Status: DNR; PCP Natacha Rosa at [facility] in [place].
[2017-09-17] MEDS: guaiFENesin 600 MG Tab.ER PO SCH ×2 (10:01→21:18)
[2017-09-17] MEDS: Azithromycin 500 MG in Sodium Chloride 0.9% 250 ML IV SCH (10:02)
[2017-09-17] MEDS: Diltiazem 240 MG Cap.ER PO SCH (10:58)
[2017-09-17] MEDS: Torsemide 20 MG Tab PO SCH (10:58)
[2017-09-17] MEDS: Sennosides 8.6 MG Tab PO SCH (10:58)
[2017-09-17] MEDS: Potassium Chloride 10 MEQ Tab.ER PO SCH ×2 (10:59→21:12)
[2017-09-17] MEDS: Vitamin B Complex With Vitamin C Cap PO SCH (10:59)
[2017-09-17] MEDS: Tamsulosin 0.4 MG Cap.ER PO SCH (10:59)
[2017-09-17] MEDS: Finasteride 5 MG Tab PO SCH (10:59)
[2017-09-17] MEDS: Levothyroxine 25 MCG Tab PO SCH (10:59)
[2017-09-17] MEDS: Pantoprazole 40 MG Tab.CR PO SCH (10:59)
[2017-09-17] MEDS: Aspirin 81 MG Tab.EC PO SCH (10:59)
[2017-09-17] MEDS: Folic Acid 1 MG Tab PO SCH (10:59)
[2017-09-17] MEDS: Cholecalciferol (Vitamin D3) 1,000 Unit Tab PO SCH (11:00)
[2017-09-17] MEDS: Docusate Sodium 100 MG Cap PO SCH (11:00)
[2017-09-17] MEDS: Metoprolol Tartrate 25 MG Tab PO SCH ×2 (11:05→21:19)
--- NOTE | 2017-09-17 11:37 | PCM.PN ---
- General Info Date of Service: 09/17/17 Admission Dx/Problem (Free Text): Admission Diagnosis/Problem Admission Diagnosis/Problem Pneumonia [place] is seen this morning, doing much better in fact states he feels "100% better than yesterday". He has been up ambulatory with PT this morning, good appetite, slept well. No c/o pain but is coughing. Functional Status: Reports: Pain Controlled, Tolerating Diet, Ambulating, Urinating, Incentive Spirometry - Review of Systems General: Reports: Weakness (improving), Fatigue. Denies: Fever HEENT: Reports: No Symptoms. Denies: Headaches Pulmonary: Reports: Shortness of Breath, Cough, Sputum Cardiovascular: Reports: No Symptoms. Denies: Chest Pain Gastrointestinal: Reports: No Symptoms. Denies: Diarrhea, Nausea, Vomiting Genitourinary: Reports: No Symptoms Neurological: Reports: No Symptoms - Patient Data Vitals - Most Recent: Last Vital Signs Temp 98.2 F 09/17/17 08:33 Pulse 106 H 09/17/17 11:05 Resp 20 09/17/17 08:33 BP 108/67 09/17/17 11:05 Pulse Ox 95 09/17/17 08:33 Weight - Most Recent: 194 lb 4.8 oz I&O - Last 24 Hours: Intake & Output 09/16/17 09/17/17 09/17/17 22:59 06:59 14:59 Intake Total 360 Balance 360 Med Orders - Current: Current Medications Acetaminophen (Tylenol) 650 mg PO Q4H PRN PRN Reason: Pain (Mild 1-3)/fever Hydrocodone Bitart/Acetaminophen ([place] 325-5 Mg) 1 tab PO Q4H PRN PRN Reason: Pain (moderate 4-6) Albuterol (Proventil Neb Soln) 2.5 mg NEB Q4HRRT PRN PRN Reason: SOB/wheezing/cough Albuterol/Ipratropium (Duoneb 3.0-0.5 Mg/3 Ml) 3 ml NEB QID [facility] Aspirin (Halfprin) 81 mg PO DAILY [facility] Last Admin: 09/17/17 10:59 Dose: 81 mg Bisacodyl (Dulcolax) 5 mg PO DAILY PRN PRN Reason: Constipation Cholecalciferol (Vitamin D3) 2,000 units PO DAILY [facility] Last Admin: 09/17/17 11:00 Dose: 2,000 units Diltiazem HCl (Dilacor Xr) 240 mg PO DAILY [facility] Last Admin: 09/17/17 10:58 Dose: 240 mg Docusate Sodium (Colace) 100 mg PO BID PRN PRN Reason: Constipation Docusate Sodium (Colace) 100 mg PO DAILY [facility] Last Admin: 09/17/17 11:00 Dose: 100 mg Ferrous Sulfate (Ferrous Sulfate) 325 mg PO DAILY [facility] Finasteride (Proscar) 5 mg PO DAILY [facility] Last Admin: 09/17/17 10:59 Dose: 5 mg Folic Acid (Folic Acid) 1 mg PO DAILY [facility] Last Admin: 09/17/17 10:59 Dose: 1 mg Guaifenesin (Mucinex) 1,200 mg PO BID [facility] Last Admin: 09/17/17 10:01 Dose: 1,200 mg Guaifenesin/Codeine Phosphate (Robitussin Ac) 5 ml PO Q4H PRN PRN Reason: Cough Hydralazine HCl (Apresoline) 10 mg IVPUSH Q6H PRN PRN Reason: Hypertension Sodium Chloride (Normal Saline) 1,000 mls @ 75 mls/hr IV ASDIRECTED [facility] Last Admin: 09/17/17 00:46 Dose: 75 mls/hr Ceftriaxone Sodium 2 gm/ (Dextrose/Water) 100 mls @ 200 mls/hr IV Q24H [facility] Azithromycin 500 mg/ Sodium (Chloride) 250 mls @ 250 mls/hr IV Q24H [facility] Last Admin: 09/17/17 10:02 Dose: 250 mls/hr Levothyroxine Sodium (Levothyroxine) 25 mcg PO ACBREAKFAST [facility] Last Admin: 09/17/17 10:59 Dose: 25 mcg Magnesium Sulfate (Pharmacy To Dose - Magnesium Replacement) 1 dose .XX ASDIRECTED [facility] Metoprolol Tartrate (Lopressor) 5 mg IVPUSH Q4H PRN PRN Reason: Tachycardia Metoprolol Tartrate (Lopressor) 25 mg PO BID [facility] Last Admin: 09/17/17 11:05 Dose: 25 mg Morphine Sulfate (Morphine) 0.5 mg IVPUSH Q2H PRN PRN Reason: Pain (severe 7-10) Stop: 09/17/17 19:48 Ondansetron HCl (Zofran Odt) 4 mg PO Q6H PRN PRN Reason: nausea, able to take PO Ondansetron HCl (Zofran) 4 mg IV Q6H PRN PRN Reason: Nausea/Vomiting Pantoprazole Sodium (Protonix) 40 mg PO DAILY@0700 [facility] Last Admin: 09/17/17 10:59 Dose: 40 mg Polyethylene Glycol (Miralax) 17 gm PO DAILY PRN PRN Reason: Constipation Potassium Chloride (Pharmacy To Dose - Potassium Replacement) 1 dose .XX ASDIRECTED [facility] Potassium Chloride (Klor-Con 10) 10 meq PO BID [facility] Last Admin: 09/17/17 10:59 Dose: 10 meq Senna (Senna) 8.6 mg PO DAILY [facility] Last Admin: 09/17/17 10:58 Dose: 8.6 mg Senna/Docusate Sodium (Senna Plus) 1 tab PO BID PRN PRN Reason: Constipation Sodium Chloride (Saline Flush) 10 ml FLUSH ASDIRECTED PRN PRN Reason: Keep Vein Open Last Admin: 09/16/17 15:03 Dose: 10 ml Tamsulosin HCl (Flomax) 0.4 mg PO DAILY [facility] Last Admin: 09/17/17 10:59 Dose: 0.4 mg Torsemide (Demadex) 20 mg PO DAILY [facility] Last Admin: 09/17/17 10:58 Dose: 20 mg Vit A/Vit C/Vit E/Selen/Cu/Zn/Lutei (Icaps Mv) 1 tab PO DAILY [facility] Vitamin B Complex/Vitamin C (Super B With Vitamin C) 1 cap PO DAILY [facility] Last Admin: 09/17/17 10:59 Dose: 1 cap Warfarin Sodium (Coumadin) 2.5 mg PO TuFr@1800 [facility] Warfarin Sodium (Coumadin) 5 mg PO SuMoWeThSa@1800 [facility] Discontinued Medications Albuterol/Ipratropium (Duoneb 3.0-0.5 Mg/3 Ml) 3 ml NEB Q4H PRN PRN Reason: Shortness Of Breath/wheezing Ceftriaxone Sodium 2 gm/ (Sodium Chloride) 100 mls @ 200 mls/hr IV ONETIME ONE Stop: 09/16/17 13:48 Last Admin: 09/16/17 15:03 Dose: Not Given Ceftriaxone Sodium 2 gm/ (Sodium Chloride) 100 mls @ 200 mls/hr IV ONETIME ONE Stop: 09/16/17 14:59 Last Admin: 09/16/17 15:02 Dose: 200 mls/hr Sodium Chloride (Normal Saline) 1,000 mls @ 100 mls/hr IV ASDIRECTED [facility] Last Admin: 09/16/17 15:01 Dose: 100 mls/hr - Exam Quality Assessment: DVT Prophylaxis General: Alert, Oriented, Cooperative, No Acute Distress HEENT: Pupils Equal, EOMI, Mucous Membr. Moist/[place] Neck: Supple Lungs: Normal Respiratory Effort, Decreased Breath Sounds, Rhonchi, Wheezing Cardiovascular: Irregular Rhythm GI/Abdominal Exam: Normal Bowel Sounds, Soft, Non-Tender (Male) Exam: Deferred Extremities: Normal Capillary Refill, Pedal Edema (trace to LE bilat) Peripheral Pulses: 1+: Dorsalis Pedis (L), Dorsalis Pedis (R) Neurological: No New Focal Deficit Psy/Mental Status: Alert, Normal Affect, Normal Mood - Problem List & Annotations (1) Pneumonia SNOMED Code(s): 375450146 Code(s): J18.9 - PNEUMONIA, UNSPECIFIED ORGANISM Status: Acute Priority: High Current Visit: Yes Qualifiers: Pneumonia type: due to unspecified organism Laterality: bilateral Lung location: unspecified part of lung Qualified Code(s): J18.9 - Pneumonia, unspecified organism (2) CHF (congestive heart failure), NYHA class III SNOMED Code(s): 355071231 Code(s): I50.9 - HEART FAILURE, UNSPECIFIED Status: Chronic Priority: Low Current Visit: Yes Qualifiers: Congestive heart failure type: diastolic Congestive heart failure chronicity: chronic Qualified Code(s): I50.32 - Chronic diastolic (congestive ) heart failure (3) Chronic renal insufficiency, stage III (moderate) SNOMED Code(s): 739862812 Code(s): N18.3 - CHRONIC KIDNEY DISEASE, STAGE 3 (MODERATE) Status: Chronic Priority: Low Current Visit: Yes (4) Atrial fibrillation SNOMED Code(s): 43157486 Code(s): I48.91 - UNSPECIFIED ATRIAL FIBRILLATION Status: Chronic Priority: Medium Current Visit: Yes Qualifiers: Atrial fibrillation type: chronic Qualified Code(s): I48.2 - Chronic atrial fibrillation (5) Anemia SNOMED Code(s): 133700356 Code(s): D64.9 - ANEMIA, UNSPECIFIED Status: Chronic Priority: Low Current Visit: Yes Qualifiers: Anemia type: unspecified type Qualified Code(s): D64.9 - Anemia, unspecified - Problem List Review Problem List Initiated/Reviewed/Updated: Yes - Plan Plan:: I/P: Acute Pneumonia -Community acquired -Reports weakness and chills - improved since ED -Right mid and lower lung, as well as left perihilar region on CXR -Negative influenza, negative mycoplasma, Resp viral panel and s. pneumo antigen pending -WBC 12.20-->6 today -CRP 4.8 -Lactic acid 1.9 -Blood cultures pending -Rocephin given in ED - continue and add zithromax Q24 hrs -Sputum culture -RT/IS/Acapella/Nebs; on 2L O2 chronically -1L fluids given in ED; Fluids as ordered Renal Insufficiency -BUN 19, Creatinine 1.5, eGFR 45; Old charts show baseline with creatinine around 1.1-1.3 and eGFR 53-60 -Fluids as ordered -Avoid nephrotoxic medications -Utilize fluids with caution with hx/o heart failure Chronic: A-fib - home warfarin, diltiazem- rate controlled; INR is therapeutic, monitor daily CAD Heart failure - BNP ordered, 2,000 range hx/o heart valve replacement- warfarin as above COPD Recurrent pneumonia GERD - home omeprazole BPH - home finasteride Arthritis in hands Hypothyroid - home levothyroxine -- TSH WNL. Prostate cancer Plan: CM for discharge planing assistance-- patient lives at home with his in [place]. PT/OT GI prophylax as above/DVT prophylax- warfarin with therapeutic INR. Other orders as indicated above and Home medications as ordered Routine AM labs Code Status: DNR; PCP Natacha Rosa at [facility] in [place].
[2017-09-17] MEDS: Albuterol/Ipratropium 3.0-0.5 MG/3 ML Neb Soln NEB SCH ×4 (12:14→20:26)
[2017-09-17] MEDS: Ferrous Sulfate 325 MG Tab PO SCH (14:04)
[2017-09-17] MEDS: Multivitamins with Minerals/Folic Acid/Lutein/Zeaxanth Tab PO SCH (14:04)
[2017-09-17] MEDS ORDERED: Warfarin 5 MG Tab PO SCH (18:00)
[2017-09-18] MEDS: Pantoprazole 40 MG Tab.CR PO SCH (06:15)
[2017-09-18] MEDS: Levothyroxine 25 MCG Tab PO SCH (06:15)
[2017-09-18] MEDS: Albuterol/Ipratropium 3.0-0.5 MG/3 ML Neb Soln NEB SCH ×4 (06:30→20:36)
[2017-09-18] MEDS: Potassium Chloride 10 MEQ Tab.ER PO SCH ×2 (08:45→20:53)
[2017-09-18] MEDS: guaiFENesin 600 MG Tab.ER PO SCH ×2 (08:45→20:53)
[2017-09-18] MEDS: Vitamin B Complex With Vitamin C Cap PO SCH (08:46)
[2017-09-18] MEDS: Folic Acid 1 MG Tab PO SCH (08:46)
[2017-09-18] MEDS: Torsemide 20 MG Tab PO SCH (08:46)
[2017-09-18] MEDS: Aspirin 81 MG Tab.EC PO SCH (08:46)
[2017-09-18] MEDS: Ferrous Sulfate 325 MG Tab PO SCH (08:46)
[2017-09-18] MEDS: Tamsulosin 0.4 MG Cap.ER PO SCH (08:46)
[2017-09-18] MEDS: Cholecalciferol (Vitamin D3) 1,000 Unit Tab PO SCH (08:47)
[2017-09-18] MEDS: Finasteride 5 MG Tab PO SCH (08:47)
[2017-09-18] MEDS: Multivitamins with Minerals/Folic Acid/Lutein/Zeaxanth Tab PO SCH (08:47)
[2017-09-18] MEDS: Azithromycin 500 MG in Sodium Chloride 0.9% 250 ML IV SCH (08:48)
[2017-09-18] MEDS: Metoprolol Tartrate 25 MG Tab PO SCH ×2 (08:57→21:12)
[2017-09-18] MEDS: Diltiazem 240 MG Cap.ER PO SCH (08:57)
[2017-09-18] MEDS: Docusate Sodium 100 MG Cap PO SCH (08:57)
[2017-09-18] MEDS: Sennosides 8.6 MG Tab PO SCH (08:58)
--- NOTE | 2017-09-18 09:19 | PCM.PN ---
- General Info Date of Service: 09/18/17 Functional Status: Reports: Pain Controlled, Tolerating Diet, Ambulating, Urinating, Incentive Spirometry. Denies: New Symptoms - Review of Systems General: Reports: Weakness (improving) HEENT: Reports: No Symptoms Pulmonary: Reports: Shortness of Breath (improving), Cough (improving) Cardiovascular: Reports: No Symptoms. Denies: Chest Pain Gastrointestinal: Reports: No Symptoms. Denies: Abdominal Pain, Diarrhea, Nausea, Vomiting Neurological: Reports: No Symptoms - Patient Data Vitals - Most Recent: Last Vital Signs Temp 97.2 F 09/18/17 08:00 Pulse 88 09/18/17 08:57 Resp 17 09/18/17 08:00 BP 109/57 L 09/18/17 08:57 Pulse Ox 95 09/18/17 08:00 Weight - Most Recent: 191 lb 11.2 oz I&O - Last 24 Hours: Intake & Output 09/17/17 09/18/17 09/18/17 22:59 06:59 14:59 Intake Total 2435 300 Output Total 1200 1000 Balance 1235 -700 Lab Results Last 24 Hours: Laboratory Results - last 24 hr 09/17/17 09/18/17 09/18/17 Range/Units 23:43 05:45 05:45 WBC 4.40 (4.23-9.07) K/mm3 RBC 3.17 L (4.63-6.08) M/mm3 Hgb 9.1 L (13.7-17.5) gm/L Hct 29.6 L (40.1-51.0) % MCV 93.4 H (79.0-92.2) fl MCH 28.7 (25.7-32.2) pg MCHC 30.7 L (32.2-35.5) g/dl RDW Std Deviation 52.9 H (35.1-43.9) fL Plt Count 130 L (163-337) K/mm3 MPV 11.4 (9.4-12.3) fl Neut % (Auto) 68.8 H (34.0-67.9) % Lymph % (Auto) 15.7 L (21.8-53.1) % [place] % (Auto) 11.1 (5.3-12.2) % Eos % (Auto) 3.9 (0.8-7.0) Baso % (Auto) 0.5 (0.1-1.2) % Neut # (Auto) 3.03 (1.78-5.38) K/mm3 Lymph # (Auto) 0.69 L (1.32-3.57) K/mm3 [place] # (Auto) 0.49 (0.30-0.82) K/mm3 Eos # (Auto) 0.17 (0.04-0.54) K/mm3 Baso # (Auto) 0.02 (0.01-0.08) K/mm3 Sodium 145 (136-145) mEq/L Potassium 3.6 (3.5-5.1) mEq/L Chloride 110 H (98-107) mEq/L Carbon Dioxide 27 (21-32) mEq/L Anion Gap 11.6 (5-15) BUN 16 (7-18) mg/dL Creatinine 1.2 (0.7-1.3) mg/dL Est Cr Clr Drug Dosing 53.89 mL/min Estimated GFR (MDRD) 58 (>60) mL/min BUN/Creatinine Ratio 13.3 L (14-18) Glucose 99 (83-115) mg/dL Calcium 8.4 L (8.5-10.1) mg/dL Magnesium 2.1 (1.8-2.4) mg/dl C-Reactive Protein 10.9 H* (<1.0) mg/dL C.difficile [id number] Presumptive negative C. difficile Tox (PCR) Negative [facility] Results Last 24 Hours: Microbiology 09/17/17 11:15 Respiratory Virus Panel (PCR) ([facility]) - Final Nasopharyngeal Swab Med Orders - Current: Current Medications Acetaminophen (Tylenol) 650 mg PO Q4H PRN PRN Reason: Pain (Mild 1-3)/fever Hydrocodone Bitart/Acetaminophen ([place] 325-5 Mg) 1 tab PO Q4H PRN PRN Reason: Pain (moderate 4-6) Albuterol (Proventil Neb Soln) 2.5 mg NEB Q4HRRT PRN PRN Reason: SOB/wheezing/cough Albuterol/Ipratropium (Duoneb 3.0-0.5 Mg/3 Ml) 3 ml NEB QIDRT [facility] Last Admin: 09/18/17 06:30 Dose: 3 ml Aspirin (Halfprin) 81 mg PO DAILY [facility] Last Admin: 09/18/17 08:46 Dose: 81 mg Bisacodyl (Dulcolax) 5 mg PO DAILY PRN PRN Reason: Constipation Cholecalciferol (Vitamin D3) 2,000 units PO DAILY [facility] Last Admin: 09/18/17 08:47 Dose: 2,000 units Diltiazem HCl (Dilacor Xr) 240 mg PO DAILY [facility] Last Admin: 09/18/17 08:57 Dose: Not Given Docusate Sodium (Colace) 100 mg PO BID PRN PRN Reason: Constipation Docusate Sodium (Colace) 100 mg PO DAILY [facility] Last Admin: 09/18/17 08:57 Dose: Not Given Ferrous Sulfate (Ferrous Sulfate) 325 mg PO DAILY [facility] Last Admin: 09/18/17 08:46 Dose: 325 mg Finasteride (Proscar) 5 mg PO DAILY [facility] Last Admin: 09/18/17 08:47 Dose: 5 mg Folic Acid (Folic Acid) 1 mg PO DAILY [facility] Last Admin: 09/18/17 08:46 Dose: 1 mg Guaifenesin (Mucinex) 1,200 mg PO BID [facility] Last Admin: 09/18/17 08:45 Dose: 1,200 mg Guaifenesin/Codeine Phosphate (Robitussin Ac) 5 ml PO Q4H PRN PRN Reason: Cough Hydralazine HCl (Apresoline) 10 mg IVPUSH Q6H PRN PRN Reason: Hypertension Ceftriaxone Sodium 2 gm/ (Dextrose/Water) 100 mls @ 200 mls/hr IV Q24H [facility] Last Admin: 09/17/17 14:10 Dose: 200 mls/hr Azithromycin 500 mg/ Sodium (Chloride) 250 mls @ 250 mls/hr IV Q24H [facility] Last Admin: 09/18/17 08:48 Dose: 250 mls/hr Levothyroxine Sodium (Levothyroxine) 25 mcg PO ACBREAKFAST [facility] Last Admin: 09/18/17 06:15 Dose: 25 mcg Magnesium Sulfate (Pharmacy To Dose - Magnesium Replacement) 1 dose .XX ASDIRECTED [facility] Metoprolol Tartrate (Lopressor) 5 mg IVPUSH Q4H PRN PRN Reason: Tachycardia Metoprolol Tartrate (Lopressor) 25 mg PO BID [facility] Last Admin: 09/18/17 08:57 Dose: Not Given Ondansetron HCl (Zofran Odt) 4 mg PO Q6H PRN PRN Reason: nausea, able to take PO Ondansetron HCl (Zofran) 4 mg IV Q6H PRN PRN Reason: Nausea/Vomiting Pantoprazole Sodium (Protonix) 40 mg PO DAILY@0700 [facility] Last Admin: 09/18/17 06:15 Dose: 40 mg Polyethylene Glycol (Miralax) 17 gm PO DAILY PRN PRN Reason: Constipation Potassium Chloride (Pharmacy To Dose - Potassium Replacement) 1 dose .XX ASDIRECTED [facility] Potassium Chloride (Klor-Con 10) 10 meq PO BID [facility] Last Admin: 09/18/17 08:45 Dose: 10 meq Senna (Senna) 8.6 mg PO DAILY [facility] Last Admin: 09/18/17 08:58 Dose: Not Given Senna/Docusate Sodium (Senna Plus) 1 tab PO BID PRN PRN Reason: Constipation Sodium Chloride (Saline Flush) 10 ml FLUSH ASDIRECTED PRN PRN Reason: Keep Vein Open Last Admin: 09/16/17 15:03 Dose: 10 ml Tamsulosin HCl (Flomax) 0.4 mg PO DAILY [facility] Last Admin: 09/18/17 08:46 Dose: 0.4 mg Torsemide (Demadex) 20 mg PO DAILY [facility] Last Admin: 09/18/17 08:46 Dose: 20 mg Vit A/Vit C/Vit E/Selen/Cu/Zn/Lutei (Icaps Mv) 1 tab PO DAILY [facility] Last Admin: 09/18/17 08:47 Dose: 1 tab Vitamin B Complex/Vitamin C (Super B With Vitamin C) 1 cap PO DAILY [facility] Last Admin: 09/18/17 08:46 Dose: 1 cap Warfarin Sodium (Coumadin) 2.5 mg PO TuFr@1800 [facility] Warfarin Sodium (Coumadin) 5 mg PO SuMoWeThSa@1800 [facility] Last Admin: 09/17/17 18:14 Dose: 5 mg Discontinued Medications Albuterol/Ipratropium (Duoneb 3.0-0.5 Mg/3 Ml) 3 ml NEB Q4H PRN PRN Reason: Shortness Of Breath/wheezing Albuterol/Ipratropium (Duoneb 3.0-0.5 Mg/3 Ml) 3 ml NEB QID [facility] Last Admin: 09/17/17 12:53 Dose: 3 ml Ceftriaxone Sodium 2 gm/ (Sodium Chloride) 100 mls @ 200 mls/hr IV ONETIME ONE Stop: 09/16/17 13:48 Last Admin: 09/16/17 15:03 Dose: Not Given Ceftriaxone Sodium 2 gm/ (Sodium Chloride) 100 mls @ 200 mls/hr IV ONETIME ONE Stop: 09/16/17 14:59 Last Admin: 09/16/17 15:02 Dose: 200 mls/hr Sodium Chloride (Normal Saline) 1,000 mls @ 100 mls/hr IV ASDIRECTED [facility] Last Admin: 09/16/17 15:01 Dose: 100 mls/hr Sodium Chloride (Normal Saline) 1,000 mls @ 75 mls/hr IV ASDIRECTED [facility] Last Admin: 09/17/17 14:10 Dose: 75 mls/hr Morphine Sulfate (Morphine) 0.5 mg IVPUSH Q2H PRN PRN Reason: Pain (severe 7-10) Stop: 09/17/17 19:48 - Exam Quality Assessment: Supplemental Oxygen, DVT Prophylaxis General: Alert, Oriented, Cooperative, No Acute Distress HEENT: Pupils Equal, EOMI, Mucous Membr. Moist/[place] Neck: Supple Lungs: Normal Respiratory Effort, Decreased Breath Sounds, Rhonchi Cardiovascular: Irregular Rhythm GI/Abdominal Exam: Normal Bowel Sounds, Soft, Non-Tender (Male) Exam: Deferred Extremities: Normal Capillary Refill Peripheral Pulses: 2+: Dorsalis Pedis (L), Dorsalis Pedis (R) Neurological: No New Focal Deficit Psy/Mental Status: Alert, Normal Affect, Normal Mood - Problem List & Annotations (1) Pneumonia SNOMED Code(s): 942890397 Code(s): J18.9 - PNEUMONIA, UNSPECIFIED ORGANISM Status: Acute Priority: High Current Visit: Yes Qualifiers: Pneumonia type: due to unspecified organism Laterality: bilateral Lung location: unspecified part of lung Qualified Code(s): J18.9 - Pneumonia, unspecified organism (2) CHF (congestive heart failure), NYHA class III SNOMED Code(s): 996643070 Code(s): I50.9 - HEART FAILURE, UNSPECIFIED Status: Chronic Priority: Low Current Visit: Yes Qualifiers: Congestive heart failure type: diastolic Congestive heart failure chronicity: chronic Qualified Code(s): I50.32 - Chronic diastolic (congestive ) heart failure (3) Chronic renal insufficiency, stage III (moderate) SNOMED Code(s): 307217929 Code(s): N18.3 - CHRONIC KIDNEY DISEASE, STAGE 3 (MODERATE) Status: Chronic Priority: Low Current Visit: Yes (4) Atrial fibrillation SNOMED Code(s): 62305078 Code(s): I48.91 - UNSPECIFIED ATRIAL FIBRILLATION Status: Chronic Priority: Medium Current Visit: Yes Qualifiers: Atrial fibrillation type: chronic Qualified Code(s): I48.2 - Chronic atrial fibrillation (5) Anemia SNOMED Code(s): 833600919 Code(s): D64.9 - ANEMIA, UNSPECIFIED Status: Chronic Priority: Low Current Visit: Yes Qualifiers: Anemia type: unspecified type Qualified Code(s): D64.9 - Anemia, unspecified - Problem List Review Problem List Initiated/Reviewed/Updated: Yes - My Orders Last 24 Hours: My Active Orders 09/17/17 16:00 Albuterol/Ipratropium [DuoNeb 3.0-0.5 MG/3 ML] 3 ml NEB QIDRT 09/18/17 09:15 INR,PT,PROTHROMBIN TIME [[facility]] Routine 09/19/17 05:00 INR,PT,PROTHROMBIN TIME [[facility]] DAILY 09/20/17 05:00 INR,PT,PROTHROMBIN TIME [[facility]] DAILY 09/21/17 05:00 INR,PT,PROTHROMBIN TIME [[facility]] DAILY 09/22/17 05:00 INR,PT,PROTHROMBIN TIME [[facility]] DAILY - Plan Plan:: I/P: Acute Pneumonia -Community acquired -Reports weakness and chills - improved since ED -Right mid and lower lung, as well as left perihilar region on CXR---Repeat CXR today, not yet obtained. -Negative influenza, negative mycoplasma, Resp viral panel + for coronavirus NL63, s. pneumo antigen pending -WBC 12.20-->6 -->4.4 -CRP 4.8--13.9-->10.9 -Lactic acid 1.9 -Blood cultures Negative -Rocephin given in ED - continue and add zithromax Q24 hrs -Sputum culture, not yet obtained. -RT/IS/Acapella/Nebs; on 2L O2 chronically -1L fluids given in ED; Fluids as ordered--DC IVF today as taking in good PO fluids Renal Insufficiency -BUN 19, Creatinine 1.5, eGFR 45; Old charts show baseline with creatinine around 1.1-1.3 and eGFR 53-60; today normal at 1.2 -Fluids as ordered--dc'd today -Avoid nephrotoxic medications -Utilize fluids with caution with hx/o heart failure Chronic: A-fib - home warfarin, diltiazem- rate controlled; INR is therapeutic, monitor daily CAD Heart failure - BNP ordered, 2,000 range hx/o heart valve replacement- warfarin as above COPD Recurrent pneumonia GERD - home omeprazole BPH - home finasteride Arthritis in hands Hypothyroid - home levothyroxine -- TSH WNL. Prostate cancer Plan: CM for discharge planing assistance-- patient lives at home with his in [place]. LOS likely 1-2 more days expected. PT/OT GI prophylax as above/DVT prophylax- warfarin with therapeutic INR. Other orders as indicated above and Home medications as ordered Routine AM labs Code Status: DNR; PCP Natacha Rosa at [facility] in [place].
[2017-09-18] MEDS: Potassium Chloride 20 MEQ Tab.ER PO SCH ×2 (10:04→13:21)
--- NOTE | 2017-09-18 10:39 | CR ---
Chest: Two views of the chest were obtained. Comparison: Prior chest x-ray of 09/16/17. Increased central lung markings are seen as well as mild increased parenchymal density within the left upper and right upper lung as well as within the right lower lung. These findings remain fairly stable from prior exam when allowing for slight differences in technique. Heart size is within normal limits. Sternotomy is noted. Several old healed left-sided rib fractures are incidentally noted. Impression: 1. Findings as noted above. No appreciable interval change is seen from previous study. Diagnostic code #2
[2017-09-18] MEDS ORDERED: Warfarin 7.5 MG Tab PO SCH (18:00)
[2017-09-19] MEDS: Albuterol/Ipratropium 3.0-0.5 MG/3 ML Neb Soln NEB SCH ×4 (06:27→20:50)
[2017-09-19] MEDS: Pantoprazole 40 MG Tab.CR PO SCH (06:29)
[2017-09-19] MEDS: Levothyroxine 25 MCG Tab PO SCH (06:29)
--- NOTE | 2017-09-19 06:53 | PCM.PN ---
- General Info Date of Service: 09/19/17 Admission Dx/Problem (Free Text): Admission Diagnosis/Problem Admission Diagnosis/Problem Pneumonia Dale is seen this morning, doing well. No complaints. Denies SOB, CP, wheezing , is coughing but not much. No f/c/s. Slept well overnight. Is ambulating and feels stronger. Functional Status: Reports: Pain Controlled, Tolerating Diet, Ambulating, Urinating, Incentive Spirometry. Denies: New Symptoms - Review of Systems General: Reports: No Symptoms. Denies: Fever, Weakness, Fatigue, Malaise, Chills HEENT: Reports: No Symptoms Pulmonary: Reports: No Symptoms, Shortness of Breath (chronic but at baseline or better), Cough (very minimal) Cardiovascular: Reports: No Symptoms. Denies: Chest Pain, Palpitations Gastrointestinal: Reports: No Symptoms. Denies: Diarrhea, Nausea, Vomiting Neurological: Reports: No Symptoms. Denies: Headache - Patient Data Vitals - Most Recent: Last Vital Signs Temp 98.1 F 09/19/17 04:01 Pulse 88 09/19/17 04:01 Resp 16 09/19/17 04:01 BP 109/66 09/19/17 04:01 Pulse Ox 98 09/19/17 06:32 Weight - Most Recent: 192 lb I&O - Last 24 Hours: Intake & Output 09/18/17 09/18/17 09/19/17 14:59 22:59 06:59 Intake Total 360 1590 700 Output Total 975 600 Balance 360 615 100 Lab Results Last 24 Hours: Laboratory Results - last 24 hr 09/18/17 09/18/17 09/18/17 Range/Units 05:45 05:45 05:45 WBC 4.40 (4.23-9.07) K/mm3 RBC 3.17 L (4.63-6.08) M/mm3 Hgb 9.1 L (13.7-17.5) gm/L Hct 29.6 L (40.1-51.0) % MCV 93.4 H (79.0-92.2) fl MCH 28.7 (25.7-32.2) pg MCHC 30.7 L (32.2-35.5) g/dl RDW Std Deviation 52.9 H (35.1-43.9) fL Plt Count 130 L (163-337) K/mm3 MPV 11.4 (9.4-12.3) fl Neut % (Auto) 68.8 H (34.0-67.9) % Lymph % (Auto) 15.7 L (21.8-53.1) % Mineral % (Auto) 11.1 (5.3-12.2) % Eos % (Auto) 3.9 (0.8-7.0) Baso % (Auto) 0.5 (0.1-1.2) % Neut # (Auto) 3.03 (1.78-5.38) K/mm3 Lymph # (Auto) 0.69 L (1.32-3.57) K/mm3 [place] # (Auto) 0.49 (0.30-0.82) K/mm3 Eos # (Auto) 0.17 (0.04-0.54) K/mm3 Baso # (Auto) 0.02 (0.01-0.08) K/mm3 PT 19.6 H (8.0-13.0) SECONDS INR 1.74 Sodium 145 (136-145) mEq/L Potassium 3.6 (3.5-5.1) mEq/L Chloride 110 H (98-107) mEq/L Carbon Dioxide 27 (21-32) mEq/L Anion Gap 11.6 (5-15) BUN 16 (7-18) mg/dL Creatinine 1.2 (0.7-1.3) mg/dL Est Cr Clr Drug Dosing 53.89 mL/min Estimated GFR (MDRD) 58 (>60) mL/min BUN/Creatinine Ratio 13.3 L (14-18) Glucose 99 (83-115) mg/dL Calcium 8.4 L (8.5-10.1) mg/dL Magnesium 2.1 (1.8-2.4) mg/dl C-Reactive Protein 10.9 H* (<1.0) mg/dL Med Orders - Current: Current Medications Acetaminophen (Tylenol) 650 mg PO Q4H PRN PRN Reason: Pain (Mild 1-3)/fever Hydrocodone Bitart/Acetaminophen ([place] 325-5 Mg) 1 tab PO Q4H PRN PRN Reason: Pain (moderate 4-6) Albuterol (Proventil Neb Soln) 2.5 mg NEB Q4HRRT PRN PRN Reason: SOB/wheezing/cough Albuterol/Ipratropium (Duoneb 3.0-0.5 Mg/3 Ml) 3 ml NEB QIDRT [facility] Last Admin: 09/19/17 06:27 Dose: 3 ml Aspirin (Halfprin) 81 mg PO DAILY [facility] Last Admin: 09/18/17 08:46 Dose: 81 mg Bisacodyl (Dulcolax) 5 mg PO DAILY PRN PRN Reason: Constipation Cholecalciferol (Vitamin D3) 2,000 units PO DAILY [facility] Last Admin: 09/18/17 08:47 Dose: 2,000 units Diltiazem HCl (Dilacor Xr) 240 mg PO DAILY [facility] Last Admin: 09/18/17 08:57 Dose: Not Given Docusate Sodium (Colace) 100 mg PO BID PRN PRN Reason: Constipation Docusate Sodium (Colace) 100 mg PO DAILY [facility] Last Admin: 09/18/17 08:57 Dose: Not Given Ferrous Sulfate (Ferrous Sulfate) 325 mg PO DAILY [facility] Last Admin: 09/18/17 08:46 Dose: 325 mg Finasteride (Proscar) 5 mg PO DAILY [facility] Last Admin: 09/18/17 08:47 Dose: 5 mg Folic Acid (Folic Acid) 1 mg PO DAILY [facility] Last Admin: 09/18/17 08:46 Dose: 1 mg Guaifenesin (Mucinex) 1,200 mg PO BID [facility] Last Admin: 09/18/17 20:53 Dose: 1,200 mg Guaifenesin/Codeine Phosphate (Robitussin Ac) 5 ml PO Q4H PRN PRN Reason: Cough Hydralazine HCl (Apresoline) 10 mg IVPUSH Q6H PRN PRN Reason: Hypertension Ceftriaxone Sodium 2 gm/ (Dextrose/Water) 100 mls @ 200 mls/hr IV Q24H [facility] Last Admin: 09/18/17 13:21 Dose: 200 mls/hr Azithromycin 500 mg/ Sodium (Chloride) 250 mls @ 250 mls/hr IV Q24H [facility] Last Admin: 09/18/17 08:48 Dose: 250 mls/hr Levothyroxine Sodium (Levothyroxine) 25 mcg PO ACBREAKFAST [facility] Last Admin: 09/19/17 06:29 Dose: 25 mcg Magnesium Sulfate (Pharmacy To Dose - Magnesium Replacement) 1 dose .XX ASDIRECTED [facility] Metoprolol Tartrate (Lopressor) 5 mg IVPUSH Q4H PRN PRN Reason: Tachycardia Metoprolol Tartrate (Lopressor) 25 mg PO BID [facility] Last Admin: 09/18/17 21:12 Dose: 25 mg Ondansetron HCl (Zofran Odt) 4 mg PO Q6H PRN PRN Reason: nausea, able to take PO Ondansetron HCl (Zofran) 4 mg IV Q6H PRN PRN Reason: Nausea/Vomiting Pantoprazole Sodium (Protonix) 40 mg PO DAILY@0700 [facility] Last Admin: 09/19/17 06:29 Dose: 40 mg Polyethylene Glycol (Miralax) 17 gm PO DAILY PRN PRN Reason: Constipation Potassium Chloride (Pharmacy To Dose - Potassium Replacement) 1 dose .XX ASDIRECTED [facility] Potassium Chloride (Klor-Con 10) 10 meq PO BID [facility] Last Admin: 09/18/17 20:53 Dose: 10 meq Senna (Senna) 8.6 mg PO DAILY [facility] Last Admin: 09/18/17 08:58 Dose: Not Given Senna/Docusate Sodium (Senna Plus) 1 tab PO BID PRN PRN Reason: Constipation Sodium Chloride (Saline Flush) 10 ml FLUSH ASDIRECTED PRN PRN Reason: Keep Vein Open Last Admin: 09/16/17 15:03 Dose: 10 ml Tamsulosin HCl (Flomax) 0.4 mg PO DAILY [facility] Last Admin: 09/18/17 08:46 Dose: 0.4 mg Torsemide (Demadex) 20 mg PO DAILY [facility] Last Admin: 09/18/17 08:46 Dose: 20 mg Vit A/Vit C/Vit E/Selen/Cu/Zn/Lutei (Icaps Mv) 1 tab PO DAILY [facility] Last Admin: 09/18/17 08:47 Dose: 1 tab Vitamin B Complex/Vitamin C (Super B With Vitamin C) 1 cap PO DAILY [facility] Last Admin: 09/18/17 08:46 Dose: 1 cap Warfarin Sodium (Pharmacy To Dose - Warfarin) 0 dose .XX ASDIRECTED PRN PRN Reason: RX TO DOSE COUMADIN Discontinued Medications Albuterol/Ipratropium (Duoneb 3.0-0.5 Mg/3 Ml) 3 ml NEB Q4H PRN PRN Reason: Shortness Of Breath/wheezing Albuterol/Ipratropium (Duoneb 3.0-0.5 Mg/3 Ml) 3 ml NEB QID [facility] Last Admin: 09/17/17 12:53 Dose: 3 ml Ceftriaxone Sodium 2 gm/ (Sodium Chloride) 100 mls @ 200 mls/hr IV ONETIME ONE Stop: 09/16/17 13:48 Last Admin: 09/16/17 15:03 Dose: Not Given Ceftriaxone Sodium 2 gm/ (Sodium Chloride) 100 mls @ 200 mls/hr IV ONETIME ONE Stop: 09/16/17 14:59 Last Admin: 09/16/17 15:02 Dose: 200 mls/hr Sodium Chloride (Normal Saline) 1,000 mls @ 100 mls/hr IV ASDIRECTED [facility] Last Admin: 09/16/17 15:01 Dose: 100 mls/hr Sodium Chloride (Normal Saline) 1,000 mls @ 75 mls/hr IV ASDIRECTED [facility] Last Admin: 09/17/17 14:10 Dose: 75 mls/hr Morphine Sulfate (Morphine) 0.5 mg IVPUSH Q2H PRN PRN Reason: Pain (severe 7-10) Stop: 09/17/17 19:48 Potassium Chloride (Klor-Con M20) 40 meq PO Q4H [facility] Stop: 09/18/17 14:01 Last Admin: 09/18/17 13:21 Dose: 40 meq Warfarin Sodium (Coumadin) 2.5 mg PO TuFr@1800 [facility] Warfarin Sodium (Coumadin) 5 mg PO SuMoWeThSa@1800 [facility] Last Admin: 09/17/17 18:14 Dose: 5 mg Warfarin Sodium (Coumadin) 7.5 mg PO QPM [facility] Stop: 09/18/17 21:00 Last Admin: 09/18/17 18:09 Dose: 7.5 mg - Exam Quality Assessment: DVT Prophylaxis General: Alert, Oriented, Cooperative, No Acute Distress HEENT: Pupils Equal, EOMI, Mucous Membr. Moist/[place] Neck: Supple Lungs: Normal Respiratory Effort, Decreased Breath Sounds, Wheezing Cardiovascular: Irregular Rhythm GI/Abdominal Exam: Normal Bowel Sounds, Soft, Non-Tender (Male) Exam: Deferred Extremities: Normal Inspection, No Pedal Edema, Normal Capillary Refill Peripheral Pulses: 2+: Dorsalis Pedis (L), Dorsalis Pedis (R) Neurological: No New Focal Deficit Psy/Mental Status: Alert, Normal Affect, Normal Mood - Problem List & Annotations (1) Pneumonia SNOMED Code(s): 626516381 Code(s): J18.9 - PNEUMONIA, UNSPECIFIED ORGANISM Status: Acute Priority: High Current Visit: Yes Qualifiers: Pneumonia type: due to unspecified organism Laterality: bilateral Lung location: unspecified part of lung Qualified Code(s): J18.9 - Pneumonia, unspecified organism (2) CHF (congestive heart failure), NYHA class III SNOMED Code(s): 830692109 Code(s): I50.9 - HEART FAILURE, UNSPECIFIED Status: Chronic Priority: Low Current Visit: Yes Qualifiers: Congestive heart failure type: diastolic Congestive heart failure chronicity: chronic Qualified Code(s): I50.32 - Chronic diastolic (congestive ) heart failure (3) Chronic renal insufficiency, stage III (moderate) SNOMED Code(s): 370717717 Code(s): N18.3 - CHRONIC KIDNEY DISEASE, STAGE 3 (MODERATE) Status: Chronic Priority: Low Current Visit: Yes (4) Atrial fibrillation SNOMED Code(s): 79452607 Code(s): I48.91 - UNSPECIFIED ATRIAL FIBRILLATION Status: Chronic Priority: Medium Current Visit: Yes Qualifiers: Atrial fibrillation type: chronic Qualified Code(s): I48.2 - Chronic atrial fibrillation (5) Anemia SNOMED Code(s): 145464754 Code(s): D64.9 - ANEMIA, UNSPECIFIED Status: Chronic Priority: Low Current Visit: Yes Qualifiers: Anemia type: unspecified type Qualified Code(s): D64.9 - Anemia, unspecified - Problem List Review Problem List Initiated/Reviewed/Updated: Yes - My Orders Last 24 Hours: My Active Orders 09/18/17 10:45 Warfarin Pharmacy to Dose [Pharmacy to Dose - Warfarin] 0 dose .XX ASDIRECTED PRN 09/19/17 05:00 INR,PT,PROTHROMBIN TIME [COAG] DAILY 09/20/17 05:00 INR,PT,PROTHROMBIN TIME [COAG] DAILY 09/21/17 05:00 INR,PT,PROTHROMBIN TIME [COAG] DAILY 09/22/17 05:00 INR,PT,PROTHROMBIN TIME [COAG] DAILY - Plan Plan:: I/P: Acute Pneumonia--improving -Community acquired -Reports weakness and chills - improved/resolved since ED -Right mid and lower lung, as well as left perihilar region on CXR---Repeat CXR stable findings -Negative influenza, negative mycoplasma, Resp viral panel + for coronavirus NL63, s. pneumo antigen pending -WBC 12.20-->6 -->4.4-->3.5 -CRP 4.8--13.9-->10.9 -Lactic acid 1.9 -Blood cultures Negative -Rocephin given in ED - continue and add zithromax Q24 hrs; day 3 of IV ABX -Sputum culture, not yet obtained. -RT/IS/Acapella/Nebs; on 2L O2 chronically -1L fluids given in ED; Fluids as ordered--DC IVF as taking in good PO fluids Renal Insufficiency -BUN 19, Creatinine 1.5, eGFR 45; Old charts show baseline with creatinine around 1.1-1.3 and eGFR 53-60; today normal at 1.2-->1.2 -Fluids as ordered--dc'd -Avoid nephrotoxic medications -Utilize fluids with caution with hx/o heart failure Chronic: A-fib - home warfarin, diltiazem- rate controlled; INR is therapeutic, monitor daily/pharmacy to dose warfarin CAD Heart failure - BNP ordered, 2,000 range, down to 1,100 range-- improved, no need to recheck at this time. hx/o heart valve replacement- warfarin as above COPD Recurrent pneumonia GERD - home omeprazole BPH - home finasteride Arthritis in hands Hypothyroid - home levothyroxine -- TSH WNL. Prostate cancer Plan: CM for discharge planing assistance-- patient lives at home with his in [place]. LOS likely 1-2 more days expected. PT/OT GI prophylax as above/DVT prophylax- warfarin with therapeutic INR. Other orders as indicated above and Home medications as ordered Routine AM labs Code Status: DNR; PCP Natacha Rosa at [facility] in [place].
[2017-09-19] MEDS: Azithromycin 500 MG in Sodium Chloride 0.9% 250 ML IV SCH (10:00)
[2017-09-19] MEDS: Diltiazem 240 MG Cap.ER PO SCH (10:01)
[2017-09-19] MEDS: guaiFENesin 600 MG Tab.ER PO SCH ×2 (10:01→21:08)
[2017-09-19] MEDS: Folic Acid 1 MG Tab PO SCH (10:02)
[2017-09-19] MEDS: Multivitamins with Minerals/Folic Acid/Lutein/Zeaxanth Tab PO SCH (10:02)
[2017-09-19] MEDS: Metoprolol Tartrate 25 MG Tab PO SCH ×2 (10:02→21:08)
[2017-09-19] MEDS: Torsemide 20 MG Tab PO SCH (10:02)
[2017-09-19] MEDS: Tamsulosin 0.4 MG Cap.ER PO SCH (10:02)
[2017-09-19] MEDS: Aspirin 81 MG Tab.EC PO SCH (10:02)
[2017-09-19] MEDS: Ferrous Sulfate 325 MG Tab PO SCH (10:02)
[2017-09-19] MEDS: Finasteride 5 MG Tab PO SCH (10:03)
[2017-09-19] MEDS: Vitamin B Complex With Vitamin C Cap PO SCH (10:03)
[2017-09-19] MEDS: Cholecalciferol (Vitamin D3) 1,000 Unit Tab PO SCH (10:03)
[2017-09-19] MEDS: Potassium Chloride 10 MEQ Tab.ER PO SCH ×2 (10:03→21:08)
[2017-09-19] MEDS: Docusate Sodium 100 MG Cap PO SCH (10:03)
[2017-09-19] MEDS: Sennosides 8.6 MG Tab PO SCH (10:03)
[2017-09-19] MEDS ORDERED: Warfarin 2.5 MG Tab PO SCH (18:00)
[2017-09-19] MEDS ORDERED: Warfarin 7.5 MG Tab PO SCH (18:00)
[2017-09-20] MEDS: Albuterol/Ipratropium 3.0-0.5 MG/3 ML Neb Soln NEB SCH ×2 (05:48→09:45)
[2017-09-20] MEDS: Pantoprazole 40 MG Tab.CR PO SCH (06:10)
[2017-09-20] MEDS: Levothyroxine 25 MCG Tab PO SCH (06:10)
--- NOTE | 2017-09-20 08:17 | PCM.PN ---
- General Info Date of Service: 09/20/17 Admission Dx/Problem (Free Text): Admission Diagnosis/Problem Admission Diagnosis/Problem Pneumonia Subjective Update: Follow Up Functional Status: Reports: Pain Controlled, Tolerating Diet, Ambulating, Urinating. Denies: New Symptoms - Review of Systems General: Denies: Fever, Weakness, Fatigue, Malaise, Chills HEENT: Reports: No Symptoms Pulmonary: Denies: Shortness of Breath, Cough Cardiovascular: Denies: Chest Pain Gastrointestinal: Denies: Abdominal Pain, Nausea, Vomiting Genitourinary: Reports: No Symptoms Musculoskeletal: Reports: No Symptoms Skin: Denies: Cyanosis, Mottled, Pallor, Diaphoresis Neurological: Denies: Confusion, Difficulty Walking, Weakness, Gait Disturbance Psychiatric: Denies: Depression, Anxiety, Agitation, Hallucinations Systems Review Comment:: No overnight or acute issues. He is doing relatively well. He feels pretty good. He has no complaints this morning. - Patient Data Vitals - Most Recent: Last Vital Signs Temp 36.4 C 09/20/17 07:31 Pulse 88 09/20/17 07:31 Resp 16 09/20/17 07:31 BP 116/47 L 09/20/17 07:31 Pulse Ox 95 09/20/17 07:31 Weight - Most Recent: 87.09 kg I&O - Last 24 Hours: Intake & Output 09/19/17 09/20/17 09/20/17 22:59 06:59 14:59 Intake Total 1490 Output Total 2100 Balance -610 Lab Results Last 24 Hours: Laboratory Results - last 24 hr 09/20/17 09/20/17 09/20/17 Range/Units 06:34 06:34 06:34 WBC 4.93 (4.23-9.07) K/mm3 RBC 3.73 L (4.63-6.08) M/mm3 Hgb 10.8 L (13.7-17.5) gm/L Hct 34.2 L (40.1-51.0) % MCV 91.7 (79.0-92.2) fl MCH 29.0 (25.7-32.2) pg MCHC 31.6 L (32.2-35.5) g/dl RDW Std Deviation 51.2 H (35.1-43.9) fL Plt Count 174 (163-337) K/mm3 MPV 10.5 (9.4-12.3) fl Neut % (Auto) 60.3 (34.0-67.9) % Lymph % (Auto) 20.1 L (21.8-53.1) % [place] % (Auto) 10.5 (5.3-12.2) % Eos % (Auto) 8.1 H (0.8-7.0) Baso % (Auto) 0.8 (0.1-1.2) % Neut # (Auto) 2.97 (1.78-5.38) K/mm3 Lymph # (Auto) 0.99 L (1.32-3.57) K/mm3 [place] # (Auto) 0.52 (0.30-0.82) K/mm3 Eos # (Auto) 0.40 (0.04-0.54) K/mm3 Baso # (Auto) 0.04 (0.01-0.08) K/mm3 PT 26.3 H (8.0-13.0) SECONDS INR 2.29 Sodium 143 (136-145) mEq/L Potassium 4.0 (3.5-5.1) mEq/L Chloride 106 (98-107) mEq/L Carbon Dioxide 28 (21-32) mEq/L Anion Gap 13.0 (5-15) BUN 16 (7-18) mg/dL Creatinine 1.3 (0.7-1.3) mg/dL Est Cr Clr Drug Dosing 49.74 mL/min Estimated GFR (MDRD) 53 (>60) mL/min BUN/Creatinine Ratio 12.3 L (14-18) Glucose 109 (83-115) mg/dL Calcium 9.1 (8.5-10.1) mg/dL Magnesium 2.2 (1.8-2.4) mg/dl C-Reactive Protein 4.2 H* (<1.0) mg/dL Med Orders - Current: Current Medications Acetaminophen (Tylenol) 650 mg PO Q4H PRN PRN Reason: Pain (Mild 1-3)/fever Hydrocodone Bitart/Acetaminophen ([place] 325-5 Mg) 1 tab PO Q4H PRN PRN Reason: Pain (moderate 4-6) Albuterol (Proventil Neb Soln) 2.5 mg NEB Q4HRRT PRN PRN Reason: SOB/wheezing/cough Albuterol/Ipratropium (Duoneb 3.0-0.5 Mg/3 Ml) 3 ml NEB QIDRT [facility] Last Admin: 09/20/17 05:48 Dose: 3 ml Aspirin (Halfprin) 81 mg PO DAILY [facility] Last Admin: 09/19/17 10:02 Dose: 81 mg Bisacodyl (Dulcolax) 5 mg PO DAILY PRN PRN Reason: Constipation Cholecalciferol (Vitamin D3) 2,000 units PO DAILY [facility] Last Admin: 09/19/17 10:03 Dose: 2,000 units Diltiazem HCl (Dilacor Xr) 240 mg PO DAILY [facility] Last Admin: 09/19/17 10:01 Dose: 240 mg Docusate Sodium (Colace) 100 mg PO BID PRN PRN Reason: Constipation Docusate Sodium (Colace) 100 mg PO DAILY [facility] Last Admin: 09/19/17 10:03 Dose: Not Given Ferrous Sulfate (Ferrous Sulfate) 325 mg PO DAILY [facility] Last Admin: 09/19/17 10:02 Dose: 325 mg Finasteride (Proscar) 5 mg PO DAILY [facility] Last Admin: 09/19/17 10:03 Dose: 5 mg Folic Acid (Folic Acid) 1 mg PO DAILY [facility] Last Admin: 09/19/17 10:02 Dose: 1 mg Guaifenesin (Mucinex) 1,200 mg PO BID [facility] Last Admin: 09/19/17 21:08 Dose: 1,200 mg Guaifenesin/Codeine Phosphate (Robitussin Ac) 5 ml PO Q4H PRN PRN Reason: Cough Hydralazine HCl (Apresoline) 10 mg IVPUSH Q6H PRN PRN Reason: Hypertension Ceftriaxone Sodium 2 gm/ (Dextrose/Water) 100 mls @ 200 mls/hr IV Q24H [facility] Last Admin: 09/19/17 13:12 Dose: 200 mls/hr Azithromycin 500 mg/ Sodium (Chloride) 250 mls @ 250 mls/hr IV Q24H [facility] Last Admin: 09/19/17 10:00 Dose: 250 mls/hr Levothyroxine Sodium (Levothyroxine) 25 mcg PO ACBREAKFAST [facility] Last Admin: 09/20/17 06:10 Dose: 25 mcg Magnesium Sulfate (Pharmacy To Dose - Magnesium Replacement) 1 dose .XX ASDIRECTED [facility] Metoprolol Tartrate (Lopressor) 5 mg IVPUSH Q4H PRN PRN Reason: Tachycardia Metoprolol Tartrate (Lopressor) 25 mg PO BID [facility] Last Admin: 09/19/17 21:08 Dose: 25 mg Ondansetron HCl (Zofran Odt) 4 mg PO Q6H PRN PRN Reason: nausea, able to take PO Ondansetron HCl (Zofran) 4 mg IV Q6H PRN PRN Reason: Nausea/Vomiting Pantoprazole Sodium (Protonix) 40 mg PO DAILY@0700 [facility] Last Admin: 09/20/17 06:10 Dose: 40 mg Polyethylene Glycol (Miralax) 17 gm PO DAILY PRN PRN Reason: Constipation Potassium Chloride (Pharmacy To Dose - Potassium Replacement) 1 dose .XX ASDIRECTED [facility] Potassium Chloride (Klor-Con 10) 10 meq PO BID [facility] Last Admin: 09/19/17 21:08 Dose: 10 meq Senna (Senna) 8.6 mg PO DAILY [facility] Last Admin: 09/19/17 10:03 Dose: Not Given Senna/Docusate Sodium (Senna Plus) 1 tab PO BID PRN PRN Reason: Constipation Sodium Chloride (Saline Flush) 10 ml FLUSH ASDIRECTED PRN PRN Reason: Keep Vein Open Last Admin: 09/16/17 15:03 Dose: 10 ml Tamsulosin HCl (Flomax) 0.4 mg PO DAILY [facility] Last Admin: 09/19/17 10:02 Dose: 0.4 mg Torsemide (Demadex) 20 mg PO DAILY [facility] Last Admin: 09/19/17 10:02 Dose: 20 mg Vit A/Vit C/Vit E/Selen/Cu/Zn/Lutei (Icaps Mv) 1 tab PO DAILY [facility] Last Admin: 09/19/17 10:02 Dose: 1 tab Vitamin B Complex/Vitamin C (Super B With Vitamin C) 1 cap PO DAILY [facility] Last Admin: 09/19/17 10:03 Dose: 1 cap Warfarin Sodium (Pharmacy To Dose - Warfarin) 0 dose .XX ASDIRECTED PRN PRN Reason: RX TO DOSE COUMADIN Discontinued Medications Albuterol/Ipratropium (Duoneb 3.0-0.5 Mg/3 Ml) 3 ml NEB Q4H PRN PRN Reason: Shortness Of Breath/wheezing Albuterol/Ipratropium (Duoneb 3.0-0.5 Mg/3 Ml) 3 ml NEB QID [facility] Last Admin: 09/17/17 12:53 Dose: 3 ml Ceftriaxone Sodium 2 gm/ (Sodium Chloride) 100 mls @ 200 mls/hr IV ONETIME ONE Stop: 09/16/17 13:48 Last Admin: 09/16/17 15:03 Dose: Not Given Ceftriaxone Sodium 2 gm/ (Sodium Chloride) 100 mls @ 200 mls/hr IV ONETIME ONE Stop: 09/16/17 14:59 Last Admin: 09/16/17 15:02 Dose: 200 mls/hr Sodium Chloride (Normal Saline) 1,000 mls @ 100 mls/hr IV ASDIRECTED [facility] Last Admin: 09/16/17 15:01 Dose: 100 mls/hr Sodium Chloride (Normal Saline) 1,000 mls @ 75 mls/hr IV ASDIRECTED [facility] Last Admin: 09/17/17 14:10 Dose: 75 mls/hr Morphine Sulfate (Morphine) 0.5 mg IVPUSH Q2H PRN PRN Reason: Pain (severe 7-10) Stop: 09/17/17 19:48 Potassium Chloride (Klor-Con M20) 40 meq PO Q4H [facility] Stop: 09/18/17 14:01 Last Admin: 09/18/17 13:21 Dose: 40 meq Warfarin Sodium (Coumadin) 2.5 mg PO TuFr@1800 [facility] Warfarin Sodium (Coumadin) 5 mg PO SuMoWeThSa@1800 [facility] Last Admin: 09/17/17 18:14 Dose: 5 mg Warfarin Sodium (Coumadin) 7.5 mg PO QPM [facility] Stop: 09/18/17 21:00 Last Admin: 09/18/17 18:09 Dose: 7.5 mg Warfarin Sodium (Coumadin) 7.5 mg PO QPM [facility] Stop: 09/19/17 21:00 Last Admin: 09/19/17 17:39 Dose: 7.5 mg - Exam General: Alert, Oriented, Cooperative, No Acute Distress HEENT: Pupils Equal, Pupils Reactive, EOMI, Mucous Membr. Moist/[place] Neck: Supple, Trachea Midline, No JVD Lungs: Normal Respiratory Effort, Decreased Breath Sounds Cardiovascular: Regular Rate, Regular Rhythm GI/Abdominal Exam: Normal Bowel Sounds, Soft, Non-Tender, No Organomegaly, No Distention, No Abnormal Bruit, No Mass (Male) Exam: Deferred Back Exam: Normal Inspection, Decreased Range of Motion Extremities: Normal Inspection, Normal Range of Motion, Non-Tender, No Pedal Edema, Normal Capillary Refill Peripheral Pulses: 2+: Dorsalis Pedis (L), Dorsalis Pedis (R) Skin: Warm, Dry, Intact Neurological: No New Focal Deficit Psy/Mental Status: Alert, Normal Affect, Normal Mood - Problem List Review Problem List Initiated/Reviewed/Updated: Yes - Plan Plan:: I/P: Acute: Pneumonia--Continues to improve -Community acquired -Reports weakness and chills - improved/resolved since ED -Right mid and lower lung, as well as left perihilar region on CXR---Repeat CXR stable findings -Negative influenza, negative mycoplasma, Resp viral panel + for coronavirus NL63, s. pneumo antigen pending -WBC 12.20--> 6 --> 4.4--> 4.93 (normal) -CRP 4.8--13.9--> 10.9--> 4.2 -Lactic acid 1.9 -Blood cultures Negative -Continue IV Azithromycin/Rocephin daily 4 hrs; day 5 of treatment -Sputum culture, not yet obtained -RT/IS/Acapella/Nebs; on 2L O2 chronically Renal Insufficiency/CKD -Has baseline CKD-Stage 2-3 -BUN 19, Creatinine 1.5, eGFR 45; Old charts show baseline with creatinine around 1.1-1.3 and eGFR 53-60; today normal at 1.2-->1.2 -Fluids as ordered--dc'd -Avoid nephrotoxic medications -Utilize fluids with caution with hx/o heart failure Chronic: A-fib - home warfarin, diltiazem- rate controlled; INR is therapeutic, monitor daily/pharmacy to dose warfarin CAD Heart failure - BNP ordered, 2,000 range, down to 1,100 range-- improved, no need to recheck at this time. hx/o heart valve replacement- warfarin as above COPD Recurrent pneumonia GERD - home omeprazole BPH - home finasteride Arthritis in hands Hypothyroid - home levothyroxine -- TSH WNL. Prostate cancer Plan: He is clinically stable Continue current treatment Routine AM labs Continue PT/OT Encourage to ambulate as tolerated GI prophylax as above/DVT prophylax- warfarin with therapeutic INR. Other orders as indicated above and Home medications as ordered CM for discharge planing assistance-- patient lives at home with his in [place]. Code Status: DNR; PCP Natacha Rosa at [facility] in [place]. Due to inclement weather , will d/c him instead in AM.
[2017-09-20] MEDS: Cholecalciferol (Vitamin D3) 1,000 Unit Tab PO SCH (09:47)
[2017-09-20] MEDS: Torsemide 20 MG Tab PO SCH (09:48)
[2017-09-20] MEDS: Potassium Chloride 10 MEQ Tab.ER PO SCH ×2 (09:48→20:40)
[2017-09-20] MEDS: Folic Acid 1 MG Tab PO SCH (09:48)
[2017-09-20] MEDS: Multivitamins with Minerals/Folic Acid/Lutein/Zeaxanth Tab PO SCH (09:48)
[2017-09-20] MEDS: Aspirin 81 MG Tab.EC PO SCH (09:48)
[2017-09-20] MEDS: Diltiazem 240 MG Cap.ER PO SCH (09:48)
[2017-09-20] MEDS: Finasteride 5 MG Tab PO SCH (09:49)
[2017-09-20] MEDS: Metoprolol Tartrate 25 MG Tab PO SCH ×2 (09:49→20:43)
[2017-09-20] MEDS: Ferrous Sulfate 325 MG Tab PO SCH (09:49)
[2017-09-20] MEDS: Tamsulosin 0.4 MG Cap.ER PO SCH (09:49)
[2017-09-20] MEDS: Docusate Sodium 100 MG Cap PO SCH (09:49)
[2017-09-20] MEDS: Vitamin B Complex With Vitamin C Cap PO SCH (09:49)
[2017-09-20] MEDS: Azithromycin 500 MG in Sodium Chloride 0.9% 250 ML IV SCH (09:50)
[2017-09-20] MEDS: guaiFENesin 600 MG Tab.ER PO SCH ×2 (09:50→20:36)
[2017-09-20] MEDS: Sennosides 8.6 MG Tab PO SCH (09:51)
[2017-09-20] MEDS ORDERED: Albuterol/Ipratropium 3.0-0.5 MG/3 ML Neb Soln NEB PRN (10:44)
--- NOTE | 2017-09-20 23:17 | PCM.DCSUM1 ---
Discharge Summary - Hospital Course Brief History: Dale Shaikh is an 81 yo male with past medical hx/o A-fib on Warfarin, CAD, Heart failure, Heart valve replacement, hypokalemia, GERD, BPH, Chronic renal insufficiency, urinary retention, arthritis, hypothyroidism, chronic anticoagulation, and prostate cancer who presents to ED from [place] with possible pneumonia associated with chills, decreased energy and weakness. He was admitted for medical treatment of pneumonia. - Discharge Data Discharge Date: 09/21/17 Discharge Disposition: Home, Self-Care 01 Condition: Good - Discharge Diagnosis/Problem(s) (1) Pneumonia SNOMED Code(s): 282545937 ICD Code: J18.9 - PNEUMONIA, UNSPECIFIED ORGANISM Status: Acute Priority : High Qualifiers: Pneumonia type: due to unspecified organism Laterality: bilateral Lung location: unspecified part of lung Qualified Code(s): J18.9 - Pneumonia, unspecified organism (2) Chronic renal insufficiency, stage III (moderate) SNOMED Code(s): 502895059 ICD Code: N18.3 - CHRONIC KIDNEY DISEASE, STAGE 3 (MODERATE) Status: Chronic Priority: Low - Patient Summary/Data Operative Procedure(s) Performed: None Complications: None Consults: None Labs Pending at D/C: None Recommended Follow-up Testing/Procedures: None Planned Operative Procedure(s) after DC: None Hospital Course: Patient was primarily admitted for medical treatment of pneumonia. He carried a history of COPD and heart failure. Patient was treated with presumptive bacterial pneumonia with intravenous antibiotics. His blood and urine culture were both negative. His influenza screening was also negative. However his respiratory panel came back positive for Multani virus NL63. No additional treatment was given but we continued supportive care and symptomatic control. He did however complete a total of 5 day course of antibiotic for his broncho- pulmonary pneumonia. His hospital course was uncomplicated. The rest of his chronic medical illness remained stable during this admission. Patient was clinically stable upon discharge. He was advised to continue all his home medications to include routine activities as tolerated. He was further advised to hold off on his warfarin and resume normal dose tomorrow as scheduled. And most importantly, he was advised to follow-up with his primary care in 1 week. The patient expressed understanding and in agreement with the plans as discussed above. All questions were answered. - Patient Instructions Diet: Heart Healthy Diet, Usual Diet as Tolerated, Low Sodium Activity: As Tolerated Driving: Do Not Drive Showering/Bathing: May Shower Notify Provider of: Fever, Increased Pain, Nausea and/or Vomiting Other/Special Instructions: - Please resume all home medications. - Continue routine home activities as tolerated. - Call your doctor for any questions or concerns after discharge. - Follow up with your doctor in 1 week - Discharge Plan Home Medications: Home Meds Aspirin [Ecotrin] 81 mg PO DAILY 06/06/17 [History] B2/Vit A,C & E/Lut/Zeaxanth/Mn [Icaps] 1 tab PO DAILY 06/06/17 [History] Cholecalciferol (Vitamin D3) [D3-2000] 2,000 units PO DAILY 06/06/17 [History] Diltiazem HCl [Cardizem Cd] 240 mg PO DAILY 06/06/17 [History] Docusate Sodium [Stool Softener] 100 mg PO DAILY 06/06/17 [History] Ferrous Sulfate 325 mg PO DAILY 06/06/17 [History] Finasteride 5 mg PO DAILY 06/06/17 [History] Folic Acid 1 mg PO DAILY 06/06/17 [History] Levothyroxine Sodium [Tirosint] 25 mcg PO DAILY 06/06/17 [History] Metoprolol Tartrate 25 mg PO BID 06/06/17 [History] Mirtazapine 15 mg PO BEDTIME 06/06/17 [History] Omeprazole 20 mg PO DAILY 06/06/17 [History] Potassium Chloride 10 meq PO BID 06/06/17 [History] Sennosides [Senna] 8.6 mg PO DAILY 06/06/17 [History] Tamsulosin HCl 0.4 mg PO DAILY 06/06/17 [History] Torsemide 20 mg PO DAILY 06/06/17 [History] Vitamin B Complex 1 tab PO DAILY 06/06/17 [History] Warfarin Sodium 2.5 mg PO TUFR 06/06/17 [History] Warfarin Sodium 5 mg PO SUMOWETHSA 06/06/17 [History] Patient Handouts: Community-Acquired Pneumonia, Adult, [id number] Referrals: Natacha Rosa PA-C [Primary Care Provider] - - Discharge Summary/Plan Comment DC Time >30 min.: Yes (45 mins) Discharge Summary/Plan Comment: Discharge to Home - General Info Date of Service: 09/21/17 Admission Dx/Problem (Free Text: Admission Diagnosis/Problem Admission Diagnosis/Problem Pneumonia Subjective Update: Follow Up Functional Status: Reports: Pain Controlled, Tolerating Diet, Ambulating, Urinating. Denies: New Symptoms - Review of Systems General: Denies: Fever, Weakness, Fatigue, Malaise, Chills HEENT: Reports: No Symptoms Pulmonary: Denies: Shortness of Breath, Cough, Sputum, Wheezing Cardiovascular: Denies: Chest Pain Gastrointestinal: Reports: Flatus. Denies: Abdominal Pain, Decreased Appetite, Nausea, Vomiting Genitourinary: Reports: No Symptoms Musculoskeletal: Reports: No Symptoms Skin: Denies: Cyanosis, Mottled, Pallor, Diaphoresis, Pruritis Neurological: Denies: Confusion, Headache, Seizure, Syncope, Difficulty Walking , Weakness, Gait Disturbance Psychiatric: Denies: Depression, Anxiety, Agitation, Hallucinations Systems Review Comment: No significant overnight or acute issues. He slept well last night. He feels pretty good this morning. He has no complaints. - Patient Data Vitals - Most Recent: Last Vital Signs Temp 36.6 C 09/20/17 20:10 Pulse 92 09/20/17 20:43 Resp 18 09/20/17 20:10 BP 92/67 09/20/17 20:43 Pulse Ox 97 09/20/17 20:10 Weight - Most Recent: 87.09 kg I&O - Last 24 hours: Intake & Output 09/20/17 09/20/17 09/21/17 14:59 22:59 06:59 Intake Total 360 1620 Output Total 1850 Balance 360 -230 Lab Results - Last 24 hrs: Laboratory Results - last 24 hr 09/20/17 09/20/17 09/20/17 Range/Units 06:34 06:34 06:34 WBC 4.93 (4.23-9.07) K/mm3 RBC 3.73 L (4.63-6.08) M/mm3 Hgb 10.8 L (13.7-17.5) gm/L Hct 34.2 L (40.1-51.0) % MCV 91.7 (79.0-92.2) fl MCH 29.0 (25.7-32.2) pg MCHC 31.6 L (32.2-35.5) g/dl RDW Std Deviation 51.2 H (35.1-43.9) fL Plt Count 174 (163-337) K/mm3 MPV 10.5 (9.4-12.3) fl Neut % (Auto) 60.3 (34.0-67.9) % Lymph % (Auto) 20.1 L (21.8-53.1) % Chambers % (Auto) 10.5 (5.3-12.2) % Eos % (Auto) 8.1 H (0.8-7.0) Baso % (Auto) 0.8 (0.1-1.2) % Neut # (Auto) 2.97 (1.78-5.38) K/mm3 Lymph # (Auto) 0.99 L (1.32-3.57) K/mm3 Chambers # (Auto) 0.52 (0.30-0.82) K/mm3 Eos # (Auto) 0.40 (0.04-0.54) K/mm3 Baso # (Auto) 0.04 (0.01-0.08) K/mm3 PT 26.3 H (8.0-13.0) SECONDS INR 2.29 Sodium 143 (136-145) mEq/L Potassium 4.0 (3.5-5.1) mEq/L Chloride 106 (98-107) mEq/L Carbon Dioxide 28 (21-32) mEq/L Anion Gap 13.0 (5-15) BUN 16 (7-18) mg/dL Creatinine 1.3 (0.7-1.3) mg/dL Est Cr Clr Drug Dosing 49.74 mL/min Estimated GFR (MDRD) 53 (>60) mL/min BUN/Creatinine Ratio 12.3 L (14-18) Glucose 109 (83-115) mg/dL Calcium 9.1 (8.5-10.1) mg/dL Magnesium 2.2 (1.8-2.4) mg/dl C-Reactive Protein 4.2 H* (<1.0) mg/dL Med Orders - Current: Current Medications Acetaminophen (Tylenol) 650 mg PO Q4H PRN PRN Reason: Pain (Mild 1-3)/fever Hydrocodone Bitart/Acetaminophen ([place] 325-5 Mg) 1 tab PO Q4H PRN PRN Reason: Pain (moderate 4-6) Albuterol (Proventil Neb Soln) 2.5 mg NEB Q4HRRT PRN PRN Reason: SOB/wheezing/cough Albuterol/Ipratropium (Duoneb 3.0-0.5 Mg/3 Ml) 3 ml NEB QIDRT PRN PRN Reason: sob/wheezing Aspirin (Halfprin) 81 mg PO DAILY PENDING SALE TO [facility] Last Admin: 09/20/17 09:48 Dose: 81 mg Bisacodyl (Dulcolax) 5 mg PO DAILY PRN PRN Reason: Constipation Cholecalciferol (Vitamin D3) 2,000 units PO DAILY PENDING SALE TO [facility] Last Admin: 09/20/17 09:47 Dose: 2,000 units Diltiazem HCl (Dilacor Xr) 240 mg PO DAILY PENDING SALE TO [facility] Last Admin: 09/20/17 09:48 Dose: 240 mg Docusate Sodium (Colace) 100 mg PO BID PRN PRN Reason: Constipation Docusate Sodium (Colace) 100 mg PO DAILY PENDING SALE TO [facility] Last Admin: 09/20/17 09:49 Dose: Not Given Ferrous Sulfate (Ferrous Sulfate) 325 mg PO DAILY PENDING SALE TO [facility] Last Admin: 09/20/17 09:49 Dose: 325 mg Finasteride (Proscar) 5 mg PO DAILY PENDING SALE TO [facility] Last Admin: 09/20/17 09:49 Dose: 5 mg Folic Acid (Folic Acid) 1 mg PO DAILY PENDING SALE TO [facility] Last Admin: 09/20/17 09:48 Dose: 1 mg Guaifenesin (Mucinex) 1,200 mg PO BID PENDING SALE TO [facility] Last Admin: 09/20/17 20:36 Dose: 1,200 mg Guaifenesin/Codeine Phosphate (Robitussin Ac) 5 ml PO Q4H PRN PRN Reason: Cough Hydralazine HCl (Apresoline) 10 mg IVPUSH Q6H PRN PRN Reason: Hypertension Ceftriaxone Sodium 2 gm/ (Dextrose/Water) 100 mls @ 200 mls/hr IV Q24H PENDING SALE TO [facility] Last Admin: 09/20/17 13:41 Dose: 200 mls/hr Azithromycin 500 mg/ Sodium (Chloride) 250 mls @ 250 mls/hr IV Q24H PENDING SALE TO [facility] Last Admin: 09/20/17 09:50 Dose: 250 mls/hr Levothyroxine Sodium (Levothyroxine) 25 mcg PO ACBREAKFAST PENDING SALE TO [facility] Last Admin: 09/20/17 06:10 Dose: 25 mcg Magnesium Sulfate (Pharmacy To Dose - Magnesium Replacement) 1 dose .XX ASDIRECTED PENDING SALE TO [facility] Metoprolol Tartrate (Lopressor) 5 mg IVPUSH Q4H PRN PRN Reason: Tachycardia Metoprolol Tartrate (Lopressor) 25 mg PO BID PENDING SALE TO [facility] Last Admin: 09/20/17 20:43 Dose: Not Given Ondansetron HCl (Zofran Odt) 4 mg PO Q6H PRN PRN Reason: nausea, able to take PO Ondansetron HCl (Zofran) 4 mg IV Q6H PRN PRN Reason: Nausea/Vomiting Pantoprazole Sodium (Protonix) 40 mg PO DAILY@0700 PENDING SALE TO [facility] Last Admin: 09/20/17 06:10 Dose: 40 mg Polyethylene Glycol (Miralax) 17 gm PO DAILY PRN PRN Reason: Constipation Potassium Chloride (Pharmacy To Dose - Potassium Replacement) 1 dose .XX ASDIRECTED PENDING SALE TO [facility] Potassium Chloride (Klor-Con 10) 10 meq PO BID PENDING SALE TO [facility] Last Admin: 09/20/17 20:40 Dose: 10 meq Senna (Senna) 8.6 mg PO DAILY PENDING SALE TO [facility] Last Admin: 09/20/17 09:51 Dose: Not Given Senna/Docusate Sodium (Senna Plus) 1 tab PO BID PRN PRN Reason: Constipation Sodium Chloride (Saline Flush) 10 ml FLUSH ASDIRECTED PRN PRN Reason: Keep Vein Open Last Admin: 09/16/17 15:03 Dose: 10 ml Tamsulosin HCl (Flomax) 0.4 mg PO DAILY PENDING SALE TO [facility] Last Admin: 09/20/17 09:49 Dose: 0.4 mg Torsemide (Demadex) 20 mg PO DAILY PENDING SALE TO [facility] Last Admin: 09/20/17 09:48 Dose: 20 mg Vit A/Vit C/Vit E/Selen/Cu/Zn/Lutei (Icaps Mv) 1 tab PO DAILY PENDING SALE TO [facility] Last Admin: 09/20/17 09:48 Dose: 1 tab Vitamin B Complex/Vitamin C (Super B With Vitamin C) 1 cap PO DAILY PENDING SALE TO [facility] Last Admin: 09/20/17 09:49 Dose: 1 cap Warfarin Sodium (Pharmacy To Dose - Warfarin) 0 dose .XX ASDIRECTED PRN PRN Reason: RX TO DOSE COUMADIN Discontinued Medications Albuterol/Ipratropium (Duoneb 3.0-0.5 Mg/3 Ml) 3 ml NEB Q4H PRN PRN Reason: Shortness Of Breath/wheezing Albuterol/Ipratropium (Duoneb 3.0-0.5 Mg/3 Ml) 3 ml NEB QID PENDING SALE TO [facility] Last Admin: 09/17/17 12:53 Dose: 3 ml Albuterol/Ipratropium (Duoneb 3.0-0.5 Mg/3 Ml) 3 ml NEB QIDRT PENDING SALE TO [facility] Last Admin: 09/20/17 09:45 Dose: Not Given Ceftriaxone Sodium 2 gm/ (Sodium Chloride) 100 mls @ 200 mls/hr IV ONETIME ONE Stop: 09/16/17 13:48 Last Admin: 09/16/17 15:03 Dose: Not Given Ceftriaxone Sodium 2 gm/ (Sodium Chloride) 100 mls @ 200 mls/hr IV ONETIME ONE Stop: 09/16/17 14:59 Last Admin: 09/16/17 15:02 Dose: 200 mls/hr Sodium Chloride (Normal Saline) 1,000 mls @ 100 mls/hr IV ASDIRECTED PENDING SALE TO [facility] Last Admin: 09/16/17 15:01 Dose: 100 mls/hr Sodium Chloride (Normal Saline) 1,000 mls @ 75 mls/hr IV ASDIRECTED PENDING SALE TO [facility] Last Admin: 09/17/17 14:10 Dose: 75 mls/hr Morphine Sulfate (Morphine) 0.5 mg IVPUSH Q2H PRN PRN Reason: Pain (severe 7-10) Stop: 09/17/17 19:48 Potassium Chloride (Klor-Con M20) 40 meq PO Q4H PENDING SALE TO [facility] Stop: 09/18/17 14:01 Last Admin: 09/18/17 13:21 Dose: 40 meq Warfarin Sodium (Coumadin) 2.5 mg PO TuFr@1800 PENDING SALE TO [facility] Warfarin Sodium (Coumadin) 5 mg PO SuMoWeThSa@1800 PENDING SALE TO [facility] Last Admin: 09/17/17 18:14 Dose: 5 mg Warfarin Sodium (Coumadin) 7.5 mg PO QPM PENDING SALE TO [facility] Stop: 09/18/17 21:00 Last Admin: 09/18/17 18:09 Dose: 7.5 mg Warfarin Sodium (Coumadin) 7.5 mg PO QPM PENDING SALE TO [facility] Stop: 09/19/17 21:00 Last Admin: 09/19/17 17:39 Dose: 7.5 mg Warfarin Sodium (Coumadin) 1 mg PO QPM RONA Stop: 09/20/17 18:01 Last Admin: 09/20/17 18:13 Dose: 1 mg - Exam General: Reports: Alert, Oriented, Cooperative, No Acute Distress HEENT: Reports: Pupils Equal, Pupils Reactive, EOMI, Mucous Membr. Moist/Fuig Neck: Reports: Supple, Trachea Midline, No JVD Lungs: Reports: Normal Respiratory Effort, Decreased Breath Sounds Cardiovascular: Reports: Regular Rate, Regular Rhythm GI/Abdominal Exam: Normal Bowel Sounds, Soft, Non-Tender, No Organomegaly, No Distention, No Abnormal Bruit (Male) Exam: Deferred Rectal (Males) Exam: Deferred Back Exam: Reports: Normal Inspection, Decreased Range of Motion Extremities: Normal Inspection, Normal Range of Motion, Non-Tender, No Pedal Edema, Normal Capillary Refill Skin: Reports: Warm, Intact Neurological: Reports: No New Focal Deficit Psy/Mental Status: Reports: Alert, Normal Affect, Normal Mood *Q Meaningful Use (DIS) - VTE *Q VTE Criteria *Q: - Stroke *Q Stroke Criteria *Q: - AMI *Q AMI Criteria *Q:
[2017-09-21] MEDS: Pantoprazole 40 MG Tab.CR PO SCH (06:27)
[2017-09-21] MEDS: Levothyroxine 25 MCG Tab PO SCH (06:27)
[2017-09-21] MEDS: Tamsulosin 0.4 MG Cap.ER PO SCH (08:31)
[2017-09-21] MEDS: Cholecalciferol (Vitamin D3) 1,000 Unit Tab PO SCH (08:31)
[2017-09-21] MEDS: Aspirin 81 MG Tab.EC PO SCH (08:31)
[2017-09-21] MEDS: Potassium Chloride 10 MEQ Tab.ER PO SCH (08:31)
[2017-09-21] MEDS: Finasteride 5 MG Tab PO SCH (08:31)
[2017-09-21] MEDS: Multivitamins with Minerals/Folic Acid/Lutein/Zeaxanth Tab PO SCH (08:31)
[2017-09-21] MEDS: guaiFENesin 600 MG Tab.ER PO SCH (08:31)
[2017-09-21] MEDS: Torsemide 20 MG Tab PO SCH (08:32)
[2017-09-21] MEDS: Folic Acid 1 MG Tab PO SCH (08:32)
[2017-09-21] MEDS: Metoprolol Tartrate 25 MG Tab PO SCH (08:32)
[2017-09-21] MEDS: Vitamin B Complex With Vitamin C Cap PO SCH (08:32)
[2017-09-21] MEDS: Ferrous Sulfate 325 MG Tab PO SCH (08:32)
[2017-09-21] MEDS: Sennosides 8.6 MG Tab PO SCH (08:32)
[2017-09-21] MEDS: Diltiazem 240 MG Cap.ER PO SCH (08:32)
[2017-09-21] MEDS: Docusate Sodium 100 MG Cap PO SCH (08:33)
[2017-09-21] MEDS: Azithromycin 500 MG in Sodium Chloride 0.9% 250 ML IV SCH (08:33)
[2017-09-21 08:35] VITALS: BP 129/65
== END 2017-09-21 11:35 | disposition home or self-care (01) | DRG 195 ==
LOC: JD.ED 12:39 → JD.MS 16:05 → OBSVTOIN 09-17 09:43 → JD.MS 09-17 12:01
PROVIDERS: ADMIT Internal Medicine; ATTEND Internal Medicine
DX: J18.9 Pneumonia, unspecified organism (principal); Z95.2 Presence of prosthetic heart valve; I48.2 Chronic atrial fibrillation; I25.10 Atherosclerotic heart disease of native coronary artery without angina pectoris; N18.3 Chronic kidney disease, stage 3 (moderate); I50.9 Heart failure, unspecified; J44.9 Chronic obstructive pulmonary disease, unspecified; K21.9 Gastro-esophageal reflux disease without esophagitis; N40.1 Benign prostatic hyperplasia with lower urinary tract symptoms; R33.8 Other retention of urine; M19.90 Unspecified osteoarthritis, unspecified site; E03.9 Hypothyroidism, unspecified; E87.6 Hypokalemia; Z87.891 Personal history of nicotine dependence; Z85.46 Personal history of malignant neoplasm of prostate; Z79.01 Long term (current) use of anticoagulants; Z79.899 Other long term (current) drug therapy; Z79.82 Long term (current) use of aspirin; Z88.8 Allergy status to other drugs, medicaments and biological substances; Z66 Do not resuscitate
CPT/HCPCS: 36415 ×2; 71046; 80048; 80053; 81001; 83605; 83735 ×2; 83880; 84443; 85025 ×2; 85610 ×2; 86140 ×2; 86738; 87040 ×2; 87804 ×2; 94660; 94667; 94760; 96361; 96365; 97161; 99284; J0696; J7030; J7040 ×2; J7050; 87486; 87493; 87581; 87633; 87798; 94640; 94668; 94761; 97165-GO; 97530-GO; A9270; A9270-GY; G0378; J0456; J7060

== ENCOUNTER 2017-12-02 10:29 | Emergency (ER) | payer MEDICARE, BC ==
[2017-12-02 10:41] VITALS: BP 125/52
[2017-12-02] MEDS ORDERED: Sodium Chloride 0.9% 10 ML Syringe FLUSH PRN (11:02)
--- NOTE | 2017-12-02 12:35 | CR ---
Chest: Frontal view of the chest was obtained. Comparison: Prior chest x-ray of 09/18/17. Heart size and mediastinum are normal. I do not see any definite acute parenchymal change within either lung. Chronic appearing findings are appreciated. Heart size is normal. Sternotomy and prosthetic heart valves are seen. Bony structures are osteopenic. Impression: 1. Nothing acute is definitely appreciated. Diagnostic code #2
--- NOTE | 2017-12-02 12:49 | EDM.PDOC ---
ED HPI GENERAL MEDICAL PROBLEM - General Chief Complaint: Fever Stated Complaint: [facility] Time Seen by Provider: 12/02/17 10:46 Source of Information: Reports: Patient, RN Notes Reviewed - History of Present Illness INITIAL COMMENTS - FREE TEXT/NARRATIVE: 81-year-old gentleman [facility] of fever, nausea, vomiting, concern about possible recurrent pneumonia. He has history of prior pneumonia, is apparently prone to that. Liver at this time he has just very occasional cough. States he was feeling fine yesterday. He does have some history of what must be some COPD, chronic CHF, is on oxygen chronically. At this time he does not feel more short of breath than usual. He states he had chills during the night, felt restless, had some difficulty sleeping. Morning then he did have some nausea and vomited once but no chest or abdominal discomfort. He continues to have no chest or abdominal pain at this time. The nausea is now gone. However on arrival to ED he does have low-grade fever. Treatments PRODUCTION FLOATER: Reports: IV/IO - Related Data Allergies Allergy/AdvReac Type Severity Reaction Status Date / Time loratadine [From Claritin] Allergy Rash Verified 12/02/17 10:40 rosuvastatin [From Crestor] AdvReac Body Aches Verified 12/02/17 10:40 Tucqsxq-Vem-Tmr Reductase AdvReac Body Aches Verified 12/02/17 10:40 Inhibitor Home Meds: Home Meds Aspirin [Ecotrin] 81 mg PO DAILY 06/06/17 [History] B2/Vit A,C & E/Lut/Zeaxanth/Mn [Icaps] 1 tab PO DAILY 06/06/17 [History] Cholecalciferol (Vitamin D3) [D3-2000] 2,000 units PO DAILY 06/06/17 [History] Diltiazem HCl [Cardizem Cd] 240 mg PO DAILY 06/06/17 [History] Docusate Sodium [Stool Softener] 100 mg PO DAILY 06/06/17 [History] Ferrous Sulfate 325 mg PO DAILY 06/06/17 [History] Finasteride 5 mg PO DAILY 06/06/17 [History] Folic Acid 1 mg PO DAILY 06/06/17 [History] Levothyroxine Sodium [Tirosint] 25 mcg PO DAILY 06/06/17 [History] Metoprolol Tartrate 25 mg PO BID 06/06/17 [History] Mirtazapine 15 mg PO BEDTIME 06/06/17 [History] Omeprazole 20 mg PO DAILY 06/06/17 [History] Potassium Chloride 10 meq PO BID 06/06/17 [History] Sennosides [Senna] 8.6 mg PO DAILY 06/06/17 [History] Tamsulosin HCl 0.4 mg PO DAILY 06/06/17 [History] Torsemide 20 mg PO DAILY 06/06/17 [History] Vitamin B Complex 1 tab PO DAILY 06/06/17 [History] Warfarin Sodium 2.5 mg PO TUFR 06/06/17 [History] Warfarin Sodium 5 mg PO SUMOWETHSA 06/06/17 [History] Ondansetron [Zofran ODT] 4 mg PO Q8HR PRN #7 tab.dis 12/02/17 [Rx] Past Medical History HEENT History: Reports: Cataract, Hard of Hearing, Macular Degeneration Cardiovascular History: Reports: Afib, CAD, Heart Failure, Heart Valve Replacement, Other (See Below) Other Cardiovascular History: hypokalemia Respiratory History: Reports: COPD, Pneumonia, Recurrent Gastrointestinal History: Reports: GERD Other Gastrointestinal History: lap fifi Genitourinary History: Reports: BPH, Chronic Renal Insuffiency, Retention, Urinary Other Genitourinary History: Beads in place approximately 15 years ago. Hydrocele removal . Musculoskeletal History: Reports: Arthritis Other Musculoskeletal History: Arthritis in hands. Endocrine/Metabolic History: Reports: Hypothyroidism Hematologic History: Reports: Anticoagulation Therapy Other Hematologic History: Patient takes Vitamin B and D. Unsure if diagnosed. Oncologic (Cancer) History: Reports: Prostate Dermatologic History: Reports: Benign Melanoma - Infectious Disease History Infectious Disease History: Reports: C-Difficile, Chicken Pox, Measles, MRSA, Mumps, Rheumatic Fever, Rubella - Past Surgical History HEENT Surgical History: Reports: Cataract Surgery, Tonsillectomy Cardiovascular Surgical History: Reports: Valve Replacement GI Surgical History: Reports: Appendectomy, Cholecystectomy, Colonoscopy, Hernia , Inguinal, Hernia Repair/Other Musculoskeletal Surgical History: Reports: None Oncologic Surgical History: Reports: None Dermatological Surgical History: Reports: Skin Biopsy Social & Family History - Family History HEENT: Reports: Cataract Cardiac: Reports: [place] OBGYN: Reports: Musculoskeletal: Reports: Arthritis Neurological: Reports: Dementia Endocrine/Metabolic: Reports: Diabetes, type II Other Endocrine/Metabolic Family History: Brother Oncologic: Reports: Breast, Colon, Skin, Other (See Below) Other Oncologic Family History: Malignant melanoma - Brother. Dad- cancer of thyroid and colon. Sister - Breast - Tobacco Use Smoking Status *Q: Former Smoker Years of Tobacco use: 2 Used Tobacco, but Quit: Yes Month/Year Tobacco Last Used: 30 years Second Hand Smoke Exposure: No - Caffeine Use Caffeine Use: Reports: Coffee Other Caffeine Use: 2 cups a day at most. Caffeine Use Comment: Patient states he drinks about 3 cups of coffee per day - Alcohol Use Days Per Week of Alcohol Use: 1 Number of Drinks Per Day: 0 Total Drinks Per Week: 0 - Recreational Drug Use Recreational Drug Use: No - Living Situation & Occupation Living situation: Reports: , with Spouse Occupation: Retired ED ROS GENERAL - Review of Systems Review Of Systems: See Below Constitutional: Reports: Fever, Chills HEENT: Denies: Rhinitis, Sinus Problem, Throat Pain Respiratory: Reports: Shortness of Breath, Cough (Chronically). Denies: Pleuritic Chest Pain, Sputum ( occasional) Cardiovascular: Denies: Chest Pain GI/Abdominal: Reports: Nausea, Vomiting. Denies: Abdominal Pain, Diarrhea Musculoskeletal: Reports: Neck Pain (Chronic). Denies: Shoulder Pain, Arm Pain Skin: Denies: Rash Neurological: Reports: Dizziness (Mild, chronic, not worse than usual) ED EXAM, GENERAL - Physical Exam Exam: See Below General Appearance: Alert, No Apparent Distress Eye Exam: Bilateral Eye: PERRL Throat/Mouth: Normal Inspection Head: Atraumatic. No: Facial Swelling Neck: Supple, Full Range of Motion Respiratory/Chest: No Respiratory Distress, Rhonchi (Mild diffuse). No: Wheezing Cardiovascular: Systolic Murmur GI/Abdominal: Soft, Non-Tender. No: Guarding Back Exam: No: CVA Tenderness (L), CVA Tenderness (R) Extremities: Normal Inspection, Normal Range of Motion. No: Pedal Edema, Leg Pain Neurological: Alert, Oriented, No Motor/Sensory Deficits Skin Exam: Warm, Dry, Normal Color EKG INTERPRETATION EKG Date: 12/02/17 Rhythm: A-Fib Rate (Beats/Min): 76 [place]: Normal P-Wave: Absent QRS: Normal ST-T: Normal Course - Vital Signs Last Recorded V/S: Last Vital Signs Temp 100.6 F 12/02/17 10:37 Pulse 80 12/02/17 10:37 Resp 16 12/02/17 10:37 BP 125/52 L 12/02/17 10:37 Pulse Ox 95 12/02/17 10:37 - Orders/Labs/Meds Orders: Active Orders 24 hr Category Date Time Status EKG 12 Lead [EKG Documentation Completion] [RC] STAT Care 12/02/17 11:04 Active Peripheral IV Care [RC] . DIRECTED Care 12/02/17 11:04 Active CULTURE BLOOD [BC] Stat Lab 12/02/17 12:15 Received Sodium Chloride 0.9% [Saline Flush] Med 12/02/17 11:02 Active 10 ml FLUSH ASDIRECTED PRN Peripheral IV Insertion Adult [OM.PC] Stat Oth 12/02/17 11:04 Ordered Medication Orders Sodium Chloride (Saline Flush) 10 ml FLUSH ASDIRECTED PRN PRN Reason: Keep Vein Open Last Admin: 12/02/17 11:09 Dose: 10 ml Labs: Laboratory Tests 12/02/17 12/02/17 12/02/17 Range/Units 12:15 12:15 12:15 WBC 8.43 (4.23-9.07) K/mm3 RBC 3.59 L (4.63-6.08) M/mm3 Hgb 10.7 L (13.7-17.5) gm/L Hct 33.3 L (40.1-51.0) % MCV 92.8 H (79.0-92.2) fl MCH 29.8 (25.7-32.2) pg MCHC 32.1 L (32.2-35.5) g/dl RDW Std Deviation 49.7 H (35.1-43.9) fL Plt Count 150 L (163-337) K/mm3 MPV 10.7 (9.4-12.3) fl Neut % (Auto) 86.2 H (34.0-67.9) % Lymph % (Auto) 6.0 L (21.8-53.1) % Mcke[place] % (Auto) 7.6 (5.3-12.2) % Eos % (Auto) 0 L (0.8-7.0) Baso % (Auto) 0.1 (0.1-1.2) % Neut # (Auto) 7.26 H (1.78-5.38) K/mm3 Lymph # (Auto) 0.51 L (1.32-3.57) K/mm3 [place] # (Auto) 0.64 (0.30-0.82) K/mm3 Eos # (Auto) 0.00 L (0.04-0.54) K/mm3 Baso # (Auto) 0.01 (0.01-0.08) K/mm3 Manual Slide Review Abnormal smear PT (9.5-12.1) SECONDS INR Sodium 142 (136-145) mEq/L Potassium 4.1 (3.5-5.1) mEq/L Chloride 105 (98-107) mEq/L Carbon Dioxide 29 (21-32) mEq/L Anion Gap 12.1 (5-15) BUN 17 (7-18) mg/dL Creatinine 1.4 H (0.7-1.3) mg/dL Est Cr Clr Drug Dosing 46.19 mL/min Estimated GFR (MDRD) 49 (>60) mL/min BUN/Creatinine Ratio 12.1 L (14-18) Glucose 113 (83-115) mg/dL Calcium 8.9 (8.5-10.1) mg/dL Total Bilirubin 0.6 (0.2-1.0) mg/dL AST 27 (15-37) U/L ALT 19 (16-63) U/L Alkaline Phosphatase 72 (46-116) U/L C-Reactive Protein 3.8 H* (<1.0) mg/dL NT-Pro-B Natriuret Pep (0-450) pg/mL Total Protein 6.8 (6.4-8.2) g/dl Albumin 3.4 (3.4-5.0) g/dl Globulin 3.4 gm/dL Albumin/Globulin Ratio 1.0 (1-2) 18 12/02/17 Range/Units 12:15 12:15 WBC (4.23-9.07) K/mm3 RBC (4.63-6.08) M/mm3 Hgb (13.7-17.5) gm/L Hct (40.1-51.0) % MCV (79.0-92.2) fl MCH (25.7-32.2) pg MCHC (32.2-35.5) g/dl RDW Std Deviation (35.1-43.9) fL Plt Count (163-337) K/mm3 MPV (9.4-12.3) fl Neut % (Auto) (34.0-67.9) % Lymph % (Auto) (21.8-53.1) % Mckean % (Auto) (5.3-12.2) % Eos % (Auto) (0.8-7.0) Baso % (Auto) (0.1-1.2) % Neut # (Auto) (1.78-5.38) K/mm3 Lymph # (Auto) (1.32-3.57) K/mm3 Mckean # (Auto) (0.30-0.82) K/mm3 Eos # (Auto) (0.04-0.54) K/mm3 Baso # (Auto) (0.01-0.08) K/mm3 Manual Slide Review PT 37.1 H (9.5-12.1) SECONDS INR 3.49 Sodium (136-145) mEq/L Potassium (3.5-5.1) mEq/L Chloride (98-107) mEq/L Carbon Dioxide (21-32) mEq/L Anion Gap (5-15) BUN (7-18) mg/dL Creatinine (0.7-1.3) mg/dL Est Cr Clr Drug Dosing mL/min Estimated GFR (MDRD) (>60) mL/min BUN/Creatinine Ratio (14-18) Glucose (83-115) mg/dL Calcium (8.5-10.1) mg/dL Total Bilirubin (0.2-1.0) mg/dL AST (15-37) U/L ALT (16-63) U/L Alkaline Phosphatase (46-116) U/L C-Reactive Protein (<1.0) mg/dL NT-Pro-B Natriuret Pep 1326 H (0-450) pg/mL Total Protein (6.4-8.2) g/dl Albumin (3.4-5.0) g/dl Globulin gm/dL Albumin/Globulin Ratio (1-2) Meds: Medications Generic Name Dose Route Start Last Admin Trade Name Freq PRN Reason Stop Dose Admin Sodium Chloride 10 ml 12/02/17 11:02 12/02/17 11:09 Saline Flush FLUSH 10 ml ASDIRECTED PRN Administration Keep Vein Open Discontinued Medications Generic Name Dose Route Start Last Admin Trade Name Corie PRN Reason Stop Dose Admin Ondansetron HCl 4 mg 12/02/17 14:13 12/02/17 14:17 Zofran IVPUSH 12/02/17 14:14 4 mg ONETIME ONE Administration - Re-Assessments/Exams Free Text/Narrative Re-Assessment/Exam: 12/02/17 15:45 Labs came back relatively normal, chest x-ray did not show infiltrate or any sign for pneumonia, patient has been resting quite comfortably, no further vomiting. We decided to give him a fluid challenge, he did get Zofran 4 mg IV and then we did have him eat some Jell-O or soup. He did very well with that no abdominal pain, nausea or vomiting after that. We did get him up walking he did well with that. Temp came down to normal. Wants to go home, discharge instructions as documented. Departure - Departure Time of Disposition: 15:03 Disposition: Home, Self-Care 01 Condition: Fair Clinical Impression: Viral syndrome Vomiting Qualifiers: Vomiting type: unspecified Vomiting Intractability: non-intractable Nausea presence: with nausea Qualified Code(s): R11.2 - Nausea with vomiting, unspecified - Discharge Information Prescriptions: Ondansetron [Zofran ODT] 4 mg PO Q8HR PRN #7 tab.dis PRN Reason: Nausea/Vomiting Instructions: Nausea and Vomiting, Adult, Viral Illness, Adult Referrals: Natacha Rosa PA-C [Primary Care Provider] - Forms: ED Department Discharge Additional Instructions: Clear liquids and very bland diet as tolerated tonight and tomorrow, then increase diet slowly as tolerated. Follow-up clinic as needed, return to ED as needed if symptoms worsening in any way. - My Orders Last 24 Hours: My Active Orders 12/02/17 11:02 Sodium Chloride 0.9% [Saline Flush] 10 ml FLUSH ASDIRECTED PRN 12/02/17 11:04 EKG 12 Lead [EKG Documentation Completion] [RC] STAT Peripheral IV Care [RC] . DIRECTED Peripheral IV Insertion Adult [OM.PC] Stat 12/02/17 12:15 CULTURE BLOOD [BC] Stat - Assessment/Plan Last 24 Hours: My Active Orders 12/02/17 11:02 Sodium Chloride 0.9% [Saline Flush] 10 ml FLUSH ASDIRECTED PRN 12/02/17 11:04 EKG 12 Lead [EKG Documentation Completion] [RC] STAT Peripheral IV Care [RC] . DIRECTED Peripheral IV Insertion Adult [OM.PC] Stat 12/02/17 12:15 CULTURE BLOOD [] Stat
[2017-12-02] MEDS ORDERED: Ondansetron 4 MG/2 ML SDV IVPUSH ONE (14:13)
== END 2017-12-02 15:20 | disposition home or self-care (01) ==
LOC: JD.ED 10:29
DX: B34.9 Viral infection, unspecified (principal); I50.9 Heart failure, unspecified; N18.9 Chronic kidney disease, unspecified; E03.9 Hypothyroidism, unspecified; Z88.8 Allergy status to other drugs, medicaments and biological substances; Z79.82 Long term (current) use of aspirin; Z79.899 Other long term (current) drug therapy; Z87.891 Personal history of nicotine dependence
CPT/HCPCS: 36415; 71045; 80053; 83880; 85025; 85610; 86140; 87040; 87804; 93005; 96374; 99285; J2405; J7050; 93010; 99284-25

== ENCOUNTER 2018-05-05 20:41 | Inpatient (IN) | payer MEDICARE, BC ==
[2018-05-05] MEDS ORDERED: Sodium Chloride 0.9% 10 ML Syringe FLUSH PRN (21:23)
[2018-05-05] MEDS ORDERED: Phytonadione 5 MG in Sodium Chloride 0.9% 50 ML IV ONE (22:09)
[2018-05-05] MEDS ORDERED: Diatrizoate Meglumine/Diatrizoate Sodium 37% 120 ML Bottle PO ONE (22:43)
[2018-05-05] MEDS ORDERED: Iopamidol 612 MG/ML 150 ML Bottle IVPUSH ONE (22:43)
[2018-05-05] MEDS ORDERED: Iopamidol 755 Mg/ML 100 ML Bottle IVPUSH ONE (22:57)
--- NOTE | 2018-05-05 23:12 | EDM.PDOC ---
ED HPI GENERAL MEDICAL PROBLEM - General Chief Complaint: Gastrointestinal Problem Stated Complaint: SENT BY [facility] Time Seen by Provider: 05/05/18 20:48 Source of Information: Reports: Patient, Family, Provider History Limitations: Reports: No Limitations - History of Present Illness INITIAL COMMENTS - FREE TEXT/NARRATIVE: The patient presents from [place] with a GI bleed and elevated INR. He started having diarrhea day night and then he had blood in his stools. He went to the clinic today and saw Cassie Rosa and she did some lab work and his INR was elevated at 5.54. She talked to the patient and he continued to have bloody stools. She told him to come to the hospital. He has no complaints other then the bloody stools. He is not lightheaded. He has no fever, chills, cough, chest pain, shortness of breath, abdominal pain, nausea or vomiting. He is on coumadin for a mechanical valve. He has not had any changes to his medications. Cassie Rosa was worried he may have diverticulitis. The patient does wear oxygen at home. Onset: Gradual Duration: Day(s): (3) Improves with: Reports: None Worsens with: Reports: None Associated Symptoms: Reports: No Other Symptoms - Related Data Allergies Allergy/AdvReac Type Severity Reaction Status Date / Time loratadine [From Claritin] Allergy Rash Verified 05/05/18 21:02 rosuvastatin [From Crestor] AdvReac Body Aches Verified 05/05/18 21:02 [id number]-Dbr Reductase AdvReac Body Aches Verified 05/05/18 21:02 Inhibitor Home Meds: Home Meds Aspirin [Ecotrin] 81 mg PO DAILY 06/06/17 [History] B2/Vit A,C & E/Lut/Zeaxanth/Mn [Icaps] 1 tab PO DAILY 06/06/17 [History] Cholecalciferol (Vitamin D3) [D3-2000] 2,000 units PO DAILY 06/06/17 [History] Diltiazem HCl [Cardizem Cd] 240 mg PO DAILY 06/06/17 [History] Docusate Sodium [Stool Softener] 100 mg PO DAILY 06/06/17 [History] Ferrous Sulfate 325 mg PO DAILY 06/06/17 [History] Finasteride 5 mg PO DAILY 06/06/17 [History] Folic Acid 1 mg PO DAILY 06/06/17 [History] Levothyroxine Sodium [Tirosint] 25 mcg PO DAILY 06/06/17 [History] Metoprolol Tartrate 25 mg PO BID 06/06/17 [History] Mirtazapine 15 mg PO BEDTIME 06/06/17 [History] Omeprazole 20 mg PO DAILY 06/06/17 [History] Potassium Chloride 10 meq PO BID 06/06/17 [History] Sennosides [Senna] 8.6 mg PO DAILY 06/06/17 [History] Tamsulosin HCl 0.4 mg PO DAILY 06/06/17 [History] Torsemide 20 mg PO DAILY 06/06/17 [History] Vitamin B Complex 1 tab PO DAILY 06/06/17 [History] Warfarin Sodium 2.5 mg PO ASDIRECTED 06/06/17 [History] Warfarin Sodium 5 mg PO SUMOWETHSA 06/06/17 [History] Ondansetron [Zofran ODT] 4 mg PO Q8HR PRN #7 tab.dis 12/02/17 [Rx] Past Medical History HEENT History: Reports: Cataract, Hard of Hearing, Macular Degeneration Cardiovascular History: Reports: Afib, CAD, Heart Failure, Heart Valve Replacement, Other (See Below) Other Cardiovascular History: hypokalemia Respiratory History: Reports: COPD, Pneumonia, Recurrent Gastrointestinal History: Reports: GERD Other Gastrointestinal History: lap fifi Genitourinary History: Reports: BPH, Chronic Renal Insuffiency, Retention, Urinary Other Genitourinary History: Beads in place approximately 15 years ago. Hydrocele removal . Musculoskeletal History: Reports: Arthritis Other Musculoskeletal History: Arthritis in hands. Endocrine/Metabolic History: Reports: Hypothyroidism Hematologic History: Reports: Anticoagulation Therapy Other Hematologic History: Patient takes Vitamin B and D. Unsure if diagnosed. Oncologic (Cancer) History: Reports: Prostate Dermatologic History: Reports: Benign Melanoma - Infectious Disease History Infectious Disease History: Reports: C-Difficile, Chicken Pox, Measles, MRSA, Mumps, Rheumatic Fever, Rubella - Past Surgical History HEENT Surgical History: Reports: Cataract Surgery, Tonsillectomy Cardiovascular Surgical History: Reports: Valve Replacement GI Surgical History: Reports: Appendectomy, Cholecystectomy, Colonoscopy, Hernia , Inguinal, Hernia Repair/Other Musculoskeletal Surgical History: Reports: None Oncologic Surgical History: Reports: None Dermatological Surgical History: Reports: Skin Biopsy Social & Family History - Family History HEENT: Reports: Cataract Cardiac: Reports: [place] OBGYN: Reports: Musculoskeletal: Reports: Arthritis Neurological: Reports: Dementia Endocrine/Metabolic: Reports: Diabetes, type II Other Endocrine/Metabolic Family History: Brother Oncologic: Reports: Breast, Colon, Skin, Other (See Below) Other Oncologic Family History: Malignant melanoma - Brother. Dad- cancer of thyroid and colon. Sister - Breast - Tobacco Use Smoking Status *Q: Never Smoker - Caffeine Use Caffeine Use: Reports: Coffee Other Caffeine Use: 2 cups a day at most. Caffeine Use Comment: Patient states he drinks about 3 cups of coffee per day - Recreational Drug Use Recreational Drug Use: No - Living Situation & Occupation Living situation: Reports: , with Spouse Occupation: Retired ED ROS GENERAL - Review of Systems Review Of Systems: See Below Constitutional: Reports: No Symptoms HEENT: Reports: No Symptoms Respiratory: Reports: No Symptoms Cardiovascular: Reports: No Symptoms Endocrine: Reports: No Symptoms GI/Abdominal: Reports: Bloody Stool, Diarrhea. Denies: Abdominal Pain, Nausea, Vomiting : Reports: No Symptoms, Other Musculoskeletal: Reports: No Symptoms Skin: Reports: No Symptoms Neurological: Reports: No Symptoms ED EXAM, GI/ABD - Physical Exam Exam: See Below Exam Limited By: No Limitations General Appearance: Alert, No Apparent Distress Ears: Normal External Exam Nose: Normal Inspection Head: Atraumatic, Normocephalic Neck: Normal Inspection Respiratory/Chest: No Respiratory Distress, Lungs Clear, Normal Breath Sounds Cardiovascular: Regular Rate, Rhythm, No Edema, No Murmur GI/Abdominal Exam: Soft, Non-Tender, No Organomegaly, No Mass Back Exam: Normal Inspection Extremities: Normal Inspection Neurological: Alert, Oriented, No Motor/Sensory Deficits Course - Vital Signs Last Recorded V/S: Last Vital Signs Temp 97.1 F 05/05/18 20:56 Pulse 60 05/05/18 20:56 Resp 18 05/05/18 20:56 BP 121/50 L 05/05/18 20:56 Pulse Ox 99 05/05/18 20:56 - Orders/Labs/Meds Orders: Active Orders 24 hr Category Date Time Status Cardiac Monitoring [RC] . DIRECTED Care 05/05/18 21:23 Active Fecal Occult Blood Collection [RC] ASDIRECTED Care 05/05/18 23:35 Active Oxygen Therapy [RC] PRN Care 05/05/18 21:23 Active Peripheral IV Care [RC] . DIRECTED Care 05/05/18 21:24 Active Abdomen Pelvis w Cont [CT] Stat Exams 05/05/18 21:24 Taken Sodium Chloride 0.9% [Saline Flush] Med 05/05/18 21:23 Active 10 ml FLUSH ASDIRECTED PRN Peripheral IV Insertion Adult [OM.PC] Stat Oth 05/05/18 21:23 Ordered Medication Orders Sodium Chloride (Saline Flush) 10 ml FLUSH ASDIRECTED PRN PRN Reason: Keep Vein Open Last Admin: 05/05/18 21:56 Dose: 10 ml Labs: Laboratory Tests 05/05/18 05/05/18 05/05/18 Range/Units 21:40 21:40 21:40 WBC 4.55 (4.23-9.07) K/mm3 RBC 3.31 L (4.63-6.08) M/mm3 Hgb 9.9 L (13.7-17.5) gm/L Hct 31.0 L (40.1-51.0) % MCV 93.7 H (79.0-92.2) fl MCH 29.9 (25.7-32.2) pg MCHC 31.9 L (32.2-35.5) g/dl RDW Std Deviation 50.9 H (35.1-43.9) fL Plt Count 141 L (163-337) K/mm3 MPV 10.9 (9.4-12.3) fl Neut % (Auto) 60.7 (34.0-67.9) % Lymph % (Auto) 21.3 L (21.8-53.1) % [place] % (Auto) 11.4 (5.3-12.2) % Eos % (Auto) 5.7 (0.8-7.0) Baso % (Auto) 0.9 (0.1-1.2) % Neut # (Auto) 2.76 (1.78-5.38) K/mm3 Lymph # (Auto) 0.97 L (1.32-3.57) K/mm3 [place] # (Auto) 0.52 (0.30-0.82) K/mm3 Eos # (Auto) 0.26 (0.04-0.54) K/mm3 Baso # (Auto) 0.04 (0.01-0.08) K/mm3 PT 61.9 H* (9.5-12.1) SECONDS INR 5.88 H* APTT 56 H (24-31) SECONDS Sodium 142 (136-145) mEq/L Potassium 4.1 (3.5-5.1) mEq/L Chloride 108 H (98-107) mEq/L Carbon Dioxide 30 (21-32) mEq/L Anion Gap 8.1 (5-15) BUN 20 H (7-18) mg/dL Creatinine 1.4 H (0.7-1.3) mg/dL Est Cr Clr Drug Dosing 45.42 mL/min Estimated GFR (MDRD) 49 (>60) mL/min BUN/Creatinine Ratio 14.3 (14-18) Glucose 108 (83-115) mg/dL Calcium 8.6 (8.5-10.1) mg/dL Total Bilirubin 0.2 (0.2-1.0) mg/dL AST 22 (15-37) U/L ALT 19 (16-63) U/L Alkaline Phosphatase 71 (46-116) U/L Total Protein 6.2 L (6.4-8.2) g/dl Albumin 3.0 L (3.4-5.0) g/dl Globulin 3.2 gm/dL Albumin/Globulin Ratio 0.9 L (1-2) Meds: Medications Generic Name Dose Route Start Last Admin Trade Name Freq PRN Reason Stop Dose Admin Sodium Chloride 10 ml 05/05/18 21:23 05/05/18 21:56 Saline Flush FLUSH 10 ml ASDIRECTED PRN Administration Keep Vein Open Discontinued Medications Generic Name Dose Route Start Last Admin Trade Name Freq PRN Reason Stop Dose Admin Diatrizoate Meglum/Diatrizoate Sod 90 ml 05/05/18 22:43 Gastrografin 37% PO 05/05/18 22:44 ONETIME ONE Phytonadione 5 mg/ Sodium 50.5 mls @ 100 mls/hr 05/05/18 22:09 05/05/18 22:30 Chloride IV 05/05/18 22:39 100 mls/hr NOW ONE Administration Iopamidol 120 ml 05/05/18 22:43 Isovue-300 (61%) IVPUSH 05/05/18 22:44 ONETIME ONE Iopamidol 100 ml 05/05/18 22:57 Isovue-370 (76%) IVPUSH 05/05/18 22:58 ONETIME ONE - Re-Assessments/Exams Free Text/Narrative Re-Assessment/Exam: 05/05/18 23:14 I ordered oxygen, IV saline lock, labs, vitamin K 5mg IV, and a CT of his abdomen and pelvis. His Hgb today is 9.9. Back in January it was 11.5. His platelets were a little low at 141. His INR earlier today was 5.54. Now it is 5.88. His creatinine was 4.9 and his GFR was 49. I am waiting for the CT now. 05/06/18 00:[address] shows small amount of postinflammatory change in both lung bases possibly from aspiration. Trace amount of pleural fluid on the right. Large volume urinary bladder does not look acutely distended. Small hiatal hernia. No obvious source for GI bleed. I feel he needs to be admitted. I called Dr Lynn and he agreed to the admission. 05/06/18 00:06 I also started a protonix bolus and drip. Departure - Departure Time of Disposition: 12:10 Disposition: Admitted As Inpatient 67 Condition: Good Clinical Impression: Supratherapeutic INR GI bleed Qualifiers: GI bleed type/associated pathology: unspecified gastrointestinal hemorrhage type Qualified Code(s): K92.2 - Gastrointestinal hemorrhage, unspecified Anemia Qualifiers: Anemia type: unspecified type Qualified Code(s): D64.9 - Anemia, unspecified - Discharge Information Referrals: Natacha Rosa PA-C [Primary Care Provider] - Forms: ED Department Discharge - My Orders Last 24 Hours: My Active Orders 05/05/18 21:23 Cardiac Monitoring [RC] . DIRECTED Oxygen Therapy [RC] PRN Sodium Chloride 0.9% [Saline Flush] 10 ml FLUSH ASDIRECTED PRN Peripheral IV Insertion Adult [OM.PC] Stat 05/05/18 21:24 Peripheral IV Care [RC] . DIRECTED Abdomen Pelvis w Cont [CT] Stat 05/05/18 23:35 Fecal Occult Blood Collection [RC] ASDIRECTED - Assessment/Plan Last 24 Hours: My Active Orders 05/05/18 21:23 Cardiac Monitoring [RC] . DIRECTED Oxygen Therapy [RC] PRN Sodium Chloride 0.9% [Saline Flush] 10 ml FLUSH ASDIRECTED PRN Peripheral IV Insertion Adult [OM.PC] Stat 05/05/18 21:24 Peripheral IV Care [RC] . DIRECTED Abdomen Pelvis w Cont [CT] Stat 05/05/18 23:35 Fecal Occult Blood Collection [RC] ASDIRECTED
[2018-05-06] MEDS ORDERED: Pantoprazole 40 MG Vial IVPUSH ONE (00:05)
[2018-05-06] MEDS ORDERED: Pantoprazole 80 MG in Sodium Chloride 0.9% 100 ML IV SCH (00:15)
[2018-05-06] MEDS ORDERED: LORazepam 2 MG/ML SDV IVPUSH PRN (01:19)
[2018-05-06] MEDS ORDERED: hydrALAZINE 20 MG/ML SDV IVPUSH PRN (01:19)
[2018-05-06] MEDS ORDERED: LORazepam 2 MG/ML SDV IV PRN (01:19)
[2018-05-06] MEDS ORDERED: Metoprolol Tartrate 5 MG/5 ML SDV IVPUSH PRN (01:19)
[2018-05-06] MEDS ORDERED: Ondansetron 4 MG/2 ML SDV IV PRN (01:19)
[2018-05-06] MEDS ORDERED: Promethazine 6.25 MG in Sodium Chloride 0.9% 50 ML IV PRN (01:19)
[2018-05-06] MEDS ORDERED: HYDROmorphone 0.5 MG/0.5 ML SYRINGE IVPUSH PRN (01:19)
[2018-05-06] MEDS ORDERED: Acetaminophen/HYDROcodone 325-5 MG Tab PO PRN (01:19)
[2018-05-06] MEDS ORDERED: Acetaminophen 325 MG Tab PO PRN (01:19)
[2018-05-06] MEDS ORDERED: Albuterol/Ipratropium 3.0-0.5 MG/3 ML Neb Soln NEB PRN (01:21)
[2018-05-06] MEDS ORDERED: Temazepam 7.5 MG Cap PO PRN (01:21)
[2018-05-06] MEDS ORDERED: Phytonadione ORAL 2.5mg/2.5ml Soln Simple Syrup U/D PO ONE (01:25)
[2018-05-06] MEDS ORDERED: Metoprolol Tartrate 50 MG Tab PO ONE (01:43)
[2018-05-06] MEDS ORDERED: Mirtazapine 15 MG Tab PO ONE (01:48)
[2018-05-06] MEDS: Sodium Chloride 0.9% 1,000 ML IV SCH ×2 (02:39→14:22)
--- NOTE | 2018-05-06 06:17 | PCM.HP ---
H&P History of Present Illness - General Date of Service: 05/06/18 Admit Problem/Dx: Admission Diagnosis/Problem Admission Diagnosis/Problem GI bleed not requiring more than 4 units of blood in 24 hours, ICU, or surgery Source of Information: Patient, Old Records, Provider, RN, RN Notes Reviewed History Limitations: Reports: No Limitations - History of Present Illness Initial Comments - Free Text/Narative: Dale Shaikh is a an 82 yo male who presented to our ED yesterday evening with a GI bleed and supratherapeutic INR. It is reportedly started having diarrhea Saturday night and then noticed blood in his stools. Went to the [facility] today to see aCssie Rosa and INR was found to be elevated at 5.54. He continued to have bloody stools and was sent to our ED. She denies any lightheadedness, fever, chills, cough, chest pain, shortness of breath, abdominal pain, nausea or vomiting. No other complaints aside from his bloody stools. For mechanical valve and has not had any recent changes to his medication. He chronically wears oxygen at home. In the ED temperature 97.1 Fahrenheit. Pulse 60. Respirations 18. Blood pressure 121/50. Pulse ox 99%. Labs are obtained: WBC is 4.55. Hemoglobin low at 9.9. Hematocrit low at 31.0. He is macrocytic. Bullous her lower 141, 000. Neutrophils are normal at 60.7%. PT is high at 61.9. INR is very high at 5.88. APTT is high at 56. Sodium is 142. Potassium 4.1. Chloride 108. Carbon dioxide is 30. Anion gap is 8.1. BUN is high at 20. Creatinine high at 1.4. EGFR is 49. Glucose is 108. Calcium 8.6. Total bilirubin 0.2. Liver enzymes looked good with AST at 22, ALT 19, alkaline phosphatase at 71. Albumin is low at 3.0. His given 5 mg IV vitamin K. CT scan is obtained of his abdomen and pelvis which shows small amount of postinflammatory change in both lung bases possibly from aspiration. Trace amounts of pleural fluid on the right. Large-volume urinary bladder does not look acutely distended. Small hiatal hernia. No obvious source for GI bleed. He carries a history of: A. fib, CAD, CHF, heart valve replacement, COPD, recurrent pneumonia, GERD, laparoscopic cholecystectomy, BPH, chronic renal insufficiency, urinary retention, arthritis, hypothyroidism, prostate cancer. He does have a history of C. difficile, MRSA, mumps, rheumatic fever, rubella. He was never a smoker. He is a DNR/DNI. His PCP is Cassie Rosa. He is subsequently admitted to the medical floor on telemetry. - Related Data Allergies/Adverse Reactions: Allergies Allergy/AdvReac Type Severity Reaction Status Date / Time loratadine [From Claritin] Allergy Rash Verified 05/05/18 21:02 rosuvastatin [From Crestor] AdvReac Body Aches Verified 05/05/18 21:02 Rjdzabo-[id number]-Cgr Reductase AdvReac Body Aches Verified 05/05/18 21:02 Inhibitor Home Medications: Home Meds Aspirin [Ecotrin] 81 mg PO DAILY 06/06/17 [History] B2/Vit A,C & E/Lut/Zeaxanth/Mn [Icaps] 1 tab PO DAILY 06/06/17 [History] Cholecalciferol (Vitamin D3) [D3-2000] 2,000 units PO DAILY 06/06/17 [History] Diltiazem HCl [Cardizem Cd] 240 mg PO DAILY 06/06/17 [History] Docusate Sodium [Stool Softener] 100 mg PO DAILY 06/06/17 [History] Ferrous Sulfate 325 mg PO DAILY 06/06/17 [History] Finasteride 5 mg PO DAILY 06/06/17 [History] Folic Acid 1 mg PO DAILY 06/06/17 [History] Levothyroxine Sodium [Tirosint] 25 mcg PO DAILY 06/06/17 [History] Metoprolol Tartrate 25 mg PO BID 06/06/17 [History] Mirtazapine 15 mg PO BEDTIME 06/06/17 [History] Omeprazole 20 mg PO DAILY 06/06/17 [History] Potassium Chloride 10 meq PO BID 06/06/17 [History] Sennosides [Senna] 8.6 mg PO DAILY 06/06/17 [History] Tamsulosin HCl 0.4 mg PO DAILY 06/06/17 [History] Torsemide 20 mg PO DAILY 06/06/17 [History] Vitamin B Complex 1 tab PO DAILY 06/06/17 [History] Warfarin Sodium 2.5 mg PO FR 06/06/17 [History] Warfarin Sodium 5 mg PO SUMOTUWETHSA 06/06/17 [History] Clotrimazole [Clotrimazole 1%] 1 applic TOP DAILY 05/06/18 [History] Past Medical History HEENT History: Reports: Cataract, Hard of Hearing, Macular Degeneration Cardiovascular History: Reports: Afib, CAD, Heart Failure, Heart Valve Replacement, Other (See Below) Other Cardiovascular History: hypokalemia Respiratory History: Reports: COPD, Pneumonia, Recurrent Gastrointestinal History: Reports: GERD Other Gastrointestinal History: lap fifi Genitourinary History: Reports: BPH, Chronic Renal Insuffiency, Retention, Urinary Other Genitourinary History: Beads in place approximately 15 years ago. Hydrocele removal . Musculoskeletal History: Reports: Arthritis Other Musculoskeletal History: Arthritis in hands. Endocrine/Metabolic History: Reports: Hypothyroidism Hematologic History: Reports: Anticoagulation Therapy Other Hematologic History: takes Vitamin B and D. Unsure if diagnosed. Oncologic (Cancer) History: Reports: Prostate Dermatologic History: Reports: Benign Melanoma - Infectious Disease History Infectious Disease History: Reports: C-Difficile, Chicken Pox, Measles, MRSA, Mumps, Rheumatic Fever, Rubella - Past Surgical History HEENT Surgical History: Reports: Cataract Surgery, Tonsillectomy Cardiovascular Surgical History: Reports: Valve Replacement GI Surgical History: Reports: Appendectomy, Cholecystectomy, Colonoscopy, Hernia , Inguinal, Hernia Repair/Other Musculoskeletal Surgical History: Reports: None Oncologic Surgical History: Reports: None Dermatological Surgical History: Reports: Skin Biopsy Social & Family History - Family History Family Medical History: Noncontributory HEENT: Reports: Cataract Cardiac: Reports: [place] OBGYN: Reports: Musculoskeletal: Reports: Arthritis Neurological: Reports: Dementia Endocrine/Metabolic: Reports: Diabetes, type II Other Endocrine/Metabolic Family History: Brother Oncologic: Reports: Breast, Colon, Skin, Other (See Below) Other Oncologic Family History: Malignant melanoma - Brother. Dad- cancer of thyroid and colon. Sister - Breast - Tobacco Use Smoking Status *Q: Former Smoker Used Tobacco, but Quit: Yes Month/Year Tobacco Last Used: 1984 - Caffeine Use Caffeine Use: Reports: Coffee Other Caffeine Use: 2 cups a day at most. Caffeine Use Comment: Patient states he drinks about 3 cups of coffee per day - Recreational Drug Use Recreational Drug Use: No - Living Situation & Occupation Living situation: Reports: , with Spouse Occupation: Retired H&P Review of Systems - Review of Systems: Review Of Systems: See Below General: Reports: No Symptoms. Denies: Fever, Chills, Malaise, Weakness, Fatigue, Diaphoresis HEENT: Reports: No Symptoms. Denies: Sore Throat Pulmonary: Reports: No Symptoms. Denies: Shortness of Breath, Wheezing, Cough, Sputum Cardiovascular: Reports: No Symptoms. Denies: Chest Pain, Palpitations, Dyspnea on Exertion, Edema, Lightheadedness Gastrointestinal: Reports: Diarrhea, Hematochezia. Denies: Abdominal Pain, Black Stool, Constipation, Decreased Appetite, Difficulty Swallowing, Melena, Nausea, Vomiting Genitourinary: Reports: No Symptoms Musculoskeletal: Reports: No Symptoms Skin: Reports: No Symptoms. Denies: Cyanosis Psychiatric: Reports: No Symptoms. Denies: Confusion Neurological: Reports: No Symptoms Hematologic/Lymphatic: Reports: No Symptoms. Denies: Anemia, Easy Bleeding Immunologic: Reports: No Symptoms Exam - Exam Exam: See Below - Vital Signs Vital Signs: Last Vital Signs Temp 97.5 F 05/06/18 01:01 Pulse 71 05/06/18 04:33 Resp 16 05/06/18 04:33 BP 123/77 05/06/18 04:33 Pulse Ox 98 05/06/18 04:33 Weight: 188 lb 4.8 oz - Exam Quality Assessment: Supplemental Oxygen (2L), DVT Prophylaxis General: Alert, Oriented, Cooperative. No: Mild Distress HEENT: Conjunctiva Clear, EACs Clear, EOMI, Hearing Intact, Mucosa Moist & [place] , Nares Patent, Normal Nasal Septum, Posterior Pharynx Clear, PERRLA Neck: Supple, Trachea Midline Lungs: Clear to Auscultation, Normal Respiratory Effort Cardiovascular: Regular Rate, Regular Rhythm GI/Abdominal Exam: Normal Bowel Sounds, Soft, Non-Tender, No Distention, No Abnormal Bruit (Male) Exam: Deferred Rectal (Males) Exam: Deferred Back Exam: Normal Inspection Extremities: Normal Inspection, Normal Range of Motion, Non-Tender, No Pedal Edema, Normal Capillary Refill Peripheral Pulses: 2+: Radial (L), Radial (R), Dorsalis Pedis (L), Dorsalis Pedis (R) Skin: Warm, Dry, Intact Neurological: Cranial Nerves Intact (Grossly ) Neuro Extensive - Mental Status: Alert, Oriented x3, Normal Mood/Affect, Normal Cognition - Patient Data Lab Results Last 24 hrs: Laboratory Results - last 24 hr 05/05/18 05/05/18 05/05/18 Range/Units 21:40 21:40 21:40 WBC 4.55 (4.23-9.07) K/mm3 RBC 3.31 L (4.63-6.08) M/mm3 Hgb 9.9 L (13.7-17.5) gm/L Hct 31.0 L (40.1-51.0) % MCV 93.7 H (79.0-92.2) fl MCH 29.9 (25.7-32.2) pg MCHC 31.9 L (32.2-35.5) g/dl RDW Std Deviation 50.9 H (35.1-43.9) fL Plt Count 141 L (163-337) K/mm3 MPV 10.9 (9.4-12.3) fl Neut % (Auto) 60.7 (34.0-67.9) % Lymph % (Auto) 21.3 L (21.8-53.1) % [place] % (Auto) 11.4 (5.3-12.2) % Eos % (Auto) 5.7 (0.8-7.0) Baso % (Auto) 0.9 (0.1-1.2) % Neut # (Auto) 2.76 (1.78-5.38) K/mm3 Lymph # (Auto) 0.97 L (1.32-3.57) K/mm3 [place] # (Auto) 0.52 (0.30-0.82) K/mm3 Eos # (Auto) 0.26 (0.04-0.54) K/mm3 Baso # (Auto) 0.04 (0.01-0.08) K/mm3 PT 61.9 H* (9.5-12.1) SECONDS INR 5.88 H* APTT 56 H (24-31) SECONDS Sodium 142 (136-145) mEq/L Potassium 4.1 (3.5-5.1) mEq/L Chloride 108 H (98-107) mEq/L Carbon Dioxide 30 (21-32) mEq/L Anion Gap 8.1 (5-15) BUN 20 H (7-18) mg/dL Creatinine 1.4 H (0.7-1.3) mg/dL Est Cr Clr Drug Dosing 45.42 mL/min Estimated GFR (MDRD) 49 (>60) mL/min BUN/Creatinine Ratio 14.3 (14-18) Glucose 108 (83-115) mg/dL Calcium 8.6 (8.5-10.1) mg/dL Total Bilirubin 0.2 (0.2-1.0) mg/dL AST 22 (15-37) U/L ALT 19 (16-63) U/L Alkaline Phosphatase 71 (46-116) U/L Total Protein 6.2 L (6.4-8.2) g/dl Albumin 3.0 L (3.4-5.0) g/dl Globulin 3.2 gm/dL Albumin/Globulin Ratio 0.9 L (1-2) Result Diagrams: 05/06/18 05:55 05/06/18 05:55 - Problem List (1) GI bleed SNOMED Code(s): 75707385 ICD Code: K92.2 - GASTROINTESTINAL HEMORRHAGE, UNSPECIFIED Status: Acute Priority: High Current Visit: Yes Qualifiers: GI bleed type/associated pathology: unspecified gastrointestinal hemorrhage type Qualified Code(s): K92.2 - Gastrointestinal hemorrhage, unspecified (2) Supratherapeutic INR SNOMED Code(s): 352623773 ICD Code: R79.1 - ABNORMAL COAGULATION PROFILE Status: Acute Priority: High Current Visit: Yes (3) Anemia SNOMED Code(s): 925138252 ICD Code: D64.9 - ANEMIA, UNSPECIFIED Status: Acute Priority: High Current Visit: Yes Qualifiers: Anemia type: unspecified type Qualified Code(s): D64.9 - Anemia, unspecified (4) Arthritis SNOMED Code(s): 0103342 ICD Code: M19.90 - UNSPECIFIED OSTEOARTHRITIS, UNSPECIFIED SITE Status: Chronic Priority: Low Current Visit: No (5) Atrial fibrillation SNOMED Code(s): 98742175 ICD Code: I48.91 - UNSPECIFIED ATRIAL FIBRILLATION Status: Chronic Priority: Medium Current Visit: No Qualifiers: Atrial fibrillation type: chronic Qualified Code(s): I48.2 - Chronic atrial fibrillation (6) BPH (benign prostatic hyperplasia) SNOMED Code(s): 164713391 ICD Code: N40.0 - BENIGN PROSTATIC HYPERPLASIA WITHOUT LOWER URINRY TRACT SYMP Status: Chronic Priority: Low Current Visit: No Qualifiers: Lower urinary tract symptom presence: unspecified whether lower urinary tract symptoms present Qualified Code(s): N40.0 - Benign prostatic hyperplasia without lower urinary tract symptoms (7) CHF (congestive heart failure), NYHA class III SNOMED Code(s): 715156322, 854218523 ICD Code: I50.9 - HEART FAILURE, UNSPECIFIED Status: Chronic Priority: Low Current Visit: No Qualifiers: Congestive heart failure type: diastolic Congestive heart failure chronicity: chronic Qualified Code(s): I50.32 - Chronic diastolic (congestive ) heart failure (8) Chronic renal insufficiency, stage III (moderate) SNOMED Code(s): 667380468 ICD Code: N18.3 - CHRONIC KIDNEY DISEASE, STAGE 3 (MODERATE) Status: Chronic Priority: Low Current Visit: No (9) GERD (gastroesophageal reflux disease) SNOMED Code(s): 010020698 ICD Code: K21.9 - GASTRO-ESOPHAGEAL REFLUX DISEASE WITHOUT ESOPHAGITIS Status: Chronic Priority: Low Current Visit: No Qualifiers: Esophagitis presence: esophagitis presence not specified Qualified Code(s) : K21.9 - Gastro-esophageal reflux disease without esophagitis (10) H/O prostate cancer SNOMED Code(s): 179530384 ICD Code: Z85.46 - PERSONAL HISTORY OF MALIGNANT NEOPLASM OF PROSTATE Status: Chronic Priority: Low Current Visit: No (11) Hypothyroidism SNOMED Code(s): 80273075 ICD Code: E03.9 - HYPOTHYROIDISM, UNSPECIFIED Status: Chronic Priority: Low Current Visit: No Qualifiers: Hypothyroidism type: unspecified Qualified Code(s): E03.9 - Hypothyroidism , unspecified (12) Urinary retention SNOMED Code(s): 927644479 ICD Code: R33.9 - RETENTION OF URINE, UNSPECIFIED Status: Chronic Priority: Low Current Visit: No Problem List Initiated/Reviewed/Updated: Yes Orders Last 24hrs: Active Orders 24 hr Category Date Time Status Patient Status [ADT] Routine ADT 05/06/18 00:30 Active Cardiac Monitoring [RC] CONTINUOUS Care 05/06/18 01:20 Active Fecal Occult Blood Collection [RC] ASDIRECTED Care 05/05/18 23:35 Active Height and Weight [RC] 0400 Care 05/06/18 01:19 Active Intake and Output [RC] 04,16 Care 05/06/18 01:20 Active Notify Provider Consults [RC] ASDIRECTED Care 05/06/18 01:27 Active Oxygen Therapy [RC] PRN Care 05/06/18 01:21 Active RT Aerosol Therapy [RC] ASDIRECTED Care 05/06/18 01:22 Active RT BiPAP/CPAP [RC] ASDIRECTED Care 05/06/18 05:00 Active Up With Assistance [RC] ASDIRECTED Care 05/06/18 01:19 Active Up ad Korin [RC] ASDIRECTED Care 05/06/18 01:19 Active VTE/DVT Education [RC] PER UNIT ROUTINE Care 05/06/18 01:21 Active Vital Signs [RC] Q4HR Care 05/06/18 01:19 Active Consult to Case Management/Instructional Developer [CONS] Cons 05/06/18 01:21 Active Routine Consult to Physician [CONS] Routine Cons 05/06/18 01:26 Active Consult to Spiritual Care [CONS] Routine Cons 05/06/18 01:21 Active Nothing per Oral Now Diet [DIET] Diet 05/06/18 Breakfast Active Abdomen Pelvis w Cont [CT] Stat Exams 05/05/18 21:24 Taken BASIC METABOLIC PANEL,BMP [CHEM] AM Lab 05/06/18 05:11 Ordered BASIC METABOLIC PANEL,BMP [CHEM] AM Lab 05/07/18 05:11 Ordered BASIC METABOLIC PANEL,BMP [CHEM] AM Lab 05/08/18 05:11 Ordered BASIC METABOLIC PANEL,BMP [CHEM] AM Lab 05/09/18 05:11 Ordered CBC W/O DIFF,HEMOGRAM [HEME] AM Lab 05/06/18 05:11 Ordered CBC W/O DIFF,HEMOGRAM [HEME] AM Lab 05/07/18 05:11 Ordered CBC W/O DIFF,HEMOGRAM [HEME] AM Lab 05/08/18 05:11 Ordered CBC W/O DIFF,HEMOGRAM [HEME] AM Lab 05/09/18 05:11 Ordered INR,PT,PROTHROMBIN TIME [COAG] AM Lab 05/06/18 05:11 Ordered INR,PT,PROTHROMBIN TIME [COAG] AM Lab 05/07/18 05:11 Ordered INR,PT,PROTHROMBIN TIME [COAG] AM Lab 05/08/18 05:11 Ordered INR,PT,PROTHROMBIN TIME [COAG] AM Lab 05/09/18 05:11 Ordered MAGNESIUM [CHEM] AM Lab 05/06/18 05:11 Ordered MAGNESIUM [CHEM] AM Lab 05/07/18 05:11 Ordered MAGNESIUM [CHEM] AM Lab 05/08/18 05:11 Ordered MAGNESIUM [CHEM] AM Lab 05/09/18 05:11 Ordered Acetaminophen [Tylenol] Med 05/06/18 01:19 Active 650 mg PO Q4H PRN Acetaminophen/HYDROcodone [[place] 325-5 MG] Med 05/06/18 01:19 Active 1 tab PO Q4H PRN Albuterol/Ipratropium [DuoNeb 3.0-0.5 MG/3 ML] Med 05/06/18 01:21 Active 3 ml NEB Q4H PRN Diltiazem [Cardizem CD] Med 05/06/18 09:00 Active 240 mg PO DAILY Finasteride [Proscar] Med 05/06/18 09:00 Active 5 mg PO DAILY HYDROmorphone [Dilaudid] Med 05/06/18 01:19 Active 0.25 mg IVPUSH Q2H PRN LORazepam [Ativan] Med 05/06/18 01:19 Active 1 mg IV Q6H PRN LORazepam [Ativan] Med 05/06/18 01:19 Active 2 mg IVPUSH Q4H PRN Magnesium Rep Pharmacy to Dose [Pharmacy to Dose - Med 05/06/18 01:30 Pending Magnesium Replacement] 1 dose .XX ASDIRECTED Metoprolol Tartrate [Lopressor] Med 05/06/18 09:00 Active 25 mg PO BID Metoprolol Tartrate [Lopressor] Med 05/06/18 01:19 Active 5 mg IVPUSH Q4H PRN Mirtazapine [Remeron] Med 05/06/18 21:00 Active 15 mg PO BEDTIME Ondansetron [Zofran] Med 05/06/18 01:19 Active 4 mg IV Q6H PRN Pantoprazole [ProTONIX IV] Med 05/06/18 10:00 Active 40 mg IV Q12HR Pantoprazole [ProTONIX IV] 80 mg Med 05/06/18 00:15 Active Sodium Chloride 0.9% [Normal Saline] 100 ml IV Q10H Potassium Rep Pharmacy to Dose [Pharmacy to Dose - Med 05/06/18 01:30 Pending Potassium Replacement] 1 dose .XX ASDIRECTED Promethazine [Phenergan] 6.25 mg Med 05/06/18 01:19 Active Sodium Chloride 0.9% [Normal Saline] 50 ml IV Q6H Sodium Chloride 0.9% [Normal Saline] 1,000 ml Med 05/06/18 02:30 Active IV ASDIRECTED Sodium Chloride 0.9% [Saline Flush] Med 05/05/18 21:23 Active 10 ml FLUSH ASDIRECTED PRN Temazepam [Restoril] Med 05/06/18 01:21 Active 7.5 mg PO BEDTIME PRN hydrALAZINE [Apresoline] Med 05/06/18 01:19 Active 20 mg IVPUSH Q4H PRN Peripheral IV Insertion Adult [OM.PC] Stat Oth 05/05/18 21:23 Ordered Sequential Compression Device [OM.PC] Per Unit Routine Oth 05/06/18 01:20 Ordered Resuscitation Status Routine Resus Stat 05/06/18 01:19 Ordered Medication Orders Acetaminophen (Tylenol) 650 mg PO Q4H PRN PRN Reason: Pain (Mild 1-3)/fever Hydrocodone Bitart/Acetaminophen ([place] 325-5 Mg) 1 tab PO Q4H PRN PRN Reason: Pain (moderate 4-6) Albuterol/Ipratropium (Duoneb 3.0-0.5 Mg/3 Ml) 3 ml NEB Q4H PRN PRN Reason: Shortness Of Breath/wheezing Diltiazem HCl (Cardizem Cd) 240 mg PO DAILY RONA Finasteride (Proscar) 5 mg PO DAILY RONA Hydralazine HCl (Apresoline) 20 mg IVPUSH Q4H PRN PRN Reason: Hypertension Hydromorphone HCl (Dilaudid) 0.25 mg IVPUSH Q2H PRN PRN Reason: Pain (severe 7-10) Pantoprazole Sodium 80 mg/ (Sodium Chloride) 100 mls @ 10 mls/hr IV Q10H RONA Last Admin: 05/06/18 00:40 Dose: 10 mls/hr Promethazine HCl 6.25 mg/ (Sodium Chloride) 50.25 mls @ 100 mls/hr IV Q6H PRN PRN Reason: Nausea/Vomiting Sodium Chloride (Normal Saline) 1,000 mls @ 75 mls/hr IV ASDIRECTED RONA Last Admin: 05/06/18 02:39 Dose: 75 mls/hr Lorazepam (Ativan) 2 mg IVPUSH Q4H PRN PRN Reason: Seizures Lorazepam (Ativan) 1 mg IV Q6H PRN PRN Reason: Anxiety Magnesium Sulfate (Pharmacy To Dose - Magnesium Replacement) 1 dose .XX ASDIRECTED [facility] Metoprolol Tartrate (Lopressor) 5 mg IVPUSH Q4H PRN PRN Reason: Tachycardia Metoprolol Tartrate (Lopressor) 25 mg PO BID RONA Mirtazapine (Remeron) 15 mg PO BEDTIME RONA Ondansetron HCl (Zofran) 4 mg IV Q6H PRN PRN Reason: Nausea/Vomiting Pantoprazole Sodium (Protonix Iv) 40 mg IV Q12HR [facility] Potassium Chloride (Pharmacy To Dose - Potassium Replacement) 1 dose .XX ASDIRECTED [facility] Sodium Chloride (Saline Flush) 10 ml FLUSH ASDIRECTED PRN PRN Reason: Keep Vein Open Last Admin: 05/05/18 21:56 Dose: 10 ml Temazepam (Restoril) 7.5 mg PO BEDTIME PRN PRN Reason: Sleep Assessment/Plan Comment:: I/P: Acute: GI Bleed -Reports bright red blood in stools since 05/02/18 -Reports history of hemorrhoids but no bleeding like this in past -Denies weakness, dizziness while standing, SOB -Risk factor: On warfarin for valve replacement - INR 5.54 on arrival -Admitted for slow GI bleed on 06/06/18-06/11/18 -Last colonoscopy here on 06/10/[address] Grace -No mass, polyps, ulcerations or internal hemorrhoids -One diverticulum noted -Excellent prep -No source of bleed found -CT scan in ED: 1. No obvious source of GI bleed 2. postinflammatory change in lung bases possibly from aspiration 3. Trace amount of pleural fluid on right 4. Large volume urinary bladder does not look acutely distended 5. Small hiatal hernia -Hgb stable: 9.9-->9.9 -NPO-->Clear liquid diet -Protonix drip started in ed --> switch to IVP -Dr. Bauer (general surgery) consulted -Discussed case with him -Clear liquid diet -Stop warfarin -Denies need for colonoscopy due to recent colonoscopy as above with no findings -Will continue to monitor -Repeat HH this evening -IV fluids as ordered -Continue home iron supplementation Supratheraputic INR -PT 61.9, INR 5.88, APTT 56 in ED -Given 5mg Vitamin K IV drip in ED -Oral 5mg vitamin K given on floor -INR now 2.08 -Continue to hold warfarin Chronic: Atrial Fib rate controlled on coumadin HTN CAD Valvular Heart Disease s/p valve replacement Recurrent PNA Prostate Cancer CHF with Unknown EF CKD Stage 3 GERD Hypothyroidism JOE on CPAP COPD Hx/o GABRIELA Hypoxia on 2L NC BPH/Urinary Retention Insomnia Hx/o C-diff, MRSA Plan: Admit to medical floor on telemetry Additional orders as above Routine AM labs Home meds as ordered PT/OT DVT Prophylaxis: SCDs Spiritual care consult GI Prophylaxis: Protonix Code status: DNR/DNI; PCP: Natacha Rosa PA-C
[2018-05-06] MEDS ORDERED: HYDROmorphone 0.5 MG/0.5 ML Syringe IVPUSH PRN (07:15)
[2018-05-06] MEDS: Pantoprazole 40 MG Vial IV SCH ×2 (11:10→21:00)
--- NOTE | 2018-05-06 11:43 | CT ---
CT abdomen and pelvis Technique: Multiple axial sections were obtained from above the dome of the diaphragm inferiorly through the pubic symphysis. Intravenous and oral contrast was utilized. Delayed images were obtained through the abdomen and pelvis. Comparison: No prior CT abdomen or pelvis exam is available. Findings: Small right-sided pleural effusion is seen. Parenchymal densities are seen within both lung bases most likely representing fibrosis/scarring and atelectasis. Moderately large hiatal hernia is seen with gastroesophageal reflux of contrast. Heart is enlarged. Liver shows a small low density lesion within the right lobe measuring about 4 mm in size. This is too small to measure by Hounsfield unit measurements but most likely represents a cyst as no other abnormality is appreciated within the liver. Surgical clips seen from prior cholecystectomy. Spleen appears within normal limits. Pancreas is within normal limits. Adrenal glands show no nodule. Kidneys show symmetric contrast enhancement without hydronephrosis or mass. 3.9 cm cyst is noted within the left kidney. Delayed images show contrast excretion into nondilated ureters. Contrast seen within the bladder on delayed images. Aorta shows atherosclerotic change without aneurysm. Atherosclerotic change continues into the iliac vessels. Fat-containing anterior abdominal wall hernia seen within the upper abdomen. No retroperitoneal adenopathy or mesenteric abnormalities are seen. Fatty lesion seen within the anterior right lower pelvic wall believed to be incidental. Radiation implant seeds are noted within the prostate gland. No free fluid or inflammatory change is identified. Appendix not visualized with certainty. Bladder is slightly dilated and urine filled. Bone window settings show scattered degenerative change within the spine and mild scoliosis. Impression: 1. Large amount of urine within the bladder raising the possibility of bladder outlet obstruction. 2. Small right-sided pleural effusion with bibasilar fibrosis/scarring and atelectasis. 3. Hiatal hernia with gastroesophageal reflux of contrast. 4. Other incidental findings as noted above. Diagnostic code #3 I agree with preliminary report from [facility], finalized on , 12:55 AM Central Time
[2018-05-06] MEDS: Finasteride 5 MG Tab PO SCH (12:17)
[2018-05-06] MEDS: Metoprolol Tartrate 25 MG Tab PO SCH ×2 (12:17→21:00)
[2018-05-06] MEDS: Diltiazem 120 MG Cap.CD PO SCH (12:17)
[2018-05-06] MEDS ORDERED: Sodium Chloride 0.9% 1,000 ML IV ONE (18:27)
[2018-05-06] MEDS: Potassium Chloride 10 MEQ Tab.ER PO SCH (20:58)
[2018-05-06] MEDS: Mirtazapine 15 MG Tab PO SCH (20:58)
[2018-05-06] MEDS ORDERED: Metoprolol Tartrate 25 MG Tab PO ONE (21:00)
[2018-05-07] MEDS: Sodium Chloride 0.9% 1,000 ML IV SCH (04:09)
[2018-05-07] MEDS: Levothyroxine 25 MCG Tab PO SCH (06:31)
[2018-05-07] MEDS: Ferrous Sulfate 325 MG Tab PO SCH (09:08)
[2018-05-07] MEDS: Tamsulosin 0.4 MG Cap.ER PO SCH (09:08)
[2018-05-07] MEDS: Potassium Chloride 10 MEQ Tab.ER PO SCH ×2 (09:08→21:23)
[2018-05-07] MEDS: Metoprolol Tartrate 25 MG Tab PO SCH ×2 (09:09→21:23)
[2018-05-07] MEDS: Finasteride 5 MG Tab PO SCH (09:10)
[2018-05-07] MEDS: Folic Acid 1 MG Tab PO SCH (09:11)
[2018-05-07] MEDS: Diltiazem 120 MG Cap.CD PO SCH (09:12)
[2018-05-07] MEDS: Pantoprazole 40 MG Vial IV SCH (09:12)
[2018-05-07] MEDS: Clotrimazole 1% Crm 30 GM Tube TOP SCH (09:13)
--- NOTE | 2018-05-07 09:44 | PCM.PN ---
- General Info Date of Service: 05/07/18 Admission Dx/Problem (Free Text): Admission Diagnosis/Problem Admission Diagnosis/Problem GI bleed not requiring more than 4 units of blood in 24 hours, ICU, or surgery Subjective Update: In to see Dale. We discussed his risk for stroke with stopping his warfarin. Will start low dose ASA. He reports he feels good and is not sick. His Hgb dropped from 9.9 to 9.1 although he has been receiving IV fluids. Will stop fluids. He reports his stool is more formed now. Nursing reports stool is more green than bloody, which is an improvement over before. Will advance from clear liquids to full liquids. Functional Status: Reports: Pain Controlled, Tolerating Diet, Ambulating, Urinating. Denies: New Symptoms - Review of Systems General: Reports: No Symptoms. Denies: Fever, Weakness, Fatigue, Malaise HEENT: Reports: No Symptoms. Denies: Sore Throat Pulmonary: Reports: No Symptoms. Denies: Shortness of Breath, Cough, Sputum, Wheezing Cardiovascular: Reports: No Symptoms. Denies: Chest Pain, Palpitations, Dyspnea on Exertion, Edema Gastrointestinal: Reports: Diarrhea (improved ). Denies: Abdominal Pain, Constipation, Hematochezia, Melena, Nausea, Vomiting Genitourinary: Reports: No Symptoms Musculoskeletal: Reports: No Symptoms Skin: Reports: No Symptoms Neurological: Reports: No Symptoms. Denies: Confusion Psychiatric: Reports: No Symptoms - Patient Data Vitals - Most Recent: Last Vital Signs Temp 97.5 F 05/07/18 08:03 Pulse 56 L 05/07/18 09:12 Resp 12 05/07/18 08:03 BP 112/78 05/07/18 09:12 Pulse Ox 98 05/07/18 08:03 Weight - Most Recent: 192 lb 8 oz I&O - Last 24 Hours: Intake & Output 05/06/18 05/07/18 05/07/18 22:59 06:59 14:59 Intake Total 1880 979 Output Total 700 Balance 1880 279 Lab Results Last 24 Hours: Laboratory Results - last 24 hr 05/06/18 05/07/18 05/07/18 Range/Units 20:30 06:15 06:15 WBC 3.38 L (4.23-9.07) K/mm3 RBC 3.09 L (4.63-6.08) M/mm3 Hgb 9.5 L 9.1 L (13.7-17.5) gm/L Hct 30.4 L 29.4 L (40.1-51.0) % MCV 95.1 H (79.0-92.2) fl MCH 29.4 (25.7-32.2) pg MCHC 31.0 L (32.2-35.5) g/dl RDW Std Deviation 50.7 H (35.1-43.9) fL Plt Count 125 L (163-337) K/mm3 MPV 11.1 (9.4-12.3) fl PT (9.5-12.1) SECONDS INR Sodium 141 (136-145) mEq/L Potassium 4.1 (3.5-5.1) mEq/L Chloride 111 H (98-107) mEq/L Carbon Dioxide 27 (21-32) mEq/L Anion Gap 7.1 (5-15) BUN 10 (7-18) mg/dL Creatinine 1.1 (0.7-1.3) mg/dL Est Cr Clr Drug Dosing 57.81 mL/min Estimated GFR (MDRD) > 60 (>60) mL/min BUN/Creatinine Ratio 9.1 L (14-18) Glucose 90 (83-115) mg/dL Calcium 8.3 L (8.5-10.1) mg/dL Magnesium 2.0 (1.8-2.4) mg/dl 05/07/18 Range/Units 06:15 WBC (4.23-9.07) K/mm3 RBC (4.63-6.08) M/mm3 Hgb (13.7-17.5) gm/L Hct (40.1-51.0) % MCV (79.0-92.2) fl MCH (25.7-32.2) pg MCHC (32.2-35.5) g/dl RDW Std Deviation (35.1-43.9) fL Plt Count (163-337) K/mm3 MPV (9.4-12.3) fl PT 13.6 H (9.5-12.1) SECONDS INR 1.25 Sodium (136-145) mEq/L Potassium (3.5-5.1) mEq/L Chloride (98-107) mEq/L Carbon Dioxide (21-32) mEq/L Anion Gap (5-15) BUN (7-18) mg/dL Creatinine (0.7-1.3) mg/dL Est Cr Clr Drug Dosing mL/min Estimated GFR (MDRD) (>60) mL/min BUN/Creatinine Ratio (14-18) Glucose (83-115) mg/dL Calcium (8.5-10.1) mg/dL Magnesium (1.8-2.4) mg/dl Med Orders - Current: Current Medications Acetaminophen (Tylenol) 650 mg PO Q4H PRN PRN Reason: Pain (Mild 1-3)/fever Hydrocodone Bitart/Acetaminophen ([place] 325-5 Mg) 1 tab PO Q4H PRN PRN Reason: Pain (moderate 4-6) Albuterol/Ipratropium (Duoneb 3.0-0.5 Mg/3 Ml) 3 ml NEB Q4H PRN PRN Reason: Shortness Of Breath/wheezing Clotrimazole (Lotrimin Af 1% Crm) 0 gm TOP DAILY [facility] Last Admin: 05/07/18 09:13 Dose: 1 applic Diltiazem HCl (Cardizem Cd) 240 mg PO DAILY [facility] Last Admin: 05/07/18 09:12 Dose: 240 mg Ferrous Sulfate (Ferrous Sulfate) 325 mg PO DAILY [facility] Last Admin: 05/07/18 09:08 Dose: 325 mg Finasteride (Proscar) 5 mg PO DAILY [facility] Last Admin: 05/07/18 09:10 Dose: 5 mg Folic Acid (Folic Acid) 1 mg PO DAILY [facility] Last Admin: 05/07/18 09:11 Dose: 1 mg Hydralazine HCl (Apresoline) 20 mg IVPUSH Q4H PRN PRN Reason: Hypertension Hydromorphone HCl (Dilaudid) 0.25 mg IVPUSH Q2H PRN PRN Reason: Pain (severe 7-10) Promethazine HCl 6.25 mg/ (Sodium Chloride) 50.25 mls @ 100 mls/hr IV Q6H PRN PRN Reason: Nausea/Vomiting Sodium Chloride (Normal Saline) 1,000 mls @ 75 mls/hr IV ASDIRECTED [facility] Last Admin: 05/07/18 04:09 Dose: 75 mls/hr Levothyroxine Sodium (Levothyroxine) 25 mcg PO ACBREAKFAST [facility] Last Admin: 05/07/18 06:31 Dose: 25 mcg Lorazepam (Ativan) 2 mg IVPUSH Q4H PRN PRN Reason: Seizures Lorazepam (Ativan) 1 mg IV Q6H PRN PRN Reason: Anxiety Magnesium Sulfate (Pharmacy To Dose - Magnesium Replacement) 0 dose .XX ASDIRECTED PRN PRN Reason: RX TO WATCH MAG LEVELS Metoprolol Tartrate (Lopressor) 5 mg IVPUSH Q4H PRN PRN Reason: Tachycardia Metoprolol Tartrate (Lopressor) 25 mg PO BID [facility] Last Admin: 05/07/18 09:09 Dose: 25 mg Mirtazapine (Remeron) 15 mg PO BEDTIME [facility] Last Admin: 05/06/18 20:58 Dose: 15 mg Ondansetron HCl (Zofran) 4 mg IV Q6H PRN PRN Reason: Nausea/Vomiting Pantoprazole Sodium (Protonix Iv) 40 mg IV Q12HR [facility] Last Admin: 05/07/18 09:12 Dose: 40 mg Potassium Chloride (Pharmacy To Dose - Potassium Replacement) 0 dose .XX ASDIRECTED PRN PRN Reason: RX TO WATCH K LEVELS Potassium Chloride (Klor-Con 10) 10 meq PO BID [facility] Last Admin: 05/07/18 09:08 Dose: 10 meq Sodium Chloride (Saline Flush) 10 ml FLUSH ASDIRECTED PRN PRN Reason: Keep Vein Open Last Admin: 05/05/18 21:56 Dose: 10 ml Tamsulosin HCl (Flomax) 0.4 mg PO DAILY [facility] Last Admin: 05/07/18 09:08 Dose: 0.4 mg Temazepam (Restoril) 7.5 mg PO BEDTIME PRN PRN Reason: Sleep Discontinued Medications Diatrizoate Meglum/Diatrizoate Sod (Gastrografin 37%) 90 ml PO ONETIME ONE Stop: 05/05/18 22:44 Last Admin: 05/05/18 23:00 Dose: 90 ml Hydromorphone HCl (Dilaudid) 0.25 mg IVPUSH Q2H PRN PRN Reason: Pain (severe 7-10) Phytonadione 5 mg/ Sodium (Chloride) 50.5 mls @ 100 mls/hr IV NOW ONE Stop: 05/05/18 22:39 Last Admin: 05/05/18 22:30 Dose: 100 mls/hr Pantoprazole Sodium 80 mg/ (Sodium Chloride) 100 mls @ 10 mls/hr IV Q10H [facility] Last Admin: 05/06/18 00:40 Dose: 10 mls/hr Sodium Chloride (Normal Saline) 1,000 mls @ 999 mls/hr IV ONETIME ONE Stop: 05/06/18 19:27 Last Admin: 05/06/18 18:35 Dose: 999 mls/hr Iopamidol (Isovue-300 (61%)) 120 ml IVPUSH ONETIME ONE Stop: 05/05/18 22:44 Last Admin: 05/06/18 01:48 Dose: Not Given Iopamidol (Isovue-370 (76%)) 100 ml IVPUSH ONETIME ONE Stop: 05/05/18 22:58 Last Admin: 05/05/18 23:00 Dose: 100 ml Metoprolol Tartrate (Lopressor) 25 mg PO ONETIME ONE Stop: 05/06/18 01:44 Last Admin: 05/06/18 02:04 Dose: 25 mg Metoprolol Tartrate (Lopressor) 12.5 mg PO ONETIME ONE Stop: 05/06/18 21:01 Last Admin: 05/06/18 20:58 Dose: 12.5 mg Mirtazapine (Remeron) 15 mg PO ONETIME ONE Stop: 05/06/18 01:49 Last Admin: 05/06/18 02:05 Dose: 15 mg Pantoprazole Sodium (Protonix Iv) 80 mg IVPUSH .BOLUS ONE Stop: 05/06/18 00:06 Last Admin: 05/06/18 00:35 Dose: 80 mg Phytonadione (Aquamephyton) 5 mg PO ONETIME ONE Stop: 05/06/18 01:26 Last Admin: 05/06/18 02:01 Dose: 5 mg - Exam Quality Assessment: DVT Prophylaxis General: Alert, Oriented, Cooperative, No Acute Distress HEENT: Pupils Equal, Pupils Reactive, EOMI, Mucous Membr. Moist/[place] Neck: Supple, Trachea Midline Lungs: Clear to Auscultation, Normal Respiratory Effort Cardiovascular: Regular Rate, Irregular Rhythm GI/Abdominal Exam: Normal Bowel Sounds, Soft, Non-Tender, No Distention, No Abnormal Bruit (Male) Exam: Deferred Back Exam: Normal Inspection, Full Range of Motion Extremities: Normal Inspection, Normal Range of Motion, Non-Tender, No Pedal Edema, Normal Capillary Refill Peripheral Pulses: 2+: Radial (L), Radial (R), Dorsalis Pedis (L), Dorsalis Pedis (R) Skin: Warm, Dry, Intact Neurological: No New Focal Deficit Psy/Mental Status: Alert, Normal Affect, Normal Mood - Problem List & Annotations (1) GI bleed SNOMED Code(s): 41694424 Code(s): K92.2 - GASTROINTESTINAL HEMORRHAGE, UNSPECIFIED Status: Acute Priority: High Current Visit: Yes Qualifiers: GI bleed type/associated pathology: unspecified gastrointestinal hemorrhage type Qualified Code(s): K92.2 - Gastrointestinal hemorrhage, unspecified (2) Supratherapeutic INR SNOMED Code(s): 394029260 Code(s): R79.1 - ABNORMAL COAGULATION PROFILE Status: Acute Priority: High Current Visit: Yes (3) Anemia SNOMED Code(s): 395666473 Code(s): D64.9 - ANEMIA, UNSPECIFIED Status: Acute Priority: High Current Visit: Yes Qualifiers: Anemia type: unspecified type Qualified Code(s): D64.9 - Anemia, unspecified (4) Arthritis SNOMED Code(s): 7922462 Code(s): M19.90 - UNSPECIFIED OSTEOARTHRITIS, UNSPECIFIED SITE Status: Chronic Priority: Low Current Visit: No (5) Atrial fibrillation SNOMED Code(s): 92401667 Code(s): I48.91 - UNSPECIFIED ATRIAL FIBRILLATION Status: Chronic Priority: Medium Current Visit: No Qualifiers: Atrial fibrillation type: chronic Qualified Code(s): I48.2 - Chronic atrial fibrillation (6) BPH (benign prostatic hyperplasia) SNOMED Code(s): 707374199 Code(s): N40.0 - BENIGN PROSTATIC HYPERPLASIA WITHOUT LOWER URINRY TRACT SYMP Status: Chronic Priority: Low Current Visit: No Qualifiers: Lower urinary tract symptom presence: unspecified whether lower urinary tract symptoms present Qualified Code(s): N40.0 - Benign prostatic hyperplasia without lower urinary tract symptoms (7) CHF (congestive heart failure), NYHA class III SNOMED Code(s): 875369768, 368394274 Code(s): I50.9 - HEART FAILURE, UNSPECIFIED Status: Chronic Priority: Low Current Visit: No Qualifiers: Congestive heart failure type: diastolic Congestive heart failure chronicity: chronic Qualified Code(s): I50.32 - Chronic diastolic (congestive ) heart failure (8) Chronic renal insufficiency, stage III (moderate) SNOMED Code(s): 435160638 Code(s): N18.3 - CHRONIC KIDNEY DISEASE, STAGE 3 (MODERATE) Status: Chronic Priority: Low Current Visit: No (9) GERD (gastroesophageal reflux disease) SNOMED Code(s): 029818447 Code(s): K21.9 - GASTRO-ESOPHAGEAL REFLUX DISEASE WITHOUT ESOPHAGITIS Status: Chronic Priority: Low Current Visit: No Qualifiers: Esophagitis presence: esophagitis presence not specified Qualified Code(s) : K21.9 - Gastro-esophageal reflux disease without esophagitis (10) H/O prostate cancer SNOMED Code(s): 019805245 Code(s): Z85.46 - PERSONAL HISTORY OF MALIGNANT NEOPLASM OF PROSTATE Status : Chronic Priority: Low Current Visit: No (11) Hypothyroidism SNOMED Code(s): 36435698 Code(s): E03.9 - HYPOTHYROIDISM, UNSPECIFIED Status: Chronic Priority: Low Current Visit: No Qualifiers: Hypothyroidism type: unspecified Qualified Code(s): E03.9 - Hypothyroidism , unspecified (12) Urinary retention SNOMED Code(s): 153100175 Code(s): R33.9 - RETENTION OF URINE, UNSPECIFIED Status: Chronic Priority : Low Current Visit: No - Problem List Review Problem List Initiated/Reviewed/Updated: Yes - My Orders Last 24 Hours: My Active Orders 05/06/18 11:11 Consult to Occupational Therapy [OT Evaluation and Treatment] [CONS] Routine PT Evaluation and Treatment [CONS] Routine 05/06/18 11:12 Consult to Physician [CONS] Routine 05/06/18 11:13 Notify Provider Consults [RC] ASDIRECTED 05/06/18 11:20 Resuscitation Status Routine 05/06/18 21:00 Potassium Chloride [Klor-Con 10] 10 meq PO BID 05/06/18 Dinner Clear Liquid Diet [DIET] 05/07/18 06:00 Levothyroxine 25 mcg PO ACBREAKFAST 05/07/18 09:00 Clotrimazole [Lotrimin AF 1% Crm] 0 gm TOP DAILY Ferrous Sulfate 325 mg PO DAILY Folic Acid 1 mg PO DAILY Tamsulosin [Flomax] 0.4 mg PO DAILY - Plan Plan:: I/P: Acute: GI Bleed -Reports bright red blood in stools since 05/02/18 -Reports history of hemorrhoids but no bleeding like this in past -Denies weakness, dizziness while standing, SOB -Risk factor: On warfarin for valve replacement - INR 5.54 on arrival -Admitted for slow GI bleed on 06/06/18-06/11/18 -Last colonoscopy here on 06/10/[address] Grace -No mass, polyps, ulcerations or internal hemorrhoids -One diverticulum noted -Excellent prep -No source of bleed found -CT scan in ED: 1. No obvious source of GI bleed 2. postinflammatory change in lung bases possibly from aspiration 3. Trace amount of pleural fluid on right 4. Large volume urinary bladder does not look acutely distended 5. Small hiatal hernia -Hgb stable: 9.9-->9.9-->9.5-->9.1 (likely worsened by IV fluids) -NPO-->Clear liquid diet-->full liquid diet -Protonix drip started in ed --> switch to IVP-->switch PO -Dr. Bauer (general surgery) consulted -Discussed case with him -Clear liquid diet -Stop warfarin -Denies need for colonoscopy due to recent colonoscopy as above with no findings -Will continue to monitor -Repeat HH this evening -9.5 -IV fluids as ordered -Start 81mg ASA daily -Continue home iron supplementation Supratheraputic INR -PT 61.9, INR 5.88, APTT 56 in ED -Given 5mg Vitamin K IV drip in ED -Oral 5mg vitamin K given on floor -INR now 2.08-->1.24 -Continue to hold warfarin Chronic: Atrial Fib rate controlled on coumadin HTN CAD Valvular Heart Disease s/p valve replacement Recurrent PNA Prostate Cancer CHF with Unknown EF CKD Stage 3 GERD Hypothyroidism JOE on CPAP COPD Hx/o GABRIELA Hypoxia on 2L NC BPH/Urinary Retention Insomnia Hx/o C-diff, MRSA Plan: Admit to medical floor on telemetry Additional orders as above Routine AM labs Home meds as ordered PT/OT DVT Prophylaxis: SCDs Spiritual care consult GI Prophylaxis: Protonix Code status: DNR/DNI; PCP: Natacha Rosa PA-C
[2018-05-07] MEDS ORDERED: Pantoprazole 40 MG Tab.CR PO SCH (16:00)
[2018-05-07] MEDS ORDERED: Witch Hazel Medicated Pads 100/Jar TOP PRN (19:53)
[2018-05-07] MEDS: Pantoprazole 40 MG Tab.CR PO SCH (21:23)
[2018-05-07] MEDS: Mirtazapine 15 MG Tab PO SCH (21:23)
[2018-05-08] MEDS: Levothyroxine 25 MCG Tab PO SCH (06:37)
[2018-05-08] MEDS ORDERED: Furosemide 40 MG/4 ML VIAL IVPUSH SCH (08:24)
[2018-05-08] MEDS ORDERED: Acetaminophen 325 MG Tab PO ONE (08:24)
[2018-05-08] MEDS ORDERED: diphenhydrAMINE 50 MG/ML SDV IV ONE (08:24)
[2018-05-08] MEDS: Aspirin 81 MG Tab.Chew PO SCH (09:18)
[2018-05-08] MEDS: Pantoprazole 40 MG Tab.CR PO SCH ×2 (09:18→22:01)
[2018-05-08] MEDS: Metoprolol Tartrate 25 MG Tab PO SCH ×2 (09:18→22:04)
[2018-05-08] MEDS: Potassium Chloride 10 MEQ Tab.ER PO SCH ×2 (09:19→21:59)
[2018-05-08] MEDS: Finasteride 5 MG Tab PO SCH (09:19)
[2018-05-08] MEDS: Tamsulosin 0.4 MG Cap.ER PO SCH (09:19)
[2018-05-08] MEDS: Diltiazem 120 MG Cap.CD PO SCH (09:19)
[2018-05-08] MEDS: Ferrous Sulfate 325 MG Tab PO SCH (09:20)
[2018-05-08] MEDS: Folic Acid 1 MG Tab PO SCH (09:20)
[2018-05-08] MEDS ORDERED: Sodium Chloride 0.9% 250 ML IV SCH (09:30)
--- NOTE | 2018-05-08 12:23 | PCM.PN ---
- General Info Date of Service: 05/08/18 Functional Status: Reports: Pain Controlled, Tolerating Diet, Ambulating, Urinating - Review of Systems General: Reports: No Symptoms HEENT: Reports: No Symptoms Pulmonary: Reports: No Symptoms Cardiovascular: Reports: No Symptoms Gastrointestinal: Reports: No Symptoms Genitourinary: Reports: No Symptoms Musculoskeletal: Reports: No Symptoms Skin: Reports: No Symptoms Neurological: Reports: No Symptoms Psychiatric: Reports: No Symptoms - Patient Data Vitals - Most Recent: Last Vital Signs Temp 36.6 C 05/08/18 09:18 Pulse 71 05/08/18 09:22 Resp 18 05/08/18 09:18 BP 109/63 05/08/18 09:19 Pulse Ox 98 05/08/18 09:22 Weight - Most Recent: 88.054 kg I&O - Last 24 Hours: Intake & Output 05/07/18 05/08/18 05/08/18 22:59 06:59 14:59 Intake Total 2485 100 240 Output Total 900 700 Balance 1585 -600 240 Lab Results Last 24 Hours: Laboratory Results - last 24 hr 05/08/18 05/08/18 05/08/18 Range/Units 05:45 05:45 05:45 WBC 3.82 L (4.23-9.07) K/mm3 RBC 3.06 L (4.63-6.08) M/mm3 Hgb 9.0 L (13.7-17.5) gm/L Hct 29.1 L (40.1-51.0) % MCV 95.1 H (79.0-92.2) fl MCH 29.4 (25.7-32.2) pg MCHC 30.9 L (32.2-35.5) g/dl RDW Std Deviation 50.5 H (35.1-43.9) fL Plt Count 124 L (163-337) K/mm3 MPV 11.1 (9.4-12.3) fl PT 12.3 H (9.5-12.1) SECONDS INR 1.13 Sodium 141 (136-145) mEq/L Potassium 3.9 (3.5-5.1) mEq/L Chloride 110 H (98-107) mEq/L Carbon Dioxide 28 (21-32) mEq/L Anion Gap 6.9 (5-15) BUN 9 (7-18) mg/dL Creatinine 1.1 (0.7-1.3) mg/dL Est Cr Clr Drug Dosing 57.81 mL/min Estimated GFR (MDRD) > 60 (>60) mL/min BUN/Creatinine Ratio 8.2 L (14-18) Glucose 86 (83-115) mg/dL Calcium 8.3 L (8.5-10.1) mg/dL Magnesium 2.0 (1.8-2.4) mg/dl Blood Type Gel Antibody Screen Crossmatch 05/08/18 05/08/18 Range/Units 05:45 11:00 WBC (4.23-9.07) K/mm3 RBC (4.63-6.08) M/mm3 Hgb 9.3 L (13.7-17.5) gm/L Hct 29.7 L (40.1-51.0) % MCV (79.0-92.2) fl MCH (25.7-32.2) pg MCHC (32.2-35.5) g/dl RDW Std Deviation (35.1-43.9) fL Plt Count (163-337) K/mm3 MPV (9.4-12.3) fl PT (9.5-12.1) SECONDS INR Sodium (136-145) mEq/L Potassium (3.5-5.1) mEq/L Chloride (98-107) mEq/L Carbon Dioxide (21-32) mEq/L Anion Gap (5-15) BUN (7-18) mg/dL Creatinine (0.7-1.3) mg/dL Est Cr Clr Drug Dosing mL/min Estimated GFR (MDRD) (>60) mL/min BUN/Creatinine Ratio (14-18) Glucose (83-115) mg/dL Calcium (8.5-10.1) mg/dL Magnesium (1.8-2.4) mg/dl Blood Type A POSITIVE Gel Antibody Screen Negative Crossmatch See Detail Med Orders - Current: Current Medications Acetaminophen (Tylenol) 650 mg PO Q4H PRN PRN Reason: Pain (Mild 1-3)/fever Hydrocodone Bitart/Acetaminophen ([place] 325-5 Mg) 1 tab PO Q4H PRN PRN Reason: Pain (moderate 4-6) Albuterol/Ipratropium (Duoneb 3.0-0.5 Mg/3 Ml) 3 ml NEB Q4H PRN PRN Reason: Shortness Of Breath/wheezing Aspirin (Aspirin) 81 mg PO DAILY [facility] Last Admin: 05/08/18 09:18 Dose: 81 mg Clotrimazole (Lotrimin Af 1% Crm) 0 gm TOP DAILY [facility] Last Admin: 05/07/18 09:13 Dose: 1 applic Diltiazem HCl (Cardizem Cd) 240 mg PO DAILY [facility] Last Admin: 05/08/18 09:19 Dose: 240 mg Ferrous Sulfate (Ferrous Sulfate) 325 mg PO DAILY [facility] Last Admin: 05/08/18 09:20 Dose: 325 mg Finasteride (Proscar) 5 mg PO DAILY [facility] Last Admin: 05/08/18 09:19 Dose: 5 mg Folic Acid (Folic Acid) 1 mg PO DAILY [facility] Last Admin: 05/08/18 09:20 Dose: 1 mg Furosemide (Lasix) 40 mg IVPUSH ASDIRECTED [facility] Stop: 05/08/18 13:00 Hydralazine HCl (Apresoline) 20 mg IVPUSH Q4H PRN PRN Reason: Hypertension Hydromorphone HCl (Dilaudid) 0.25 mg IVPUSH Q2H PRN PRN Reason: Pain (severe 7-10) Promethazine HCl 6.25 mg/ (Sodium Chloride) 50.25 mls @ 100 mls/hr IV Q6H PRN PRN Reason: Nausea/Vomiting Sodium Chloride (Normal Saline) 250 mls @ 100 mls/hr IV ASDIRECTED [facility] Levothyroxine Sodium (Levothyroxine) 25 mcg PO ACBREAKFAST [facility] Last Admin: 05/08/18 06:37 Dose: 25 mcg Lorazepam (Ativan) 2 mg IVPUSH Q4H PRN PRN Reason: Seizures Lorazepam (Ativan) 1 mg IV Q6H PRN PRN Reason: Anxiety Metoprolol Tartrate (Lopressor) 5 mg IVPUSH Q4H PRN PRN Reason: Tachycardia Metoprolol Tartrate (Lopressor) 12.5 mg PO BID [facility] Last Admin: 05/08/18 09:18 Dose: 12.5 mg Mirtazapine (Remeron) 15 mg PO BEDTIME [facility] Last Admin: 05/07/18 21:23 Dose: 15 mg Ondansetron HCl (Zofran) 4 mg IV Q6H PRN PRN Reason: Nausea/Vomiting Pantoprazole Sodium (Protonix) 40 mg PO Q12HR [facility] Last Admin: 05/08/18 09:18 Dose: 40 mg Potassium Chloride (Klor-Con 10) 10 meq PO BID [facility] Last Admin: 05/08/18 09:19 Dose: 10 meq Sodium Chloride (Saline Flush) 10 ml FLUSH ASDIRECTED PRN PRN Reason: Keep Vein Open Last Admin: 05/05/18 21:56 Dose: 10 ml Tamsulosin HCl (Flomax) 0.4 mg PO DAILY [facility] Last Admin: 05/08/18 09:19 Dose: 0.4 mg Temazepam (Restoril) 7.5 mg PO BEDTIME PRN PRN Reason: Sleep Witch Dominique (Tucks) 1 pad TOP Q6HR PRN PRN Reason: Hemorrhoids Discontinued Medications Acetaminophen (Tylenol) 650 mg PO NOW ONE Stop: 05/08/18 08:25 Diatrizoate Meglum/Diatrizoate Sod (Gastrografin 37%) 90 ml PO ONETIME ONE Stop: 05/05/18 22:44 Last Admin: 05/05/18 23:00 Dose: 90 ml Diphenhydramine HCl (Benadryl) 25 mg IV ONETIME ONE Stop: 05/08/18 08:25 Hydromorphone HCl (Dilaudid) 0.25 mg IVPUSH Q2H PRN PRN Reason: Pain (severe 7-10) Phytonadione 5 mg/ Sodium (Chloride) 50.5 mls @ 100 mls/hr IV NOW ONE Stop: 05/05/18 22:39 Last Admin: 05/05/18 22:30 Dose: 100 mls/hr Pantoprazole Sodium 80 mg/ (Sodium Chloride) 100 mls @ 10 mls/hr IV Q10H [facility] Last Admin: 05/06/18 00:40 Dose: 10 mls/hr Sodium Chloride (Normal Saline) 1,000 mls @ 75 mls/hr IV ASDIRECTED [facility] Last Admin: 05/07/18 04:09 Dose: 75 mls/hr Sodium Chloride (Normal Saline) 1,000 mls @ 999 mls/hr IV ONETIME ONE Stop: 05/06/18 19:27 Last Admin: 05/06/18 18:35 Dose: 999 mls/hr Iopamidol (Isovue-300 (61%)) 120 ml IVPUSH ONETIME ONE Stop: 05/05/18 22:44 Last Admin: 05/06/18 01:48 Dose: Not Given Iopamidol (Isovue-370 (76%)) 100 ml IVPUSH ONETIME ONE Stop: 05/05/18 22:58 Last Admin: 05/05/18 23:00 Dose: 100 ml Magnesium Sulfate (Pharmacy To Dose - Magnesium Replacement) 0 dose .XX ASDIRECTED PRN PRN Reason: RX TO WATCH MAG LEVELS Metoprolol Tartrate (Lopressor) 25 mg PO BID [facility] Last Admin: 05/07/18 09:09 Dose: 25 mg Metoprolol Tartrate (Lopressor) 25 mg PO ONETIME ONE Stop: 05/06/18 01:44 Last Admin: 05/06/18 02:04 Dose: 25 mg Metoprolol Tartrate (Lopressor) 12.5 mg PO ONETIME ONE Stop: 05/06/18 21:01 Last Admin: 05/06/18 20:58 Dose: 12.5 mg Mirtazapine (Remeron) 15 mg PO ONETIME ONE Stop: 05/06/18 01:49 Last Admin: 05/06/18 02:05 Dose: 15 mg Pantoprazole Sodium (Protonix Iv) 80 mg IVPUSH .BOLUS ONE Stop: 05/06/18 00:06 Last Admin: 05/06/18 00:35 Dose: 80 mg Pantoprazole Sodium (Protonix Iv) 40 mg IV Q12HR [facility] Last Admin: 05/07/18 09:12 Dose: 40 mg Pantoprazole Sodium (Protonix) 40 mg PO BIDAC [facility] Phytonadione (Aquamephyton) 5 mg PO ONETIME ONE Stop: 05/06/18 01:26 Last Admin: 05/06/18 02:01 Dose: 5 mg Potassium Chloride (Pharmacy To Dose - Potassium Replacement) 0 dose .XX ASDIRECTED PRN PRN Reason: RX TO WATCH K LEVELS - Exam Quality Assessment: DVT Prophylaxis General: Alert, Oriented, Cooperative, No Acute Distress HEENT: Pupils Equal, Pupils Reactive, EOMI Neck: Trachea Midline, No JVD Lungs: Normal Respiratory Effort Cardiovascular: Regular Rate, Regular Rhythm, Murmurs GI/Abdominal Exam: Normal Bowel Sounds, Soft, Non-Tender, No Organomegaly, No Distention (Male) Exam: Deferred Back Exam: Normal Inspection Extremities: Normal Inspection, Non-Tender, Normal Capillary Refill Skin: Warm Neurological: No New Focal Deficit Psy/Mental Status: Alert, Normal Affect, Normal Mood - Problem List Review Problem List Initiated/Reviewed/Updated: Yes - My Orders Last 24 Hours: My Active Orders 05/08/18 Lunch Soft Diet [DIET] - Plan Plan:: I/P: Acute: GI Bleed -Reports bright red blood in stools since 05/02/18 -Reports history of hemorrhoids but no bleeding like this in past -Denies weakness, dizziness while standing, SOB -Risk factor: On warfarin for valve replacement - INR 5.54 on arrival -Admitted for slow GI bleed on 06/06/18-06/11/18 -Last colonoscopy here on 06/10/[address] Grace -No mass, polyps, ulcerations or internal hemorrhoids -One diverticulum noted -Excellent prep -No source of bleed found -CT scan in ED: 1. No obvious source of GI bleed 2. postinflammatory change in lung bases possibly from aspiration 3. Trace amount of pleural fluid on right 4. Large volume urinary bladder does not look acutely distended 5. Small hiatal hernia -Hgb stable: 9.9-->9.9-->9.5-->9.1 (likely worsened by IV fluids) -NPO-->Clear liquid diet-->full liquid diet -Protonix drip started in ed --> switch to IVP-->switch PO -Dr. Bauer (general surgery) consulted -Discussed case with him -Clear liquid diet -Stop warfarin -Denies need for colonoscopy due to recent colonoscopy as above with no findings -Will continue to monitor -Repeat HH this evening -9.5 -IV fluids as ordered -Start 81mg ASA daily -Continue home iron supplementation Supratheraputic INR--->resolved; unknown when the last INR was check or if the patient had changed his diet Risk of CVA is 4.0% yearly thus needs anticoagulation unless risk > benefit. Additional factor to be considered is heart valve. Will clarify porcine vs mechanical. -PT 61.9, INR 5.88, APTT 56 in ED -Given 5mg Vitamin K IV drip in ED -Oral 5mg vitamin K given on floor -INR now 2.08-->1.24 -Continue to hold warfarin Chronic: Atrial Fib rate controlled on coumadin HTN CAD Valvular Heart Disease s/p valve replacement Recurrent PNA Prostate Cancer CHF with Unknown EF CKD Stage 3 GERD Hypothyroidism JOE on CPAP COPD Hx/o GABRIELA Hypoxia on 2L NC BPH/Urinary Retention Insomnia Hx/o C-diff, MRSA Plan: MS on telemetry Additional orders as above Routine AM labs Home meds as ordered PT/OT DVT Prophylaxis: SCDs Spiritual care consult GI Prophylaxis: Protonix Code status: DNR/DNI; PCP: Natacha Rosa PA-C
[2018-05-08] MEDS: Clotrimazole 1% Crm 30 GM Tube TOP SCH (14:28)
[2018-05-08] MEDS: Mirtazapine 15 MG Tab PO SCH (22:01)
[2018-05-09] MEDS: Levothyroxine 25 MCG Tab PO SCH (07:42)
[2018-05-09] MEDS: Potassium Chloride 10 MEQ Tab.ER PO SCH ×2 (09:24→20:56)
[2018-05-09] MEDS: Pantoprazole 40 MG Tab.CR PO SCH ×2 (09:24→20:56)
[2018-05-09] MEDS: Ferrous Sulfate 325 MG Tab PO SCH (09:24)
[2018-05-09] MEDS: Tamsulosin 0.4 MG Cap.ER PO SCH (09:24)
[2018-05-09] MEDS: Aspirin 81 MG Tab.Chew PO SCH (09:24)
[2018-05-09] MEDS: Finasteride 5 MG Tab PO SCH (09:24)
[2018-05-09] MEDS: Metoprolol Tartrate 25 MG Tab PO SCH ×2 (09:25→20:57)
[2018-05-09] MEDS: Diltiazem 120 MG Cap.CD PO SCH (09:25)
[2018-05-09] MEDS: Folic Acid 1 MG Tab PO SCH (09:25)
[2018-05-09] MEDS: Clotrimazole 1% Crm 30 GM Tube TOP SCH (09:27)
[2018-05-09] MEDS: Sodium Chloride 0.9% 250 ML IV SCH ×2 (14:00→19:00)
--- NOTE | 2018-05-09 17:38 | PCM.PN ---
- General Info Date of Service: 05/09/18 Admission Dx/Problem (Free Text): Confirm Hgb drop with repeat lab draw. Denies change in stool. CVA risk is 4% with [id number]. Functional Status: Reports: Pain Controlled, Tolerating Diet, Ambulating, Urinating - Review of Systems General: Reports: No Symptoms HEENT: Reports: No Symptoms Pulmonary: Reports: No Symptoms Cardiovascular: Reports: No Symptoms Gastrointestinal: Reports: No Symptoms Genitourinary: Reports: No Symptoms Musculoskeletal: Reports: No Symptoms Skin: Reports: No Symptoms Neurological: Reports: No Symptoms Psychiatric: Reports: No Symptoms - Patient Data Vitals - Most Recent: Last Vital Signs Temp 36.4 C 05/09/18 14:53 Pulse 69 05/09/18 14:53 Resp 18 05/09/18 14:53 BP 104/82 05/09/18 14:53 Pulse Ox 99 05/09/18 14:53 Weight - Most Recent: 88.054 kg I&O - Last 24 Hours: Intake & Output 05/09/18 05/09/18 05/09/18 06:59 14:59 22:59 Intake Total 200 480 360 Output Total 600 Balance -400 480 360 Lab Results Last 24 Hours: Laboratory Results - last 24 hr 05/08/18 05/09/18 05/09/18 Range/Units 05:45 05:35 05:35 WBC 4.16 L (4.23-9.07) K/mm3 RBC 2.85 L (4.63-6.08) M/mm3 Hgb 8.5 L (13.7-17.5) gm/L Hct 27.0 L (40.1-51.0) % MCV 94.7 H (79.0-92.2) fl MCH 29.8 (25.7-32.2) pg MCHC 31.5 L (32.2-35.5) g/dl RDW Std Deviation 49.7 H (35.1-43.9) fL Plt Count 118 L (163-337) K/mm3 MPV 11.3 (9.4-12.3) fl PT (9.5-12.1) SECONDS INR Sodium 142 (136-145) mEq/L Potassium 4.2 (3.5-5.1) mEq/L Chloride 109 H (98-107) mEq/L Carbon Dioxide 28 (21-32) mEq/L Anion Gap 9.2 (5-15) BUN 12 (7-18) mg/dL Creatinine 1.2 (0.7-1.3) mg/dL Est Cr Clr Drug Dosing 52.99 mL/min Estimated GFR (MDRD) 58 (>60) mL/min BUN/Creatinine Ratio 10.0 L (14-18) Glucose 100 (83-115) mg/dL Calcium 8.6 (8.5-10.1) mg/dL Magnesium 2.0 (1.8-2.4) mg/dl Blood Type A POSITIVE Gel Antibody Screen Negative Crossmatch See Detail 05/09/18 05/09/18 Range/Units 05:35 12:31 WBC (4.23-9.07) K/mm3 RBC (4.63-6.08) M/mm3 Hgb 8.5 L (13.7-17.5) gm/L Hct (40.1-51.0) % MCV (79.0-92.2) fl MCH (25.7-32.2) pg MCHC (32.2-35.5) g/dl RDW Std Deviation (35.1-43.9) fL Plt Count (163-337) K/mm3 MPV (9.4-12.3) fl PT 11.9 (9.5-12.1) SECONDS INR 1.09 Sodium (136-145) mEq/L Potassium (3.5-5.1) mEq/L Chloride (98-107) mEq/L Carbon Dioxide (21-32) mEq/L Anion Gap (5-15) BUN (7-18) mg/dL Creatinine (0.7-1.3) mg/dL Est Cr Clr Drug Dosing mL/min Estimated GFR (MDRD) (>60) mL/min BUN/Creatinine Ratio (14-18) Glucose (83-115) mg/dL Calcium (8.5-10.1) mg/dL Magnesium (1.8-2.4) mg/dl Blood Type Gel Antibody Screen Crossmatch Med Orders - Current: Current Medications Acetaminophen (Tylenol) 650 mg PO Q4H PRN PRN Reason: Pain (Mild 1-3)/fever Hydrocodone Bitart/Acetaminophen ([place] 325-5 Mg) 1 tab PO Q4H PRN PRN Reason: Pain (moderate 4-6) Albuterol/Ipratropium (Duoneb 3.0-0.5 Mg/3 Ml) 3 ml NEB Q4H PRN PRN Reason: Shortness Of Breath/wheezing Aspirin (Aspirin) 81 mg PO DAILY [facility] Last Admin: 05/09/18 09:24 Dose: 81 mg Clotrimazole (Lotrimin Af 1% Crm) 0 gm TOP DAILY [facility] Last Admin: 05/09/18 09:27 Dose: 1 applic Diltiazem HCl (Cardizem Cd) 240 mg PO DAILY [facility] Last Admin: 05/09/18 09:25 Dose: 240 mg Ferrous Sulfate (Ferrous Sulfate) 325 mg PO DAILY [facility] Last Admin: 05/09/18 09:24 Dose: 325 mg Finasteride (Proscar) 5 mg PO DAILY [facility] Last Admin: 05/09/18 09:24 Dose: 5 mg Folic Acid (Folic Acid) 1 mg PO DAILY [facility] Last Admin: 05/09/18 09:25 Dose: 1 mg Hydralazine HCl (Apresoline) 20 mg IVPUSH Q4H PRN PRN Reason: Hypertension Hydromorphone HCl (Dilaudid) 0.25 mg IVPUSH Q2H PRN PRN Reason: Pain (severe 7-10) Promethazine HCl 6.25 mg/ (Sodium Chloride) 50.25 mls @ 100 mls/hr IV Q6H PRN PRN Reason: Nausea/Vomiting Sodium Chloride (Normal Saline) 250 mls @ 100 mls/hr IV ASDIRECTED [facility] Levothyroxine Sodium (Levothyroxine) 25 mcg PO ACBREAKFAST [facility] Last Admin: 05/09/18 07:42 Dose: 25 mcg Lorazepam (Ativan) 2 mg IVPUSH Q4H PRN PRN Reason: Seizures Lorazepam (Ativan) 1 mg IV Q6H PRN PRN Reason: Anxiety Metoprolol Tartrate (Lopressor) 5 mg IVPUSH Q4H PRN PRN Reason: Tachycardia Metoprolol Tartrate (Lopressor) 12.5 mg PO BID [facility] Last Admin: 05/09/18 09:25 Dose: 12.5 mg Mirtazapine (Remeron) 15 mg PO BEDTIME [facility] Last Admin: 05/08/18 22:01 Dose: 15 mg Ondansetron HCl (Zofran) 4 mg IV Q6H PRN PRN Reason: Nausea/Vomiting Pantoprazole Sodium (Protonix) 40 mg PO Q12HR [facility] Last Admin: 05/09/18 09:24 Dose: 40 mg Potassium Chloride (Klor-Con 10) 10 meq PO BID [facility] Last Admin: 05/09/18 09:24 Dose: 10 meq Sodium Chloride (Saline Flush) 10 ml FLUSH ASDIRECTED PRN PRN Reason: Keep Vein Open Last Admin: 05/05/18 21:56 Dose: 10 ml Tamsulosin HCl (Flomax) 0.4 mg PO DAILY [facility] Last Admin: 05/09/18 09:24 Dose: 0.4 mg Temazepam (Restoril) 7.5 mg PO BEDTIME PRN PRN Reason: Sleep Witch Dominique (Tucks) 1 pad TOP Q6HR PRN PRN Reason: Hemorrhoids Discontinued Medications Acetaminophen (Tylenol) 650 mg PO NOW ONE Stop: 05/08/18 08:25 Last Admin: 05/08/18 14:29 Dose: Not Given Diatrizoate Meglum/Diatrizoate Sod (Gastrografin 37%) 90 ml PO ONETIME ONE Stop: 05/05/18 22:44 Last Admin: 05/05/18 23:00 Dose: 90 ml Diphenhydramine HCl (Benadryl) 25 mg IV ONETIME ONE Stop: 05/08/18 08:25 Last Admin: 05/08/18 14:29 Dose: Not Given Furosemide (Lasix) 40 mg IVPUSH ASDIRECTED [facility] Stop: 05/08/18 13:00 Hydromorphone HCl (Dilaudid) 0.25 mg IVPUSH Q2H PRN PRN Reason: Pain (severe 7-10) Phytonadione 5 mg/ Sodium (Chloride) 50.5 mls @ 100 mls/hr IV NOW ONE Stop: 05/05/18 22:39 Last Admin: 05/05/18 22:30 Dose: 100 mls/hr Pantoprazole Sodium 80 mg/ (Sodium Chloride) 100 mls @ 10 mls/hr IV Q10H [facility] Last Admin: 05/06/18 00:40 Dose: 10 mls/hr Sodium Chloride (Normal Saline) 1,000 mls @ 75 mls/hr IV ASDIRECTED [facility] Last Admin: 05/07/18 04:09 Dose: 75 mls/hr Sodium Chloride (Normal Saline) 1,000 mls @ 999 mls/hr IV ONETIME ONE Stop: 05/06/18 19:27 Last Admin: 05/06/18 18:35 Dose: 999 mls/hr Sodium Chloride (Normal Saline) 250 mls @ 100 mls/hr IV ASDIRECTED [facility] Iopamidol (Isovue-300 (61%)) 120 ml IVPUSH ONETIME ONE Stop: 05/05/18 22:44 Last Admin: 05/06/18 01:48 Dose: Not Given Iopamidol (Isovue-370 (76%)) 100 ml IVPUSH ONETIME ONE Stop: 05/05/18 22:58 Last Admin: 05/05/18 23:00 Dose: 100 ml Magnesium Sulfate (Pharmacy To Dose - Magnesium Replacement) 0 dose .XX ASDIRECTED PRN PRN Reason: RX TO WATCH MAG LEVELS Metoprolol Tartrate (Lopressor) 25 mg PO BID [facility] Last Admin: 05/07/18 09:09 Dose: 25 mg Metoprolol Tartrate (Lopressor) 25 mg PO ONETIME ONE Stop: 05/06/18 01:44 Last Admin: 05/06/18 02:04 Dose: 25 mg Metoprolol Tartrate (Lopressor) 12.5 mg PO ONETIME ONE Stop: 05/06/18 21:01 Last Admin: 05/06/18 20:58 Dose: 12.5 mg Mirtazapine (Remeron) 15 mg PO ONETIME ONE Stop: 05/06/18 01:49 Last Admin: 05/06/18 02:05 Dose: 15 mg Pantoprazole Sodium (Protonix Iv) 80 mg IVPUSH .BOLUS ONE Stop: 05/06/18 00:06 Last Admin: 05/06/18 00:35 Dose: 80 mg Pantoprazole Sodium (Protonix Iv) 40 mg IV Q12HR [facility] Last Admin: 05/07/18 09:12 Dose: 40 mg Pantoprazole Sodium (Protonix) 40 mg PO BIDAC [facility] Phytonadione (Aquamephyton) 5 mg PO ONETIME ONE Stop: 05/06/18 01:26 Last Admin: 05/06/18 02:01 Dose: 5 mg Potassium Chloride (Pharmacy To Dose - Potassium Replacement) 0 dose .XX ASDIRECTED PRN PRN Reason: RX TO WATCH K LEVELS - Exam Quality Assessment: DVT Prophylaxis General: Alert, Oriented, No Acute Distress HEENT: Pupils Equal, Pupils Reactive, EOMI Neck: Trachea Midline, No JVD Lungs: Normal Respiratory Effort Cardiovascular: Regular Rate, Murmurs GI/Abdominal Exam: Normal Bowel Sounds, Soft, Non-Tender, No Organomegaly, No Distention (Male) Exam: Deferred Back Exam: Normal Inspection Extremities: Normal Inspection, Non-Tender, Normal Capillary Refill Skin: Warm Neurological: No New Focal Deficit, Normal Gait, Normal Speech Psy/Mental Status: Alert, Normal Affect, Normal Mood - Problem List Review Problem List Initiated/Reviewed/Updated: Yes - My Orders Last 24 Hours: My Active Orders 05/09/18 12:53 Transfuse Red Blood Cells [COMM] Routine 05/09/18 13:00 Sodium Chloride 0.9% [Normal Saline] 250 ml IV ASDIRECTED - Plan Plan:: I/P: Acute: GI Bleed -Reports bright red blood in stools since 05/02/18 -Reports history of hemorrhoids but no bleeding like this in past -Denies weakness, dizziness while standing, SOB -Risk factor: On warfarin for valve replacement - INR 5.54 on arrival -Admitted for slow GI bleed on 06/06/18-06/11/18 -Last colonoscopy here on 06/10/[address] Grace -No mass, polyps, ulcerations or internal hemorrhoids -One diverticulum noted -Excellent prep -No source of bleed found -CT scan in ED: 1. No obvious source of GI bleed 2. postinflammatory change in lung bases possibly from aspiration 3. Trace amount of pleural fluid on right 4. Large volume urinary bladder does not look acutely distended 5. Small hiatal hernia -Hgb stable: 9.9-->9.9-->9.5-->9.1 (likely worsened by IV fluids) -NPO-->Clear liquid diet-->full liquid diet -Protonix drip started in ed --> switch to IVP-->switch PO -Dr. Bauer (general surgery) consulted -Discussed case with him -Clear liquid diet -Stop warfarin -Denies need for colonoscopy due to recent colonoscopy as above with no findings -Will continue to monitor -Repeat HH this evening -9.5 -IV fluids as ordered -Start 81mg ASA daily -Continue home iron supplementation Supratheraputic INR--->resolved; unknown when the last INR was check or if the patient had changed his diet Risk of CVA is 4.0% yearly thus needs anticoagulation unless risk > benefit. Additional factor to be considered is heart valve. Will clarify porcine vs mechanical. -PT 61.9, INR 5.88, APTT 56 in ED -Given 5mg Vitamin K IV drip in ED -Oral 5mg vitamin K given on floor -INR now 2.08-->1.24 -Continue to hold warfarin Chronic: Atrial Fib rate controlled on coumadin HTN CAD Valvular Heart Disease s/p valve replacement Recurrent PNA Prostate Cancer CHF with Unknown EF CKD Stage 3 GERD Hypothyroidism JOE on CPAP COPD Hx/o GABRIELA Hypoxia on 2L NC BPH/Urinary Retention Insomnia Hx/o C-diff, MRSA Plan: MS on telemetry Additional orders as above Routine AM labs Home meds as ordered PT/OT DVT Prophylaxis: SCDs Spiritual care consult GI Prophylaxis: Protonix Code status: DNR/DNI; PCP: Natacha Rosa PA-C LOS>96 hours with anemia work up and treatment.
[2018-05-09] MEDS: Mirtazapine 15 MG Tab PO SCH (20:58)
[2018-05-10] MEDS: Levothyroxine 25 MCG Tab PO SCH (05:02)
[2018-05-10] MEDS: Potassium Chloride 10 MEQ Tab.ER PO SCH ×2 (09:28→20:03)
[2018-05-10] MEDS: Diltiazem 120 MG Cap.CD PO SCH (09:28)
[2018-05-10] MEDS: Pantoprazole 40 MG Tab.CR PO SCH ×2 (09:28→20:04)
[2018-05-10] MEDS: Tamsulosin 0.4 MG Cap.ER PO SCH (09:28)
[2018-05-10] MEDS: Aspirin 81 MG Tab.Chew PO SCH (09:28)
[2018-05-10] MEDS: Folic Acid 1 MG Tab PO SCH (09:28)
[2018-05-10] MEDS: Ferrous Sulfate 325 MG Tab PO SCH (09:28)
[2018-05-10] MEDS: Finasteride 5 MG Tab PO SCH (09:28)
[2018-05-10] MEDS: Metoprolol Tartrate 25 MG Tab PO SCH ×2 (09:29→20:03)
[2018-05-10] MEDS: Clotrimazole 1% Crm 30 GM Tube TOP SCH (09:32)
--- NOTE | 2018-05-10 14:33 | PCM.PN ---
- General Info Date of Service: 05/10/18 Functional Status: Reports: Pain Controlled, Tolerating Diet, Ambulating, Urinating - Review of Systems General: Reports: No Symptoms HEENT: Reports: No Symptoms Pulmonary: Reports: No Symptoms Cardiovascular: Reports: No Symptoms Gastrointestinal: Reports: No Symptoms Genitourinary: Reports: No Symptoms Musculoskeletal: Reports: No Symptoms Skin: Reports: No Symptoms Neurological: Reports: No Symptoms Psychiatric: Reports: No Symptoms - Patient Data Vitals - Most Recent: Last Vital Signs Temp 36.6 C 05/10/18 09:29 Pulse 74 05/10/18 12:13 Resp 16 05/10/18 12:13 BP 127/87 05/10/18 12:13 Pulse Ox 100 05/10/18 12:13 Weight - Most Recent: 88.949 kg I&O - Last 24 Hours: Intake & Output 05/09/18 05/10/18 05/10/18 22:59 06:59 14:59 Intake Total 1240 550 240 Output Total 400 100 Balance 840 450 240 Lab Results Last 24 Hours: Laboratory Results - last 24 hr 05/08/18 05/10/18 05/10/18 Range/Units 05:45 06:54 10:25 WBC 4.18 L (4.23-9.07) K/mm3 RBC 3.67 L (4.63-6.08) M/mm3 Hgb 10.8 L (13.7-17.5) gm/L Hct 33.6 L (40.1-51.0) % MCV 91.6 (79.0-92.2) fl MCH 29.4 (25.7-32.2) pg MCHC 32.1 L (32.2-35.5) g/dl RDW Std Deviation 51.9 H (35.1-43.9) fL Plt Count 121 L (163-337) K/mm3 MPV 9.8 (9.4-12.3) fl PT 11.7 (9.5-12.1) SECONDS INR 1.07 Blood Type A POSITIVE Gel Antibody Screen Negative Crossmatch See Detail Obey Results Last 24 Hours: Microbiology 05/10/18 13:20 Occult Blood - Final Stool / Feces - Stool, Formed Med Orders - Current: Current Medications Acetaminophen (Tylenol) 650 mg PO Q4H PRN PRN Reason: Pain (Mild 1-3)/fever Hydrocodone Bitart/Acetaminophen (Townsend 325-5 Mg) 1 tab PO Q4H PRN PRN Reason: Pain (moderate 4-6) Albuterol/Ipratropium (Duoneb 3.0-0.5 Mg/3 Ml) 3 ml NEB Q4H PRN PRN Reason: Shortness Of Breath/wheezing Aspirin (Aspirin) 81 mg PO DAILY [facility] Last Admin: 05/10/18 09:28 Dose: 81 mg Clotrimazole (Lotrimin Af 1% Crm) 0 gm TOP DAILY [facility] Last Admin: 05/10/18 09:32 Dose: 1 applic Diltiazem HCl (Cardizem Cd) 240 mg PO DAILY [facility] Last Admin: 05/10/18 09:28 Dose: 240 mg Ferrous Sulfate (Ferrous Sulfate) 325 mg PO DAILY [facility] Last Admin: 05/10/18 09:28 Dose: 325 mg Finasteride (Proscar) 5 mg PO DAILY [facility] Last Admin: 05/10/18 09:28 Dose: 5 mg Folic Acid (Folic Acid) 1 mg PO DAILY [facility] Last Admin: 05/10/18 09:28 Dose: 1 mg Hydralazine HCl (Apresoline) 20 mg IVPUSH Q4H PRN PRN Reason: Hypertension Hydromorphone HCl (Dilaudid) 0.25 mg IVPUSH Q2H PRN PRN Reason: Pain (severe 7-10) Promethazine HCl 6.25 mg/ (Sodium Chloride) 50.25 mls @ 100 mls/hr IV Q6H PRN PRN Reason: Nausea/Vomiting Levothyroxine Sodium (Levothyroxine) 25 mcg PO ACBREAKFAST [facility] Last Admin: 05/10/18 05:02 Dose: 25 mcg Lorazepam (Ativan) 2 mg IVPUSH Q4H PRN PRN Reason: Seizures Lorazepam (Ativan) 1 mg IV Q6H PRN PRN Reason: Anxiety Metoprolol Tartrate (Lopressor) 5 mg IVPUSH Q4H PRN PRN Reason: Tachycardia Metoprolol Tartrate (Lopressor) 12.5 mg PO BID [facility] Last Admin: 05/10/18 09:29 Dose: 12.5 mg Mirtazapine (Remeron) 15 mg PO BEDTIME [facility] Last Admin: 05/09/18 20:58 Dose: 15 mg Ondansetron HCl (Zofran) 4 mg IV Q6H PRN PRN Reason: Nausea/Vomiting Pantoprazole Sodium (Protonix) 40 mg PO Q12HR [facility] Last Admin: 05/10/18 09:28 Dose: 40 mg Potassium Chloride (Klor-Con 10) 10 meq PO BID [facility] Last Admin: 05/10/18 09:28 Dose: 10 meq Sodium Chloride (Saline Flush) 10 ml FLUSH ASDIRECTED PRN PRN Reason: Keep Vein Open Last Admin: 05/05/18 21:56 Dose: 10 ml Tamsulosin HCl (Flomax) 0.4 mg PO DAILY [facility] Last Admin: 05/10/18 09:28 Dose: 0.4 mg Temazepam (Restoril) 7.5 mg PO BEDTIME PRN PRN Reason: Sleep Warfarin Sodium (Coumadin) 2 mg PO DAILY@1800 [facility] Jeff Dominique (Tucks) 1 pad TOP Q6HR PRN PRN Reason: Hemorrhoids Discontinued Medications Acetaminophen (Tylenol) 650 mg PO NOW ONE Stop: 05/08/18 08:25 Last Admin: 05/08/18 14:29 Dose: Not Given Diatrizoate Meglum/Diatrizoate Sod (Gastrografin 37%) 90 ml PO ONETIME ONE Stop: 05/05/18 22:44 Last Admin: 05/05/18 23:00 Dose: 90 ml Diphenhydramine HCl (Benadryl) 25 mg IV ONETIME ONE Stop: 05/08/18 08:25 Last Admin: 05/08/18 14:29 Dose: Not Given Furosemide (Lasix) 40 mg IVPUSH ASDIRECTED [facility] Stop: 05/08/18 13:00 Hydromorphone HCl (Dilaudid) 0.25 mg IVPUSH Q2H PRN PRN Reason: Pain (severe 7-10) Phytonadione 5 mg/ Sodium (Chloride) 50.5 mls @ 100 mls/hr IV NOW ONE Stop: 05/05/18 22:39 Last Admin: 05/05/18 22:30 Dose: 100 mls/hr Pantoprazole Sodium 80 mg/ (Sodium Chloride) 100 mls @ 10 mls/hr IV Q10H [facility] Last Admin: 05/06/18 00:40 Dose: 10 mls/hr Sodium Chloride (Normal Saline) 1,000 mls @ 75 mls/hr IV ASDIRECTED [facility] Last Admin: 05/07/18 04:09 Dose: 75 mls/hr Sodium Chloride (Normal Saline) 1,000 mls @ 999 mls/hr IV ONETIME ONE Stop: 05/06/18 19:27 Last Admin: 05/06/18 18:35 Dose: 999 mls/hr Sodium Chloride (Normal Saline) 250 mls @ 100 mls/hr IV ASDIRECTED [facility] Sodium Chloride (Normal Saline) 250 mls @ 100 mls/hr IV ASDIRECTED [facility] Last Admin: 05/09/18 19:00 Dose: 100 mls/hr Iopamidol (Isovue-300 (61%)) 120 ml IVPUSH ONETIME ONE Stop: 05/05/18 22:44 Last Admin: 05/06/18 01:48 Dose: Not Given Iopamidol (Isovue-370 (76%)) 100 ml IVPUSH ONETIME ONE Stop: 05/05/18 22:58 Last Admin: 05/05/18 23:00 Dose: 100 ml Magnesium Sulfate (Pharmacy To Dose - Magnesium Replacement) 0 dose .XX ASDIRECTED PRN PRN Reason: RX TO WATCH MAG LEVELS Metoprolol Tartrate (Lopressor) 25 mg PO BID [facility] Last Admin: 05/07/18 09:09 Dose: 25 mg Metoprolol Tartrate (Lopressor) 25 mg PO ONETIME ONE Stop: 05/06/18 01:44 Last Admin: 05/06/18 02:04 Dose: 25 mg Metoprolol Tartrate (Lopressor) 12.5 mg PO ONETIME ONE Stop: 05/06/18 21:01 Last Admin: 05/06/18 20:58 Dose: 12.5 mg Mirtazapine (Remeron) 15 mg PO ONETIME ONE Stop: 05/06/18 01:49 Last Admin: 05/06/18 02:05 Dose: 15 mg Pantoprazole Sodium (Protonix Iv) 80 mg IVPUSH .BOLUS ONE Stop: 05/06/18 00:06 Last Admin: 05/06/18 00:35 Dose: 80 mg Pantoprazole Sodium (Protonix Iv) 40 mg IV Q12HR [facility] Last Admin: 05/07/18 09:12 Dose: 40 mg Pantoprazole Sodium (Protonix) 40 mg PO BIDAC RONA Phytonadione (Aquamephyton) 5 mg PO ONETIME ONE Stop: 05/06/18 01:26 Last Admin: 05/06/18 02:01 Dose: 5 mg Potassium Chloride (Pharmacy To Dose - Potassium Replacement) 0 dose .XX ASDIRECTED PRN PRN Reason: RX TO WATCH K LEVELS - Exam Quality Assessment: DVT Prophylaxis General: Alert, Oriented, Cooperative, No Acute Distress HEENT: Pupils Equal, Pupils Reactive, EOMI Neck: Supple, Trachea Midline, No JVD Lungs: Normal Respiratory Effort Cardiovascular: Regular Rate, Irregular Rhythm, Murmurs GI/Abdominal Exam: Normal Bowel Sounds, Soft, Non-Tender, No Organomegaly, No Distention (Male) Exam: Deferred Back Exam: Normal Inspection Extremities: Normal Inspection, Non-Tender, Normal Capillary Refill Skin: Warm Neurological: No New Focal Deficit Psy/Mental Status: Alert, Normal Affect, Normal Mood - Problem List Review Problem List Initiated/Reviewed/Updated: Yes - My Orders Last 24 Hours: My Active Orders 05/10/18 16:00 HEMOGLOBIN [HEME] Routine 05/10/18 18:00 Warfarin [Coumadin] 2 mg PO DAILY@1800 05/11/18 05:00 BMP [BASIC METABOLIC PANEL,BMP] [CHEM] DAILY CBC WITH AUTO DIFF [HEME] DAILY MG [MAGNESIUM] [CHEM] DAILY 05/12/18 05:00 BMP [BASIC METABOLIC PANEL,BMP] [CHEM] DAILY CBC WITH AUTO DIFF [HEME] DAILY MG [MAGNESIUM] [CHEM] DAILY - Plan Plan:: I/P: Acute: GI Bleed -Reports bright red blood in stools since 05/02/18 -Reports history of hemorrhoids but no bleeding like this in past -Denies weakness, dizziness while standing, SOB -Risk factor: On warfarin for valve replacement - INR 5.54 on arrival -Admitted for slow GI bleed on 06/06/18-06/11/18 -Last colonoscopy here on 06/10/[address] Grace -No mass, polyps, ulcerations or internal hemorrhoids -One diverticulum noted -Excellent prep -No source of bleed found -CT scan in ED: 1. No obvious source of GI bleed 2. postinflammatory change in lung bases possibly from aspiration 3. Trace amount of pleural fluid on right 4. Large volume urinary bladder does not look acutely distended 5. Small hiatal hernia -Hgb stable: 9.9-->9.9-->9.5-->9.1 (likely worsened by IV fluids) -NPO-->Clear liquid diet-->full liquid diet -Protonix drip started in ed --> switch to IVP-->switch PO -Dr. Bauer (general surgery) consulted -Discussed case with him -Clear liquid diet -Stop warfarin -Denies need for colonoscopy due to recent colonoscopy as above with no findings -Will continue to monitor -Repeat HH this evening -9.5 -IV fluids as ordered -Start 81mg ASA daily -Continue home iron supplementation Supratheraputic INR--->resolved; unknown when the last INR was check or if the patient had changed his diet Risk of CVA is 4.0% yearly thus needs anticoagulation unless risk > benefit. Additional factor to be considered is heart valve. Will clarify porcine vs mechanical. -PT 61.9, INR 5.88, APTT 56 in ED -Given 5mg Vitamin K IV drip in ED -Oral 5mg vitamin K given on floor -INR now 2.08-->1.24 -Continue to hold warfarin Chronic: Atrial Fib rate controlled on coumadin HTN CAD Valvular Heart Disease s/p valve replacement Recurrent PNA Prostate Cancer CHF with Unknown EF CKD Stage 3 GERD Hypothyroidism JOE on CPAP COPD Hx/o GABRIELA Hypoxia on 2L NC BPH/Urinary Retention Insomnia Hx/o C-diff, MRSA Plan: MS on telemetry Additional orders as above Routine AM labs Home meds as ordered PT/OT DVT Prophylaxis: SCDs Spiritual care consult GI Prophylaxis: Protonix Code status: DNR/DNI; PCP: Natacha Rosa PA-C LOS>96 hours with anemia work up and treatment. DC expected 05/11/18.
[2018-05-10] MEDS ORDERED: Warfarin 2 MG Tab PO SCH (18:00)
[2018-05-10] MEDS: Mirtazapine 15 MG Tab PO SCH (20:04)
[2018-05-11] MEDS: Levothyroxine 25 MCG Tab PO SCH (05:42)
--- NOTE | 2018-05-11 07:19 | PCM.DCSUM1 ---
Discharge Summary - Hospital Course HPI Initial Comments: Dale Shaikh is a an 82 yo male who presented to our ED yesterday evening with a GI bleed and supratherapeutic INR. It is reportedly started having diarrhea Friday night and then noticed blood in his stools. [facility] to [facility] today to see Cassie Rosa and INR was found to be elevated at 5.54. He continued to have bloody stools and was sent to our ED. She denies any lightheadedness, fever, chills, cough, chest pain, shortness of breath, abdominal pain, nausea or vomiting. No other complaints aside from his bloody stools. For mechanical valve and has not had any recent changes to his medication. He chronically wears oxygen at home. In the ED temperature 97.1 Fahrenheit. Pulse 60. Respirations 18. Blood pressure 121/50. Pulse ox 99%. Labs are obtained: WBC is 4.55. Hemoglobin low at 9.9. Hematocrit low at 31.0. He is macrocytic. Bullous her lower 141, 000. Neutrophils are normal at 60.7%. PT is high at 61.9. INR is very high at 5.88. APTT is high at 56. Sodium is 142. Potassium 4.1. Chloride 108. Carbon dioxide is 30. Anion gap is 8.1. BUN is high at 20. Creatinine high at 1.4. EGFR is 49. Glucose is 108. Calcium 8.6. Total bilirubin 0.2. Liver enzymes looked good with AST at 22, ALT 19, alkaline phosphatase at 71. Albumin is low at 3.0. His given 5 mg IV vitamin K. CT scan is obtained of his abdomen and pelvis which shows small amount of postinflammatory change in both lung bases possibly from aspiration. Trace amounts of pleural fluid on the right. Large-volume urinary bladder does not look acutely distended. Small hiatal hernia. No obvious source for GI bleed. He carries a history of: A. fib, CAD, CHF, heart valve replacement, COPD, recurrent pneumonia, GERD, laparoscopic cholecystectomy, BPH, chronic renal insufficiency, urinary retention, arthritis, hypothyroidism, prostate cancer. He does have a history of C. difficile, MRSA, mumps, rheumatic fever, rubella. He was never a smoker. He is a DNR/DNI. His PCP is Cassie Rosa. He is subsequently admitted to the medical floor on telemetry. Diagnosis: Stroke: No - Discharge Data Discharge Date: 05/11/18 (Admit date: 05/06/18) Discharge Disposition: Home, Self-Care 01 Condition: Good - Discharge Diagnosis/Problem(s) (1) GI bleed SNOMED Code(s): 01393496 ICD Code: K92.2 - GASTROINTESTINAL HEMORRHAGE, UNSPECIFIED Status: Acute Priority: High Current Visit: Yes Qualifiers: GI bleed type/associated pathology: unspecified gastrointestinal hemorrhage type Qualified Code(s): K92.2 - Gastrointestinal hemorrhage, unspecified (2) Supratherapeutic INR SNOMED Code(s): 072225898 ICD Code: R79.1 - ABNORMAL COAGULATION PROFILE Status: Acute Priority: High Current Visit: Yes (3) Anemia SNOMED Code(s): 173000567 ICD Code: D64.9 - ANEMIA, UNSPECIFIED Status: Acute Priority: High Current Visit: Yes Qualifiers: Anemia type: unspecified type Qualified Code(s): D64.9 - Anemia, unspecified (4) Arthritis SNOMED Code(s): 8237204 ICD Code: M19.90 - UNSPECIFIED OSTEOARTHRITIS, UNSPECIFIED SITE Status: Chronic Priority: Low Current Visit: No (5) Atrial fibrillation SNOMED Code(s): 44627468 ICD Code: I48.91 - UNSPECIFIED ATRIAL FIBRILLATION Status: Chronic Priority: Medium Current Visit: No Qualifiers: Atrial fibrillation type: chronic Qualified Code(s): I48.2 - Chronic atrial fibrillation (6) BPH (benign prostatic hyperplasia) SNOMED Code(s): 968440827 ICD Code: N40.0 - BENIGN PROSTATIC HYPERPLASIA WITHOUT LOWER URINRY TRACT SYMP Status: Chronic Priority: Low Current Visit: No Qualifiers: Lower urinary tract symptom presence: unspecified whether lower urinary tract symptoms present Qualified Code(s): N40.0 - Benign prostatic hyperplasia without lower urinary tract symptoms (7) CHF (congestive heart failure), NYHA class III SNOMED Code(s): 755725583, 867026241 ICD Code: I50.9 - HEART FAILURE, UNSPECIFIED Status: Chronic Priority: Low Current Visit: No Qualifiers: Congestive heart failure type: diastolic Congestive heart failure chronicity: chronic Qualified Code(s): I50.32 - Chronic diastolic (congestive ) heart failure (8) Chronic renal insufficiency, stage III (moderate) SNOMED Code(s): 785878015 ICD Code: N18.3 - CHRONIC KIDNEY DISEASE, STAGE 3 (MODERATE) Status: Chronic Priority: Low Current Visit: No (9) GERD (gastroesophageal reflux disease) SNOMED Code(s): 194343729 ICD Code: K21.9 - GASTRO-ESOPHAGEAL REFLUX DISEASE WITHOUT ESOPHAGITIS Status: Chronic Priority: Low Current Visit: No Qualifiers: Esophagitis presence: esophagitis presence not specified Qualified Code(s) : K21.9 - Gastro-esophageal reflux disease without esophagitis (10) H/O prostate cancer SNOMED Code(s): 315350875 ICD Code: Z85.46 - PERSONAL HISTORY OF MALIGNANT NEOPLASM OF PROSTATE Status: Chronic Priority: Low Current Visit: No (11) Hypothyroidism SNOMED Code(s): 09920975 ICD Code: E03.9 - HYPOTHYROIDISM, UNSPECIFIED Status: Chronic Priority: Low Current Visit: No Qualifiers: Hypothyroidism type: unspecified Qualified Code(s): E03.9 - Hypothyroidism , unspecified (12) Urinary retention SNOMED Code(s): 770386241 ICD Code: R33.9 - RETENTION OF URINE, UNSPECIFIED Status: Chronic Priority: Low Current Visit: No - Patient Summary/Data Consults: Consultations 05/06/18 01:21 Consult to Case Management/Medicare Interviewer [CONS] Routine Consult to Spiritual Care [CONS] Routine 05/06/18 11:11 Consult to Occupational Therapy [OT Evaluation and Treatment] [CONS] Routine PT Evaluation and Treatment [CONS] Routine 05/06/18 11:12 Consult to Physician [CONS] Routine 05/10/18 14:58 Consult to Physician [CONS] Routine Labs Pending at D/C: None Recommended Follow-up Testing/Procedures: Follow-up with PCP and Dr. Grace (general surgeon) as scheduled Recommend INR check at PCP appointment on 05/15/18 with INR goat of 2 Hospital Course: I/P: Acute: GI Bleed -Reports bright red blood in stools since 05/02/18 -Reports history of hemorrhoids but no bleeding like this in past -Denies weakness, dizziness while standing, SOB -Risk factor: On warfarin for valve replacement - INR 5.54 on arrival -Admitted for slow GI bleed on 06/06/18-06/11/18 -Last colonoscopy here on 06/10/[address] Grace -No mass, polyps, ulcerations or internal hemorrhoids -One diverticulum noted -Excellent prep -No source of bleed found -CT scan in ED: 1. No obvious source of GI bleed 2. postinflammatory change in lung bases possibly from aspiration 3. Trace amount of pleural fluid on right 4. Large volume urinary bladder does not look acutely distended 5. Small hiatal hernia -Hgb stable: 9.9-->9.9-->9.5-->9.1-->9.0-->9.3-->8.5-->10.8 (s/p 2 units)--> 10.9-->11.0 -NPO-->Clear liquid diet-->full liquid diet-->soft diet -Protonix drip started in ed --> switch to IVP-->switch PO -Dr. Bauer (general surgery) consulted -> Dr. Grace taking over -Discussed case with him -Clear liquid diet -Stop warfarin -Denies need for colonoscopy due to recent colonoscopy as above with no findings -Will continue to monitor -IV fluids as ordered -Start 81mg ASA daily--> stop -Continue home iron supplementation Supratheraputic INR--->resolved; unknown when the last INR was check or if the patient had changed his diet Risk of CVA is 4.0% yearly thus needs anticoagulation unless risk > benefit. Additional factor to be considered is heart valve. Will clarify porcine vs mechanical. -PT 61.9, INR 5.88, APTT 56 in ED -Given 5mg Vitamin K IV drip in ED -Oral 5mg vitamin K given on floor -INR now 2.08-->1.24--->1.08 -Continue to hold warfarin -> restart at 2mg daily dose Chronic: Atrial Fib rate controlled on coumadin HTN CAD Valvular Heart Disease s/p valve replacement Recurrent PNA Prostate Cancer CHF with Unknown EF CKD Stage 3 GERD Hypothyroidism JOE on CPAP COPD Hx/o GABRIELA Hypoxia on 2L NC BPH/Urinary Retention Insomnia Hx/o C-diff, MRSA Plan: MS on telemetry Additional orders as above Routine AM labs Home meds as ordered PT/OT DVT Prophylaxis: SCDs Spiritual care consult GI Prophylaxis: Protonix Code status: DNR/DNI; PCP: Natacha Rosa PA-C LOS>96 hours with anemia work up and treatment. DC expected 05/11/18. Overall Dale did OK. He was given vitamin K and his INR dropped significantly. He continued to over around 9 for a Hgb however this weekend he dropped and was given 2 units of blood. He has been holding steady around 11 now. His warfarin was restarted at 2mg daily with a new INR goal around 2. He needs to continue his warfarin due to his heart valve, however he is at increased GI bleed risk as this is his second one in almost a year. He did not have any hadley bloody stools while in our care on the floor. He has had a few BMs. He reports occasional hemorrhoids at home but did not complain of pain or itching here. He has had no complaints of weakness or shortness of breath. Diet was advanced and tolerated well. Dr. Bauer was consulted as above. He switched out with Dr. Grace who is local. Dale should follow-up with Dr. Grace at scheduled appointment. He should also follow-up with his PCP this coming friday at scheduled appointment. Recommending re-check INR at that time. He will be discharged today. - Patient Instructions Diet: Usual Diet as Tolerated Activity: As Tolerated Driving: Do Not Drive Notify Provider of: Fever, Increased Pain, Nausea and/or Vomiting Other/Special Instructions: Follow-up with Cassie Rosa and Dr. Grace as scheduled, sooner if needed. Take all medications as prescribed. Your warfarin dose was changed. Be sure to take amount you were discharged on (2mg daily). If you notice hadley blood in your stool or increased weakness contact your primary care provider or return to the ED. Recommending your INR be re- checked this Friday at your appointment. - Discharge Plan *PRESCRIPTION DRUG MONITORING PROGRAM REVIEWED*: No *COPY OF PRESCRIPTION DRUG MONITORING REPORT IN PATIENT GIULIA: No Prescriptions/Med Rec: Warfarin [Coumadin] 2 mg PO DAILY@1800 #15 tablet Home Medications: Home Meds Aspirin [Ecotrin] 81 mg PO DAILY 06/06/17 [History] B2/Vit A,C & E/Lut/Zeaxanth/Mn [Icaps] 1 tab PO DAILY 06/06/17 [History] Cholecalciferol (Vitamin D3) [D3-2000] 2,000 units PO DAILY 06/06/17 [History] Diltiazem HCl [Cardizem Cd] 240 mg PO DAILY 06/06/17 [History] Docusate Sodium [Stool Softener] 100 mg PO DAILY 06/06/17 [History] Ferrous Sulfate 325 mg PO DAILY 06/06/17 [History] Finasteride 5 mg PO DAILY 06/06/17 [History] Folic Acid 1 mg PO DAILY 06/06/17 [History] Levothyroxine Sodium [Tirosint] 25 mcg PO DAILY 06/06/17 [History] Metoprolol Tartrate 25 mg PO BID 06/06/17 [History] Mirtazapine 15 mg PO BEDTIME 06/06/17 [History] Omeprazole 20 mg PO DAILY 06/06/17 [History] Potassium Chloride 10 meq PO BID 06/06/17 [History] Sennosides [Senna] 8.6 mg PO DAILY 06/06/17 [History] Tamsulosin HCl 0.4 mg PO DAILY 06/06/17 [History] Torsemide 20 mg PO DAILY 06/06/17 [History] Vitamin B Complex 1 tab PO DAILY 06/06/17 [History] Clotrimazole [Clotrimazole 1%] 1 applic TOP DAILY 05/06/18 [History] Warfarin [Coumadin] 2 mg PO DAILY@1800 #15 tablet 05/11/18 [Rx] Patient Handouts: Warfarin Coagulopathy, Gastrointestinal Bleeding, Easy-to- Read Forms: ED Department Discharge Referrals: Rishi Grace MD [Physician] - 05/14/18 3:30 pm Natacha Rosa PA-C [Primary Care Provider] - 05/15/18 10:30 am - Discharge Summary/Plan Comment DC Time >30 min.: Yes (45 mins ) - General Info Date of Service: 05/11/18 Admission Dx/Problem (Free Text: Confirm Hgb drop with repeat lab draw. Denies change in stool. CVA risk is 4% with [id number]. Subjective Update: In to see Dale. He is lying in bed and family is at bedside. No concerns or complaints currently. All questions were answered. No nursing concerns. Functional Status: Reports: Pain Controlled, Tolerating Diet, Ambulating, Urinating. Denies: New Symptoms - Review of Systems General: Reports: No Symptoms. Denies: Fever, Weakness, Fatigue, Malaise HEENT: Reports: No Symptoms. Denies: Sore Throat Pulmonary: Reports: No Symptoms. Denies: Shortness of Breath, Cough, Sputum, Wheezing Cardiovascular: Reports: No Symptoms. Denies: Chest Pain, Palpitations, Dyspnea on Exertion Gastrointestinal: Reports: No Symptoms. Denies: Abdominal Pain, Constipation, Diarrhea, Hematochezia, Melena, Nausea, Vomiting Genitourinary: Reports: No Symptoms Musculoskeletal: Reports: No Symptoms Skin: Reports: No Symptoms Neurological: Reports: No Symptoms. Denies: Confusion Psychiatric: Reports: No Symptoms - Patient Data Vitals - Most Recent: Last Vital Signs Temp 97.9 F 05/10/18 20:01 Pulse 69 05/11/18 05:42 Resp 18 05/11/18 05:42 BP 140/82 05/11/18 05:42 Pulse Ox 96 05/11/18 05:42 Weight - Most Recent: 196 lb 3.2 oz I&O - Last 24 hours: Intake & Output 05/10/18 05/11/18 05/11/18 22:59 06:59 14:59 Intake Total 525 200 Output Total 800 500 Balance -275 -300 Lab Results - Last 24 hrs: Laboratory Results - last 24 hr 05/10/18 05/10/18 05/11/18 Range/Units 10:25 16:01 06:05 WBC 4.88 (4.23-9.07) K/mm3 RBC 3.69 L (4.63-6.08) M/mm3 Hgb 10.9 L 11.0 L (13.7-17.5) gm/L Hct 34.2 L (40.1-51.0) % MCV 92.7 H (79.0-92.2) fl MCH 29.8 (25.7-32.2) pg MCHC 32.2 (32.2-35.5) g/dl RDW Std Deviation 53.0 H (35.1-43.9) fL Plt Count 131 L (163-337) K/mm3 MPV 11.0 (9.4-12.3) fl Neut % (Auto) 61.9 (34.0-67.9) % Lymph % (Auto) 17.2 L (21.8-53.1) % [place] % (Auto) 13.7 H (5.3-12.2) % Eos % (Auto) 6.6 (0.8-7.0) Baso % (Auto) 0.6 (0.1-1.2) % Neut # (Auto) 3.02 (1.78-5.38) K/mm3 Lymph # (Auto) 0.84 L (1.32-3.57) K/mm3 [place] # (Auto) 0.67 (0.30-0.82) K/mm3 Eos # (Auto) 0.32 (0.04-0.54) K/mm3 Baso # (Auto) 0.03 (0.01-0.08) K/mm3 PT 11.7 (9.5-12.1) SECONDS INR 1.07 // Range/Units 06:05 WBC (4.23-9.07) K/mm3 RBC (4.63-6.08) M/mm3 Hgb (13.7-17.5) gm/L Hct (40.1-51.0) % MCV (79.0-92.2) fl MCH (25.7-32.2) pg MCHC (32.2-35.5) g/dl RDW Std Deviation (35.1-43.9) fL Plt Count (163-337) K/mm3 MPV (9.4-12.3) fl Neut % (Auto) (34.0-67.9) % Lymph % (Auto) (21.8-53.1) % [place] % (Auto) (5.3-12.2) % Eos % (Auto) (0.8-7.0) Baso % (Auto) (0.1-1.2) % Neut # (Auto) (1.78-5.38) K/mm3 Lymph # (Auto) (1.32-3.57) K/mm3 [place] # (Auto) (0.30-0.82) K/mm3 Eos # (Auto) (0.04-0.54) K/mm3 Baso # (Auto) (0.01-0.08) K/mm3 PT 11.8 (9.5-12.1) SECONDS INR 1.08 ALEXYS Results - Last 24 hrs: Microbiology 05/10/18 13:20 Occult Blood - Final Stool / Feces - Stool, Formed Med Orders - Current: Current Medications Acetaminophen (Tylenol) 650 mg PO Q4H PRN PRN Reason: Pain (Mild 1-3)/fever Hydrocodone Bitart/Acetaminophen ([place] 325-5 Mg) 1 tab PO Q4H PRN PRN Reason: Pain (moderate 4-6) Albuterol/Ipratropium (Duoneb 3.0-0.5 Mg/3 Ml) 3 ml NEB Q4H PRN PRN Reason: Shortness Of Breath/wheezing Aspirin (Aspirin) 81 mg PO DAILY [facility] Last Admin: 05/10/18 09:28 Dose: 81 mg Clotrimazole (Lotrimin Af 1% Crm) 0 gm TOP DAILY [facility] Last Admin: 05/10/18 09:32 Dose: 1 applic Diltiazem HCl (Cardizem Cd) 240 mg PO DAILY [facility] Last Admin: 05/10/18 09:28 Dose: 240 mg Ferrous Sulfate (Ferrous Sulfate) 325 mg PO DAILY [facility] Last Admin: 05/10/18 09:28 Dose: 325 mg Finasteride (Proscar) 5 mg PO DAILY [facility] Last Admin: 05/10/18 09:28 Dose: 5 mg Folic Acid (Folic Acid) 1 mg PO DAILY [facility] Last Admin: 05/10/18 09:28 Dose: 1 mg Hydralazine HCl (Apresoline) 20 mg IVPUSH Q4H PRN PRN Reason: Hypertension Hydromorphone HCl (Dilaudid) 0.25 mg IVPUSH Q2H PRN PRN Reason: Pain (severe 7-10) Promethazine HCl 6.25 mg/ (Sodium Chloride) 50.25 mls @ 100 mls/hr IV Q6H PRN PRN Reason: Nausea/Vomiting Levothyroxine Sodium (Levothyroxine) 25 mcg PO ACBREAKFAST [facility] Last Admin: 05/11/18 05:42 Dose: 25 mcg Lorazepam (Ativan) 2 mg IVPUSH Q4H PRN PRN Reason: Seizures Lorazepam (Ativan) 1 mg IV Q6H PRN PRN Reason: Anxiety Metoprolol Tartrate (Lopressor) 5 mg IVPUSH Q4H PRN PRN Reason: Tachycardia Metoprolol Tartrate (Lopressor) 12.5 mg PO BID [facility] Last Admin: 05/10/18 20:03 Dose: 12.5 mg Mirtazapine (Remeron) 15 mg PO BEDTIME [facility] Last Admin: 05/10/18 20:04 Dose: 15 mg Ondansetron HCl (Zofran) 4 mg IV Q6H PRN PRN Reason: Nausea/Vomiting Pantoprazole Sodium (Protonix) 40 mg PO Q12HR [facility] Last Admin: 05/10/18 20:04 Dose: 40 mg Potassium Chloride (Klor-Con 10) 10 meq PO BID [facility] Last Admin: 05/10/18 20:03 Dose: 10 meq Sodium Chloride (Saline Flush) 10 ml FLUSH ASDIRECTED PRN PRN Reason: Keep Vein Open Last Admin: 05/05/18 21:56 Dose: 10 ml Tamsulosin HCl (Flomax) 0.4 mg PO DAILY [facility] Last Admin: 05/10/18 09:28 Dose: 0.4 mg Temazepam (Restoril) 7.5 mg PO BEDTIME PRN PRN Reason: Sleep Warfarin Sodium (Coumadin) 2 mg PO DAILY@1800 [facility] Last Admin: 05/10/18 18:10 Dose: 2 mg Witch Dominique (Tucks) 1 pad TOP Q6HR PRN PRN Reason: Hemorrhoids Discontinued Medications Acetaminophen (Tylenol) 650 mg PO NOW ONE Stop: 05/08/18 08:25 Last Admin: 05/08/18 14:29 Dose: Not Given Diatrizoate Meglum/Diatrizoate Sod (Gastrografin 37%) 90 ml PO ONETIME ONE Stop: 05/05/18 22:44 Last Admin: 05/05/18 23:00 Dose: 90 ml Diphenhydramine HCl (Benadryl) 25 mg IV ONETIME ONE Stop: 05/08/18 08:25 Last Admin: 05/08/18 14:29 Dose: Not Given Furosemide (Lasix) 40 mg IVPUSH ASDIRECTED [facility] Stop: 05/08/18 13:00 Hydromorphone HCl (Dilaudid) 0.25 mg IVPUSH Q2H PRN PRN Reason: Pain (severe 7-10) Phytonadione 5 mg/ Sodium (Chloride) 50.5 mls @ 100 mls/hr IV NOW ONE Stop: 05/05/18 22:39 Last Admin: 05/05/18 22:30 Dose: 100 mls/hr Pantoprazole Sodium 80 mg/ (Sodium Chloride) 100 mls @ 10 mls/hr IV Q10H [facility] Last Admin: 05/06/18 00:40 Dose: 10 mls/hr Sodium Chloride (Normal Saline) 1,000 mls @ 75 mls/hr IV ASDIRECTED [facility] Last Admin: 05/07/18 04:09 Dose: 75 mls/hr Sodium Chloride (Normal Saline) 1,000 mls @ 999 mls/hr IV ONETIME ONE Stop: 05/06/18 19:27 Last Admin: 05/06/18 18:35 Dose: 999 mls/hr Sodium Chloride (Normal Saline) 250 mls @ 100 mls/hr IV ASDIRECTED [facility] Sodium Chloride (Normal Saline) 250 mls @ 100 mls/hr IV ASDIRECTED [facility] Last Admin: 05/09/18 19:00 Dose: 100 mls/hr Iopamidol (Isovue-300 (61%)) 120 ml IVPUSH ONETIME ONE Stop: 05/05/18 22:44 Last Admin: 05/06/18 01:48 Dose: Not Given Iopamidol (Isovue-370 (76%)) 100 ml IVPUSH ONETIME ONE Stop: 05/05/18 22:58 Last Admin: 05/05/18 23:00 Dose: 100 ml Magnesium Sulfate (Pharmacy To Dose - Magnesium Replacement) 0 dose .XX ASDIRECTED PRN PRN Reason: RX TO WATCH MAG LEVELS Metoprolol Tartrate (Lopressor) 25 mg PO BID [facility] Last Admin: 05/07/18 09:09 Dose: 25 mg Metoprolol Tartrate (Lopressor) 25 mg PO ONETIME ONE Stop: 05/06/18 01:44 Last Admin: 05/06/18 02:04 Dose: 25 mg Metoprolol Tartrate (Lopressor) 12.5 mg PO ONETIME ONE Stop: 05/06/18 21:01 Last Admin: 05/06/18 20:58 Dose: 12.5 mg Mirtazapine (Remeron) 15 mg PO ONETIME ONE Stop: 05/06/18 01:49 Last Admin: 09/19/18 02:05 Dose: 15 mg Pantoprazole Sodium (Protonix Iv) 80 mg IVPUSH .BOLUS ONE Stop: 05/06/18 00:06 Last Admin: 05/06/18 00:35 Dose: 80 mg Pantoprazole Sodium (Protonix Iv) 40 mg IV Q12HR [facility] Last Admin: 05/07/18 09:12 Dose: 40 mg Pantoprazole Sodium (Protonix) 40 mg PO BIDAC [facility] Phytonadione (Aquamephyton) 5 mg PO ONETIME ONE Stop: 05/06/18 01:26 Last Admin: 05/06/18 02:01 Dose: 5 mg Potassium Chloride (Pharmacy To Dose - Potassium Replacement) 0 dose .XX ASDIRECTED PRN PRN Reason: RX TO WATCH K LEVELS - Exam Quality Assessment: Reports: DVT Prophylaxis General: Reports: Alert, Oriented, Cooperative, No Acute Distress HEENT: Reports: Pupils Equal, Pupils Reactive, EOMI, Mucous Membr. Moist/Epes Neck: Reports: Supple, Trachea Midline Lungs: Reports: Clear to Auscultation, Normal Respiratory Effort Cardiovascular: Reports: Regular Rate, Irregular Rhythm, Murmurs GI/Abdominal Exam: Normal Bowel Sounds, Soft, Non-Tender, No Distention, No Abnormal Bruit (Male) Exam: Deferred Rectal (Males) Exam: Deferred Back Exam: Reports: Normal Inspection, Full Range of Motion Extremities: Normal Inspection, Normal Range of Motion, Non-Tender, No Pedal Edema, Normal Capillary Refill Skin: Reports: Warm, Dry, Intact Neurological: Reports: No New Focal Deficit Psy/Mental Status: Reports: Alert, Normal Affect, Normal Mood
[2018-05-11] MEDS: Potassium Chloride 10 MEQ Tab.ER PO SCH (08:07)
[2018-05-11] MEDS: Finasteride 5 MG Tab PO SCH (08:07)
[2018-05-11] MEDS: Tamsulosin 0.4 MG Cap.ER PO SCH (08:07)
[2018-05-11] MEDS: Aspirin 81 MG Tab.Chew PO SCH (08:07)
[2018-05-11] MEDS: Metoprolol Tartrate 25 MG Tab PO SCH (08:07)
[2018-05-11] MEDS: Pantoprazole 40 MG Tab.CR PO SCH (08:13)
[2018-05-11] MEDS: Diltiazem 120 MG Cap.CD PO SCH (08:13)
[2018-05-11] MEDS: Folic Acid 1 MG Tab PO SCH (08:13)
[2018-05-11] MEDS: Ferrous Sulfate 325 MG Tab PO SCH (08:13)
[2018-05-11 08:14] VITALS: BP 140/72
[2018-05-11] MEDS: Clotrimazole 1% Crm 30 GM Tube TOP SCH (08:18)
== END 2018-05-11 12:13 | disposition home or self-care (01) | DRG 378 ==
LOC: JD.ED 20:41 → JD.MS 05-06 00:30
PROVIDERS: ADMIT Internal Medicine; ATTEND Internal Medicine
PROC: 30233N1 Transfusion of Nonautologous Red Blood Cells into Peripheral Vein, Percutaneous Approach (ICD-10-PCS; principal; 2018-05-09)
DX: K92.2 Gastrointestinal hemorrhage, unspecified (principal); D64.9 Anemia, unspecified; I50.32 Chronic diastolic (congestive) heart failure; I48.91 Unspecified atrial fibrillation; I13.0 Hypertensive heart and chronic kidney disease with heart failure and stage 1 through stage 4 chronic kidney disease, or unspecified chronic kidney disease; I50.9 Heart failure, unspecified; R79.1 Abnormal coagulation profile; I25.10 Atherosclerotic heart disease of native coronary artery without angina pectoris; N18.9 Chronic kidney disease, unspecified; J44.9 Chronic obstructive pulmonary disease, unspecified; K21.9 Gastro-esophageal reflux disease without esophagitis; N40.1 Benign prostatic hyperplasia with lower urinary tract symptoms; R33.8 Other retention of urine; M19.042 Primary osteoarthritis, left hand; M19.041 Primary osteoarthritis, right hand; E03.9 Hypothyroidism, unspecified; H91.90 Unspecified hearing loss, unspecified ear; I48.2 Chronic atrial fibrillation; N18.3 Chronic kidney disease, stage 3 (moderate); G47.33 Obstructive sleep apnea (adult) (pediatric); R09.02 Hypoxemia; G47.00 Insomnia, unspecified; D50.9 Iron deficiency anemia, unspecified; Z85.46 Personal history of malignant neoplasm of prostate; Z79.01 Long term (current) use of anticoagulants; Z95.2 Presence of prosthetic heart valve; Z99.81 Dependence on supplemental oxygen; Z90.49 Acquired absence of other specified parts of digestive tract; Z88.8 Allergy status to other drugs, medicaments and biological substances; Z79.899 Other long term (current) drug therapy; Z87.01 Personal history of pneumonia (recurrent); Z79.82 Long term (current) use of aspirin; Z86.14 Personal history of Methicillin resistant Staphylococcus aureus infection; Z66 Do not resuscitate; Z87.891 Personal history of nicotine dependence
CPT/HCPCS: 36415; 74177; 80053; 82270; 85025; 85610; 85730; 96365; 99285; J3430; J7050 ×2; Q9963; Q9967; 36430; 80048; 83735; 85014; 85018; 85027; 86850; 86900; 86901; 86922; 94660; 94760; 97161-GP; 97165-GO; A9270-GY; C9113; J7030; J7040; P9016

== ENCOUNTER 2019-02-04 17:47 | Emergency (ER) | payer MEDICARE, BC ==
[2019-02-04 18:11] VITALS: BP 123/45
--- NOTE | 2019-02-04 18:31 | EDM.PDOC ---
ED HPI GENERAL MEDICAL PROBLEM - General Chief Complaint: Genitourinary Problem Stated Complaint: BLOOD IN URINE Time Seen by Provider: 02/04/19 18:09 Source of Information: Reports: Patient History Limitations: Reports: No Limitations - History of Present Illness INITIAL COMMENTS - FREE TEXT/NARRATIVE: The patient presents with hematuria. He has had a little blood in his urine off and on for a couple weeks. He self caths 4 times per day. He is not sure exactly for what reason other then because he cannot urinate. He sees Dr Campuzano. He has no pain anywhere to include pelvic or abdominal pain. He has no fever, chills or cough. He is not on any blood thinners. He went to [facility] and they saw how much blood he had and sent him here. Onset: Gradual Duration: Week(s): Severity: Moderate Improves with: Reports: None Worsens with: Reports: None Associated Symptoms: Reports: No Other Symptoms - Related Data Allergies Allergy/AdvReac Type Severity Reaction Status Date / Time loratadine [From Claritin] Allergy Rash Verified 02/04/19 18:11 rosuvastatin [From Crestor] AdvReac Body Aches Verified 02/04/19 18:11 Qptlywx-Awl-Ldm Reductase AdvReac Body Aches Verified 02/04/19 18:11 Inhibitor Home Meds: Home Meds Aspirin [Ecotrin EC] 81 mg PO DAILY 06/06/17 [History] B2/Vit A,C & E/Lut/Zeaxanth/Mn [Icaps] 1 tab PO DAILY 06/06/17 [History] Cholecalciferol (Vitamin D3) [D3-2000] 2,000 units PO DAILY 06/06/17 [History] Diltiazem HCl [Cardizem Cd] 240 mg PO DAILY 06/06/17 [History] Docusate Sodium [Stool Softener] 100 mg PO DAILY 06/06/17 [History] Ferrous Sulfate 325 mg PO DAILY 06/06/17 [History] Finasteride 5 mg PO DAILY 06/06/17 [History] Folic Acid 1 mg PO DAILY 06/06/17 [History] Levothyroxine Sodium [Tirosint] 25 mcg PO DAILY 06/06/17 [History] Metoprolol Tartrate 25 mg PO BID 06/06/17 [History] Mirtazapine 15 mg PO BEDTIME 06/06/17 [History] Omeprazole 20 mg PO DAILY 06/06/17 [History] Potassium Chloride 10 meq PO BID 06/06/17 [History] Sennosides [Senna] 8.6 mg PO DAILY 06/06/17 [History] Tamsulosin HCl 0.4 mg PO DAILY 06/06/17 [History] Torsemide 20 mg PO DAILY 06/06/17 [History] Vitamin B Complex 1 tab PO DAILY 06/06/17 [History] Clotrimazole [Clotrimazole 1%] 1 applic TOP DAILY 05/06/18 [History] Warfarin [Coumadin] 5 mg PO DAILY@1800 02/04/19 [History] Past Medical History HEENT History: Reports: Cataract, Hard of Hearing, Macular Degeneration Cardiovascular History: Reports: Afib, CAD, Heart Failure, Heart Valve Replacement, Other (See Below) Other Cardiovascular History: hypokalemia Respiratory History: Reports: COPD, Pneumonia, Recurrent Gastrointestinal History: Reports: GERD Other Gastrointestinal History: lap fifi Genitourinary History: Reports: BPH, Chronic Renal Insuffiency, Retention, Urinary Other Genitourinary History: Beads in place approximately 15 years ago. Hydrocele removal . Musculoskeletal History: Reports: Arthritis Other Musculoskeletal History: Arthritis in hands. Endocrine/Metabolic History: Reports: Hypothyroidism Hematologic History: Reports: Anticoagulation Therapy Other Hematologic History: takes Vitamin B and D. Unsure if diagnosed. Oncologic (Cancer) History: Reports: Prostate Dermatologic History: Reports: Benign Melanoma - Infectious Disease History Infectious Disease History: Reports: C-Difficile, Chicken Pox, Measles, MRSA, Mumps, Rheumatic Fever, Rubella - Past Surgical History HEENT Surgical History: Reports: Cataract Surgery, Tonsillectomy Cardiovascular Surgical History: Reports: Valve Replacement GI Surgical History: Reports: Appendectomy, Cholecystectomy, Colonoscopy, Hernia , Inguinal, Hernia Repair/Other Musculoskeletal Surgical History: Reports: None Oncologic Surgical History: Reports: None Dermatological Surgical History: Reports: Skin Biopsy Social & Family History - Family History Family Medical History: Noncontributory HEENT: Reports: Cataract Cardiac: Reports: PR OBGYN: Reports: Musculoskeletal: Reports: Arthritis Neurological: Reports: Dementia Endocrine/Metabolic: Reports: Diabetes, type II Other Endocrine/Metabolic Family History: Brother Oncologic: Reports: Breast, Colon, Skin, Other (See Below) Other Oncologic Family History: Malignant melanoma - Brother. Dad- cancer of thyroid and colon. Sister - Breast - Tobacco Use Smoking Status *Q: Never Smoker - Caffeine Use Caffeine Use: Reports: Coffee Other Caffeine Use: 2 cups a day at most. Caffeine Use Comment: Patient states he drinks about 3 cups of coffee per day - Recreational Drug Use Recreational Drug Use: No - Living Situation & Occupation Living situation: Reports: , with Spouse Occupation: Retired ED ROS GENERAL - Review of Systems Review Of Systems: See Below Constitutional: Reports: No Symptoms HEENT: Reports: No Symptoms Respiratory: Reports: No Symptoms Cardiovascular: Reports: No Symptoms Endocrine: Reports: No Symptoms GI/Abdominal: Reports: No Symptoms : Reports: Hematuria Musculoskeletal: Reports: No Symptoms ED EXAM, RENAL/ - Physical Exam Exam: See Below Exam Limited By: No Limitations General Appearance: Alert, No Apparent Distress Ears: Normal External Exam Nose: Normal Inspection Head: Atraumatic, Normocephalic Neck: Normal Inspection Respiratory/Chest: No Respiratory Distress, Lungs Clear, Normal Breath Sounds Cardiovascular: Regular Rate, Rhythm, No Edema, No Murmur GI/Abdominal: Soft, Non-Tender, No Organomegaly, No Mass Back Exam: Normal Inspection Extremities: Normal Inspection Neurological: Alert, Oriented, No Motor/Sensory Deficits Course - Vital Signs Last Recorded V/S: Last Vital Signs Temp 97.3 F 02/04/19 18:08 Pulse 87 02/04/19 18:08 Resp 16 02/04/19 18:08 BP 123/45 L 02/04/19 18:08 Pulse Ox 97 02/04/19 18:08 - Orders/Labs/Meds Orders: Active Orders 24 hr Category Date Time Status Insert Bassett Catheter [Insert Urinary Catheter] [OM.PC] Care 02/04/19 18:30 Ordered Q24H Urinary Catheter Assessment [RC] ASDIRECTED Care 02/04/19 18:26 Active Labs: Laboratory Tests 02/04/19 02/04/19 02/04/19 Range/Units 18:40 18:50 18:50 WBC 4.96 (4.23-9.07) K/mm3 RBC 3.33 L (4.63-6.08) M/mm3 Hgb 9.7 L D (13.7-17.5) gm/L Hct 30.8 L (40.1-51.0) % MCV 92.5 H (79.0-92.2) fl MCH 29.1 (25.7-32.2) pg MCHC 31.5 L (32.2-35.5) g/dl RDW Std Deviation 50.2 H (35.1-43.9) fL Plt Count 157 L (163-337) K/mm3 MPV 10.3 (9.4-12.3) fl Neut % (Auto) 63.8 (34.0-67.9) % Lymph % (Auto) 18.5 L (21.8-53.1) % Forrest % (Auto) 11.1 (5.3-12.2) % Eos % (Auto) 5.8 (0.8-7.0) Baso % (Auto) 0.6 (0.1-1.2) % Neut # (Auto) 3.16 (1.78-5.38) K/mm3 Lymph # (Auto) 0.92 L (1.32-3.57) K/mm3 Forrest # (Auto) 0.55 (0.30-0.82) K/mm3 Eos # (Auto) 0.29 (0.04-0.54) K/mm3 Baso # (Auto) 0.03 (0.01-0.08) K/mm3 PT (9.5-12.1) SECONDS INR Sodium 140 (136-145) mEq/L Potassium 3.4 L (3.5-5.1) mEq/L Chloride 102 (98-107) mEq/L Carbon Dioxide 28 (21-32) mEq/L Anion Gap 13.4 (5-15) BUN 26 H (7-18) mg/dL Creatinine 1.6 H (0.7-1.3) mg/dL Est Cr Clr Drug Dosing 39.07 mL/min Estimated GFR (MDRD) 42 (>60) mL/min BUN/Creatinine Ratio 16.3 (14-18) Glucose 143 H (83-115) mg/dL Calcium 8.8 (8.5-10.1) mg/dL Total Bilirubin 0.4 (0.2-1.0) mg/dL AST 20 (15-37) U/L ALT 19 (16-63) U/L Alkaline Phosphatase 69 (46-116) U/L Total Protein 6.4 (6.4-8.2) g/dl Albumin 3.2 L (3.4-5.0) g/dl Globulin 3.2 gm/dL Albumin/Globulin Ratio 1.0 (1-2) Urine Color Red H (Yellow) Urine Appearance Turbid H (Clear) Urine pH 6.0 (5.0-8.0) Ur Specific Howes 1.020 (1.005-1.030) Urine Protein 3+ H (Negative) Urine Glucose (UA) Negative (Negative) Urine Ketones 1+ H (Negative) Urine Occult Blood 3+ H (Negative) Urine Nitrite Negative (Negative) Urine Bilirubin 3+ H (Negative) Urine Urobilinogen 2.0 H (0.2-1.0) Ur Leukocyte Esterase 3+ H (Negative) Urine RBC >100 H (0-5) /hpf Urine WBC 0-5 (0-5) /hpf Ur Squamous Epith Cells 0-5 (0-5) /hpf Urine Bacteria Not seen (FEW) /hpf Urine Mucus Not seen (FEW) /hpf 02/04/19 Range/Units 18:50 WBC (4.23-9.07) K/mm3 RBC (4.63-6.08) M/mm3 Hgb (13.7-17.5) gm/L Hct (40.1-51.0) % MCV (79.0-92.2) fl MCH (25.7-32.2) pg MCHC (32.2-35.5) g/dl RDW Std Deviation (35.1-43.9) fL Plt Count (163-337) K/mm3 MPV (9.4-12.3) fl Neut % (Auto) (34.0-67.9) % Lymph % (Auto) (21.8-53.1) % Forrest % (Auto) (5.3-12.2) % Eos % (Auto) (0.8-7.0) Baso % (Auto) (0.1-1.2) % Neut # (Auto) (1.78-5.38) K/mm3 Lymph # (Auto) (1.32-3.57) K/mm3 Forrest # (Auto) (0.30-0.82) K/mm3 Eos # (Auto) (0.04-0.54) K/mm3 Baso # (Auto) (0.01-0.08) K/mm3 PT 29.1 H (9.5-12.1) SECONDS INR 2.72 Sodium (136-145) mEq/L Potassium (3.5-5.1) mEq/L Chloride (98-107) mEq/L Carbon Dioxide (21-32) mEq/L Anion Gap (5-15) BUN (7-18) mg/dL Creatinine (0.7-1.3) mg/dL Est Cr Clr Drug Dosing mL/min Estimated GFR (MDRD) (>60) mL/min BUN/Creatinine Ratio (14-18) Glucose (83-115) mg/dL Calcium (8.5-10.1) mg/dL Total Bilirubin (0.2-1.0) mg/dL AST (15-37) U/L ALT (16-63) U/L Alkaline Phosphatase (46-116) U/L Total Protein (6.4-8.2) g/dl Albumin (3.4-5.0) g/dl Globulin gm/dL Albumin/Globulin Ratio (1-2) Urine Color (Yellow) Urine Appearance (Clear) Urine pH (5.0-8.0) Ur Specific Howes (1.005-1.030) Urine Protein (Negative) Urine Glucose (UA) (Negative) Urine Ketones (Negative) Urine Occult Blood (Negative) Urine Nitrite (Negative) Urine Bilirubin (Negative) Urine Urobilinogen (0.2-1.0) Ur Leukocyte Esterase (Negative) Urine RBC (0-5) /hpf Urine WBC (0-5) /hpf Ur Squamous Epith Cells (0-5) /hpf Urine Bacteria (FEW) /hpf Urine Mucus (FEW) /hpf - Re-Assessments/Exams Free Text/Narrative Re-Assessment/Exam: 02/04/19 19:49 I had my nurse put a bassett cath in and we got blood out. His Hgb was a little low at 9.7. In the past his Hgb was 12.1. 02/04/19 19:49 His K was 3.4. His creatinine is 1.6. His UA shows blood with some leukocyte esterase. Not many WBCs were seen and there was very few bacteria. I do not feel this is an infection. I will have my nurse irrigate the bladder. 02/04/19 20:34 There is less blood. I called the urologist audiovisual production specialist at [facility] Dr Dickey and he wanted me to leave the catheter in and have the patient call Dr Campuzano's office in the morning and they can work him in next week. Departure - Departure Time of Disposition: 20:40 Disposition: Home, Self-Care 01 Condition: Fair Clinical Impression: Hematuria Qualifiers: Hematuria type: gross Qualified Code(s): R31.0 - Gross hematuria - Discharge Information *PRESCRIPTION DRUG MONITORING PROGRAM REVIEWED*: Not Applicable *COPY OF PRESCRIPTION DRUG MONITORING REPORT IN PATIENT GIULIA: Not Applicable Referrals: Natacha Rosa PA-C [Primary Care Provider] - Nando Campuzano MD [Physician] - 1 Week Forms: ED Department Discharge Additional Instructions: Take your medication as prescribed. Leave the catheter in until you see Dr Campuzano. Call his office tomorrow and talk to his nurse and see if they can work you in early next week. Please return if you are worse. - My Orders Last 24 Hours: My Active Orders 02/04/19 18:26 Urinary Catheter Assessment [RC] ASDIRECTED 02/04/19 18:30 Insert Bassett Catheter [Insert Urinary Catheter] [OM.PC] Q24H - Assessment/Plan Last 24 Hours: My Active Orders 02/04/19 18:26 Urinary Catheter Assessment [RC] ASDIRECTED 02/04/19 18:30 Insert Bassett Catheter [Insert Urinary Catheter] [OM.PC] Q24H
== END 2019-02-04 20:59 | disposition home or self-care (01) ==
LOC: JD.ED 17:47
DX: R31.0 Gross hematuria (principal); I50.9 Heart failure, unspecified; I48.91 Unspecified atrial fibrillation; I25.10 Atherosclerotic heart disease of native coronary artery without angina pectoris; K21.9 Gastro-esophageal reflux disease without esophagitis; J44.9 Chronic obstructive pulmonary disease, unspecified; Z79.01 Long term (current) use of anticoagulants; Z88.8 Allergy status to other drugs, medicaments and biological substances; Z79.82 Long term (current) use of aspirin; Z79.899 Other long term (current) drug therapy
CPT/HCPCS: 36415; 51702; 80053; 81001; 85025; 85610; 99283

== ENCOUNTER 2022-03-27 16:28 | Inpatient (IN) | payer MEDICARE, BC ==
[2022-03-27] MEDS ORDERED: Sodium Chloride 0.9% 10 ML Syringe FLUSH PRN (16:53)
[2022-03-27] MEDS: Sodium Chloride 0.9% 1,000 ML IV SCH (21:28)
[2022-03-28] MEDS ORDERED: Ondansetron 4 MG/2 ML SDV IV PRN (08:47)
[2022-03-28] MEDS ORDERED: Acetaminophen 325 MG Tab PO PRN (08:47)
[2022-03-28] MEDS: Potassium Chloride 10 MEQ in Premix Bag 1 BAG IV SCH ×4 (10:26→13:42)
[2022-03-28] MEDS: Finasteride 5 MG Tab PO SCH (10:27)
[2022-03-28] MEDS: Pantoprazole 40 MG Vial IV SCH ×2 (10:27→20:42)
[2022-03-28] MEDS: Sodium Chloride 0.9% 1,000 ML IV SCH ×2 (12:36→23:03)
[2022-03-28] MEDS ORDERED: Sulfamethoxazole/Trimethoprim 800-160 MG Tab PO SCH (13:00)
[2022-03-28] MEDS: Sulfamethoxazole/Trimethoprim 800-160 MG Tab PO SCH (13:23)
[2022-03-28] MEDS: Levothyroxine 25 MCG Tab PO SCH (13:23)
[2022-03-28] MEDS: Tamsulosin 0.4 MG Cap.ER PO SCH (13:24)
[2022-03-28] MEDS: Folic Acid 1 MG Tab PO SCH (13:24)
[2022-03-28] MEDS: Ferrous Sulfate 324 MG Tab.EC PO SCH (13:24)
[2022-03-28] MEDS: Diltiazem 180 MG Cap.CD PO SCH (13:24)
[2022-03-28] MEDS: Mirtazapine 15 MG Tab PO SCH (20:42)
[2022-03-28] MEDS: Metoprolol Tartrate 25 MG Tab PO SCH (20:42)
[2022-03-29] MEDS: Levothyroxine 25 MCG Tab PO SCH (05:50)
[2022-03-29] MEDS ORDERED: cefTRIAXone 1 GM in Sodium Chloride 0.9% 100 ML IV SCH (09:00)
[2022-03-29] MEDS: Metoprolol Tartrate 25 MG Tab PO SCH ×2 (09:59→21:33)
[2022-03-29] MEDS: Folic Acid 1 MG Tab PO SCH (10:01)
[2022-03-29] MEDS: Ferrous Sulfate 324 MG Tab.EC PO SCH (10:01)
[2022-03-29] MEDS: Tamsulosin 0.4 MG Cap.ER PO SCH (10:01)
[2022-03-29] MEDS: Finasteride 5 MG Tab PO SCH (10:02)
[2022-03-29] MEDS: Diltiazem 180 MG Cap.CD PO SCH (10:02)
[2022-03-29] MEDS: Pantoprazole 40 MG Vial IV SCH ×2 (10:02→21:29)
[2022-03-29] MEDS ORDERED: REMDESIVIR 200 MG in Sodium Chloride 0.9% 250 ML IV ONE (11:00)
[2022-03-29] MEDS: Sulfamethoxazole/Trimethoprim 800-160 MG Tab PO SCH (11:22)
[2022-03-29] MEDS: Mirtazapine 15 MG Tab PO SCH (21:36)
[2022-03-30] MEDS: Levothyroxine 25 MCG Tab PO SCH (06:53)
[2022-03-30] MEDS: Pantoprazole 40 MG Vial IV SCH ×2 (09:55→21:47)
[2022-03-30] MEDS: Tamsulosin 0.4 MG Cap.ER PO SCH (09:55)
[2022-03-30] MEDS: Metoprolol Tartrate 25 MG Tab PO SCH ×2 (09:56→21:47)
[2022-03-30] MEDS: Finasteride 5 MG Tab PO SCH (09:56)
[2022-03-30] MEDS: Diltiazem 180 MG Cap.CD PO SCH (09:56)
[2022-03-30] MEDS: Ferrous Sulfate 324 MG Tab.EC PO SCH (09:56)
[2022-03-30] MEDS: Folic Acid 1 MG Tab PO SCH (09:56)
[2022-03-30] MEDS: REMDESIVIR 100 MG in Sodium Chloride 0.9% 100 ML IV SCH (10:05)
[2022-03-30] MEDS: Sulfamethoxazole/Trimethoprim 800-160 MG Tab PO SCH (13:17)
[2022-03-30] MEDS ORDERED: LORazepam 2 MG/ML SDV IVPUSH PRN (13:52)
[2022-03-30] MEDS: Mirtazapine 15 MG Tab PO SCH (21:47)
[2022-03-31] MEDS: Levothyroxine 25 MCG Tab PO SCH (06:41)
[2022-03-31] MEDS: Ferrous Sulfate 324 MG Tab.EC PO SCH (09:26)
[2022-03-31] MEDS: Folic Acid 1 MG Tab PO SCH (09:27)
[2022-03-31] MEDS: Tamsulosin 0.4 MG Cap.ER PO SCH (09:27)
[2022-03-31] MEDS: Pantoprazole 40 MG Vial IV SCH ×2 (09:27→21:48)
[2022-03-31] MEDS: Diltiazem 180 MG Cap.CD PO SCH (09:27)
[2022-03-31] MEDS: Finasteride 5 MG Tab PO SCH (09:27)
[2022-03-31] MEDS: Metoprolol Tartrate 25 MG Tab PO SCH ×2 (09:27→21:48)
[2022-03-31] MEDS: REMDESIVIR 100 MG in Sodium Chloride 0.9% 100 ML IV SCH (09:30)
[2022-03-31] MEDS: Sulfamethoxazole/Trimethoprim 800-160 MG Tab PO SCH (12:19)
[2022-03-31] MEDS: Mirtazapine 15 MG Tab PO SCH (21:48)
[2022-04-01] MEDS ORDERED: Magnesium Sulfate/Water 2 GM in Premix Bag 1 BAG IV ONE (06:31)
[2022-04-01] MEDS: Levothyroxine 25 MCG Tab PO SCH (06:47)
[2022-04-01 08:41] VITALS: BP 122/71; PULSE 75
[2022-04-01] MEDS: Metoprolol Tartrate 25 MG Tab PO SCH (09:10)
[2022-04-01] MEDS: Ferrous Sulfate 324 MG Tab.EC PO SCH (09:10)
[2022-04-01] MEDS: Diltiazem 180 MG Cap.CD PO SCH (09:10)
[2022-04-01] MEDS: Folic Acid 1 MG Tab PO SCH (09:10)
[2022-04-01] MEDS: Pantoprazole 40 MG Vial IV SCH (09:10)
[2022-04-01] MEDS: Finasteride 5 MG Tab PO SCH (09:11)
[2022-04-01] MEDS: Tamsulosin 0.4 MG Cap.ER PO SCH (09:11)
[2022-04-01] MEDS: REMDESIVIR 100 MG in Sodium Chloride 0.9% 100 ML IV SCH (10:17)
[2022-04-01] MEDS: Sulfamethoxazole/Trimethoprim 800-160 MG Tab PO SCH (12:56)
== END 2022-04-01 14:55 | disposition home health service (06) | DRG 813 ==
LOC: JD.ED 16:28 → JD.MS 18:45
PROVIDERS: ADMIT Pediatrics; ATTEND Internal Medicine
PROC: 8E0ZXY6 Isolation (ICD-10-PCS; principal; 2022-03-29)
PROC: XW033E5 Introduction of Remdesivir Anti-infective into Peripheral Vein, Percutaneous Approach, New Technology Group 5 (ICD-10-PCS; 2022-03-29)
DX: D68.32 Hemorrhagic disorder due to extrinsic circulating anticoagulants (principal); U07.1 COVID-19; I48.20 Chronic atrial fibrillation, unspecified; I50.32 Chronic diastolic (congestive) heart failure; J96.11 Chronic respiratory failure with hypoxia; I13.0 Hypertensive heart and chronic kidney disease with heart failure and stage 1 through stage 4 chronic kidney disease, or unspecified chronic kidney disease; N18.9 Chronic kidney disease, unspecified; I50.9 Heart failure, unspecified; E44.0 Moderate protein-calorie malnutrition; K92.2 Gastrointestinal hemorrhage, unspecified; I48.91 Unspecified atrial fibrillation; J44.9 Chronic obstructive pulmonary disease, unspecified; R33.9 Retention of urine, unspecified; M19.90 Unspecified osteoarthritis, unspecified site; I25.10 Atherosclerotic heart disease of native coronary artery without angina pectoris; K21.9 Gastro-esophageal reflux disease without esophagitis; Z85.820 Personal history of malignant melanoma of skin; N40.1 Benign prostatic hyperplasia with lower urinary tract symptoms; Z79.82 Long term (current) use of aspirin; Z79.890 Hormone replacement therapy; R33.8 Other retention of urine; Z66 Do not resuscitate; E03.9 Hypothyroidism, unspecified; Z96.0 Presence of urogenital implants; N18.31 Chronic kidney disease, stage 3a; D70.8 Other neutropenia; Z79.899 Other long term (current) drug therapy; Z88.8 Allergy status to other drugs, medicaments and biological substances; Z44.9 Encounter for fitting and adjustment of unspecified external prosthetic device; Z95.2 Presence of prosthetic heart valve; Z79.01 Long term (current) use of anticoagulants; Z85.46 Personal history of malignant neoplasm of prostate; Z99.81 Dependence on supplemental oxygen; Z87.01 Personal history of pneumonia (recurrent); Z90.49 Acquired absence of other specified parts of digestive tract; Z98.42 Cataract extraction status, left eye; Z98.41 Cataract extraction status, right eye; Z90.89 Acquired absence of other organs; Z98.890 Other specified postprocedural states; Z87.19 Personal history of other diseases of the digestive system; Z68.23 Body mass index [BMI] 23.0-23.9, adult; T45.515A Adverse effect of anticoagulants, initial encounter; Y92.89 Other specified places as the place of occurrence of the external cause
CPT/HCPCS: 36415; 71045; 80053; 83735; 85025; 85610; 85730; 86140; 93005; J3490; 84145; 85014; 85018; 85379; 86850; 86900; 86901; 87040; 87086; 87641; 93010; 97110-GP; 97116-GP; 97162-GP; 97166-GO; 97530-GP; 99222; 99232; 99239; 99285; A9270-GY; C9113; J0696; J2060; J3475; J3480; J7030; J7050; U0002

== ENCOUNTER 2023-03-15 09:41 | Emergency (ER) | payer MEDICARE, BC ==
[2023-03-15 11:48] LABS: APPEARANCE,URINE CLEAR (Clear); BILIRUBIN,URINE NEGATIVE (Negative); COLOR,URINE YELLOW (Yellow); GLUCOSE,URINE NEGATIVE (Negative); KETONES,URINE NEGATIVE (Negative); LEUKOCYTE ESTERASE,URINE NEGATIVE (Negative); NITRITE,URINE NEGATIVE (Negative); OCCULT BLOOD,URINE 3+ (Negative); PH,URINE 6.5 (5.0-8.0); PROTEIN,URINE NEGATIVE (Negative); UROBILINOGEN,URINE 0.2 (0.2-1.0)
[2023-03-15 11:55] LABS: BASOPHILS ABSOLUTE AUTO 0.03 K/mm3 (0.01-0.08); BASOPHILS PERCENT AUTO 0.7 % (0.1-1.2); EOSINOPHILS ABSOLUTE AUTO 0.12 K/mm3 (0.04-0.54); EOSINOPHILS PERCENT AUTO 2.7 (0.8-7.0); HEMATOCRIT 35.8 % (40.1-51.0); HEMOGLOBIN 11.5 gm/dl (13.7-17.5); IMMATURE GRAN ABSOLUTE AUTO 0.01 K/mm3 (0.00-0.10); IMMATURE GRAN PERCENT AUTO 0.2 % (<=1.0); LYMPHOCYTES ABSOLUTE AUTO 0.67 K/mm3 (1.32-3.57); LYMPHOCYTES PERCENT AUTO 15.1 % (21.8-53.1); MEAN CORPUSCULAR HEMOGLOBIN 30.6 pg (25.7-32.2); MEAN CORPUSCULAR HGB CONC 32.1 g/dl (32.2-35.5); MEAN CORPUSCULAR VOLUME 95.2 fl (79.0-92.2); MEAN PLATELET VOLUME 10.5 fl (9.4-12.3); MONOCYTES ABSOLUTE AUTO 0.49 K/mm3 (0.30-0.82); NEUTROPHILS ABSOLUTE AUTO 3.13 K/mm3 (1.78-5.38); NEUTROPHILS PERCENT AUTO 70.3 % (34.0-67.9); PLATELET COUNT,PLT 117 K/mm3 (163-337); RED BLOOD CELL COUNT 3.76 M/mm3 (4.63-6.08); WHITE BLOOD CELL COUNT,WBC 4.45 K/mm3 (4.23-9.07)
[2023-03-15 11:58] LABS: EPITHELIAL CELLS,URINE NOT SEEN /hpf (0-5); RBC,URINE 20-30 /hpf (0-5); WBC,URINE NOT SEEN /hpf (0-5)
[2023-03-15 11:59] LABS: BACTERIA,URINE NOT SEEN /hpf (FEW); MUCUS,URINE NOT SEEN /hpf (FEW)
[2023-03-15 12:14] LABS: ALBUMIN 3.3 g/dl (3.4-5.0); ANION GAP 11.7 (5-15); BILIRUBIN TOTAL 0.5 mg/dL (0.2-1.0); BUN/CREATININE RATIO 13.8 (14-18); C-REACTIVE PROTEIN 0.4 mg/dL (<1.0); CALCIUM 8.4 mg/dL (8.5-10.1); CREATININE 1.3 mg/dL (0.7-1.3); EST CRCL DRUG DOSING (CG) 44.51 mL/min; POTASSIUM,K 3.7 mEq/L (3.5-5.1); PROTEIN TOTAL,TP 6.6 g/dl (6.4-8.2)
[2023-03-15 18:41] VITALS: BP 123/57; PULSE 68
== END 2023-03-15 12:37 | disposition home or self-care (01) ==
LOC: JD.ED 09:41
DX: F03.90 Unspecified dementia, unspecified severity, without behavioral disturbance, psychotic disturbance, mood disturbance, and anxiety (principal); I48.91 Unspecified atrial fibrillation; I25.10 Atherosclerotic heart disease of native coronary artery without angina pectoris; N18.9 Chronic kidney disease, unspecified; E03.9 Hypothyroidism, unspecified; K21.9 Gastro-esophageal reflux disease without esophagitis; J44.9 Chronic obstructive pulmonary disease, unspecified; N40.0 Benign prostatic hyperplasia without lower urinary tract symptoms; Z88.5 Allergy status to narcotic agent; Z88.8 Allergy status to other drugs, medicaments and biological substances; Z79.899 Other long term (current) drug therapy; Z79.01 Long term (current) use of anticoagulants
CPT/HCPCS: 36415; 80053; 81001; 85025; 86140; 99284

== ENCOUNTER 2023-03-25 12:30 | Inpatient (IN) | payer OTHER, MEDICARE, BC ==
[2023-03-25] MEDS ORDERED: Sodium Chloride 0.9% 10 ML Syringe FLUSH PRN (12:39)
[2023-03-25 13:02] LABS: BASOPHILS ABSOLUTE AUTO 0.02 K/mm3 (0.01-0.08); BASOPHILS PERCENT AUTO 0.3 % (0.1-1.2); EOSINOPHILS ABSOLUTE AUTO 0.06 K/mm3 (0.04-0.54); EOSINOPHILS PERCENT AUTO 0.8 (0.8-7.0); HEMATOCRIT 37.6 % (40.1-51.0); HEMOGLOBIN 12.2 gm/dl (13.7-17.5); IMMATURE GRAN ABSOLUTE AUTO 0.01 K/mm3 (0.00-0.10); IMMATURE GRAN PERCENT AUTO 0.1 % (<=1.0); LYMPHOCYTES ABSOLUTE AUTO 0.87 K/mm3 (1.32-3.57); LYMPHOCYTES PERCENT AUTO 11.2 % (21.8-53.1); MEAN CORPUSCULAR HEMOGLOBIN 30.9 pg (25.7-32.2); MEAN CORPUSCULAR HGB CONC 32.4 g/dl (32.2-35.5); MEAN CORPUSCULAR VOLUME 95.2 fl (79.0-92.2); MEAN PLATELET VOLUME 10.4 fl (9.4-12.3); MONOCYTES ABSOLUTE AUTO 0.89 K/mm3 (0.30-0.82); MONOCYTES PERCENT AUTO 11.4 % (5.3-12.2); NEUTROPHILS ABSOLUTE AUTO 5.93 K/mm3 (1.78-5.38); NEUTROPHILS PERCENT AUTO 76.2 % (34.0-67.9); PLATELET COUNT,PLT 123 K/mm3 (163-337); RED BLOOD CELL COUNT 3.95 M/mm3 (4.63-6.08); WHITE BLOOD CELL COUNT,WBC 7.78 K/mm3 (4.23-9.07)
[2023-03-25 13:25] LABS: A/G RATIO 0.9 (1-2); ALBUMIN 3.3 g/dl (3.4-5.0); ANION GAP 12.5 (5-15); BILIRUBIN TOTAL 0.8 mg/dL (0.2-1.0); BUN/CREATININE RATIO 12.1 (14-18); CALCIUM 8.5 mg/dL (8.5-10.1); CREATININE 1.4 mg/dL (0.7-1.3); EST CRCL DRUG DOSING (CG) 38.88 mL/min; POTASSIUM,K 3.5 mEq/L (3.5-5.1); PROTEIN TOTAL,TP 6.9 g/dl (6.4-8.2)
[2023-03-25 14:38] LABS: APPEARANCE,URINE CLEAR (Clear); BILIRUBIN,URINE NEGATIVE (Negative); COLOR,URINE YELLOW (Yellow); GLUCOSE,URINE NEGATIVE (Negative); KETONES,URINE NEGATIVE (Negative); LEUKOCYTE ESTERASE,URINE NEGATIVE (Negative); NITRITE,URINE NEGATIVE (Negative); OCCULT BLOOD,URINE TRACE-INTACT (Negative); PROTEIN,URINE NEGATIVE (Negative); UROBILINOGEN,URINE 0.2 (0.2-1.0)
[2023-03-25 14:57] LABS: EPITHELIAL CELLS,URINE 0-5 /hpf (0-5); WBC,URINE 0-5 /hpf (0-5)
[2023-03-25 14:58] LABS: BACTERIA,URINE FEW /hpf (FEW); MUCUS,URINE FEW /hpf (FEW)
[2023-03-25] MEDS ORDERED: Docusate Sodium 100 MG Cap PO PRN (16:03)
[2023-03-25] MEDS ORDERED: Acetaminophen 325 MG Tab PO PRN (16:03)
[2023-03-25] MEDS ORDERED: Ondansetron 4 MG Tab.DIS PO PRN (16:03)
[2023-03-25] MEDS: Heparin Sodium 5,000 Units/ML Vial SUBCUT SCH ×2 (18:33→23:45)
[2023-03-26] MEDS: Heparin Sodium 5,000 Units/ML Vial SUBCUT SCH (09:05)
[2023-03-26 13:10] LABS: INR 2.27; PROTHROMBIN TIME 22.9 SECONDS (9.7-12.0)
[2023-03-26] MEDS ORDERED: Cholecalciferol (Vitamin D3) 25 MCG Tab PO SCH (18:00)
[2023-03-26] MEDS ORDERED: Warfarin 2.5 MG Tab PO SCH (18:00)
[2023-03-26] MEDS ORDERED: Mirtazapine 15 MG Tab PO SCH (21:00)
[2023-03-26] MEDS: Potassium Chloride 10 MEQ Tab.ER PO SCH (21:33)
[2023-03-27] MEDS ORDERED: Levothyroxine 25 MCG Tab PO SCH (06:00)
[2023-03-27] MEDS ORDERED: Pantoprazole 40 MG Tab.CR PO SCH (07:00)
[2023-03-27 08:34] VITALS: BP 119/63; PULSE 118
[2023-03-27] MEDS: Potassium Chloride 10 MEQ Tab.ER PO SCH (08:43)
[2023-03-27] MEDS ORDERED: Torsemide 20 MG Tab PO SCH (09:00)
[2023-03-27] MEDS ORDERED: Finasteride 5 MG Tab PO SCH (09:00)
[2023-03-27] MEDS ORDERED: Folic Acid 1 MG Tab PO SCH (09:00)
[2023-03-27] MEDS ORDERED: Docusate Sodium 100 MG Cap PO SCH (09:00)
[2023-03-27] MEDS ORDERED: Ferrous Sulfate 324 MG Tab.EC PO SCH (09:00)
[2023-03-27] MEDS ORDERED: Sennosides 8.6 MG Tab PO SCH (09:00)
[2023-03-27] MEDS ORDERED: Vitamin B Complex With Vitamin C Cap PO SCH (09:00)
[2023-03-27] MEDS ORDERED: Multivitamins with Minerals/Folic Acid/Lutein/Zeaxanth Tab PO SCH (09:00)
[2023-03-27] MEDS ORDERED: Tamsulosin 0.4 MG Cap.ER PO SCH (09:00)
[2023-03-28] MEDS ORDERED: Warfarin 5 MG Tab PO SCH (18:00)
== END 2023-03-27 09:00 | DRG 309 ==
LOC: JD.ED 12:30 → OBSVTOIN 17:07 → JD.MS 17:07
PROVIDERS: ADMIT Hospitalist; ATTEND Hospitalist
DX: I48.91 Unspecified atrial fibrillation (principal); I13.0 Hypertensive heart and chronic kidney disease with heart failure and stage 1 through stage 4 chronic kidney disease, or unspecified chronic kidney disease; T44.7X5A Adverse effect of beta-adrenoreceptor antagonists, initial encounter; Z74.1 Need for assistance with personal care; I11.0 Hypertensive heart disease with heart failure; T46.1X5A Adverse effect of calcium-channel blockers, initial encounter; F03.90 Unspecified dementia, unspecified severity, without behavioral disturbance, psychotic disturbance, mood disturbance, and anxiety; Z66 Do not resuscitate; I50.9 Heart failure, unspecified; E78.00 Pure hypercholesterolemia, unspecified; N40.0 Benign prostatic hyperplasia without lower urinary tract symptoms; Z96.0 Presence of urogenital implants; J44.9 Chronic obstructive pulmonary disease, unspecified; G47.30 Sleep apnea, unspecified; K21.9 Gastro-esophageal reflux disease without esophagitis; N18.9 Chronic kidney disease, unspecified; M19.90 Unspecified osteoarthritis, unspecified site; F32.A Depression, unspecified; E03.9 Hypothyroidism, unspecified; E55.9 Vitamin D deficiency, unspecified; R62.51 Failure to thrive (child); R33.9 Retention of urine, unspecified; R31.9 Hematuria, unspecified; Z95.828 Presence of other vascular implants and grafts; Z68.24 Body mass index [BMI] 24.0-24.9, adult; Z88.8 Allergy status to other drugs, medicaments and biological substances; Z79.01 Long term (current) use of anticoagulants; Z79.899 Other long term (current) drug therapy; Z87.01 Personal history of pneumonia (recurrent); Z87.440 Personal history of urinary (tract) infections; Z98.49 Cataract extraction status, unspecified eye; Z90.89 Acquired absence of other organs; Z95.2 Presence of prosthetic heart valve; Z90.49 Acquired absence of other specified parts of digestive tract; Z98.890 Other specified postprocedural states
CPT/HCPCS: 36415; 51702; 70450; 71045; 80053; 81001; 85025; 86140; 93005; 99285; J3490; 85610; 87641; 93010; 97116-GP; 97162-GP; 99284; A9270-GY; J1644